=== PATIENT | female | born 1945 | race Caucasian/White ===

== ENCOUNTER 2018-03-09 08:00 | Emergency (ER) | payer OTHER ==
[2018-03-09] MEDS ORDERED: IPRATROPIUM BROM 0.5MG/2.5ML ONE (08:55)
[2018-03-09] MEDS ORDERED: ALBUTEROL 2.5 MG/3 ML NEB SOL ONE (08:57)
[2018-03-09 08:59] LABS: Absolute Lymphocytes (CBC) 1.4 K/uL (0.7-4.9); Absolute Monocytes 1.3 K/uL (0.1-1.3); Absolute Neutrophil 10.6 K/uL (1.8-8.0); Basophils % 0.7 % (0-1.3); Lymphocytes % 10.2 % (15.3-44.8); MCV 89.5 fL (80-100); MPV 9.9 fL (7.6-11.3); Monocytes % 9.9 % (3.3-12.3)
--- NOTE | 2018-03-09 09:03 | RAD REPORT ---
EXAM DESCRIPTION: RAD - Chest Single View - 03/09/2018 8:52 am CLINICAL HISTORY: Shortness of breath COMPARISON: 11/09/2017 FINDINGS: Portable technique limits examination quality. The lungs are mildly emphysematous without focal infiltrate detected. The heart is upper limit normal size. Vague areas of nodularity are seen in the left mid lung and right apex, which may be related t o the end of the ribs, however, pulmonary nodules not excluded. Followup nonemergent CT chest assessm ent would be suggested.
[2018-03-09 09:22] LABS: Protime INR 0.89
[2018-03-09 09:31] LABS: Potassium 3.8 mEq/L (3.6-5.0)
[2018-03-09 09:32] LABS: Magnesium 1.9 mg/dL (1.8-2.5)
--- NOTE | 2018-03-09 09:56 | ER ---
Nurse's Notes [facility] Name: Dina Oviedo Age: 73 yrs Sex: Female : 1945 Arrival Date: 03/09/2018 Time: 08:01 Bed 16 Private MD: Diagnosis: Chronic obstructive pulmonary disease, unspecified Presentation: 03/09 08:14 Presenting complaint: Patient states: " I woke up in the middle of the night with acid ph reflux and I thought maybe I aspirated some of it because I started feeling SOB. My oxygen level at home was 93%. If I sit still my breathing is okay but just walking a short distance makes me feel really winded." Reports cough, denies fever, hx of COPD. Transition of care: patient was not received from another setting of care. Onset of symptoms was March 09, 2018. Initial Sepsis Screen: Does the patient meet any 2 criteria? No. Patient's initial sepsis screen is negative. Does the patient have a suspected source of infection? No. Patient's initial sepsis screen is negative. Care prior to arrival: None. 08:14 Method Of Arrival: Ambulatory ph 08:14 Acuity: SCOTTIE 3 ph Historical: - Allergies: 08:19 Ativan; combative reaction; ph 08:19 tramadol; ph - Home Meds: 08:25 amlodipine 10 mg tab 1 tab once daily [Active]; clonidine HCl 0.2 mg Oral tab 1 tab ph once daily [Active]; clopidogrel 75 mg Oral tab 1 tab once daily for Acute Coronary Syndrome [Active]; Lasix 20 mg oral tab 1 tab once daily [Active]; prednisone 10 mg Oral tab once daily [Active]; Protonix 40 mg Oral TbEC 1 tab once daily [Active]; sotalol 80 mg Oral tab 1 tab 2 times per day [Active]; DuoNeb 0.5 mg-3 mg(2.5 mg base)/3 mL Inhl nebu 3 mL 4 times per day [Active]; Brovana 15 mcg/2 mL inhalation nebu 2 mL 2 times per day [Active]; - PMHx: 08:25 acute respiratory failure; Anxiety; CHF; COPD; Dementia; Depression; heart blockage; ph High Cholesterol; Schizophrenia; Hypertension; - PSHx: 08:25 lung surg; Hysterectomy; Appendectomy; Tonsillectomy; ph - Immunization history:: Adult Immunizations unknown. - Social history:: Smoking status: Patient/guardian denies using tobacco. Screenin:30 Abuse screen: Denies threats or abuse. Denies injuries from another. Nutritional ph screening: No deficits noted. Tuberculosis screening: No symptoms or risk factors identified. Fall Risk None identified. Assessment: 08:30 General: Appears in no apparent distress. uncomfortable, well groomed, Behavior is ph calm, cooperative, appropriate for age, Denies fever, feeling ill. Pain: Denies pain. Neuro: Level of Consciousness is awake, alert, obeys commands, Oriented to person, place, time, situation. Cardiovascular: Reports shortness of breath, Denies chest pain, lightheadedness, nausea, vomiting, Rhythm is regular. Respiratory: Reports shortness of breath on exertion cough that is non-productive, Airway is patent Respiratory effort is even, unlabored, Respiratory pattern is regular, symmetrical, Breath sounds are coarse in right upper lobe and left upper lobe. GI: No signs and/or symptoms were reported involving the gastrointestinal system. EENT: Denies nasal congestion, nasal discharge. Derm: Skin is intact, is healthy with good turgor, Skin is pink, warm \\T\\ dry. Musculoskeletal: Circulation, motion, and sensation intact. Range of motion: intact in all extremities. 09:30 Reassessment: Patient appears in no apparent distress at this time. Patient and/or ph family updated on plan of care and expected duration. Pain level reassessed. Patient is alert, oriented x 3, equal unlabored respirations, skin warm/dry/pink. Pt resting quietly, awaiting lab and Xray results. Vital Signs: 08:17 BP 140 / 65; Pulse 72; Resp 26; Temp 99.0; Pulse Ox 94% on R/A; ph ED Course: 08:01 Patient arrived in ED. ds1 08:13 Cathryn Bonilla, ROMAN is Primary Nurse. ph 08:14 Chandra Vigil PA is PHCP. jr8 08:14 Luis Hearn MD is Attending Physician. jr8 08:17 Triage completed. ph 08:30 Patient has correct armband on for positive identification. Placed in gown. Bed in low ph position. Call light in reach. Side rails up X 1. contractor buyer on. Pulse ox on. NIBP on. Warm blanket given. 08:49 Arm band placed on. ph 08:50 X-ray completed. Portable x-ray completed in exam room. Patient tolerated procedure ml well. 08:53 XRAY Chest (1 view) In Process Unspecified. EDMS 09:12 EKG done, by measurement and sensing technician. reviewed by Chandra JANG. 10:00 No provider procedures requiring assistance completed. Patient did not have IV access ph during this emergency room visit. Administered Medications: 09:01 Drug: Albuterol - atroVENT (3:1) (2.5 mg - 0.5 mg) 3 ml Route: Nebulizer; ph 10:00 Follow up: Response: No adverse reaction; Wheezing diminished ph Outcome: 09:55 Discharge ordered by MD. crum 10:21 Patient left the ED. ph 10:21 Discharged to home via wheelchair. ph 10:21 Condition: good 10:21 Discharge instructions given to patient, Instructed on discharge instructions, follow up and referral plans. Demonstrated understanding of instructions, follow-up care. Signatures: Dispatcher [employer] EDWV Adeola Preston dsJennifer Cates Josh, PA PA jr8 Meme Ruiz Cathryn Bonilla, RN RN ph
--- NOTE | 2018-03-09 09:56 | EDPHYS ---
Physician Documentation [facility] Name: Dina Oviedo Age: 73 yrs Sex: Female : 1945 Arrival Date: 03/09/2018 Time: 08:01 Bed 16 Private MD: ED Physician Luis Hearn HPI: 03/09 08:31 This 73 yrs old Female presents to ER via Ambulatory with complaints of jr8 Shortness Of Breath. 08:31 The patient has shortness of breath at rest. Onset: The symptoms/episode began/occurred jr8 acutely, today. Duration: The symptoms are continuous. The patient's shortness of breath is aggravated by exertion. Associated signs and symptoms: Pertinent positives: non-productive cough, Pertinent negatives: chest pain, dizziness, fever, hemoptysis, loss of consciousness, nausea, vomiting. Severity of symptoms: At their worst the symptoms were moderate in the emergency department the symptoms have improved moderately. It is unknown whether or not the patient has had similar symptoms in the past. The patient has not recently seen a physician. Patient stated that she woke up with indigestion and reflux sensation. Stated that since then has resolved but had shortness of breath at the time and felt as if she was gasping for air. History of pneumonia and wanted to make sure she did not aspirate and cause pneumonia again . Historical: - Allergies: 08:19 Ativan; combative reaction; ph 08:19 tramadol; ph - Home Meds: 08:25 amlodipine 10 mg tab 1 tab once daily [Active]; clonidine HCl 0.2 mg Oral tab 1 tab ph once daily [Active]; clopidogrel 75 mg Oral tab 1 tab once daily for Acute Coronary Syndrome [Active]; Lasix 20 mg oral tab 1 tab once daily [Active]; prednisone 10 mg Oral tab once daily [Active]; Protonix 40 mg Oral TbEC 1 tab once daily [Active]; sotalol 80 mg Oral tab 1 tab 2 times per day [Active]; DuoNeb 0.5 mg-3 mg(2.5 mg base)/3 mL Inhl nebu 3 mL 4 times per day [Active]; Brovana 15 mcg/2 mL inhalation nebu 2 mL 2 times per day [Active]; - PMHx: 08:25 acute respiratory failure; Anxiety; CHF; COPD; Dementia; Depression; heart blockage; ph High Cholesterol; Schizophrenia; Hypertension; - PSHx: 08:25 lung surg; Hysterectomy; Appendectomy; Tonsillectomy; ph - Immunization history:: Adult Immunizations unknown. - Social history:: Smoking status: Patient/guardian denies using tobacco. ROS: 08:31 Eyes: Negative for injury, pain, redness, and discharge, ENT: Negative for injury, jr8 pain, and discharge, Neck: Negative for injury, pain, and swelling, Cardiovascular: Negative for chest pain, palpitations, and edema, Abdomen/GI: Negative for abdominal pain, nausea, vomiting, diarrhea, and constipation, Back: Negative for injury and pain, MS/Extremity: Negative for injury and deformity, Skin: Negative for injury, rash, and discoloration, Neuro: Negative for headache, weakness, numbness, tingling, and seizure. 08:31 Respiratory: Positive for cough, dyspnea on exertion, shortness of breath. Exam: 08:31 Eyes: Pupils equal round and reactive to light, extra-ocular motions intact. Lids and jr8 lashes normal. Conjunctiva and sclera are non-icteric and not injected. Cornea within normal limits. Periorbital areas with no swelling, redness, or edema. ENT: Nares patent. No nasal discharge, no septal abnormalities noted. Tympanic membranes are normal and external auditory canals are clear. Oropharynx with no redness, swelling, or masses, exudates, or evidence of obstruction, uvula midline. Mucous membranes moist. Neck: Trachea midline, no thyromegaly or masses palpated, and no cervical lymphadenopathy. Supple, full range of motion without nuchal rigidity, or vertebral point tenderness. No Meningismus. Cardiovascular: Regular rate and rhythm with a normal S1 and S2. No gallops, murmurs, or rubs. Normal PMI, no JVD. No pulse deficits. Abdomen/GI: Soft, non-tender, with normal bowel sounds. No distension or tympany. No guarding or rebound. No evidence of tenderness throughout. Back: No spinal tenderness. No costovertebral tenderness. Full range of motion. Skin: Warm, dry with normal turgor. Normal color with no rashes, no lesions, and no evidence of cellulitis. MS/ Extremity: Pulses equal, no cyanosis. Neurovascular intact. Full, normal range of motion. Neuro: Awake and alert, GCS 15, oriented to person, place, time, and situation. Cranial nerves II-XII grossly intact. Motor strength 5/5 in all extremities. Sensory grossly intact. Cerebellar exam normal. Normal gait. 08:31 Respiratory: the patient does not display signs of respiratory distress, Respirations: normal, symetrical, no use of accessory muscles, no grunting, no evidence of nasal flaring, no prolonged exhalations, no pursed lip breathing, no retractions, no shallow respirations, no splinting, no tachypnea, Breath sounds: rhonchi, that are mild, are scattered. Vital Signs: 08:17 BP 140 / 65; Pulse 72; Resp 26; Temp 99.0; Pulse Ox 94% on R/A; ph MDM: 08:14 Patient medically screened. jr8 09:54 Data reviewed: vital signs, nurses notes, lab test result(s), EKG, radiologic studies, jr8 plain films, and as a result, I will discharge patient. Data interpreted: Pulse oximetry: on room air is 94 %. Interpretation: baseline for patient . Counseling: I had a detailed discussion with the patient and/or guardian regarding: the historical points, exam findings, and any diagnostic results supporting the discharge/admit diagnosis, lab results, radiology results, the need for outpatient follow up, a family practitioner, to return to the emergency department if symptoms worsen or persist or if there are any questions or concerns that arise at home. Response to treatment: the patient's symptoms have markedly improved after treatment. ED course: No signs for pneumonia. To f/u with PCP. If worse to come back . 03/09 08:20 Order name: Basic Metabolic Panel; Complete Time: 09:42 03/09 08:20 Order name: BNP; Complete Time: 09:51 03/09 08:20 Order name: CBC with Diff; Complete Time: 09:28 03/09 08:20 Order name: Magnesium; Complete Time: :42 03/09 08:20 Order name: PT-INR; Complete Time: :28 03/09 08:20 Order name: Troponin (emerg Dept Use Only); Complete Time: 09:42 03/09 08:20 Order name: XRAY Chest (1 view); Complete Time: 09:04 03/09 08:20 Order name: EKG; Complete Time: 08:21 03/09 08:20 Order name: Cardiac monitoring; Complete Time: 08:48 03/09 08:20 Order name: EKG - Nurse/Tech; Complete Time: 09:02 03/09 08:20 Order name: Labs collected and sent; Complete Time: 08:49 03/09 08:20 Order name: O2 Per Protocol; Complete Time: 08:49 03/09 08:20 Order name: O2 Sat Monitoring; Complete Time: 08:49 Administered Medications: 09:01 Drug: Albuterol - atroVENT (3:1) (2.5 mg - 0.5 mg) 3 ml Route: Nebulizer; ph 10:00 Follow up: Response: No adverse reaction; Wheezing diminished ph Disposition: 03/09/18 09:55 Discharged to Home. Impression: Chronic obstructive pulmonary disease, unspecified. - Condition is Stable. - Discharge Instructions: Chronic Bronchitis. - Medication Reconciliation Form, Thank You Letter, Antibiotic Education, Prescription Opioid Use form. - Follow up: Private Physician; When: 2 - 3 days; Reason: Recheck today's complaints, Continuance of care, Re-evaluation by your physician. - Problem is new. - Symptoms have improved. Addendum: 03/12/2018 20:56 Co-signature as Attending Physician, Luis Hearn MD. r n Signatures: Dispatcher [employer] EDLuis Dumont MD MD rn Chandra Vigil PA PA jr8 Cathryn Bonilla RN RN ph Corrections: (The following items were deleted from the chart) 03/09 10:21 09:55 03/09/2018 09:55 Discharged to Home. Impression: Chronic obstructive pulmonary ph disease, unspecified. Condition is Stable. Forms are Medication Reconciliation Form, Thank You Letter, Antibiotic Education, Prescription Opioid Use. Follow up: Private Physician; When: 2 - 3 days; Reason: Recheck today's complaints, Continuance of care, Re-evaluation by your physician. Problem is new. Symptoms have improved. jr8
[2018-03-09 10:24] VITALS: BP 140/65; TEMP 99; O2SAT 94
--- NOTE | 2018-03-09 10:27 | EKG ---
Test Date: 2018-03-09 Test Time: 08:48:17 Ironing Worker: JOYCE MEASUREMENT RESULTS: Intervals: Rate: 68 MI: 118 QRSD: 64 QT: 434 QTc: 461 [place]: P: 29 MI: 118 QRS: 63 T: 69 INTERPRETIVE STATEMENTS: Sinus rhythm with premature atrial complexes Otherwise normal ECG Compared to ECG 10/15/2017 11:06:02 Atrial premature complex(es) now present Electronically Signed On 03-09-18 10:26:59 CDT by Bulmaro Pittman
== END 2018-03-09 10:21 | disposition home or self-care (01) ==
LOC: ER 08:00
DX: J44.9 Chronic obstructive pulmonary disease, unspecified (principal); I10 Essential (primary) hypertension; I50.9 Heart failure, unspecified; F32.9 Major depressive disorder, single episode, unspecified; E78.5 Hyperlipidemia, unspecified; F41.9 Anxiety disorder, unspecified; Z88.6 Allergy status to analgesic agent; Z88.8 Allergy status to other drugs, medicaments and biological substances
CPT/HCPCS: 36415; 71045; 80048; 83735; 83880; 84484; 85025; 85610; 93005; 94640; 99284

== ENCOUNTER 2018-09-25 09:58 | Emergency (ER) | payer OTHER ==
[2018-09-25] MEDS ORDERED: METHYLPREDNISOLONE 125 MG INJ ONE (10:46)
[2018-09-25] MEDS ORDERED: LEVALBUTEROL 1.25 MG/3 ML NEB ONE (10:47)
--- NOTE | 2018-09-25 11:23 | RAD REPORT ---
EXAM DESCRIPTION: RAD - Chest Pa And Lat (2 Views) - 09/25/2018 10:49 am CLINICAL HISTORY: Shortness of breath, dyspnea COMPARISON: April 2018 TECHNIQUE: PA and lateral views of the chest were obtained. FINDINGS: The lungs are fibrotic. Diaphragm is flattened. Interstitial pattern is not clearly differ ent from April. Minimal interstitial edema or infiltrate could be masked by the chronic disease. No f ocal consolidation, mass or significant failure finding. Heart size is normal and central vasculature is within normal limits. No pleural effusion or pneumothorax seen. No acute bony finding noted. Mi dthoracic wedge compression unchanged. No aortic abnormality. IMPRESSION: Chronic interstitial lung disease similar to comparison. No acute finding.
[2018-09-25 11:36] LABS: BUN Blood Urea Nitrogen 12 mg/dL (7-18); Bicarbonate 28 mmol/L (21-32); CKMB Creatine Kinase MB < 1.0 ng/mL (0.3-3.6); Creatine Phosphokinase 67 U/L (26-192); Glucose Level 120 mg/dL (74-106); NT PRO-BNP 1603 pg/mL (<125); Sodium Level 141 mmol/L (136-145); Troponin (Emerg Dept Use Only) < 0.02 ng/mL (0.0-0.045)
[2018-09-25 11:39] LABS: Potassium 2.8 mmol/L (3.5-5.1)
[2018-09-25 11:42] LABS: Absolute Lymphocytes (CBC) 1.3 K/uL (0.7-4.9); Absolute Monocytes 0.7 K/uL (0.1-1.3); Absolute Neutrophil 5.4 K/uL (1.8-8.0); Basophils % 0.8 % (0-1.3); Eosinophils % 2.4 % (0-4.4); Hematocrit 42.9 % (36.0-45.0); MCH 31.1 pg (27.0-35.0); MCV 90.7 fL (80-100); MPV 11.2 fL (7.6-11.3); Monocytes % 9.1 % (3.3-12.3); RBC Red Blood Cell Count 4.73 M/uL (3.86-4.86)
--- NOTE | 2018-09-25 12:09 | EKG ---
Test Date: 2018-09-25 Test Time: 10:16:32 Head Of Marketing: RODRIGO MEASUREMENT RESULTS: Intervals: Rate: 67 AR: 134 QRSD: 60 QT: 506 QTc: 534 [place]: P: 90 AR: 134 QRS: 56 T: 1 INTERPRETIVE STATEMENTS: Sinus rhythm with marked sinus arrhythmia ST & T wave abnormality, consider inferior ischemia Prolonged QT Abnormal ECG Compared to ECG 03/09/2018 08:48:17 ST (T wave) deviation now present Possible ischemia now present Prolonged QT interval now present Atrial premature complex(es) no longer present Electronically Signed On 09-25-18 12:09:00 REGIONAL OWNER OPERATOR TRUCK DRIVER by Bulmaro Pittman
[2018-09-25] MEDS ORDERED: FUROSEMIDE 20 MG/ 2ML VIAL ONE (12:25)
[2018-09-25] MEDS ORDERED: KCL 20 MEQ/100 mL IVPB 20 MEQ/100 ML BAG IV ONE (12:26)
--- NOTE | 2018-09-25 14:56 | ER ---
Nurse's Notes [facility] Name: Dina Oviedo Age: 73 yrs Sex: Female : 1945 Arrival Date: 09/25/2018 Time: 10:01 Bed 6 Private MD: Devyn Cain V Diagnosis: Dyspnea, unspecified;Chronic obstructive pulmonary disease, unspecified Presentation: 09/25 10:09 Presenting complaint: Patient states: Report shortness of breath at rest since this jl7 morning, denies chest pain. Transition of care: patient was not received from another setting of care. Onset of symptoms was September 25, 2018. Risk Assessment: Do you want to hurt yourself or someone else? Patient reports no desire to harm self or others. Initial Sepsis Screen: Does the patient meet any 2 criteria? No. Patient's initial sepsis screen is negative. Does the patient have a suspected source of infection? No. Patient's initial sepsis screen is negative. Care prior to arrival: None. 10:09 Method Of Arrival: Ambulatory jl7 10:09 Acuity: SCOTTIE 3 jl7 Triage Assessment: 10:11 General: Appears in no apparent distress. uncomfortable, Behavior is calm, cooperative, jl7 appropriate for age. Pain: Denies pain. Neuro: Level of Consciousness is awake, alert, obeys commands, Oriented to person, place, time, situation. Cardiovascular: Patient's skin is warm and dry. Respiratory: Reports shortness of breath at rest Airway is patent Respiratory effort is even, labored, Respiratory pattern is symmetrical, tachypnea Onset: The symptoms/episode began/occurred this morning, the patient has moderate shortness of breath. Derm: Skin is pink, warm \T\ dry. Historical: - Allergies: 10:11 Ativan; combative reaction; jl7 10:11 tramadol; jl7 - PMHx: 10:11 acute respiratory failure; CHF; Anxiety; COPD; Dementia; Depression; heart blockage; jl7 High Cholesterol; Hypertension; Schizophrenia; - PSHx: 10:11 lung surg; Hysterectomy; Appendectomy; Tonsillectomy; jl7 - Immunization history:: Adult Immunizations up to date. - Social history:: Smoking status: Patient/guardian denies using tobacco. - Ebola Screening: : No symptoms or risks identified at this time. - Family history:: not pertinent. - Hospitalizations: : No recent hospitalization is reported. Screenin:15 Abuse screen: Denies threats or abuse. Denies injuries from another. Nutritional sg screening: No deficits noted. Tuberculosis screening: No symptoms or risk factors identified. Never had TB. Fall Risk None identified. Assessment: 10:15 General: Appears in no apparent distress. comfortable, well groomed, well developed, sg well nourished, Behavior is calm, cooperative, appropriate for age. Pain: Denies pain. Neuro: Level of Consciousness is awake, alert, obeys commands, Oriented to person, place, time, situation, Machine Stripper are equal bilaterally Moves all extremities. Full function Gait is steady, with a walker. Speech is normal, Facial symmetry appears normal. Cardiovascular: Capillary refill is brisk in bilateral fingers Patient's skin is warm and dry. Pulses are palpable in right radial artery and left radial artery Chest pain is denied. Respiratory: Reports shortness of breath at rest Airway is patent Respiratory effort is even, unlabored, Respiratory pattern is regular, symmetrical, Breath sounds are coarse bilaterally. the patient has mild shortness of breath. GI: Abdomen is round non-distended, Bowel sounds present X 4 quads. Reports tolerance of fluids, tolerance of food, decreased appetite for several months. : No signs and/or symptoms were reported regarding the genitourinary system. EENT: No signs and/or symptoms were reported regarding the EENT system. Derm: Skin is intact, is healthy with good turgor, Skin is dry, Skin is pale, Skin temperature is warm. Musculoskeletal: No signs and/or symptoms reported regarding the musculoskeletal system. 10:30 Cardiovascular: Rhythm is sinus rhythm. sg 11:20 Reassessment: Patient appears in no apparent distress at this time. Patient and/or sg family updated on plan of care and expected duration. Pain level reassessed. Patient is alert, oriented x 3, equal unlabored respirations, skin warm/dry/pink. Patient states feeling better. 12:30 Reassessment: Patient appears in no apparent distress at this time. Patient and/or sg family updated on plan of care and expected duration. Pain level reassessed. Patient is alert, oriented x 3, equal unlabored respirations, skin warm/dry/pink. Patient states feeling better. 13:59 Reassessment: Patient appears in no apparent distress at this time. Patient and/or sg family updated on plan of care and expected duration. Pain level reassessed. Patient is alert, oriented x 3, equal unlabored respirations, skin warm/dry/pink. IV potassium continues to infuse. Vital Signs: 10:11 BP 133 / 64; Pulse 69; Resp 24 S; Pulse Ox 95% on R/A; Weight 91.63 kg (R); Height 5 jl7 ft. 6 in. (167.64 cm) (R); Pain 0/10; 11:20 BP 132 / 66; Pulse 70; Resp 22; Pulse Ox 98% on R/A; Pain 0/10; sg 12:20 BP 133 / 64; Pulse 66; Pulse Ox 96% on R/A; Pain 0/10; sg 10:11 Body Mass Index 32.60 (91.63 kg, 167.64 cm) jl7 ED Course: 10:01 Patient arrived in ED. sb2 10:01 Devyn Cain MD is Private Physician. sb2 10:10 Triage completed. jl7 10:11 Guilherme Krueger, RN is Primary Nurse. sg 10:11 Arm band placed on right wrist. jl7 10:15 Patient has correct armband on for positive identification. Bed in low position. Call sg light in reach. Side rails up X2. cafeteria monitor on. Pulse ox on. NIBP on. 10:20 Luis Hearn MD is Attending Physician. rn 10:30 No provider procedures requiring assistance completed. sg 10:35 EKG done, by master technician. reviewed by Akhil JANG. tc 10:43 X-ray completed. Patient tolerated procedure well. Patient moved back from radiology. ml 10:45 XRAY Chest Pa And Lat (2 Views) In Process Unspecified. EDMS 10:45 First set of blood cultures drawn by me. jb1 11:00 Second set of blood cultures drawn by me. jb1 11:07 Initial lab(s) drawn, by me, sent to lab. Inserted saline lock: 20 gauge in left jb1 antecubital area, using aseptic technique. Blood collected. 13:15 Repeat lab(s) drawn. by me, sent to lab. repeat trop sent to lab as ordered by .sg 14:55 Devyn Cain MD is Referral Physician. rn 15:40 IV discontinued, intact, bleeding controlled, No redness/swelling at site. Pressure sg dressing applied. Administered Medications: 11:35 Drug: SOLU-Medrol 125 mg Route: IVP; Site: left antecubital; sg 12:00 Follow up: Response: No adverse reaction sg 11:35 Drug: Xopenex (3) 1.25 mg Route: Inhalation; sg 12:20 Drug: Potassium Chloride 20 mEq Route: IV; Rate: calculated rate; Site: left sg antecubital; 12:20 Drug: Lasix 20 mg Route: IVP; Site: left antecubital; sg Outcome: 14:56 Discharge ordered by . rn 15:40 Discharged to home ambulatory, with family. sg 15:40 Condition: good 15:40 Discharge instructions given to patient, Instructed on discharge instructions, follow up and referral plans. medication usage, safety practices, Demonstrated understanding of instructions, follow-up care, medications, Prescriptions given X 1. 15:47 Patient left the ED. sg Signatures: Dispatcher [employer] EDMS Brody Crystal jb1 Guilherme Krueger, RN Jennifer Coyne Roman, MD MD rn Callis, Tiffany, trust officer EKG Ttc Pauly Gupta RN RN jl7 Sophia Carlton sb2
--- NOTE | 2018-09-25 14:57 | EDPHYS ---
Physician Documentation [facility] Name: Dina Oviedo Age: 73 yrs Sex: Female : 1945 Arrival Date: 09/25/2018 Time: 10:01 Bed 6 Private MD: Devyn Cain V ED Physician Luis Hearn HPI: 09/25 10:28 This 73 yrs old Female presents to ER via Ambulatory with complaints of rn Breathing Difficulty. 10:28 The patient has shortness of breath at rest, with light activity. Onset: The rn symptoms/episode began/occurred this morning. Duration: The symptoms are continuous. The patient's shortness of breath is aggravated by exertion, light activity. Severity of symptoms: At their worst the symptoms were mild in the emergency department the symptoms are unchanged. The patient has not recently seen a physician. Reports sob, began this morning when woke up, no chest pain/nausea/vomiting/diarrhea, + mild cough, no fever.. Historical: - Allergies: 10:11 Ativan; combative reaction; jl7 10:11 tramadol; jl7 - PMHx: 10:11 acute respiratory failure; CHF; Anxiety; COPD; Dementia; Depression; heart blockage; jl7 High Cholesterol; Hypertension; Schizophrenia; - PSHx: 10:11 lung surg; Hysterectomy; Appendectomy; Tonsillectomy; jl7 - Immunization history:: Adult Immunizations up to date. - Social history:: Smoking status: Patient/guardian denies using tobacco. - Ebola Screening: : No symptoms or risks identified at this time. - Family history:: not pertinent. - Hospitalizations: : No recent hospitalization is reported. ROS: 10:28 Constitutional: Negative for fever, chills, and weight loss, Eyes: Negative for injury, rn pain, redness, and discharge, Neck: Negative for injury, pain, and swelling, Cardiovascular: Negative for chest pain, palpitations, and edema, Respiratory: + sob and cough Abdomen/GI: Negative for abdominal pain, nausea, vomiting, diarrhea, and constipation, MS/Extremity: Negative for injury and deformity, Skin: Negative for injury, rash, and discoloration, Neuro: Negative for headache, weakness, numbness, tingling, and seizure. Exam: 10:28 Constitutional: This is a well developed, well nourished patient who is awake, alert, rn and in no acute distress. Head/Face: Normocephalic, atraumatic. Eyes: Pupils equal round and reactive to light, extra-ocular motions intact. Lids and lashes normal. Conjunctiva and sclera are non-icteric and not injected. Cornea within normal limits. Periorbital areas with no swelling, redness, or edema. ENT: MMM, no stridor Cardiovascular: Regular rate and rhythm, No pulse deficits. Respiratory: + mild tachypnea, + faint wheezing, no retractions, speaking full sentences Abdomen/GI: soft, non-tender MS/ Extremity: Pulses equal, no cyanosis. Neurovascular intact. Full, normal range of motion. Equal circumference. Neuro: Awake and alert, GCS 15, oriented to person, place, time, and situation. Cranial nerves II-XII grossly intact. Motor strength 5/5 in all extremities. Sensory grossly intact. Vital Signs: 10:11 BP 133 / 64; Pulse 69; Resp 24 S; Pulse Ox 95% on R/A; Weight 91.63 kg (R); Height 5 jl7 ft. 6 in. (167.64 cm) (R); Pain 0/10; 11:20 BP 132 / 66; Pulse 70; Resp 22; Pulse Ox 98% on R/A; Pain 0/10; sg 12:20 BP 133 / 64; Pulse 66; Pulse Ox 96% on R/A; Pain 0/10; sg 10:11 Body Mass Index 32.60 (91.63 kg, 167.64 cm) jl7 MDM: 10:20 Patient medically screened. rn 14:52 Differential diagnosis: Anemia Anxiety Reaction CHF exacerbation, Chronic Obstructive rn Pulmonary Disease pulmonary edema, reactive airway disease. Data reviewed: vital signs, nurses notes, lab test result(s), EKG, radiologic studies, plain films, and as a result, I will discharge patient. Counseling: I had a detailed discussion with the patient and/or guardian regarding: the historical points, exam findings, and any diagnostic results supporting the discharge/admit diagnosis, lab results, radiology results, the need for outpatient follow up, to return to the emergency department if symptoms worsen or persist or if there are any questions or concerns that arise at home. Special discussion: I discussed with the patient/guardian in detail that at this point there is no indication for admission to the hospital. It is understood, however, that if the symptoms persist or worsen the patient needs to return immediately for re-evaluation. Based on the history and exam findings, there is no indication for further emergent testing or inpatient evaluation. I discussed with the patient/guardian the need to see the primary care provider for further evaluation of the symptoms. ED course: Back to baseline since shortly after arrival, trop neg x 2, no acute ischemia on ECG, improved symptoms, asymptomatic, laying flat, no change in cxr, will dc home with steroids, and pcp f/u along with continuation of lasix. . 09/25 10:28 Order name: Blood Culture Adult (2) rn 09/25 10:28 Order name: BMP; Complete Time: rn 09/25 10:28 Order name: CBC with Diff; Complete Time: rn 09/25 10:28 Order name: Ckmb; Complete Time: rn 09/25 10:28 Order name: CPK; Complete Time: : rn 09/25 10:28 Order name: NT PRO-BNP; Complete Time: : rn 09/25 10:28 Order name: XRAY Chest Pa And Lat (2 Views); Complete Time: 11:24 rn 09/25 10:28 Order name: Troponin (emerg Dept Use Only); Complete Time: : rn 09/25 10:28 Order name: EKG; Complete Time: 10: rn 09/25 13:30 Order name: Troponin (emerg Dept Use Only); Complete Time: 14:52 aj1 09/25 10:28 Order name: Cardiac monitoring; Complete Time: 11: rn 09/25 10:28 Order name: EKG - Nurse/Tech; Complete Time: : rn 09/25 10:28 Order name: IV Saline Lock; Complete Time: : rn 09/25 10:28 Order name: Labs collected and sent; Complete Time: : rn 09/25 10:28 Order name: O2 Per Protocol; Complete Time: : rn 09/25 10:28 Order name: O2 Sat Monitoring; Complete Time: 11: rn Administered Medications: 11:35 Drug: SOLU-Medrol 125 mg Route: IVP; Site: left antecubital; sg 12:00 Follow up: Response: No adverse reaction sg 11:35 Drug: Xopenex (3) 1.25 mg Route: Inhalation; sg 12:20 Drug: Potassium Chloride 20 mEq Route: IV; Rate: calculated rate; Site: left sg antecubital; 12:20 Drug: Lasix 20 mg Route: IVP; Site: left antecubital; sg Disposition: 09/25/18 14:56 Discharged to Home. Impression: Dyspnea, unspecified, Chronic obstructive pulmonary disease, unspecified. - Condition is Stable. - Discharge Instructions: Shortness of Breath. - Prescriptions for Prednisone 20 mg Oral Tablet - take 3 tablet by ORAL route once daily for 5 days; 15 tablet. - Medication Reconciliation Form, Thank You Letter, Antibiotic Education, Prescription Opioid Use form. - Follow up: Devyn Cain MD; When: 2 - 3 days; Reason: Recheck today's complaints, Re-evaluation by your physician. - Problem is new. - Symptoms have improved. Signatures: Dispatcher [employer] EDMS Guilherme Krueger RN RN sg Luis Hearn MD MD rn Leal, Jahala, RN RN jl7 Corrections: (The following items were deleted from the chart) 15:47 14:56 09/25/2018 14:56 Discharged to Home. Impression: Dyspnea, unspecified; Chronic sg obstructive pulmonary disease, unspecified. Condition is Stable. Forms are Medication Reconciliation Form, Thank You Letter, Antibiotic Education, Prescription Opioid Use. Follow up: Devyn Cain; When: 2 - 3 days; Reason: Recheck today's complaints, Re-evaluation by your physician. Problem is new. Symptoms have improved. rn
[2018-09-25 15:56] VITALS: BP 133/64; O2SAT 96
== END 2018-09-25 15:47 | disposition home or self-care (01) ==
LOC: ER 09:58
DX: J44.9 Chronic obstructive pulmonary disease, unspecified (principal); I10 Essential (primary) hypertension; Z88.5 Allergy status to narcotic agent; Z88.8 Allergy status to other drugs, medicaments and biological substances
CPT/HCPCS: 36415; 71046; 80048; 82550; 82553; 83880; 84484 ×2; 85025; 87040 ×2; 87205; 93005; 96374; 96375; 99285; J1940; J2930

== ENCOUNTER 2019-07-01 11:04 | Emergency (ER) | payer OTHER ==
[2019-07-01 12:21] LABS: Absolute Lymphocytes (CBC) 1.4 K/uL (0.7-4.9); Basophils % 0.9 % (0-1.3); Lymphocytes % 19.8 % (15.3-44.8); MPV 11.6 fL (7.6-11.3); RBC Red Blood Cell Count 5.38 M/uL (3.86-4.86)
[2019-07-01 12:23] LABS: Protime INR 0.95
[2019-07-01 12:40] LABS: ALT/SGPT 16 U/L (12-78); AST/SGOT 19 U/L (15-37); Alkaline Phosphatase 116 U/L (45-117); BUN Blood Urea Nitrogen 12 mg/dL (7-18); Bicarbonate 19 mmol/L (21-32); Bilirubin Direct < 0.1 mg/dL (0-0.2); Bilirubin Total 0.3 mg/dL (0.2-1.0); Glucose Level 140 mg/dL (74-106); Lipase 156 U/L (73-393); Magnesium 2.1 mg/dL (1.8-2.4); NT PRO-BNP 873 pg/mL (<450); Potassium 3.7 mmol/L (3.5-5.1); Protein, Total 8.2 g/dL (6.4-8.2); Sodium Level 144 mmol/L (136-145); Troponin (Emerg Dept Use Only) < 0.02 ng/mL (0.0-0.045)
--- NOTE | 2019-07-01 13:05 | RAD REPORT ---
EXAM DESCRIPTION: RAD - Chest Single View - 07/01/2019 12:15 pm CLINICAL HISTORY: Cough, hypertension COMPARISON: August 2018 TECHNIQUE: AP portable chest image was obtained 1202 hours . FINDINGS: No focal lung parenchymal process. Lung markings match comparison. Heart and vasculature a re normal. No measurable pleural effusion and no pneumothorax. No acute bony abnormality seen. No acu te aortic findings suspected. IMPRESSION: No acute cardiopulmonary process.
--- NOTE | 2019-07-01 14:12 | ER ---
Nurse's Notes [facility] Name: Dina Oviedo Age: 74 yrs Sex: Female : 1945 Arrival Date: 07/01/2019 Time: 11:07 Bed 7 Private MD: Devyn Cain V Diagnosis: Essential (primary) hypertension;Anxiety disorder, unspecified;Chronic obstructive pulmonary disease, unspecified Presentation: 07/01 11:08 Presenting complaint: Patient states: last week went to see Dr Cain and she doubled sv her Clonidine and was working good. Monday she had a colonoscopy and her BP has been high since then. c/o dizziness. Denies CP and SOB. Transition of care: patient was not received from another setting of care. Onset of symptoms was June 28, 2019. Risk Assessment: Do you want to hurt yourself or someone else? Patient reports no desire to harm self or others. Initial Sepsis Screen: Does the patient meet any 2 criteria? No. Patient's initial sepsis screen is negative. Does the patient have a suspected source of infection? No. Patient's initial sepsis screen is negative. Care prior to arrival: None. 11:08 Method Of Arrival: Ambulatory sv 11:08 Acuity: SCOTTIE 3 sv Triage Assessment: 11:08 General: Appears in no apparent distress. comfortable, well developed, Behavior is sv calm, cooperative, appropriate for age. Pain: Denies pain. Neuro: Level of Consciousness is awake, alert, obeys commands, Oriented to person, place, time, situation, Reports dizziness. Respiratory: Respiratory effort is even, unlabored, Respiratory pattern is regular, symmetrical. Derm: Skin is pink, warm \T\ dry. Historical: - Allergies: 11:10 Ativan; combative reaction; sv 11:10 tramadol; sv - PMHx: 11:10 acute respiratory failure; Anxiety; CHF; COPD; Dementia; Depression; heart blockage; sv High Cholesterol; Hypertension; Schizophrenia; - PSHx: 11:10 Hysterectomy; Appendectomy; Tonsillectomy; lung surg; sv - Immunization history:: Adult Immunizations up to date. - Social history:: Smoking status: Patient/guardian denies using tobacco, Patient/guardian denies using alcohol. - Ebola Screening: : Patient negative for fever greater than or equal to 101.5 degrees Fahrenheit, and additional compatible Ebola Virus Disease symptoms Patient denies exposure to infectious person Patient denies travel to an Ebola-affected area in the 21 days before illness onset. - Family history:: not pertinent. Screenin:01 Abuse screen: Denies threats or abuse. Denies injuries from another. Nutritional hj screening: No deficits noted. Tuberculosis screening: No symptoms or risk factors identified. Fall Risk None identified. Assessment: 14:32 Reassessment: Patient appears in no apparent distress at this time. Patient and/or iw family updated on plan of care and expected duration. Pain level reassessed. Patient is alert, oriented x 3, equal unlabored respirations, skin warm/dry/pink. Patient states feeling better. Patient states symptoms have improved. Vital Signs: 11:10 BP 145 / 71; Pulse 61; Resp 18; Temp 97.9(TE); Pulse Ox 97% ; Weight 76.2 kg; Height 5 sv ft. 6 in. (167.64 cm); Pain 0/10; 12:30 BP 112 / 66; Pulse 69; Resp 18; Pulse Ox 98% on R/A; hj 14:18 BP 120 / 64 Supine; Pulse 76; Resp 18; Pulse Ox 99% on R/A; hj 14:18 BP 129 / 76 Sitting; Pulse 74; Resp 18; Pulse Ox 99% on R/A; hj 14:18 BP 120 / 76 Standing; Pulse 77; Resp 18; Pulse Ox 99% on R/A; hj 11:10 Body Mass Index 27.11 (76.20 kg, 167.64 cm) sv ED Course: 11:07 Patient arrived in ED. as 11:08 Devyn Cain MD is Private Physician. as 11:10 Arm band placed on. sv 11:20 Triage completed. sv 11:48 Eric Lopez MD is Attending Physician. fanny 11:50 Favian Osborne, ROMAN is Primary Nurse. hj 12:01 Inserted saline lock: 22 gauge in right forearm, using aseptic technique. Blood hj collected. 12:02 Patient has correct armband on for positive identification. Placed in gown. Bed in low hj position. Call light in reach. Side rails up X 1. Adult w/ patient. 12:16 XRAY Chest (1 view) In Process Unspecified. EDMS 12:29 EKG done, by ED staff, reviewed by Eric Lopez MD. em1 14:08 Devyn Cain MD is Referral Physician. [facility] 14:32 No provider procedures requiring assistance completed. IV discontinued, intact, iw bleeding controlled, No redness/swelling at site. Pressure dressing applied. Administered Medications: No medications were administered Outcome: 14:09 Discharge ordered by . fanny 14:32 Discharged to home via wheelchair, with family. iw 14:32 Condition: good 14:32 Discharge instructions given to patient, Instructed on discharge instructions, follow up and referral plans. Demonstrated understanding of instructions, follow-up care. 14:33 Patient left the ED. iw Signatures: Dispatcher [employer] EDMS Rosemary Bonilla RN RN Eric Berkowitz MD MD cha Martinez, Misty Lemos RN RN Len Castro em1 Favian Osborne RN RN Corrections: (The following items were deleted from the chart) 11:10 11:08 Presenting complaint: Patient states: last week went to see Dr Cain and she sv doubled her Clonidine and was working good. Monday she had a colonoscopy and her BP has been high since then. sv 11:12 11:10 Temp 97.9F Temporal; 76.2 kg; Height 5 ft. 6 in.; BMI: 27.1; Pain 0/10; sv sv 11:12 11:10 BP 145 / 71; Resp 18bpm; Temp 97.9F Temporal; 76.2 kg; Height 5 ft. 6 in.; BMI: sv 27.1; Pain 0/10; sv
--- NOTE | 2019-07-01 14:13 | EDPHYS ---
Physician Documentation [facility] Name: Dina Oviedo Age: 74 yrs Sex: Female : 1945 Arrival Date: 07/01/2019 Time: 11:07 Bed 7 Private MD: Devyn Cain V ED Physician Eric Lopez HPI: 07/01 14:06 This 74 yrs old Female presents to ER via Ambulatory with complaints of High fanny Blood Pressure. 14:06 The patient has elevated blood pressure and discovered this at home. Onset: The fanny symptoms/episode began/occurred just prior to arrival, this morning. Modifying factors: The symptoms are aggravated by activity, The symptoms are alleviated by remaining still. Associated signs and symptoms: The patient has no apparent associated signs or symptoms. Severity of symptoms: At its worst the blood pressure was mild, moderate, in the emergency department the blood pressure is improved, moderately. The patient has experienced similar episodes in the past, several times. Historical: - Allergies: 11:10 Ativan; combative reaction; sv 11:10 tramadol; sv - PMHx: 11:10 acute respiratory failure; Anxiety; CHF; COPD; Dementia; Depression; heart blockage; sv High Cholesterol; Hypertension; Schizophrenia; - PSHx: 11:10 Hysterectomy; Appendectomy; Tonsillectomy; lung surg; sv - Immunization history:: Adult Immunizations up to date. - Social history:: Smoking status: Patient/guardian denies using tobacco, Patient/guardian denies using alcohol. - Ebola Screening: : Patient negative for fever greater than or equal to 101.5 degrees Fahrenheit, and additional compatible Ebola Virus Disease symptoms Patient denies exposure to infectious person Patient denies travel to an Ebola-affected area in the 21 days before illness onset. - Family history:: not pertinent. ROS: 14:06 Constitutional: Negative for fever, chills, and weight loss, Eyes: Negative for injury, fanny pain, redness, and discharge, ENT: Negative for injury, pain, and discharge, Neck: Negative for injury, pain, and swelling, Cardiovascular: Negative for chest pain, palpitations, and edema, Respiratory: Negative for shortness of breath, cough, wheezing, and pleuritic chest pain, Abdomen/GI: Negative for abdominal pain, nausea, vomiting, diarrhea, and constipation, Back: Negative for injury and pain, : Negative for injury, bleeding, discharge, and swelling, MS/Extremity: Negative for injury and deformity, Skin: Negative for injury, rash, and discoloration, Neuro: Negative for headache, weakness, numbness, tingling, and seizure, Psych: Negative for depression, anxiety, suicide ideation, homicidal ideation, and hallucinations, Allergy/Immunology: Negative for hives, rash, and allergies, Endocrine: Negative for neck swelling, polydipsia, polyuria, polyphagia, and marked weight changes, Hematologic/Lymphatic: Negative for swollen nodes, abnormal bleeding, and unusual bruising. Exam: 14:06 Constitutional: This is a well developed, well nourished patient who is awake, alert, fanny and in no acute distress. Head/Face: Normocephalic, atraumatic. Eyes: Pupils equal round and reactive to light, extra-ocular motions intact. Lids and lashes normal. Conjunctiva and sclera are non-icteric and not injected. Cornea within normal limits. Periorbital areas with no swelling, redness, or edema. ENT: Nares patent. No nasal discharge, no septal abnormalities noted. Tympanic membranes are normal and external auditory canals are clear. Oropharynx with no redness, swelling, or masses, exudates, or evidence of obstruction, uvula midline. Mucous membranes moist. Neck: Trachea midline, no thyromegaly or masses palpated, and no cervical lymphadenopathy. Supple, full range of motion without nuchal rigidity, or vertebral point tenderness. No Meningismus. Chest/axilla: Normal chest wall appearance and motion. Nontender with no deformity. No lesions are appreciated. Cardiovascular: Regular rate and rhythm with a normal S1 and S2. No gallops, murmurs, or rubs. Normal PMI, no JVD. No pulse deficits. Respiratory: Lungs have equal breath sounds bilaterally, clear to auscultation and percussion. No rales, rhonchi or wheezes noted. No increased work of breathing, no retractions or nasal flaring. Abdomen/GI: Soft, non-tender, with normal bowel sounds. No distension or tympany. No guarding or rebound. No evidence of tenderness throughout. Back: No spinal tenderness. No costovertebral tenderness. Full range of motion. Skin: Warm, dry with normal turgor. Normal color with no rashes, no lesions, and no evidence of cellulitis. MS/ Extremity: Pulses equal, no cyanosis. Neurovascular intact. Full, normal range of motion. Neuro: Awake and alert, GCS 15, oriented to person, place, time, and situation. Cranial nerves II-XII grossly intact. Motor strength 5/5 in all extremities. Sensory grossly intact. Cerebellar exam normal. Normal gait. Psych: Awake, alert, with orientation to person, place and time. Behavior, mood, and affect are within normal limits. Vital Signs: 11:10 BP 145 / 71; Pulse 61; Resp 18; Temp 97.9(TE); Pulse Ox 97% ; Weight 76.2 kg; Height 5 sv ft. 6 in. (167.64 cm); Pain 0/10; 12:30 BP 112 / 66; Pulse 69; Resp 18; Pulse Ox 98% on R/A; hj 14:18 BP 120 / 64 Supine; Pulse 76; Resp 18; Pulse Ox 99% on R/A; hj 14:18 BP 129 / 76 Sitting; Pulse 74; Resp 18; Pulse Ox 99% on R/A; hj 14:18 BP 120 / 76 Standing; Pulse 77; Resp 18; Pulse Ox 99% on R/A; hj 11:10 Body Mass Index 27.11 (76.20 kg, 167.64 cm) sv MDM: 11:48 Patient medically screened. [facility] 14:08 Data reviewed: vital signs, nurses notes, lab test result(s), EKG, radiologic studies, fanny plain films. 07/01 11:49 Order name: Basic Metabolic Panel; Complete Time: 14: [facility] 07/01 11:49 Order name: CBC with Diff; Complete Time: 14: [facility] 07/01 11:49 Order name: LFT's; Complete Time: 14: [facility] 07/01 11:49 Order name: Magnesium; Complete Time: 14: [facility] 07/01 11:49 Order name: NT PRO-BNP; Complete Time: 14: [facility] 07/01 11:49 Order name: PT-INR; Complete Time: 14: [facility] 07/01 11:49 Order name: Troponin (emerg Dept Use Only); Complete Time: 14:06 [facility] 07/01 11:49 Order name: XRAY Chest (1 view); Complete Time: 14: [facility] 07/01 11:49 Order name: EKG; Complete Time: 11:51 [facility] 07/01 11:49 Order name: Cardiac monitoring; Complete Time: 11:51 [facility] 07/01 11:49 Order name: EKG - Nurse/Tech; Complete Time: 12:29 [facility] 07/01 11:49 Order name: Lipase; Complete Time: 14:06 [facility] 07/01 11:49 Order name: Urine Culture [facility] 07/01 14:27 Order name: Urine Dipstick--Ancillary (enter results) ms 07/01 11:49 Order name: IV Saline Lock; Complete Time: 12:01 [facility] 07/01 11:49 Order name: Labs collected and sent; Complete Time: 12:01 [facility] 07/01 11:49 Order name: O2 Per Protocol; Complete Time: 11:51 [facility] 07/01 11:49 Order name: O2 Sat Monitoring; Complete Time: 11:51 [facility] 07/01 11:49 Order name: Urine Dipstick-Ancillary (obtain specimen); Complete Time: 14:26 [facility] 07/01 14:10 Order name: Orthostatics; Complete Time: 14:14 [facility] Administered Medications: No medications were administered Disposition: 07/01/19 14:09 Discharged to Home. Impression: Essential (primary) hypertension, Anxiety disorder, unspecified, Chronic obstructive pulmonary disease, unspecified. - Condition is Stable. - Discharge Instructions: Panic Attacks, Hypertension, Hypertension, [id number], How to Take Your Blood Pressure, [id number], Panic Attacks, [id number], Managing Your Hypertension. - Medication Reconciliation Form, Thank You Letter, Antibiotic Education, Prescription Opioid Use form. - Follow up: Devyn Cain MD; When: 2 - 3 days; Reason: Recheck today's complaints, Continuance of care, Re-evaluation by your physician. - Problem is new. - Symptoms have improved. Signatures: Dispatcher [employer] EDRosemary Schmid RN RN sv Anderson, Corey, MD MD cha Williams, Irene, RN RN iw Joaquin, Henry, RN RN Corrections: (The following items were deleted from the chart) 14:33 14:09 07/01/2019 14:09 Discharged to Home. Impression: Essential (primary) iw hypertension; Anxiety disorder, unspecified; Chronic obstructive pulmonary disease, unspecified. Condition is Stable. Forms are Medication Reconciliation Form, Thank You Letter, Antibiotic Education, Prescription Opioid Use. Follow up: Devyn Cain; When: 2 - 3 days; Reason: Recheck today's complaints, Continuance of care, Re-evaluation by your physician. Problem is new. Symptoms have improved. fanny
[2019-07-01 14:49] LABS: Urine Blood NEGATIVE (NEG); Urine Glucose NEGATIVE (NEG); Urine Protein 1+ (NEG); Urine Specific Gravity 1.015 (1.005-1.030)
[2019-07-01 15:24] VITALS: TEMP 97.9
[2019-07-01 15:27] VITALS: BP 120/76; O2SAT 99
--- NOTE | 2019-07-02 17:38 | EKG ---
Test Date: 2019-07-01 Test Time: 12:26:01 Slide Attendant: CHAMP MEASUREMENT RESULTS: Intervals: Rate: 78 MD: 158 QRSD: 70 QT: 446 QTc: 508 [place]: P: 21 MD: 158 QRS: 63 T: 69 INTERPRETIVE STATEMENTS: Normal sinus rhythm Low voltage QRS Prolonged QT Abnormal ECG Compared to ECG 09/25/2018 10:16:32 Low QRS voltage now present Sinus arrhythmia no longer present ST (T wave) deviation no longer present Possible ischemia no longer present Electronically Signed On 07-02-19 17:35:17 CDT by Bulmaro Pittman
== END 2019-07-01 14:33 | disposition home or self-care (01) ==
LOC: ER 11:04
DX: I10 Essential (primary) hypertension (principal); F41.9 Anxiety disorder, unspecified; J44.9 Chronic obstructive pulmonary disease, unspecified; Z88.5 Allergy status to narcotic agent; Z88.8 Allergy status to other drugs, medicaments and biological substances
CPT/HCPCS: 36415; 71045; 80048; 80076; 81003; 83690; 83735; 83880; 84484; 85025; 85610; 87086; 87088; 93005; 99284

== ENCOUNTER 2019-12-20 17:03 | Emergency (ER) | payer OTHER ==
--- NOTE | 2019-12-20 19:03 | RAD REPORT ---
EXAM DESCRIPTION: USExtrem Venous W Compress Bil12/20/2019 6:53 pm CLINICAL HISTORY: Elevated D-dimer COMPARISON: none FINDINGS: The common femoral, superficial femoral, popliteal and posterior tibial veins bilaterally are compressible and demonstrate augmentation. Doppler demonstrates good flow. IMPRESSION: No evidence of deep venous thrombosis involving either lower extremity.
[2019-12-20 19:12] LABS: Protime INR 0.96
[2019-12-20 19:13] LABS: Absolute Lymphocytes (CBC) 1.7 K/uL (0.7-4.9); Basophils % 1.2 % (0-1.3); Hematocrit 44.6 % (36.0-45.0); Lymphocytes % 22.8 % (15.3-44.8); MPV 10.4 fL (7.6-11.3)
[2019-12-20 19:28] LABS: ALT/SGPT 15 U/L (12-78); AST/SGOT 16 U/L (15-37); Albumin 3.9 g/dL (3.4-5.0); Alkaline Phosphatase 128 U/L (45-117); BUN Blood Urea Nitrogen 16 mg/dL (7-18); Bicarbonate 24 mmol/L (21-32); Bilirubin Direct < 0.1 mg/dL (0-0.2); Bilirubin Total 0.3 mg/dL (0.2-1.0); Glucose Level 100 mg/dL (74-106); Magnesium 2.4 mg/dL (1.8-2.4); NT PRO-BNP 1035 pg/mL (<450); Potassium 3.8 mmol/L (3.5-5.1); Protein, Total 7.8 g/dL (6.4-8.2); Sodium Level 143 mmol/L (136-145); Troponin (Emerg Dept Use Only) < 0.02 ng/mL (0.0-0.045)
--- NOTE | 2019-12-20 19:54 | RAD REPORT ---
EXAM DESCRIPTION: CT - Chest For Pe Angio - 12/20/2019 7:42 pm CLINICAL HISTORY: sob COMPARISON: 2017 TECHNIQUE: Dynamically enhanced axial 3 mm thick images of the chest were obtained during administra tion of <100> mL Isovue 370 IV contrast. Coronal and oblique reconstruction images were generated and reviewed. Exam utilizes a protocol for optimal evaluation of pulmonary arterial tree. Maximum intensity projections 3D imaging was utilized All CT scans are performed using dose optimization technique as appropriate and may include automated exposure control or mA/KV adjustment according to patient size. FINDINGS: A pulmonary embolus is not seen. A thoracic aortic aneurysm is not noted. A pleural effusion is not seen. A small pericardial effusion is seen. Mediastinal and hilar lymphadenopathy has resolved since prior exam. A lung consolidation is not present. Centrilobular emphysema is present IMPRESSION: Negative for a pulmonary embolism. Small pericardial effusion
--- NOTE | 2019-12-20 21:05 | ER ---
Nurse's Notes [facility] Name: Dina Oviedo Age: 74 yrs Sex: Female : 1945 Arrival Date: 12/20/2019 Time: 17:03 Bed 17 Private MD: Diagnosis: Shortness of breath;Cough Presentation: 12/20 17:10 Presenting complaint: Patient states: "I had gone to Dr. Cain because I am aj1 occasionally short of breath while walking and I had a cough once and awhile so he did a blood test and this morning I had a chest X-Ray. He called me to come in to see if I had blood clots in my lungs" Denies shortness of breath or chest pain at this time. Transition of care: patient was not received from another setting of care. Onset of symptoms was November 2019. Risk Assessment: Do you want to hurt yourself or someone else? Patient reports no desire to harm self or others. Initial Sepsis Screen: Does the patient meet any 2 criteria? No. Patient's initial sepsis screen is negative. Does the patient have a suspected source of infection? No. Patient's initial sepsis screen is negative. Care prior to arrival: None. 17:10 Method Of Arrival: Wheelchair aj1 17:10 Acuity: SCOTTIE 2 aj1 Triage Assessment: 17:15 General: Appears in no apparent distress. comfortable, Behavior is calm, cooperative, aj1 appropriate for age. Pain: Denies pain. Neuro: Level of Consciousness is awake, alert, obeys commands. Cardiovascular: Patient's skin is warm and dry. Respiratory: Airway is patent Respiratory effort is even, unlabored, Respiratory pattern is regular, symmetrical. Historical: - Allergies: 17:15 Ativan; combative reaction; aj1 17:15 tramadol; aj1 - Home Meds: 17:15 amlodipine 10 mg tab 1 tab once daily [Active]; Bactrim DS 800-160 mg Oral tab 1 tab aj1 every 12 hours [Active]; Brovana 15 mcg/2 mL inhalation nebu 2 mL 2 times per day [Active]; clonidine HCl 0.2 mg Oral tab 1 tab once daily [Active]; clopidogrel 75 mg Oral tab 1 tab once daily for Acute Coronary Syndrome [Active]; Coreg 12.5 mg Oral tab 1 tab 2 times per day [Active]; Cozaar 100 mg Oral tab 1 tab once daily [Active]; DuoNeb 0.5 mg-3 mg(2.5 mg base)/3 mL Inhl nebu 3 mL 4 times per day [Active]; Lasix 20 mg Oral tab 1 tab once daily [Active]; prednisone 10 mg Oral tab once daily [Active]; Protonix 40 mg Oral TbEC 1 tab once daily [Active]; Seroquel 50 mg Oral tab 1 tab nightly [Active]; sotalol 80 mg Oral tab 1 tab 2 times per day [Active]; spironolactone 25 mg Oral tab once daily [Active]; tramadol 50 mg Oral tab [Active]; Xarelto 20 mg Oral tab 1 tab once daily [Active]; - PMHx: 17:15 acute respiratory failure; Anxiety; CHF; COPD; Dementia; Depression; heart blockage; aj1 High Cholesterol; Hypertension; Schizophrenia; - Immunization history:: Flu vaccine is up to date. - Coronavirus screen:: The patient has NOT traveled to [place] in the past 14 days. - Social history:: Smoking status: Patient/guardian denies using tobacco. - Ebola Screening: : Patient denies travel to an Ebola-affected area in the 21 days before illness onset. Screenin:40 Abuse screen: Denies threats or abuse. Nutritional screening: No deficits noted. tw2 Tuberculosis screening: No symptoms or risk factors identified. Fall Risk None identified. Assessment: 17:55 General: Appears in no apparent distress. obese, well groomed, Behavior is calm, tw2 cooperative, appropriate for age. Pain: Denies pain. Neuro: Level of Consciousness is awake, alert, obeys commands, Oriented to person, place, time, situation. Cardiovascular: Heart tones S1 S2 Patient's skin is warm and dry. Respiratory: Airway is patent Respiratory effort is even, unlabored, Respiratory pattern is regular, symmetrical, Breath sounds are clear bilaterally. GI: No signs and/or symptoms were reported involving the gastrointestinal system. Abdomen is round non-distended, Bowel sounds present X 4 quads. : No signs and/or symptoms were reported regarding the genitourinary system. EENT: No signs and/or symptoms were reported regarding the EENT system. Derm: No signs and/or symptoms reported regarding the dermatologic system. Musculoskeletal: Range of motion: intact in all extremities. 18:25 Reassessment: US at bedside at this time, unable to obtain iv access and blood work at tw2 this time. 19:00 Reassessment: Patient appears in no apparent distress at this time. No changes from tw2 previously documented assessment. Patient and/or family updated on plan of care and expected duration. Pain level reassessed. Patient is alert, oriented x 3, equal unlabored respirations, skin warm/dry/pink. 19:26 General: Appears in no apparent distress. comfortable, Behavior is calm, cooperative, jd3 appropriate for age. Pain: Denies pain. Neuro: Level of Consciousness is awake, alert, obeys commands, Oriented to person, place, time, situation. Cardiovascular: Denies chest pain, Heart tones S1 S2 present Capillary refill < 3 seconds Patient's skin is warm and dry. Respiratory: Airway is patent Respiratory effort is even, unlabored, Respiratory pattern is regular, symmetrical, Breath sounds are clear bilaterally. Denies cough, shortness of breath. GI: No signs and/or symptoms were reported involving the gastrointestinal system. : No signs and/or symptoms were reported regarding the genitourinary system. EENT: No signs and/or symptoms were reported regarding the EENT system. Derm: Skin is intact, Skin is dry, Skin is normal, Skin temperature is warm. Musculoskeletal: Circulation, motion, and sensation intact. Range of motion: intact in all extremities. 20:20 Reassessment: Patient appears in no apparent distress at this time. No changes from jd3 previously documented assessment. Patient and/or family updated on plan of care and expected duration. Pain level reassessed. Patient is alert, oriented x 3, equal unlabored respirations, skin warm/dry/pink. 21:18 Reassessment: Patient appears in no apparent distress at this time. No changes from jd3 previously documented assessment. Patient and/or family updated on plan of care and expected duration. Pain level reassessed. Patient is alert, oriented x 3, equal unlabored respirations, skin warm/dry/pink. Patient denies pain at this time. Vital Signs: 17:15 BP 151 / 70; Pulse 59; Resp 18; Temp 98.4; Pulse Ox 98% on R/A; Weight 78.02 kg (R); aj1 Height 5 ft. 6 in. (167.64 cm) (R); Pain 0/10; 19:32 Pulse 65; Resp 20 S; Pulse Ox 99% on R/A; jd3 21:18 BP 150 / 78; Pulse 62; Resp 17 S; Pulse Ox 100% on R/A; jd3 17:15 Body Mass Index 27.76 (78.02 kg, 167.64 cm) 1 ED Course: 17:03 Patient arrived in ED. as 17:13 Triage completed. aj1 17:15 Arm band placed on Patient placed in waiting room, Patient notified of wait time. aj1 17:45 Bed in low position. Call light in reach. application developer manager on. Pulse ox on. NIBP on. tw2 Warm blanket given. 17:46 Eric Levin PA is PHCP. cp 17:46 Moody Fregoso MD is Attending Physician. cp 17:48 Mercedes Moscoso RN is Primary Nurse. tw2 19:00 Report given to ROMAN Santiago. tw2 19:00 Inserted saline lock: 20 gauge in right antecubital area, using aseptic technique. tw2 Blood collected. 21:05 Devyn Cain MD is Referral Physician. cp 21:23 No provider procedures requiring assistance completed. IV discontinued, intact, jd3 bleeding controlled, No redness/swelling at site. Pressure dressing applied. Administered Medications: 21:17 Not Given (Patient Refused): Albuterol 2.5 mg Inhalation once jd3 21:18 Not Given (Patient Refused): AtroVENT Aerosol 0.5 mg Inhalation once jd3 Outcome: 21:05 Discharge ordered by . cp 21:24 Discharged to home via wheelchair, with friend. jd3 21:24 Condition: stable 21:24 Discharge instructions given to patient, Instructed on discharge instructions, follow up and referral plans. medication usage, Demonstrated understanding of instructions, follow-up care, medications, Prescriptions given X 2. 21:25 Patient left the ED. jd3 Signatures: Lenka Islas RN RN aj1 Alejandra Bartholomew as Eric Levin PA PA cp Mercedes Moscoso RN RN tw2 Ubaldo Dillard RN RN jd3
--- NOTE | 2019-12-20 21:06 | EDPHYS ---
Physician Documentation [facility] Name: Dina Oviedo Age: 74 yrs Sex: Female : 1945 Arrival Date: 12/20/2019 Time: 17:03 Bed 17 Private MD: ED Physician Moody Fregoso HPI: 12/20 18:10 This 74 yrs old Female presents to ER via Wheelchair with complaints of sent cp by [place] r/o blood clot. 18:10 The patient has shortness of breath with light activity. cp 18:10 Onset: The symptoms/episode began/occurred 1 week(s) ago. Duration: The symptoms are cp intermittent, with no pattern. The patient's shortness of breath is aggravated by light activity. Associated signs and symptoms: Pertinent positives: productive cough, Pertinent negatives: chest pain, diaphoresis, dizziness, fever. The patient has been recently seen by a physician: Dr. Cain earlier today, with similar presenting complaints, lab tests were done, X-rays were performed, and was sent to the [facility] Emergency Department for further evaluation. Patient reports she was referred to ED by DR Cain to r/o pulmonary embolism. Historical: - Allergies: 17:15 Ativan; combative reaction; aj1 17:15 tramadol; aj1 - Home Meds: 17:15 amlodipine 10 mg tab 1 tab once daily [Active]; Bactrim DS 800-160 mg Oral tab 1 tab aj1 every 12 hours [Active]; Brovana 15 mcg/2 mL inhalation nebu 2 mL 2 times per day [Active]; clonidine HCl 0.2 mg Oral tab 1 tab once daily [Active]; clopidogrel 75 mg Oral tab 1 tab once daily for Acute Coronary Syndrome [Active]; Coreg 12.5 mg Oral tab 1 tab 2 times per day [Active]; Cozaar 100 mg Oral tab 1 tab once daily [Active]; DuoNeb 0.5 mg-3 mg(2.5 mg base)/3 mL Inhl nebu 3 mL 4 times per day [Active]; Lasix 20 mg Oral tab 1 tab once daily [Active]; prednisone 10 mg Oral tab once daily [Active]; Protonix 40 mg Oral TbEC 1 tab once daily [Active]; Seroquel 50 mg Oral tab 1 tab nightly [Active]; sotalol 80 mg Oral tab 1 tab 2 times per day [Active]; spironolactone 25 mg Oral tab once daily [Active]; tramadol 50 mg Oral tab [Active]; Xarelto 20 mg Oral tab 1 tab once daily [Active]; - PMHx: 17:15 acute respiratory failure; Anxiety; CHF; COPD; Dementia; Depression; heart blockage; aj1 High Cholesterol; Hypertension; Schizophrenia; - Immunization history:: Flu vaccine is up to date. - Coronavirus screen:: The patient has NOT traveled to [place] in the past 14 days. - Social history:: Smoking status: Patient/guardian denies using tobacco. - Ebola Screening: : Patient denies travel to an Ebola-affected area in the 21 days before illness onset. ROS: 18:15 Constitutional: Negative for body aches, chills, fever, poor PO intake. cp 18:15 Eyes: Negative for injury, pain, redness, and discharge. cp 18:15 ENT: Negative for drainage from ear(s), ear pain, sore throat, difficulty swallowing, difficulty handling secretions. 18:15 Cardiovascular: Negative for chest pain, edema, palpitations. 18:15 Respiratory: Positive for cough, with clear sputum, shortness of breath, on exertion. Negative for wheezing. 18:15 Abdomen/GI: Negative for abdominal pain, nausea, vomiting, and diarrhea, black/tarry stool, rectal bleeding. 18:15 Back: Negative for radiated pain. 18:15 : Negative for urinary symptoms. 18:15 Skin: Negative for rash. 18:15 Neuro: Negative for altered mental status, headache, syncope, weakness. 18:15 All other systems are negative. Exam: 18:20 Constitutional: The patient appears in no acute distress, alert, awake, cp non-diaphoretic, non-toxic, well developed, well nourished. 18:20 Head/Face: Normocephalic, atraumatic. cp 18:20 Eyes: Periorbital structures: appear normal, Pupils: equal, round, and reactive to light and accomodation, Extraocular movements: intact throughout, Conjunctiva: normal, no exudate, no injection, Sclera: no appreciated abnormality, Lids and lashes: appear normal, bilaterally. 18:20 ENT: External ear(s): are unremarkable, Nose: is normal, Mouth: Lips: moist, Oral mucosa: pink and intact, moist, Posterior pharynx: is normal, airway is patent, no erythema, no exudate. 18:20 Neck: ROM/movement: is normal, is supple, without pain, no range of motions limitations, no nuchal rigidity. 18:20 Chest/axilla: Inspection: normal, Palpation: is normal, no crepitus, no tenderness. 18:20 Cardiovascular: Rate: bradycardic, Rhythm: regular, Pulses: Pulses are 2+ in right radial artery and left radial artery. Edema: is not appreciated, JVD: is not appreciated. 18:20 Respiratory: the patient does not display signs of respiratory distress, Respirations: normal, no use of accessory muscles, no retractions, labored breathing, is not present, Breath sounds: are clear throughout, no decreased breath sounds, no stridor, no wheezing. 18:20 Abdomen/GI: Inspection: abdomen appears normal, Bowel sounds: active, all quadrants, Palpation: abdomen is soft and non-tender, in all quadrants, voluntary guarding, is not appreciated, involuntary guarding, is not appreciated. 18:20 Back: pain, is absent, ROM is normal. 18:20 Skin: no rash present. 18:20 Neuro: Orientation: to person, place \T\ time. Mentation: is normal, Cerebellar function: is grossly normal, Motor: moves all fours, strength is normal, Sensation: is normal. 18:40 ECG was reviewed by the Attending Physician. cp Vital Signs: 17:15 BP 151 / 70; Pulse 59; Resp 18; Temp 98.4; Pulse Ox 98% on R/A; Weight 78.02 kg (R); aj1 Height 5 ft. 6 in. (167.64 cm) (R); Pain 0/10; 19:32 Pulse 65; Resp 20 S; Pulse Ox 99% on R/A; jd3 21:18 BP 150 / 78; Pulse 62; Resp 17 S; Pulse Ox 100% on R/A; jd3 17:15 Body Mass Index 27.76 (78.02 kg, 167.64 cm) aj1 MDM: 17:51 Patient medically screened. cp 18:30 Differential diagnosis: asthma, Bronchitis CHF exacerbation, Chronic Obstructive cp Pulmonary Disease pneumonia, Pneumothorax pulmonary edema, Pulmonary Embolism Unstable Angina DVT. 21:05 Data reviewed: vital signs, nurses notes, lab test result(s), EKG, radiologic studies, cp CT scan, I have discussed the patient's presentation/case with the attending Emergency Department Physician; and as a result, I will discharge patient. 12/20 18:02 Order name: Basic Metabolic Panel cp 12/20 18:02 Order name: CBC with Diff cp 12/20 18:02 Order name: LFT's cp 12/20 18:02 Order name: Magnesium cp 12/20 18:02 Order name: NT PRO-BNP cp 12/20 18:02 Order name: PT-INR cp 12/20 18:02 Order name: Troponin (emerg Dept Use Only) cp 12/20 19:19 Order name: CBC with Automated Diff; Complete Time: 20:18 EDMS 12/20 20:18 Interpretation: Normal except: RBC 5.00. cp 12/20 19:19 Order name: Protime (+INR); Complete Time: 20:18 EDMS 12/20 19:28 Order name: Basic Metabolic Panel; Complete Time: 20:18 EDMS 12/20 20:18 Interpretation: Normal except: CL 111; GFR 45. cp 12/20 19:28 Order name: Liver (Hepatic) Function; Complete Time: 20:18 EDMS 12/20 20:18 Interpretation: Normal except: ALK 128; GLOB 3.9; A/G 1.0. cp 12/20 19:28 Order name: Troponin (Emerg Dept Use Only); Complete Time: 20:18 EDMS 12/20 19:28 Order name: NT PRO-BNP; Complete Time: 20:18 EDMS 12/20 20:32 Interpretation: Abnormal: NT PRO-BNP 1035. cp 12/20 19:28 Order name: Magnesium; Complete Time: 20:18 EDMS 12/20 18:02 Order name: EKG; Complete Time: 18:05 cp 12/20 18:02 Order name: Cardiac monitoring; Complete Time: 19:11 cp 12/20 18:02 Order name: EKG - Nurse/Tech; Complete Time: 19:11 cp 12/20 18:02 Order name: IV Saline Lock; Complete Time: 19:03 cp 12/20 18:02 Order name: Labs collected and sent; Complete Time: 19:03 cp 12/20 18:02 Order name: O2 Per Protocol; Complete Time: 19:04 cp 12/20 18:02 Order name: O2 Sat Monitoring; Complete Time: 19:04 cp 12/20 18:06 Order name: CT Chest For PE Angio cp 12/20 18:06 Order name: US Extremity Venous W Compression Júnior cp 12/20 19:38 Order name: US; Complete Time: 20:18 EDMS 12/20 20:06 Order name: CT; Complete Time: 20:18 EDMS 12/20 20:19 Interpretation: Report reviewed. cp EC:40 Rate is 56 beats/min. Rhythm is regular. NV interval is normal. QRS interval is normal. cp QT interval is normal. T waves are Flattened in lead aVL. Interpreted by me. Reviewed by me. Administered Medications: 21:17 Not Given (Patient Refused): Albuterol 2.5 mg Inhalation once jd3 21:18 Not Given (Patient Refused): AtroVENT Aerosol 0.5 mg Inhalation once jd3 Disposition: 12/20/19 21:05 Discharged to Home. Impression: Shortness of breath, Cough. - Condition is Stable. - Discharge Instructions: Shortness of Breath, Cough, Adult. - Prescriptions for Albuterol Sulfate 2.5 mg /3 mL (0.083 %) Inhalation Solution for Nebulization - inhale 1 unit by NEBULIZATION route every 8 hours As needed; 1 box. Albuterol Sulfate 90 mcg/actuation - inhale 1-2 puff by INHALATION route every 4-6 hours; 1 Inhaler. - Medication Reconciliation Form, Thank You Letter, Antibiotic Education, Prescription Opioid Use form. - Follow up: Devyn Cain MD; When: 2 - 3 days; Reason: Recheck today's complaints. - Problem is new. - Symptoms have improved. Addendum: 12/23/2019 07:15 Co-signature as Attending Physician, Moody Fregoso MD I agree with the assessment and k dr plan of care. Signatures: Dispatcher [employer] EDUT Lenka Islas RN RN aj1 Moody Fregoso MD MD [facility] Eric Levin PA PA Ubaldo Azar RN RN jd3 Corrections: (The following items were deleted from the chart) 12/20 21:25 21:05 12/20/2019 21:05 Discharged to Home. Impression: Shortness of breath; Cough. jd3 Condition is Stable. Forms are Medication Reconciliation Form, Thank You Letter, Antibiotic Education, Prescription Opioid Use. Follow up: Devyn Cain; When: 2 - 3 days; Reason: Recheck today's complaints. Problem is new. Symptoms have improved. cp
[2019-12-20] MEDS ORDERED: IPRATROPIUM BROM 0.5MG/2.5ML ONE (21:13)
[2019-12-20] MEDS ORDERED: ALBUTEROL 2.5 MG/3 ML NEB SOL ONE (21:13)
[2019-12-20 21:55] VITALS: TEMP 98.4
[2019-12-20 21:57] VITALS: BP 150/78; O2SAT 100
--- NOTE | 2019-12-21 16:28 | EKG ---
Test Date: 2019-12-20 Test Time: 18:32:42 Install Technician: CHAMP MEASUREMENT RESULTS: Intervals: Rate: 56 MT: 126 QRSD: 74 QT: 462 QTc: 445 [place]: P: 35 MT: 126 QRS: 62 T: 52 INTERPRETIVE STATEMENTS: Sinus bradycardia Otherwise normal ECG Compared to ECG 07/01/2019 12:26:01 Sinus rhythm no longer present Prolonged QT interval no longer present Electronically Signed On 12-21-19 16:27:25 SENIOR TAX ANALYST by Bulmaro Pittman
== END 2019-12-20 21:25 | disposition home or self-care (01) ==
LOC: ER 17:03
DX: R06.02 Shortness of breath (principal); R05 Cough; J44.9 Chronic obstructive pulmonary disease, unspecified; I10 Essential (primary) hypertension; E78.00 Pure hypercholesterolemia, unspecified; Z88.6 Allergy status to analgesic agent; I50.9 Heart failure, unspecified
CPT/HCPCS: 93005; 85025; 80048; 36415; 83735; 85610; 80076; 84484; 83880; 71275; 71046; 93970; 99284; Q9967

== ENCOUNTER 2020-09-05 10:41 | Emergency (ER) | payer OTHER ==
[2020-09-05 11:50] LABS: Absolute Lymphocytes (CBC) 1.4 K/uL (0.7-4.9); Basophils % 0.7 % (0-1.3); Lymphocytes % 16.9 % (15.3-44.8); MPV 10.8 fL (7.6-11.3); RBC Red Blood Cell Count 4.51 M/uL (3.86-4.86)
[2020-09-05 11:52] LABS: Protime INR 0.97
[2020-09-05 12:13] LABS: ALT/SGPT 16 U/L (12-78); AST/SGOT 18 U/L (15-37); Albumin 3.6 g/dL (3.4-5.0); Alkaline Phosphatase 79 U/L (45-117); BUN Blood Urea Nitrogen 16 mg/dL (7-18); Bicarbonate 24 mmol/L (21-32); Bilirubin Direct < 0.1 mg/dL (0-0.2); Bilirubin Total 0.4 mg/dL (0.2-1.0); Glucose Level 115 mg/dL (74-106); Lipase 161 U/L (73-393); Magnesium 2.1 mg/dL (1.8-2.4); NT PRO-BNP 724 pg/mL (<450); Potassium 3.8 mmol/L (3.5-5.1); Protein, Total 7.5 g/dL (6.4-8.2); Sodium Level 144 mmol/L (136-145); Troponin (Emerg Dept Use Only) < 0.02 ng/mL (0.0-0.045)
[2020-09-05 12:20] LABS: Arterial Blood Carboxyhemoglob 1.3 % (0-1.5); Blood Gas Oxyhemoglobin 93.9 % (94-97); Blood O2 Saturation 95.9 % (92-98.5)
--- NOTE | 2020-09-05 12:47 | RAD REPORT ---
EXAM DESCRIPTION: Ej Single View09/05/2020 11:54 am CLINICAL HISTORY: sob COMPARISON: November 2019 FINDINGS: The lungs appear clear of acute infiltrate. The heart is upper limits normal size IMPRESSION: No acute abnormalities displayed
--- NOTE | 2020-09-05 12:55 | RAD REPORT ---
EXAM DESCRIPTION: CT - Chest For Pe Angio - 09/05/2020 12:38 pm CLINICAL HISTORY: sob COMPARISON: November 2019 TECHNIQUE: Dynamically enhanced axial 3 mm thick images of the chest were obtained during administra tion of <100> mL Isovue 370 IV contrast. Coronal and oblique reconstruction images were generated and reviewed. Exam utilizes a protocol for optimal evaluation of pulmonary arterial tree. Maximum intensity projections 3D imaging was utilized All CT scans are performed using dose optimization technique as appropriate and may include automated exposure control or mA/KV adjustment according to patient size. FINDINGS: A pulmonary embolus is not seen. A thoracic aortic aneurysm is not noted. A pleural effusion is not seen. A pericardial effusion is not seen. A lung consolidation is not present. Centrilobular emphysema. Old thoracic vertebral body compression fracture IMPRESSION: Negative for a pulmonary embolism.
[2020-09-05] MEDS ORDERED: FAMOTIDINE 20 MG/2 ML VIAL IV ONE (13:39)
[2020-09-05] MEDS ORDERED: IPRATROPIUM BROM 0.5MG/2.5ML ONE (13:39)
[2020-09-05] MEDS ORDERED: METHYLPREDNISOLONE 125 MG INJ ONE (13:39)
[2020-09-05] MEDS ORDERED: CEFTRIAXONE/SWI 1gm 1 GM/10 ML SYR ONE (13:39)
[2020-09-05] MEDS ORDERED: ALBUTEROL 2.5 MG/3 ML NEB SOL ONE (13:39)
--- NOTE | 2020-09-05 14:22 | ER ---
Nurse's Notes [facility] Name: Dina Oviedo Age: 75 yrs Sex: Female : 1945 Arrival Date: 09/05/2020 Time: 10:44 Bed 8 Private MD: Devyn Cain V Diagnosis: Dyspnea;Chronic obstructive pulmonary disease with (acute) exacerbation;Anxiety disorder, unspecified Presentation: 09/05 11:04 Chief complaint: Patient states: SOB since yesterday, has hx of COPD, denies cough or iw fever, denies chest pain. Coronavirus screen: shortness of breath, Client presents with at least one sign or symptom that may indicate coronavirus-19. Standard/surgical mask placed on the client. Provider contacted for isolation considerations. Ebola Screen: Patient negative for fever greater than or equal to 101.5 degrees Fahrenheit, and additional compatible Ebola Virus Disease symptoms Patient denies exposure to infectious person. Patient denies travel to an Ebola-affected area in the 21 days before illness onset. No symptoms or risks identified at this time. Initial Sepsis Screen: Does the patient meet any 2 criteria? No. Patient's initial sepsis screen is negative. Does the patient have a suspected source of infection? No. Patient's initial sepsis screen is negative. Risk Assessment: Do you want to hurt yourself or someone else? Patient reports no desire to harm self or others. Onset of symptoms was September 04, 2020. 11:04 Method Of Arrival: Wheelchair iw 11:04 Acuity: SCOTTIE 3 iw Triage Assessment: 11:45 Respiratory: the patient has moderate shortness of breath. iw Historical: - Allergies: 11:08 Ativan; combative reaction; iw 11:08 tramadol; iw - Home Meds: 11:08 amlodipine 10 mg tab 1 tab once daily [Active]; Brovana 15 mcg/2 mL inhalation nebu 2 iw mL 2 times per day [Active]; clonidine HCl 0.2 mg Oral tab 1 tab once daily [Active]; clopidogrel 75 mg Oral tab 1 tab once daily for Acute Coronary Syndrome [Active]; Coreg 12.5 mg Oral tab 1 tab 2 times per day [Active]; Cozaar 100 mg Oral tab 1 tab once daily [Active]; DuoNeb 0.5 mg-3 mg(2.5 mg base)/3 mL Inhl nebu 3 mL 4 times per day [Active]; Lasix 20 mg Oral tab 1 tab once daily [Active]; prednisone 10 mg Oral tab once daily [Active]; Protonix 40 mg Oral TbEC 1 tab once daily [Active]; Seroquel 50 mg Oral tab 1 tab nightly [Active]; sotalol 80 mg Oral tab 1 tab 2 times per day [Active]; spironolactone 25 mg Oral tab once daily [Active]; tramadol 50 mg Oral tab [Active]; Xarelto 20 mg Oral tab 1 tab once daily [Active]; - PMHx: 11:08 acute respiratory failure; Anxiety; CHF; COPD; Dementia; Depression; heart blockage; iw High Cholesterol; Hypertension; Schizophrenia; - PSHx: 11:08 Hysterectomy; iw - Immunization history:: Adult Immunizations up to date. - Social history:: Smoking status: Patient/guardian denies using tobacco, the patient reports quitting approximately 10 years ago. - Family history:: not pertinent. Screenin:44 Abuse screen: Denies threats or abuse. Denies injuries from another. Nutritional iw screening: No deficits noted. Tuberculosis screening: No symptoms or risk factors identified. Fall Risk None identified. Assessment: 11:44 General: Appears in no apparent distress. comfortable, Behavior is. General: Denies iw fever. Pain: Denies pain. Neuro: Level of Consciousness is awake, alert, obeys commands, Oriented to person, place, time, situation. Cardiovascular: Rhythm is regular. Respiratory: Airway is patent Respiratory effort is even, labored, Respiratory pattern is regular, Breath sounds are clear bilaterally. GI: Patient currently denies diarrhea, nausea, pain, vomiting. Derm: Skin is intact, is healthy with good turgor. Musculoskeletal: Range of motion: intact in all extremities. 13:44 Reassessment: Patient appears in no apparent distress at this time. Patient and/or em family updated on plan of care and expected duration. Pain level reassessed. Patient is alert, oriented x 3, equal unlabored respirations, skin warm/dry/pink. Patient states feeling better. 14:54 Reassessment: Patient appears in no apparent distress at this time. Patient and/or em family updated on plan of care and expected duration. Pain level reassessed. Patient is alert, oriented x 3, equal unlabored respirations, skin warm/dry/pink. Patient states feeling better. Vital Signs: 11:04 BP 133 / 86; Pulse 65; Resp 22 S; Temp 97.6; Pulse Ox 99% on R/A; Weight 76.66 kg; iw Height 5 ft. 6 in. (167.64 cm); Pain 0/10; 13:30 BP 142 / 63; Pulse 74; Resp 20; Pulse Ox 97% on R/A; em 14:44 BP 138 / 73; Pulse 68; Resp 16; Pulse Ox 98% on R/A; em 11:04 Body Mass Index 27.28 (76.66 kg, 167.64 cm) iw ED Course: 10:44 Patient arrived in ED. mr 10:44 Devyn Cain MD is Private Physician. mr 10:47 Eric Lopez MD is Attending Physician. fanny 11:06 Triage completed. iw 11:06 Arm band placed on. iw 11:06 Patient has correct armband on for positive identification. iw 11:43 Misty Evans, RN is Primary Nurse. iw 11:44 Missed attempt(s): 20 gauge in right wrist. iw 11:54 XRAY Chest (1 view) In Process Unspecified. EDMS 12:12 Inserted saline lock: 20 gauge in left antecubital area, using aseptic technique. jb1 12:13 Missed attempt(s): 22 gauge in right antecubital area. jb1 12:26 COVID-19 Sent. iw 12:27 Flu Sent. iw 12:38 CT Chest For PE Angio In Process Unspecified. EDMS 14:20 Devyn Cain MD is Referral Physician. fanny 14:52 No provider procedures requiring assistance completed. IV discontinued, intact, em bleeding controlled, No redness/swelling at site. Pressure dressing applied. Administered Medications: 13:37 Drug: Albuterol - atroVENT (3:1) (2.5 mg - 0.5 mg) 3 ml Route: Nebulizer; em 14:30 Follow up: Response: No adverse reaction; Marked relief of symptoms em 13:38 Drug: SOLU-Medrol 125 mg Route: IVP; Site: left antecubital; em 14:18 Follow up: Response: No adverse reaction em 13:38 Drug: predniSONE 20 mg Route: PO; em 14:30 Follow up: Response: No adverse reaction em 13:40 Drug: Pepcid 20 mg Route: IVP; Site: left antecubital; em 14:55 Follow up: Response: No adverse reaction em 13:41 Drug: Rocephin - (cefTRIAXone) 1 grams Route: IVPB; Infused Over: 30 mins; Site: left em antecubital; 14:55 Follow up: Response: No adverse reaction; IV Status: Completed infusion; IV Intake: 10mlem Intake: 14:55 IV: 10ml; Total: 10ml. em Outcome: 14:21 Discharge ordered by . fanny 14:52 Discharged to home via wheelchair, with family. em 14:52 Condition: stable 14:52 Discharge instructions given to patient, family, Instructed on discharge instructions, follow up and referral plans. medication usage, Demonstrated understanding of instructions, follow-up care, medications, Prescriptions given X 4. 14:56 Patient left the ED. em Signatures: Dispatcher [employer] Brody Mcclure jb1 Eric Lopez MD MD cha Rivera, Mary mr Pedro Grimm RN RN em Williams, Irene, RN RN iw
--- NOTE | 2020-09-05 14:22 | EDPHYS ---
Physician Documentation [facility] Name: Dina Oviedo Age: 75 yrs Sex: Female : 1945 Arrival Date: 09/05/2020 Time: 10:44 Bed 8 Private MD: Devyn Cain V ED Physician Eric Lopez HPI: 09/05 11:15 This 75 yrs old Female presents to ER via Wheelchair with complaints of fanny Shortness Of Breath. 11:15 The patient has shortness of breath at rest, with light activity. Onset: The fanny symptoms/episode began/occurred 3 day(s) ago. Duration: The symptoms are continuous, and are steadily getting worse. Associated signs and symptoms: Pertinent positives: non-productive cough. Severity of symptoms: At their worst the symptoms were mild moderate in the emergency department the symptoms are unchanged. The patient has not experienced similar symptoms in the past. Historical: - Allergies: 11:08 Ativan; combative reaction; iw 11:08 tramadol; iw - Home Meds: 11:08 amlodipine 10 mg tab 1 tab once daily [Active]; Brovana 15 mcg/2 mL inhalation nebu 2 iw mL 2 times per day [Active]; clonidine HCl 0.2 mg Oral tab 1 tab once daily [Active]; clopidogrel 75 mg Oral tab 1 tab once daily for Acute Coronary Syndrome [Active]; Coreg 12.5 mg Oral tab 1 tab 2 times per day [Active]; Cozaar 100 mg Oral tab 1 tab once daily [Active]; DuoNeb 0.5 mg-3 mg(2.5 mg base)/3 mL Inhl nebu 3 mL 4 times per day [Active]; Lasix 20 mg Oral tab 1 tab once daily [Active]; prednisone 10 mg Oral tab once daily [Active]; Protonix 40 mg Oral TbEC 1 tab once daily [Active]; Seroquel 50 mg Oral tab 1 tab nightly [Active]; sotalol 80 mg Oral tab 1 tab 2 times per day [Active]; spironolactone 25 mg Oral tab once daily [Active]; tramadol 50 mg Oral tab [Active]; Xarelto 20 mg Oral tab 1 tab once daily [Active]; - PMHx: 11:08 acute respiratory failure; Anxiety; CHF; COPD; Dementia; Depression; heart blockage; iw High Cholesterol; Hypertension; Schizophrenia; - PSHx: 11:08 Hysterectomy; iw - Immunization history:: Adult Immunizations up to date. - Social history:: Smoking status: Patient/guardian denies using tobacco, the patient reports quitting approximately 10 years ago. - Family history:: not pertinent. ROS: 11:15 Constitutional: Negative for fever, chills, and weight loss, Eyes: Negative for injury, fanny pain, redness, and discharge, ENT: Negative for injury, pain, and discharge, Neck: Negative for injury, pain, and swelling, Cardiovascular: Negative for chest pain, palpitations, and edema, Abdomen/GI: Negative for abdominal pain, nausea, vomiting, diarrhea, and constipation, Back: Negative for injury and pain, : Negative for injury, bleeding, discharge, and swelling, MS/Extremity: Negative for injury and deformity, Skin: Negative for injury, rash, and discoloration, Neuro: Negative for headache, weakness, numbness, tingling, and seizure, Psych: Negative for depression, anxiety, suicide ideation, homicidal ideation, and hallucinations, Allergy/Immunology: Negative for hives, rash, and allergies, Endocrine: Negative for neck swelling, polydipsia, polyuria, polyphagia, and marked weight changes, Hematologic/Lymphatic: Negative for swollen nodes, abnormal bleeding, and unusual bruising. 11:15 Respiratory: Positive for cough, shortness of breath, on exertion. Exam: 11:15 Constitutional: This is a well developed, well nourished patient who is awake, alert, fanny and in no acute distress. Head/Face: Normocephalic, atraumatic. Eyes: Pupils equal round and reactive to light, extra-ocular motions intact. Lids and lashes normal. Conjunctiva and sclera are non-icteric and not injected. Cornea within normal limits. Periorbital areas with no swelling, redness, or edema. ENT: Nares patent. No nasal discharge, no septal abnormalities noted. Tympanic membranes are normal and external auditory canals are clear. Oropharynx with no redness, swelling, or masses, exudates, or evidence of obstruction, uvula midline. Mucous membranes moist. Neck: Trachea midline, no thyromegaly or masses palpated, and no cervical lymphadenopathy. Supple, full range of motion without nuchal rigidity, or vertebral point tenderness. No Meningismus. Chest/axilla: Normal chest wall appearance and motion. Nontender with no deformity. No lesions are appreciated. Cardiovascular: Regular rate and rhythm with a normal S1 and S2. No gallops, murmurs, or rubs. Normal PMI, no JVD. No pulse deficits. Abdomen/GI: Soft, non-tender, with normal bowel sounds. No distension or tympany. No guarding or rebound. No evidence of tenderness throughout. Back: No spinal tenderness. No costovertebral tenderness. Full range of motion. Female : Normal external genitalia. Skin: Warm, dry with normal turgor. Normal color with no rashes, no lesions, and no evidence of cellulitis. MS/ Extremity: Pulses equal, no cyanosis. Neurovascular intact. Full, normal range of motion. Neuro: Awake and alert, GCS 15, oriented to person, place, time, and situation. Cranial nerves II-XII grossly intact. Motor strength 5/5 in all extremities. Sensory grossly intact. Cerebellar exam normal. Normal gait. Psych: Awake, alert, with orientation to person, place and time. Behavior, mood, and affect are within normal limits. 11:15 Respiratory: the patient does not display signs of respiratory distress, Respirations: normal, Breath sounds: are clear throughout, Respiratory rate: 22 11:21 Musculoskeletal/extremity: ROM: no acute changes, full active range of motion, full fanny passive range of motion, Circulation is intact in all extremities. Pulses: noted to be 4+ in the bilateral radial, brachial, femoral, popliteal, posterior tibial and and dorsalis pedis arteries., Sensation intact. Compartment Syndrome exam of affected extremity: is normal. DVT Exam: No signs of deep vein thrombosis. no pain, no swelling, no tenderness, negative Homans' sign noted on exam, no appreciated bluish discoloration, no erythema, no increased warmth. 11:22 ECG was reviewed by the Attending Physician. [facility] Vital Signs: 11:04 BP 133 / 86; Pulse 65; Resp 22 S; Temp 97.6; Pulse Ox 99% on R/A; Weight 76.66 kg; iw Height 5 ft. 6 in. (167.64 cm); Pain 0/10; 13:30 BP 142 / 63; Pulse 74; Resp 20; Pulse Ox 97% on R/A; em 14:44 BP 138 / 73; Pulse 68; Resp 16; Pulse Ox 98% on R/A; em 11:04 Body Mass Index 27.28 (76.66 kg, 167.64 cm) iw MDM: 10:52 Patient medically screened. [facility] 11:19 Differential diagnosis: Anemia CHF exacerbation, Chronic Obstructive Pulmonary Disease fanny pulmonary edema. Antibiotic administration: Not indicated. The patient's Wells Deep Vein Thrombosis Score was calculated as follows: Total Score: 0-2 Pts- Low Risk. The patient's pulmonary embolism risk score was calculated as follows: Total Score: 0-2 points. This patient was found to be at low risk for a pulmonary embolism by using the Well's assessment criteria. Immunization status: Pneumococcal vaccine: Influenza vaccine: Data reviewed: vital signs, nurses notes, lab test result(s), EKG, radiologic studies, plain films. Data interpreted: school lunch monitor: rate is 65 beats/min, Pulse oximetry: on room air is 99 %. Test interpretation: by ED physician or midlevel provider: ECG, plain radiologic studies. Counseling: I had a detailed discussion with the patient and/or guardian regarding: the historical points, exam findings, and any diagnostic results supporting the discharge/admit diagnosis, lab results, radiology results, the need for further work-up and treatment in the hospital. 09/05 11:15 Order name: Basic Metabolic Panel; Complete Time: 12:21 [facility] 09/05 11:15 Order name: CBC with Diff; Complete Time: 11:53 [facility] 09/05 11:15 Order name: LFT's; Complete Time: 12:21 [facility] 09/05 11:15 Order name: Magnesium; Complete Time: 12:21 [facility] 09/05 11:15 Order name: NT PRO-BNP; Complete Time: 12:21 [facility] 09/05 11:15 Order name: PT-INR; Complete Time: 11:58 [facility] 09/05 11:15 Order name: Troponin (emerg Dept Use Only); Complete Time: 12:21 [facility] 09/05 11:15 Order name: XRAY Chest (1 view); Complete Time: 14:16 [facility] 09/05 11:15 Order name: Lipase; Complete Time: 12:21 [facility] 09/05 11:15 Order name: Flu; Complete Time: 14:16 [facility] 09/05 11:15 Order name: COVID-19 [facility] 09/05 11:15 Order name: D-Dimer; Complete Time: 11:58 [facility] 09/05 11:52 Order name: ABG: on room air; Complete Time: 12:29 [facility] 09/05 11:58 Order name: CT Chest For PE Angio; Complete Time: 14:16 [facility] 09/05 11:15 Order name: EKG; Complete Time: 11:16 [facility] 09/05 11:15 Order name: Cardiac monitoring; Complete Time: 11:43 [facility] 09/05 11:15 Order name: EKG - Nurse/Tech; Complete Time: 11:43 [facility] 09/05 11:15 Order name: IV Saline Lock; Complete Time: 12:28 [facility] 09/05 11:15 Order name: Labs collected and sent; Complete Time: 11:43 [facility] 09/05 11:15 Order name: O2 Per Protocol; Complete Time: 11:44 [facility] 09/05 11:15 Order name: O2 Sat Monitoring; Complete Time: :44 [facility] EC:22 Rate is 64 beats/min. Rhythm is regular. QRS [place] is Normal. OR interval is normal. QRS fanny interval is normal. QT interval is normal. No Q waves. T waves are Normal. No ST changes noted. Clinical impression: NSR w/ Non-specific ST/T Changes and No evidence of ischemia. Interpreted by me. Reviewed by me. Administered Medications: 13:37 Drug: Albuterol - atroVENT (3:1) (2.5 mg - 0.5 mg) 3 ml Route: Nebulizer; em 14:30 Follow up: Response: No adverse reaction; Marked relief of symptoms em 13:38 Drug: SOLU-Medrol 125 mg Route: IVP; Site: left antecubital; em 14:18 Follow up: Response: No adverse reaction em 13:38 Drug: predniSONE 20 mg Route: PO; em 14:30 Follow up: Response: No adverse reaction em 13:40 Drug: Pepcid 20 mg Route: IVP; Site: left antecubital; em 14:55 Follow up: Response: No adverse reaction em 13:41 Drug: Rocephin - (cefTRIAXone) 1 grams Route: IVPB; Infused Over: 30 mins; Site: left em antecubital; 14:55 Follow up: Response: No adverse reaction; IV Status: Completed infusion; IV Intake: 10mlem Disposition: 09/05/20 14:21 Discharged to Home. Impression: Dyspnea, Chronic obstructive pulmonary disease with (acute) exacerbation, Anxiety disorder, unspecified. - Condition is Stable. - Discharge Instructions: Chronic Obstructive Pulmonary Disease, Shortness of Breath, Shortness of Breath, [id number], Chronic Obstructive Pulmonary Disease, [id number]. - Prescriptions for Augmentin 875- 125 mg Oral Tablet - take 1 tablet by ORAL route every 12 hours for 7 days; 14 tablet. Albuterol Sulfate 2.5 mg /3 mL (0.083 %) Inhalation Solution for Nebulization - inhale 1 unit by NEBULIZATION route every 8 hours As needed; 1 box. Prednisone 20 mg Oral Tablet - take 2 tablet by ORAL route once daily for 5 days; 10 tablet. Albuterol Sulfate 90 mcg/actuation - inhale 1-2 puff by INHALATION route every 4-6 hours; 1 Inhaler. - Medication Reconciliation Form, Thank You Letter, Antibiotic Education, Prescription Opioid Use form. - Follow up: Devyn Cain MD; When: 2 - 3 days; Reason: Recheck today's complaints, Continuance of care, Re-evaluation by your physician. - Problem is new. - Symptoms have improved. Signatures: Dispatcher [employer] EDEric Hunter MD MD cha Munoz, Edgar, RN RN Misty Rdz RN RN iw Corrections: (The following items were deleted from the chart) 14:56 14:21 09/05/2020 14:21 Discharged to Home. Impression: Dyspnea; Chronic obstructive em pulmonary disease with (acute) exacerbation; Anxiety disorder, unspecified. Condition is Stable. Forms are Medication Reconciliation Form, Thank You Letter, Antibiotic Education, Prescription Opioid Use. Follow up: Devyn Cain; When: 2 - 3 days; Reason: Recheck today's complaints, Continuance of care, Re-evaluation by your physician. Problem is new. Symptoms have improved. fanny
[2020-09-05 15:06] VITALS: TEMP 97.6
[2020-09-05 15:09] VITALS: BP 138/73; O2SAT 98
--- NOTE | 2020-09-07 07:28 | EKG ---
Test Date: 2020-09-05 Test Time: 11:17:03 Tack Driller: JAYDON MEASUREMENT RESULTS: Intervals: Rate: 64 MN: 146 QRSD: 70 QT: 436 QTc: 449 [place]: P: 14 MN: 146 QRS: 64 T: 93 INTERPRETIVE STATEMENTS: Sinus rhythm with marked sinus arrhythmia Low voltage QRS Borderline ECG Compared to ECG 12/20/2019 18:32:42 Low QRS voltage now present Sinus bradycardia no longer present Electronically Signed On 09-07-20 07:23:56 [employer] by Bulmaro Pittman
== END 2020-09-05 14:56 | disposition home or self-care (01) ==
LOC: ER 10:41
DX: J44.1 Chronic obstructive pulmonary disease with (acute) exacerbation (principal); Z20.828 Contact with and (suspected) exposure to other viral communicable diseases; F41.9 Anxiety disorder, unspecified; I10 Essential (primary) hypertension; I50.9 Heart failure, unspecified; F03.90 Unspecified dementia, unspecified severity, without behavioral disturbance, psychotic disturbance, mood disturbance, and anxiety; Z79.01 Long term (current) use of anticoagulants; Z88.5 Allergy status to narcotic agent; Z88.8 Allergy status to other drugs, medicaments and biological substances
CPT/HCPCS: 96365; 93005; 85025; 80048; 36415; 83735; 85610; 85379; 80076; 84484; 83690; 83880; 87804 ×2; 71275; 71045; 82805; 96375; 99284; Q9967; J0696; J2930

== ENCOUNTER 2025-02-12 01:34 | Inpatient (IN) | payer OTHER ==
--- OUTSIDE RECORDS SUMMARY | 2025-02-12 01:40 | XMS REPORT | Continuity of Care Document ---
Author Name Unknown Address [address] [facility] [address] [place] [address] [facility] [place] Address [address] 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 Phone Pcp, Patient Does Not Have A Primary Care Physic pal BRADEN_F Attending Clinician Unavailable [id number] Attending Clinician Unavailable 39, HOLTER Attending Clinician Unavailable KAYLEY MEDINA Attending Clinician Fernando albrecht Doctor Unassigned, Nelson Attending Clinician U KHOI Bryson Attending Clinician Unavailable Yamil OWENS, Cami Arias Attending Clinician Unavail able BRYAN BACH Attending Clinician Unavailable Paul Salas DO Attending Clinician [phone] Eddie Johnston MD Attending Clinician [phone] Bryan Bach MD Attending Clinician [phone] Bryan Velez MD Attending Clinician [phone] Liudmila Mercer CRNA Attending Clinician [phone] Artis Nunez MD Attending Clinician [phone] BECCA BACA Attending Clinician Nery Colbert RN Attending Clinician Unavailab EDDIE Aguirre Attending Clinician Unavailable Shavon Giraldo MD Attending Clinician [phone] BRADEN_F Admitting Clinician Unavailable EDDIE JOHNSTON Admitting Clinician Unavailable Eddie Johnston MD Admitting Clinician [phone] SHAVON GIRALDO Admitting Clinician Unavailable Payers Payer Name Policy Type Policy Number Effective Date Expirati on Date Source MEDICARE [place]: [employer] [id number] 2009 00:00:00 BERENICE LINN HMO 7 [id number] 2022 00:00:00 Problems Condition Name Condition Details Condition Category Status Onset Date Resolution Date Last Treatment Date Treating Clinician Comments Source Gastroesop hageal reflux disease Gastroesop hageal Reflux Disease Problem Active 04-13 00:00: 00 [facility] Muscle weakness Muscle Weakness Problem Active 04-13 00:00: 00 [facility] Abnormal gait Abnormal Gait Problem Active 04-13 00:00: 00 [facility] Dysphagia Dysphagia Problem Active 04-13 00:00: 00 [facility] Palliative care Palliative Care Problem Active 04-13 00:00: 00 [facility] Moderate cognitive impairment Moderate Cognitive Impairment Problem Active 04-13 00:00: 00 [facility] Depressive disorder Depressive Disorder Problem Active 04-13 00:00: 00 [facility] Atrial fibrillati on Atrial Fibrillati on Problem Active 04-13 00:00: 00 [facility] Pneumonia Pneumonia Problem Active 04-13 00:00: 00 [facility] Chronic obstructiv e lung disease Chronic Obstructiv e Lung Disease Problem Active 04-13 00:00: 00 [facility] COPD exacerbati on COPD exacerbati on Disease Active 03 00:00: 00 [facility] GIB (gastroint estinal bleeding) GIB (gastroint estinal bleeding) Disease Active 05-06 00:00: 00 [facility] Allergies, Adverse Reactions, Alerts Allergy Name Allergy Type Status Severity Reaction(s) Onset Date Inactive Date Treating Clinician Comments Source NO KNOWN ALLERGIE S Drug Class Active [facility] Social History Social Habit Start Date Stop Date Quantity Comments Source History SDOH Alcohol Std Drinks [facility] History SDOH Alcohol Binge [facility] History SDOH Social Connections Get Together [facility] History SDOH Social Connections [facility] History SDOH Social Connections Membership [facility] History SDOH Social Connections Meetings [facility] History of tobacco use Cigarette Smoker [facility] History SDOH Alcohol Frequency 2023-02-09 00:00:00 2023-02-09 00:00:00 1 [facility] History SDOH Social Connections Phone 2023-02-09 00:00:00 2023-02-09 00:00:00 5 [facility] History SDOH Social Connections Living 2023-02-09 00:00:00 2023-02-09 00:00:00 98 [facility] History SDOH Physical Activity DPW 2023-02-09 00:00:00 2023-02-09 00:00:00 0 [facility] History SDOH Physical Activity MPS 2023-02-09 00:00:00 2023-02-09 00:00:00 0 [facility] History SDOH Financial 2023-02-09 00:00:00 2023-02-09 00:00:00 5 [facility] History SDOH Food Worry 2023-02-09 00:00:00 2023-02-09 00:00:00 1 [facility] History SDOH Food Scarcity 2023-02-09 00:00:00 2023-02-09 00:00:00 1 [facility] History SDOH Transport Med 2023-02-09 00:00:00 2023-02-09 00:00:00 2 [facility] History SDOH Transport Non-Med 2023-02-09 00:00:00 2023-02-09 00:00:00 2 [facility] History SDOH Housing Unable to Pay 2023-02-09 00:00:00 2023-02-09 00:00:00 2 [facility] History SDOH Housing Places Lived 2023-02-09 00:00:00 2023-02-09 00:00:00 1 [facility] History SDOH Housing Homeless Last Year 2023-02-09 00:00:00 2023-02-09 00:00:00 2 [facility] Alcohol intake 2023-02-03 00:00:00 2023-02-03 00:00:00 Current drinker of alcohol (finding) [facility] Cigarettes smoked current (pack per day) - Reported 2014-05-06 00:00:00 2014-05-06 00:00:00 [facility] Cigarette pack-years 2014-05-06 00:00:00 2014-05-06 00:00:00 [facility] Sex Assigned At 1945 00:00:00 1945 00:00:00 [facility] Smoking Status Start Date Stop Date Source Former Smoker [facility] Smokes tobacco daily 2014-05-06 00:00:00 [facility] Medications Ordered Medication Name Filled Medication Name Start Date Stop Date Current Medication? Ordering Clinician Indication Dosage Frequency Signature (SIG) Comments Components Source aspirin 81 mg chewable tablet 02-17 17:25: 02 Yes [id number] 81mg Take 81 mg by mouth daily. [facility] aspirin chewable tablet 81 mg 02-17 14:00: 00 Yes 81mg 81 mg, Oral, DAILY, First dose on Mon02/17/23 at 0900, Until Discontinu ed, Routine [facility] pantoprazol e (PROTONIX) 40 mg EC tablet 02-17 11:33: 02-17 00:00 :00 No 40mg Take 1 tablet by mouth in the morning. [facility] clopidogrel (PLAVIX) 75 mg tablet 02-17 11:33: 02-17 00:00 :00 No 75mg Take 75 mg by mouth daily. [facility] pravastatin 40 mg tablet 02-17 11:33: 02-17 00:00 :00 No 40mg Take 1 tablet by mouth at bedtime. [facility] sotaloL 80 mg tablet 02-17 11:33: 02-17 00:00 :00 No 80mg Take 1 tablet by mouth every 12 (twelve) hours. [facility] losartan 100 mg tablet 02-17 11:33: 02-17 00:00 :00 No 100mg Take 1 tablet by mouth in the morning. [facility] furosemide (LASIX) 20 mg tablet 02-17 11:33: 02-17 00:00 :00 No 20mg Take 1 tablet by mouth in the morning. [facility] amLODIPine 5 mg tablet 02-17 11:33: 02-17 00:00 :00 No 5mg Take 1 tablet by mouth in the morning. [facility] theophyllin e (GRISELDA-24) 400 mg 24 hr capsule 02-17 11:33: 02-17 00:00 :00 No 400mg Take 1 capsule by mouth in the morning. [facility] apixaban (ELIQUIS) tablet 5 mg 02-17 01:00: 00 Yes 5mg 5 mg, Oral, BID, First dose on Priti 02/16/23 at 1999, Until Discontinu ed, Routine
Indicatio ns: Non-Valvul ar Atrial Fibrillati on [facility] benzonatate 100 mg capsule 02-17 00:00: 00 Yes [id number] 100mg Take 1 capsule by mouth every 8 (eight) hours as needed for Cough. [facility] tiotropium- olodateroL 2.5-2.5 mcg/actuati on Mist 02-17 00:00: 00 Yes [id number] 1{puff} Inhale 1 Puff in the morning. [facility] apixaban 5 mg tablet 02-17 00:00: 00 Yes 5mg Take 1 tablet by mouth in the morning and 1 tablet in the evening. Indication s: atrial fibrillati on [facility] doxycycline hyclate 100 mg capsule 02-17 00:00: 00 Yes 100mg Take 1 capsule by mouth every 12 (twelve) hours. [facility] mirtazapine 15 mg tablet 02-17 00:00: 00 Yes [id number] 30mg Take 2 tablets by mouth at bedtime. [facility] pantoprazol e (PROTONIX) 40 mg EC tablet 02-17 00:00: 00 Yes 40mg Take 1 tablet by mouth in the morning. [facility] doxycycline hyclate (Vibramycin ) capsule 100 mg 02-16 23:00: 00 02-26 22:59 :00 No 100mg 100 mg, Oral, Q12HA2, 20 doses, First dose on Mon02/16/23 at 1800, Last dose on Mon02/26/23 at 0600, YE
Re ason for Anti-Infec tive: Empiric Non-Surgic al Prophylaxi s
Durat ion of therapy: 5 days [facility] sennosides (SENOKOT) tablet 8.6 mg 02-15 14:00: 00 Yes 8.6mg 8.6 mg, Oral, DAILY, First dose on Mon02/15/23 at 0900, Until Discontinu ed, Routine [facility] polyethylen e glycol 3350 powder 17 g 02-15 14:00: 00 Yes 17g 17 g, Oral, DAILY, First dose on Mon02/15/23 at 0900, Until Discontinu ed, Routine [facility] pantoprazol e (PROTONIX) EC tablet 40 mg 02-15 01:00: 00 Yes 40mg 40 mg, Oral, BID, First dose (after last modificati on) on Mon02/14/23 at 2000, Until Discontinu ed, Routine [facility] iron sucrose (VENOFER) 500 mg in NaCl 0.9% (NS) 250 mL infusion 02-14 23:15: 00 02-15 07:23 :00 No 500mg 500 mg, IV Infusion, ONCE, Administer over 3.5 Hours, On Mon02/14/23 at 1815, For 1 dose [facility] ceFEPIme (MAXIPIME) 2,000 mg in NaCl 0.9% (NS) 100 mL MINI-BAG 02-13 23:45: 00 02-15 15:41 :35 No 2000mg 2,000 mg, IV Piggyback, Q12H ABX, 10 doses, First dose on Mon02/13/23 at 1845, Last dose on Mon02/18/23 at 0645, Administer over 4 Hours, 100 mL
Reas on for Anti-Infec tive: Empiric Therapy for Suspected Infection< br>Empiric Therapy Site: Blood
D uration of therapy: 5 days [facility] NaCl 0.9% (NS) bolus infusion 500 mL 02-13 23:00: 00 02-14 12:00 :00 No 500mL at 999 mL/hr, 500 mL, IV Piggyback, ONCE, 1 dose, On Mon02/13/23 at 1800, STAT [facility] ceFEPIme (MAXIPIME) 2,000 mg in NaCl 0.9% (NS) 100 mL MINI-BAG 02-13 12:30: 00 02-13 13:56 :00 No 2000mg 2,000 mg, IV Piggyback, ONCE, 1 dose, On Mon02/13/23 at 0730, Administer over 30 Minutes, 100 mL
Reas on for Anti-Infec tive: Empiric Therapy for Suspected Infection< br>Empiric Therapy Site: Blood
D uration of therapy: 5 days [facility] vancomycin (VANCOCIN) 1,000 mg in NaCl 0.9% (NS) 250 mL VIAL-MATE IV piggyback 02-13 11:45: 00 02-14 18:44 :39 No 15mg/kg 1,000 mg (rounded from 993 mg = 15 mg/kg ?66.2 kg), IV Piggyback, Q12H ABX, 20 doses, First dose on Mon02/13/23 at 0645, Last dose on Mon02/22/23 at 1845, Administer over 60 Minutes, 250 mL
Reas on for Anti-Infec tive: Empiric Therapy for Suspected Infection< br>Empiric Therapy Site: Blood
D uration of therapy: 5 days [facility] acetaminoph en (TYLENOL) tablet 650 mg 02-13 05:03: 26 Yes 650mg 650 mg, Oral, Q6HPRN, Starting on Mon02/13/23 at 0003, Until Discontinu ed, Routine, Temp > 38 C [facility] NaCl 0.9% (NS) IV infusion 1,000 mL 02-12 17:30: 00 02-13 03:29 :00 No 1000mL at 125 mL/hr, IV Infusion, CONTINUOUS , Starting on Mon02/12/23 at 1230, Until Mon02/12/23 at 2229, Routine [facility] NaCl 0.9% (NS) bolus infusion 500 mL 02-12 16:30: 00 02-12 16:00 :00 No 500mL at 999 mL/hr, 500 mL, IV Piggyback, ONCE, 1 dose, On Mon02/12/23 at 1130, STAT [facility] NaCl 0.9% (NS) bolus infusion 500 mL 02-12 15:00: 00 02-12 15:00 :00 No 500mL at 999 mL/hr, 500 mL, IV Piggyback, ONCE, 1 dose, On Mon02/12/23 at 1000, STAT [facility] KCL (KLOR-CON M20) tablet 40 mEq 02-11 12:15: 00 02-11 14:05 :00 No 40meq 40 mEq, Oral, ONCE, 1 dose, On 02/11/23 at 0715, Routine [facility] digoxin (LANOXIN) tablet 125 mcg 02-10 14:00: 00 02-10 14:23 :47 No 125ug 125 mcg, Oral, DAILY, First dose on Mon02/10/23 at 0900, Until Discontinu ed, Routine [facility] metoprolol succinate XL (TOPROL XL) tablet 25 mg 02-10 01:00: 00 02-12 13:18 :50 No 25mg 25 mg, Oral, BID, First dose (after last modificati on) on Priti 02/09/23 at 2000, Until Discontinu ed, Routine [facility] digoxin (LANOXIN) injection 250 mcg 02-09 17:00: 00 02-09 17:58 :00 No 250ug 250 mcg, Intravenou s, ONCE, 1 dose, On Priti 02/09/23 at 1200, Routine [facility] NaCl 0.9% (NS) bolus infusion 500 mL 02-09 16:00: 00 02-09 21:07 :00 No 500mL at 999 mL/hr, 500 mL, IV Piggyback, ONCE, 1 dose, On Priti 02/09/23 at 1100, STAT [facility] adenosine (ADENOCARD) injection 12 mg 02-09 16:00: 00 02-09 15:15 :00 No 12mg 12 mg, IV Push, ONCE, 1 dose, On Priti 02/09/23 at 1100, Routine [facility] amiodarone 150 mg/100 mL (NEXTERONE) RTU infusion 150 mg 02-09 15:30: 00 02-09 15:30 :00 No 150mg 150 mg, IV Piggyback, ONCE, 1 dose, On Priti 02/09/23 at 1030, Administer over 10 Minutes, 100 mL [facility] adenosine (ADENOCARD) injection 6 mg 02-09 14:34: 00 02-09 15:00 :00 No 6mg 6 mg, IV Push, ONCE, 1 dose, On Priti 02/09/23 at 0945, Routine [facility] digoxin (LANOXIN) injection 250 mcg 02-09 11:45: 00 02-09 11:06 :00 No 250ug 250 mcg, Intravenou s, ONCE, 1 dose, On Priti 02/09/23 at 0645, Routine [facility] digoxin (LANOXIN) injection 500 mcg 02-09 08:15: 00 02-09 07:38 :00 No 500ug 500 mcg, Intravenou s, ONCE, 1 dose, On Priti 02/09/23 at 0315, Routine [facility] diltiazem (CARDIZEM IV) injection 10 mg 02-09 03:45: 00 02-09 03:28 :00 No 10mg 10 mg, Slow IV Push, ONCE, 1 dose, On Mon02/08/23 at 2245, Routine
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
Fac ulty member approving Restricted medication : BHARAT SPIVEY [facility] metoprolol succinate XL (TOPROL XL) tablet 25 mg 02-09 01:00: 00 02-09 16:48 :39 No 25mg 25 mg, Oral, BID, First dose (after last modificati on) on Mon02/08/23 at 2000, Until Discontinu ed, Routine [facility] metoprolol (LOPRESSOR) injection 5 mg 02-08 23:30: 00 02-08 23:36 :00 No 5mg 5 mg, Intravenou s, ONCE, 1 dose, On Mon02/08/23 at 1830, Routine [facility] diltiazem (CARDIZEM IV) injection 20 mg 02-08 23:28: 00 02-08 23:37 :00 No 20mg 20 mg, Slow IV Push, ONCE, 1 dose, On Mon02/08/23 at 1830, STAT
Fa culty member approving Restricted medication : BHARAT SPIVEY [facility] metoprolol (LOPRESSOR) injection 2.5 mg 02-08 22:39: 00 2023- 04-12 22:40 :00 No 2.5mg 2.5 mg, Intravenou s, ONCE, 1 dose, On Mon02/08/23 at 1745, STAT [facility] furosemide (LASIX) injection 40 mg 02-08 13:00: 00 02-09 12:12 :10 No 40mg 40 mg, Slow IV Push, Q12H, First dose on Mon02/08/23 at 0800, Until Discontinu ed, Routine [facility] metoprolol succinate XL (TOPROL XL) tablet 50 mg 02-08 01:00: 00 02-08 20:21 :01 No 50mg 50 mg, Oral, BID, First dose on Mon02/07/23 at 1999, Until Discontinu ed, Routine [facility] furosemide (LASIX) injection 40 mg 02-07 20:00: 00 02-07 23:04 :00 No 40mg 40 mg, Slow IV Push, ONCE, 1 dose, On Mon02/07/23 at 1500, Routine [facility] apixaban (ELIQUIS) tablet 5 mg 02-07 14:30: 00 02-14 14:46 :56 No 5mg 5 mg, Oral, BID, First dose on Mon02/07/23 at 0930, Until Discontinu ed, Routine
Indicatio ns: Non-Valvul ar Atrial Fibrillati on [facility] benzonatate (TESSALON PERLES) capsule 200 mg 02-07 04:49: 42 Yes 200mg 200 mg, Oral, Q8HPRN, Starting on Mon02/06/23 at 2349, Until Discontinu ed, Routine, Cough [facility] cefTRIAXone (ROCEPHIN) 1,000 mg in NaCl 0.9% (NS) 100 mL MINI-BAG 02-07 01:00: 00 02-08 03:19 :00 No 1000mg 1,000 mg, IV Piggyback, Q24H ABX, 2 doses, First dose (after last reorder) on Mon02/06/23 at 1999, Last dose on Mon02/07/23 at 2000, Administer over 30 Minutes, 100 mL
Reas on for Anti-Infec tive: Empiric Therapy for Suspected Infection< br>Empiric Therapy Site: Respirator y
Durat ion of therapy: 72 hours [facility] metoprolol tartrate (LOPRESSOR) tablet 25 mg 02-06 19:00: 00 02-07 19:47 :02 No 25mg 25 mg, Oral, TID, First dose (after last modificati on) on Mon02/06/23 at 1400, Until Discontinu ed, Routine [facility] perflutren protein-A microsphr (OPTISON) injection 3 mL 02-06 17:00: 00 02-06 17:00 :00 No [id number] 3mL 3 mL, IV Push, ONCE, 1 dose, On Mon02/06/23 at 1200, Routine [facility] metoprolol tartrate (LOPRESSOR) tablet 12.5 mg 02-06 15:00: 00 02-06 16:36 :00 No 12.5mg 12.5 mg, Oral, ONCE NOW, 1 dose, On Mon02/06/23 at 1000, YE [facility] enoxaparin (LOVENOX) injection 70 mg 02-06 14:15: 00 02-07 14:23 :22 No 1mg/kg 70 mg (rounded from 66.2 mg = 1 mg/kg ?66.2 kg), Subcutaneo us, Q12H, First dose on Mon02/06/23 at 0915, Until Discontinu ed, Routine [facility] predniSONE (DELTASONE) tablet 40 mg 02-06 14:00: 00 02-07 14:45 :00 No 40mg 40 mg, Oral, DAILY, 2 doses, First dose (after last modificati on) on Mon02/06/23 at 0900, Last dose on Mon02/07/23 at 0900, Routine [facility] HEPARIN SODIUM (PORCINE) 1,000 UNIT/ML BOLUS ACS ORDER SET 02-06 12:30: 00 02-06 13:18 :00 No 60U/kg 3,972 Units (60 Units/kg ?66.2 kg), IV Push, ONCE, 1 dose, On Mon02/06/23 at 0730, YE [facility] heparin 25,000 Units/250 mL (Premixed Bag) in 0.45 % NS 02-06 12:19: 28 02-06 14:08 :22 No 0U/h 0-1,600 Units/hr (0-16 mL/hr), IV Infusion, TITRATE, Parameters in Admin. Instr., Starting on Mon02/06/23 at 0719
In itiate dosing:&nb sp; & nbsp;&nbsp ; -Patient 83 kg or under: 800 Units/hr (Calculate d dose at 12 units/kg/h r) &n bsp; &nbs p; -Patient over 83 k,000 units/hr&n bsp;DO NOT Exceed the MAXIMUM 1,000 units/hr for initiation of heparin drip.&nbsp ; CAU TION - If LMWH given in ER, AVOID bolus and start next dose/drip 12 hrs after ER dosage.&nb sp; M ust program rate using programmab le infusion pump.&nbsp ; Alice ck with the ordering provider first prior to any administra tion should the patient be on existing/a dditional anticoagul ant therapy.&n bsp; Range, Dosing and Testing&nb sp; - aPTT < 40: & nbsp;Bolus 3000 units, increase rate 100 units/hr.& nbsp;- aPTT 40-49:&nbs p; In crease rate 50 units/hr. - aPTT 50-70:&nbs p; NO CHANGE.&nb sp;- aPTT 71-85:&nbs p; De crease rate 50 units/hr.& nbsp;- aPTT 86-100:&nb sp; H old 30 minutes, decrease rate 100 units/hr.& nbsp;- aPTT 101-150:&n bsp; Hold 60 minutes, decrease rate 150 units/hr.& nbsp;- aPTT > 150: Hold 60 minutes, decrease rate 300 units/hr.& nbsp;&nbsp ;Check aPTT 6 hours after initiation , then Q6H after every change, aPTT Q12H once therapeuti c levels are reached.&n bsp; DO NOT ADJUST INITIAL BOLUS OR INITIAL INFUSION RATE.
[facility] metoprolol (LOPRESSOR) injection 5 mg 02-05 21:15: 00 02-05 20:27 :00 No 5mg 5 mg, Intravenou s, ONCE, 1 dose, On 02/05/23 at 1615, STAT [facility] metoprolol tartrate (LOPRESSOR) tablet 12.5 mg 02-05 20:30: 00 02-06 14:08 :22 No 12.5mg 12.5 mg, Oral, BID, First dose (after last modificati on) on 02/05/23 at 1530, Until Discontinu ed, Routine [facility] metoprolol (LOPRESSOR) injection 5 mg 02-05 20:00: 00 02-05 19:58 :00 No 5mg 5 mg, Intravenou s, ONCE, 1 dose, On 02/05/23 at 1500, STAT [facility] NaCl 0.9% (NS) bolus infusion 500 mL 02-05 20:00: 00 02-05 20:06 :45 No 500mL at 100 mL/hr, 500 mL, IV Piggyback, ONCE, 1 dose, On 02/05/23 at 1500, STAT [facility] clopidogreL (PLAVIX) 75 mg tablet 75 mg 02-04 14:00: 00 02-16 16:57 :46 No 75mg 75 mg, Oral, DAILY, First dose on 02/04/23 at 0900, Until Discontinu ed, Routine [facility] pantoprazol e (PROTONIX) EC tablet 40 mg 02-04 14:00: 00 02-14 22:22 :02 No 40mg 40 mg, Oral, DAILY, First dose on Mon02/04/23 at 0900, Until Discontinu ed, Routine [facility] aspirin chewable tablet 81 mg 02-04 14:00: 00 02-06 12:21 :23 No 81mg 81 mg, Oral, DAILY, First dose on Mon02/04/23 at 0900, Until Discontinu ed, Routine [facility] pravastatin (PRAVACHOL) tablet 40 mg 02-04 02:00: 00 Yes 40mg 40 mg, Oral, QHS, First dose on Mon02/03/23 at 2100, Until Discontinu ed, Routine [facility] mirtazapine (REMERON) tablet 15 mg 02-04 02:00: 00 Yes 15mg 15 mg, Oral, QHS, First dose on Mon02/03/23 at 2100, Until Discontinu ed, Routine [facility] azithromyci n (ZITHROMAX) 500 mg in NaCl 0.9% (NS) 250 mL VIAL-MATE IV piggyback 02-03 22:15: 00 02-06 00:40 :00 No 500mg 500 mg, IV Piggyback, Q24H ABX, 3 doses, First dose on Mon02/03/23 at 1715, Last dose on Mon02/05/23 at 1715, Administer over 60 Minutes, 250 mL
Reas on for Anti-Infec tive: Empiric Therapy for Suspected Infection< br>Empiric Therapy Site: Respirator y
Durat ion of therapy: 72 hours [facility] cefTRIAXone (ROCEPHIN) 1,000 mg in NaCl 0.9% (NS) 100 mL MINI-BAG 02-03 22:15: 00 02-06 02:30 :00 No 1000mg 1,000 mg, IV Piggyback, Q24H ABX, 3 doses, First dose on Mon02/03/23 at 1715, Last dose on Mon02/05/23 at 1715, Administer over 30 Minutes, 100 mL
Reas on for Anti-Infec tive: Empiric Therapy for Suspected Infection< br>Empiric Therapy Site: Respirator y
Durat ion of therapy: 72 hours [facility] enoxaparin (LOVENOX) injection 40 mg 02-03 22:00: 00 02-06 12:21 :17 No 40mg 40 mg, Subcutaneo us, DAILY, First dose on Mon02/03/23 at 1700, Until Discontinu ed, [facility] leval[facility] (XOPENEX) nebulizer solution 0.31 mg 02-03 19:00: 00 Yes .31mg 0.31 mg, Inhalation , TID, First dose on Mon02/03/23 at 1400, Until Discontinu ed, Routine [facility] predniSONE (DELTASONE) tablet 40 mg 02-03 17:00: 00 02-06 12:17 :28 No 40mg 40 mg, Oral, DAILY, First dose (after last modificati on) on Mon02/03/23 at 1200, Until Discontinu ed, Routine [facility] clopidogrel (PLAVIX) 75 mg tablet 02-03 11:47: 41 Yes 75mg Take 75 mg by mouth daily. [facility] aspirin 81 mg chewable tablet 02-03 11:47: 41 Yes 81mg Take 81 mg by mouth daily. [facility] pravastatin 40 mg tablet 02-03 11:47: 41 Yes 40mg Take 1 tablet by mouth at bedtime. [facility] sotaloL 80 mg tablet 02-03 11:47: 41 Yes 80mg Take 1 tablet by mouth every 12 (twelve) hours. [facility] losartan 100 mg tablet 02-03 11:47: 41 Yes 100mg Take 1 tablet by mouth in the morning. [facility] furosemide (LASIX) 20 mg tablet 02-03 11:47: 41 Yes 20mg Take 1 tablet by mouth in the morning. [facility] amLODIPine 5 mg tablet 02-03 11:47: 41 Yes 5mg Take 1 tablet by mouth in the morning. [facility] pantoprazol e (PROTONIX) 40 mg EC tablet 02-03 11:47: 41 Yes 40mg Take 1 tablet by mouth in the morning. [facility] theophyllin e (GRISELDA-24) 400 mg 24 hr capsule 02-03 11:47: 41 Yes 400mg Take 1 capsule by mouth in the morning. [facility] predniSONE 20 mg tablet 02-01 00:00: 00 02-07 04:59 :00 No [id number] 40mg Take 2 tablets by mouth in the morning for 5 days. [facility] BUDESONIDE/ FORMOTEROL FUMARATE (BUDESONIDE -FORMOTEROL INHALE) 01-31 15:46: 26 01-31 00:00 :00 No Inhale. [facility] mirtazapine 15 mg tablet 01-31 00:00: 00 03-03 04:59 :00 No [id number] 15mg Take 1 tablet by mouth at bedtime for 30 days. [facility] benzonatate 100 mg capsule 01-31 00:00: 00 02-08 04:59 :00 No [id number] 100mg Take 1 capsule by mouth every 8 (eight) hours as needed for Cough for up to 7 days. [facility] guaiFENesin 400 mg tablet 01-31 00:00: 00 02-08 04:59 :00 No [id number] 400mg Take 1 tablet by mouth every 4 (four) hours for 7 days. [facility] amiodarone 200 mg tablet Take 1 tablet twice a day by oral route. amiodarone 200 mg tablet Take 1 tablet twice a day by oral route. No 1 BID amiodarone 200 mg tablet Take 1 tablet twice a day by oral route. Luis Daniel Beltran [facility] aspirin 81 mg chewable tablet Chew 1 tablet every day by oral route. aspirin 81 mg chewable tablet Chew 1 tablet every day by oral route. No 1 Q1D aspirin 81 mg chewable tablet Chew 1 tablet every day by oral route. [facility] benzonatate 100 mg capsule Take 1 capsule 3 times a day by oral route. benzonatate 100 mg capsule Take 1 capsule 3 times a day by oral route. No 1capsul e(s) TID benzonatat e 100 mg capsule Take 1 capsule 3 times a day by oral route. [facility] Eliquis 5 mg tablet Take 1 tablet BID PO Eliquis 5 mg tablet Take 1 tablet BID PO No Eliquis 5 mg tablet Take 1 tablet BID PO [facility] melatonin 3 mg tablet Take 1 tablet every day by oral route at bedtime. melatonin 3 mg tablet Take 1 tablet every day by oral route at bedtime. No 1 Q1D melatonin 3 mg tablet Take 1 tablet every day by oral route at bedtime. [facility] mirtazapine 30 mg tablet Take 1 tablet every day by oral route. mirtazapine 30 mg tablet Take 1 tablet every day by oral route. No 1 Q1D mirtazapin e 30 mg tablet Take 1 tablet every day by oral route. [facility] omeprazole 20 mg capsule,del ayed release Take 1 capsule every day by oral route. omeprazole 20 mg capsule,del ayed release Take 1 capsule every day by oral route. No 1capsul e(s) Q1D omeprazole 20 mg capsule,de layed release Take 1 capsule every day by oral route. [facility] Stiolto Respimat 2.5 mcg-2.5 mcg/actuati on solution for inhalation Inhale 1 puff every day by inhalation route. Stiolto Respimat 2.5 mcg-2.5 mcg/actuati on solution for inhalation Inhale 1 puff every day by inhalation route. No 1puff(s ) Q1D Stiolto Respimat 2.5 mcg-2.5 mcg/actuat ion solution for inhalation Inhale 1 puff every day by inhalation route. [facility] amiodarone 200 mg tablet TAKE 1 TABLET BY MOUTH ONCE DAILY amiodarone 200 mg tablet TAKE 1 TABLET BY MOUTH ONCE DAILY No amiodarone 200 mg tablet TAKE 1 TABLET BY MOUTH ONCE DAILY [facility] aspirin 81 mg chewable tablet Chew 1 tablet every day by oral route. aspirin 81 mg chewable tablet Chew 1 tablet every day by oral route. No 1 Q1D aspirin 81 mg chewable tablet Chew 1 tablet every day by oral route. [facility] benzonatate 100 mg capsule Take 1 capsule 3 times a day by oral route. benzonatate 100 mg capsule Take 1 capsule 3 times a day by oral route. No 1capsul e(s) TID benzonatat e 100 mg capsule Take 1 capsule 3 times a day by oral route. [facility] Eliquis 5 mg tablet TAKE 1 TABLET BY MOUTH TWICE DAILY FOR 30 DAYS Eliquis 5 mg tablet TAKE 1 TABLET BY MOUTH TWICE DAILY FOR 30 DAYS No Eliquis 5 mg tablet TAKE 1 TABLET BY MOUTH TWICE DAILY FOR 30 DAYS [facility] melatonin 3 mg tablet Take 1 tablet every day by oral route at bedtime. melatonin 3 mg tablet Take 1 tablet every day by oral route at bedtime. No 1 Q1D melatonin 3 mg tablet Take 1 tablet every day by oral route at bedtime. [facility] mirtazapine 30 mg tablet Take 1 tablet every day by oral route. mirtazapine 30 mg tablet Take 1 tablet every day by oral route. No 1 Q1D mirtazapin e 30 mg tablet Take 1 tablet every day by oral route. [facility] nitrofurant oin macrocrysta l 100 mg capsule Take 1 capsule every 6 hours by oral route for 5 days. nitrofurant oin macrocrysta l 100 mg capsule Take 1 capsule every 6 hours by oral route for 5 days. No 1capsul e(s) Q6H nitrofuran toin macrocryst al 100 mg capsule Take 1 capsule every 6 hours by oral route for 5 days. [facility] omeprazole 20 mg capsule,del ayed release Take 1 capsule every day by oral route. omeprazole 20 mg capsule,del ayed release Take 1 capsule every day by oral route. No 1capsul e(s) Q1D omeprazole 20 mg capsule,de layed release Take 1 capsule every day by oral route. [facility] Stiolto Respimat 2.5 mcg-2.5 mcg/actuati on solution for inhalation Inhale 1 puff every day by inhalation route. Stiolto Respimat 2.5 mcg-2.5 mcg/actuati on solution for inhalation Inhale 1 puff every day by inhalation route. No 1puff(s ) Q1D Stiolto Respimat 2.5 mcg-2.5 mcg/actuat ion solution for inhalation Inhale 1 puff every day by inhalation route. [facility] Vital Signs Vital Name Observation Time Observation Value Comments S ource BP Diastolic 2023-05-25 00:00:00 84 mm[Hg] [facility] Height 2023-05-25 00:00:00 66 [in_i] [facility] BMI (Body Mass Index) 2023-05-25 00:00:00 22 kg/m2 [facility] BP Systolic 2023-05-25 00:00:00 140 mm[Hg] [facility] Body Weight 2023-05-25 00:00:00 2176 [oz_av] [facility] BP Diastolic 2023-04-13 00:00:00 72 mm[Hg] [facility] Height 2023-04-13 00:00:00 66 [in_i] [facility] BMI (Body Mass Index) 2023-04-13 00:00:00 21.5 kg/m2 [facility] BP Systolic 2023-04-13 00:00:00 116 mm[Hg] [facility] Body Weight 2023-04-13 00:00:00 2128 [oz_av] [facility] Heart rate 2023-02-17 18:26:00 66 /min [facility] Respiratory rate 2023-02-17 18:26:00 18 /min [facility] Systolic blood pressure 2023-02-17 17:30:00 134 mm[Hg] [facility] Diastolic blood pressure 2023-02-17 17:30:00 44 mm[Hg] [facility] Oxygen saturation in Arterial blood by Pulse oximetry 2023-02-17 17:30:00 98 /min [facility] Body temperature 2023-02-17 17:02:00 36.28 Natalie [facility] Body weight 2023-02-04 19:00:00 66.2 kg [facility] BMI 2023-02-04 19:00:00 23.56 kg/m2 [facility] Body height 2023-02-03 22:52:00 167.6 cm [facility] Systolic blood pressure 2023-02-10 16:35:00 159 mm[Hg] [facility] Diastolic blood pressure 2023-02-10 16:35:00 69 mm[Hg] [facility] Heart rate 2023-02-10 16:35:00 86 /min [facility] Body temperature 2023-02-10 16:35:00 36.22 Natalie [facility] Respiratory rate 2023-02-10 16:35:00 17 /min [facility] Oxygen saturation in Arterial blood by Pulse oximetry 2023-02-10 16:35:00 94 /min [facility] Systolic blood pressure 2023-02-08 16:22:00 139 mm[Hg] [facility] Diastolic blood pressure 2023-02-08 16:22:00 64 mm[Hg] [facility] Heart rate 2023-02-08 16:22:00 66 /min [facility] Body temperature 2023-02-08 16:22:00 37.28 Natalie [facility] Respiratory rate 2023-02-08 16:22:00 18 /min [facility] Oxygen saturation in Arterial blood by Pulse oximetry 2023-02-08 16:22:00 91 /min [facility] Body weight 2023-02-04 19:00:00 66.2 kg [facility] BMI 2023-02-04 19:00:00 23.56 kg/m2 [facility] Body height 2023-02-03 22:52:00 167.6 cm [facility] Procedures Procedure Date / Time Performed Performing Clinician Source EXTERNAL PROVIDER RECORDS 2023-02-27 05:01:00 Do ctor Unassigned, Nelson [facility] COVID-19 (ID NOW RAPID TESTING) 2023-02-17 15:11:00 Aniket [facility] BASIC METABOLIC PANEL (NA, K, CL, CO2, GLUCOSE, BUN, CREATININE, CA) 2023-02-17 10:42:00 Aniket [facility] CBC WITHOUT DIFF 2023-02-17 10:42:00 Aniket [facility] BASIC METABOLIC PANEL (NA, K, CL, CO2, GLUCOSE, BUN, CREATININE, CA) 2023-02-16 11:04:00 Aniket [facility] CBC WITHOUT DIFF 2023-02-16 11:04:00 Aniket [facility] PROTHROMBIN TIME / INR 2023-02-16 11:04:00 Aniket [facility] LEGIONELLA AND STREPTOCOCCUS PNEUMONIAE URINARY ANTIGENS 2023-02-15 16:48:00 Sumaya Elizabeth [facility] BASIC METABOLIC PANEL (NA, K, CL, CO2, GLUCOSE, BUN, CREATININE, CA) 2023-02-15 10:46:00 Aniket [facility] CBC WITHOUT DIFF 2023-02-15 10:46:00 Aniket [facility] PROCALCITONIN 2023-02-15 10:46:00 Darya Elizabeth [facility] CBC WITHOUT DIFF 2023-02-14 15:09:00 Aniket [facility] PROTHROMBIN TIME / INR 2023-02-14 15:09:00 Aniket [facility] HEPATIC FUNCTION PANEL (94245) (ALB,T.PRO,BILI T,BU/BC,ALT,AST,ALK PHOS) 2023-02-14 07:33:00 Sophia Washburn [facility] BASIC METABOLIC PANEL (NA, K, CL, CO2, GLUCOSE, BUN, CREATININE, CA) 2023-02-14 07:33:00 Aniket [facility] CBC WITHOUT DIFF 2023-02-14 07:33:00 Aniket [facility] PROTHROMBIN TIME / INR 2023-02-14 07:33:00 Cher Washburn [facility] URINALYSIS 2023-02-13 22:10:00 Sophia [facility] URINE CULTURE 2023-02-13 22:10:00 Sophia Washburn [facility] DIFF CONSULT BY PATHOLOGIST 2023-02-13 21:15:00 Riki Marcial [facility] CBC WITH DIFF 2023-02-13 21:15:00 Riki Marcial [facility] RETICULOCYTES AUTOMATED 2023-02-13 21:15:00 Pat Marcial [facility] DIFF CONSULT INTERPRETATION 2023-02-13 21:15:00 Riki Marcial [facility] LACTATE DEHYDROGENASE 2023-02-13 21:14:00 Aniket Lyn [facility] FERRITIN SERUM 2023-02-13 21:14:00 Aniket Lyn [facility] VITAMIN B12, LEVEL 2023-02-13 21:14:00 Riki Marcial [facility] FOLATE 2023-02-13 21:14:00 Aniket Lyn [facility] HAPTOGLOBIN, SERUM 2023-02-13 21:14:[address] [facility] HEPATIC FUNCTION PANEL ([id number]) (ALB,T.PRO,BILI T,BU/BC,ALT,AST,ALK PHOS) 2023-02-13 21:14:00 Riki Marcial [facility] IRON PANEL 2023-02-13 21:14:00 Riki Marcial [facility] PROTHROMBIN TIME / INR 2023-02-13 21:14:00 Sylvain Marcial [facility] ACTIVATED PARTIAL THRMPLAS GORGE 2023-02-13 21:14:00 Aniket Lyn [facility] HB DIRECT ANTIGLOBULIN (POLY SPEC 2023-02-13 21:14:00 Riki Marcial [facility] CBC WITHOUT DIFF 2023-02-13 18:53:00 Aniket [facility] CBC WITHOUT DIFF 2023-02-13 11:23:00 Aniket [facility] MAGNESIUM 2023-02-13 09:09:00 Wu [facility] BASIC METABOLIC PANEL (NA, K, CL, CO2, GLUCOSE, BUN, CREATININE, CA) 2023-02-13 09:09:00 Wu [facility] CBC WITH DIFF 2023-02-13 09:09:00 Wu [facility] XR CHEST 1 VW 2023-02-12 18:21:00 Wu [facility] AC PANEL 20 + LACTIC ACID 2023-02-12 16:02:00 Monik Washburn [facility] BLOOD CULTURE SCREEN 2023-02-12 15:59:00 [facility] POCT GLUCOSE (AUTOMATED) 2023-02-12 15:54:00 Eddie Johnston [facility] BASIC METABOLIC PANEL (NA, K, CL, CO2, GLUCOSE, BUN, CREATININE, CA) 2023-02-12 09:47:00 Aniket [facility] CBC WITHOUT DIFF 2023-02-12 09:47:00 Aniket [facility] OSMOLALITY URINE 2023-02-11 19:47:00 Aniket [facility] CREATININE, URINE RANDOM 2023-02-11 19:47:00 Aniket [facility] UREA NITROGEN, URINE RANDOM 2023-02-11 19:47:00 Aniket [facility] SODIUM, URINE RANDOM 2023-02-11 19:47:00 Aniket [facility] BASIC METABOLIC PANEL (NA, K, CL, CO2, GLUCOSE, BUN, CREATININE, CA) 2023-02-11 09:56:00 Aniket [facility] CBC WITHOUT DIFF 2023-02-11 09:56:00 Aniket [facility] XR CHEST 1 VW 2023-02-10 15:46:00 Aniket Lyn [facility] CBC WITHOUT DIFF 2023-02-10 10:49:00 Aniket [facility] BASIC METABOLIC PANEL (NA, K, CL, CO2, GLUCOSE, BUN, CREATININE, CA) 2023-02-10 10:49:00 Aniket [facility] MAGNESIUM 2023-02-10 10:49:00 Aniket [facility] MAGNESIUM 2023-02-10 10:49:00 Aniket [facility] BASIC METABOLIC PANEL (NA, K, CL, CO2, GLUCOSE, BUN, CREATININE, CA) 2023-02-10 10:49:00 Aniket [facility] CBC WITHOUT DIFF 2023-02-10 10:49:00 Aniket [facility] HB ECG ROUTINE & RHYTHM STRIP 2023-02-09 15:46:41 Aniket [facility] HB ECG ROUTINE & RHYTHM STRIP 2023-02-09 13:15:51 Wu [facility] CBC WITHOUT DIFF 2023-02-09 10:45:00 Aniket [facility] BASIC METABOLIC PANEL (NA, K, CL, CO2, GLUCOSE, BUN, CREATININE, CA) 2023-02-09 10:45:00 Aniket [facility] BASIC METABOLIC PANEL (NA, K, CL, CO2, GLUCOSE, BUN, CREATININE, CA) 2023-02-09 10:45:00 Aniket [facility] CBC WITHOUT DIFF 2023-02-09 10:45:00 Aniket [facility] HB ECG ROUTINE & RHYTHM STRIP 2023-02-09 02:43:31 Hu Juliano [facility] HB ECG ROUTINE & RHYTHM STRIP 2023-02-08 23:21:27 Juliano Lui Juan [facility] EKG-12 LEAD 2023-02-08 22:33:02 Eddie Johnston [facility] EKG-12 LEAD 2023-02-07 13:53:10 Candy Gonzalez [facility] EKG-12 LEAD 2023-02-07 12:38:34 Candy Gonzalez [facility] CBC WITH DIFF 2023-02-07 11:30:00 Wu [facility] BASIC METABOLIC PANEL (NA, K, CL, CO2, GLUCOSE, BUN, CREATININE, CA) 2023-02-07 11:30:00 Wu [facility] MAGNESIUM 2023-02-07 11:30:00 Wu [facility] MAGNESIUM 2023-02-07 11:30:00 Wu [facility] BASIC METABOLIC PANEL (NA, K, CL, CO2, GLUCOSE, BUN, CREATININE, CA) 2023-02-07 11:30:00 Wu [facility] CBC WITH DIFF 2023-02-07 11:30:00 Wu [facility] ACTIVATED PARTIAL THRMPLAS GORGE 2023-02-07 11:29:00 Wu [facility] ACTIVATED PARTIAL THRMPLAS GORGE 2023-02-07 11:29:00 [facility] 2023-02-06 22:38:00 Wu [facility] ACTIVATED PARTIAL THRMPLAS GORGE 2023-02-06 22:38:00 Washburn, [facility] PROTHROMBIN TIME / INR 2023-02-06 22:38:00 Wu [facility] ACTIVATED PARTIAL THRMPLAS GORGE 2023-02-06 22:38:00 [facility] (TTE[facility] COMPLETE W/ CONTRAST 2023-02-06 16:46:13 Bell [facility] TRANSTHORACIC ECHO (TTE) COMPLETE W/ CONTRAST 2023-02-06 16:46:13 Terell [facility] HB ECG ROUTINE & RHYTHM STRIP 2023-02-06 14:31:12 Wu [facility] HB ECG ROUTINE & RHYTHM STRIP 2023-02-06 14:31:12 Wu [facility] CBC WITHOUT DIFF 2023-02-06 10:05:00 Riki Marcial [facility] BASIC METABOLIC PANEL (NA, K, CL, CO2, GLUCOSE, BUN, CREATININE, CA) 2023-02-06 10:05:00 Aniket [facility] BASIC METABOLIC PANEL (NA, K, CL, CO2, GLUCOSE, BUN, CREATININE, CA) 2023-02-06 10:05:00 Aniket [facility] CBC WITHOUT DIFF 2023-02-06 10:05:00 Aniket [facility] EKG-12 LEAD 2023-02-05 18:47:11 Eddie Johnston [facility] EKG-12 LEAD 2023-02-05 18:47:11 Eddie Johnston [facility] CBC WITHOUT DIFF 2023-02-05 10:01:00 Aniket [facility] BASIC METABOLIC PANEL (NA, K, CL, CO2, GLUCOSE, BUN, CREATININE, CA) 2023-02-05 10:01:00 Aniket [facility] BASIC METABOLIC PANEL (NA, K, CL, CO2, GLUCOSE, BUN, CREATININE, CA) 2023-02-05 10:01:00 Aniket [facility] CBC WITHOUT DIFF 2023-02-05 10:01:00 Aniket [facility] CBC WITH DIFF 2023-02-04 10:20:00 Wu [facility] BASIC METABOLIC PANEL (NA, K, CL, CO2, GLUCOSE, BUN, CREATININE, CA) 2023-02-04 10:20:00 Wu [facility] MAGNESIUM 2023-02-04 10:20:00 Wu [facility] MAGNESIUM 2023-02-04 10:20:00 Washburn [facility] BASIC METABOLIC PANEL (NA, K, CL, CO2, GLUCOSE, BUN, CREATININE, CA) 2023-02-04 10:20:00 Wu [facility] CBC WITH DIFF 2023-02-04 10:20:00 Wu [facility] XR CHEST 1 VW 2023-02-03 18:37:00 [facility] CHEST 1 VW 2023-02-03 18:37:00 Terell [facility] HEPATIC FUNCTION PANEL (32533) (ALB,T.PRO,BILI T,BU/BC,ALT,AST,ALK PHOS) 2023-02-03 16:55:00 [facility] BASIC METABOLIC PANEL (NA, K, CL, CO2, GLUCOSE, BUN, CREATININE, CA) 2023-02-03 16:55:00 [facility] CBC WITH DIFF 2023-02-03 16:55:00 [facility] PROTHROMBIN TIME / INR 2023-02-03 16:55:00 SaliSindy [facility] N-TERMINAL PRO-BNP 2023-02-03 16:55:00 [facility] MRSA / MSSA SCREEN BY PCR, [facility] 2023-02-03 16:55:00 [facility] 2023-02-03 16:55:00 [facility] CBC WITH DIFF 2023-02-03 16:55:00 [facility] BASIC METABOLIC PANEL (NA, K, CL, CO2, GLUCOSE, BUN, CREATININE, CA) 2023-02-03 16:55:00 [facility] HEPATIC FUNCTION PANEL ([id number]) (ALB,T.PRO,BILI T,BU/BC,ALT,AST,ALK PHOS) 2023-02-03 16:55:00 [facility] PROTHROMBIN TIME / INR 2023-02-03 16:55:00 [facility] N-TERMINAL PRO-BNP 2023-02-03 16:55:00 [facility] SPUTUM CULTURE 2023-01-31 21:19:00 Alexander Lui [facility] PROCALCITONIN 2023-01-31 18:13:00 René Steele [facility] CBC WITH DIFF 2023-01-31 06:43:00 Alexander Lui [facility] BASIC METABOLIC PANEL (NA, K, CL, CO2, GLUCOSE, BUN, CREATININE, CA) 2023-01-31 06:43:00 Juliano Lui [facility] N-TERMINAL PRO-BNP 2023-01-31 06:43:00 Juliano Lui [facility] MAGNESIUM 2023-01-31 06:43:00 Alexander Lui [facility] PNEUMOCOCCAL ANTIGEN 2023-01-31 05:52:00 Juliano Cisse [facility] GALV ONLY - INFLUENZA A B RSV PCR 2023-01-31 05:52:00 Juliano Lui [facility] XR CHEST 1 VW 2023-01-31 04:12:00 Alexander Lui [facility] HOSPITAL ADMISSION 2023-01-30 05:01:00 Doctor Un assigned, Nelson [facility] Surgical Procedure on Eye Proper Using Laser [facility] Appendectomy [facility] Total Hysterectomy [facility] Plan of Care Planned Activity Planned Date Details Comments Source Diagnostic Test Pending 2023-05-25 00:00:00 urinalysis, dipstick [code = urinalysis, dipstick] [facility] Diagnostic Test Pending 2023-05-25 00:00:00 urinalysis, reflex culture [code = urinalysis, reflex culture] [facility] Future Scheduled Test Improved h earing in left ear, reduced urinary symtpoms. [code = Improved hearing in left ear, reduced urinary symtpoms.] [facility] Instructions [facility] Encounters Start Date/Time End Date/Time Encounter Type Admission Type Attending Clinicians Care Facility Care Department Encounter ID Source 2023-08-31 00:00:00 2023-08-31 00:00:00 Outpatient [facility] [id number] [facility] 2023-07-01 00:00:00 2023-07-01 00:00:00 Outpatient [facility] [id number] [facility] 2023-06-08 00:00:00 2023-06-08 00:00:00 Outpatient [id number] 2023-05-25 00:00:00 2023-05-25 00:00:00 Outpatient [facility] 2023-05-25 00:00:00 2023-05-25 00:00:00 MAXIMO Campos-C: [address], [place] [address] , Ph. [phone] [facility], DR. MC [id number] [facility] 2023-04-13 00:00:00 2023-04-13 00:00:00 Outpatient [facility] [id number] [facility] 2023-04-13 00:00:00 2023-04-13 00:00:00 Colin Mc, DO: [address] [place] [address] , Ph. [facility], DR. MC [id number] [facility] 2023-04-06 00:00:00 2023-04-06 00:00:00 Outpatient [id number] [facility] 2023-03-28 09:30:00 2023-03-28 09:30:00 Outpatient LAB39 ROSITA SIMMONS [id number] Rosita Santiago 2023-03-28 08:50:00 2023-03-28 08:50:00 Outpatient WILIAN Guerra [id number] Rosita Santiago 2023-03-28 08:30:00 2023-03-28 08:30:00 Outpatient KAYLEY MEDINA [id number] [facility] 2023-02-27 00:00:00 2023-02-27 00:00:00 Orders Only Doctor Unassigned, Nelson [facility] [id number] [facility] 2023-02-20 00:00:00 2023-02-20 00:00:00 Outpatient KHOI GIORDANO [id number] [facility] Santiago 2023-02-20 00:00:00 2023-02-20 00:00:00 Transition of Care Yamil Camidarya [facility] [id number] [facility] 2023-02-03 11:00:00 2023-02-17 17:24:00 Inpatient U [facility] [id number] [facility] 2023-02-03 11:00:00 2023-02-17 17:24:00 Hospital En[facility]as[facility] [id number] [facility] 2023-02-09 10:37:00 2023-02-09 10:58:00 Anesthesia Event Bryan Velez Lesley C 1.2.840.1 [id number] [facility] 2023-02-07 10:44:44 2023-02-07 10:44:44 Anesthesia Event Artis Nunez [id number] [facility] 2023-02-01 00:00:00 2023-02-01 00:00:00 Outpatient BECCA BACA ROSITA ROSITA [id number] Rosita Santiago 2023-02-01 00:00:00 2023-02-01 00:00:00 Transition of Care Nery Monge 1.2.840.1 [id number] [facility] 2023-01-30 22:18:00 2023-01-31 18:23:00 Inpatient U [facility] [id number] [facility] 2023-01-30 22:18:00 2023-01-31 18:23:00 Hospital Encounter Kyle, EddieRigo Eganza [id number] [facility] Results Test Description Test Time Test Comments Results Result Co mments Source [facility] WITHOUT [id number] 11:32:07* Test Item Value Reference Range Interpretation Comme nts WBC (test code = 6690-2) 7.51 See_Comment [Automated messa ge] The system which generated this result transmitted reference range: 4.30 - 11.10 10*3/?L. The reference range was not used to interpret this result as normal/abnormal. RBC (test code = 789-8) 2.81 See_Comment L [Automated message] The system which generated this result transmitted reference range: 3.93 - 5.25 10*6/?L. The reference range was not used to interpret this result as normal/abnormal. HGB (test code = 718-7) 8.1 g/dL 11.6-15.0 L HCT (test code = 4544-3) 26.0 % 35.7-45.2 L MCH (test code = 785-6) 28.8 pg 25.9-32.8 MCV (test code = 787-2) 92.5 fL 80.6-95.5 MCHC (test code = 786-4) 31.2 g/dL 31.6-35.1 L PLT (test code = 777-3) 158 See_Comment L [Automated message] The system which generated this result transmitted reference range: 166 - 358 10*3/?L. The reference range was not used to interpret this result as normal/abnormal. MPV (test code = 66983-5) 13.6 fL 9.5-12.9 H RDW-CV (test code = 788-0) 15.9 % 12.0-15.5 H RDW-SD (test code = 14350-1) 54.3 fL 39.0-49.9 H NRBC x10^3 (test code = 5200091866) See_Comment [Automated [employer] ge] The system which generated this result transmitted reference range: 10*3/?L. The reference range was not used to interpret this result as normal/abnormal. NRBC/100 WBC (test code = 8954903949) 0.0 See_Comment [Automated [employer]] The system which generated this result transmitted reference range: 0.0 - 10.0 /100 WBCs. The reference range was not used to interpret this result as normal/abnormal. IPF % (test code = 2080570043) 13.5 % 1.3-7.7 H Platelet count measured by fluorescence method. Lab Interpretation (test code = 21026-8) Abnormal [facility] METABOLIC PANEL (NA, K, CL, CO2, GLUCOSE, BUN, CREATININE, CA)2023-02-16 12:03:36* Test Item Value Reference Range Interpretation Comme nts NA (test code = 5523276495) 146 mmol/L 135-145 H K (test code = 7025520081) 3.5 mmol/L 3.5-5.0 CL (test code = 7234635778) 116 mmol/L 98-108 H CO2 TOTAL (test code = 2936631303) 23 mmol/L 23-31 AGAP (test code = 8040735678) 7 2-16 BUN (test code = 1997314513) 12 mg/dL 7-23 GLUCOSE (test code = 0389564456) 113 mg/dL 70-110 H CREATININE (test code = 0064759190) 1.19 mg/dL 0.50-1.04 H CALCIUM (test code = 3438151543) 8.0 mg/dL 8.6-10.6 L eGFR (test code = 6439015861) 43.9 mL/min/1.73m2 JOANIE (test code = JOANIE) Association of Glomerular Filtration Rate (GFR) and Staging of Kidney Disease* + --+ --+ ------+| GFR (mL/min/1.73 m2) ?| With Kidney Damage ?| ?Without Kidney Damage+ --------+ --------+ +| ?>90 ?| ?Stage one ?| ? Normal ?+ ---+ ---+ -------+| ?60-89 ?| ?Stage two ?| ? Decreased GFR ? + --+ --+ ------+| ?30-59 ?| ?Stage three ?| ? Stage three ? + --+ --+ ------+| ?15-29 ?| ?Stage four ? | ? Stage four ?+ ---+ ---+ -------+| ?<15 (or dialysis) ? ?| ?Stage five ? | ? Stage five ?+ ---+ ---+ -------+ *Each stage assumes the associated GFR level has been in effect for at least three months. ?Stages 1 to 5, with or without kidney disease, indicate chronic kidney disease. Notes: Determination of stages one and two (with eGFR >59mL/min/1.73 m2) requires estimation of kidney damage for at least three months as defined by structural or functional abnormalities of the kidney, manifested by either:Pathological abnormalities or Markers of kidney damage (including abnormalities in the composition of the blood or urine or abnormalities in imaging tests). Lab Interpretation (test code = 30838-9) Abnormal [facility] WITHOUT [id number] 11:58:32* Test Item Value Reference Range Interpretation Comme nts WBC (test code = 6690-2) 7.14 See_Comment [Automated messa [employer].] The system which generated this result transmitted reference range: 4.30 - 11.10 10*3/?L. The reference range was not used to interpret this result as normal/abnormal. RBC (test code = 789-8) 2.64 See_Comment L [Automated message] The system which generated this result transmitted reference range: 3.93 - 5.25 10*6/?L. The reference range was not used to interpret this result as normal/abnormal. HGB (test code = 718-7) 7.7 g/dL 11.6-15.0 L HCT (test code = 4544-3) 23.9 % 35.7-45.2 L MCH (test code = 785-6) 29.2 pg 25.9-32.8 MCV (test code = 787-2) 90.5 fL 80.6-95.5 MCHC (test code = 786-4) 32.2 g/dL 31.6-35.1 PLT (test code = 777-3) 141 See_Comment L [Automated message] The system which generated this result transmitted reference range: 166 - 358 10*3/?L. The reference range was not used to interpret this result as normal/abnormal. MPV (test code = 53443-1) 13.4 fL 9.5-12.9 H RDW-CV (test code = 788-0) 16.0 % 12.0-15.5 H RDW-SD (test code = 48605-1) 53.3 fL 39.0-49.9 H NRBC x10^3 (test code = 8566886940) See_Comment [Automated [employer] The system which generated this result transmitted reference range: 10*3/?L. The reference range was not used to interpret this result as normal/abnormal. NRBC/100 WBC (test code = 9616222409) 0.0 See_Comment [Automated [employer] ge] The system which generated this result transmitted reference range: 0.0 - 10.0 /100 WBCs. The reference range was not used to interpret this result as normal/abnormal. IPF % (test code = 9931794662) 15.5 % 1.3-7.7 H Platelet count measured by fluorescence method. Lab Interpretation (test code = 46534-5) [facility] / [id number] 11:22:49* Test Item Value Reference Range Interpretation Comme nts PROTIME PATIENT (test code = 5964-2) 20.6 See_Comment H [Automated [employer].] The system which generated this result transmitted reference range: 10.1 - 12.6 Seconds. The reference range was not used to interpret this result as normal/abnormal. INR (test code = 6301-6) 1.8 Normal INR <1.1; Warfarin Therapeutic range 2.0 to 3.0 or 2.5 to 3.5, depending upon the indications. Lab Interpretation (test code = 23738-8) [facility]normal [facility] 16:57:05* Test Item Value Reference Range Interpretation Comme nts Procalcitonin (test code = 0130011449) 0.06 ng/mL <=0.07 JOANIE (test code = JOANIE) INTERPRETATION OF PROCALCITONIN RESULTS IN ADULTS >= 18 YEARS OF AGE Initiation and discontinuation of antibiotics on patients with suspected or confirmed Lower Respiratory Tract Infection in Adults >= 18 years of age. + +-------- --------+ + -----+|Procalcitonin |Interpretation ?|Antibiotic ? ? |Considerations ? |ng/mL ? | ?|recommendation | ? + +-------- --------+ + -----+| <0.1 ? | Bacterial ? ? ?| Strongly ? ? ?| ? | ?| infection very | discouraged ? | Overruling: ? | ?| unlikely ? ? ? | ? | ? Clinically unstable ? ? ? + +-------- --------+ + ? High risk for adverse ? ? | <0.25 ?| Bacterial ? ? ?| Discouraged ? | ? outcome ? | ?| infection ? ? ?| ? | ? SEE IMPORTANT NOTE ?| ?| unlikely ? ? ? | ? | ? + +-------- --------+ + -----+| >=0.25 ? ? ? | Bacterial ? ? ?| Encouraged ? ?| ? | ?| infection ? ? ?| ? | ? | ?| likely ? | ? | Consider treatment failure ?+ +------- ---------+ -+ if levels does not decrease | >0.5 ? | Bacterial ? ? ?| Strongly ? ? ?| appropriately ? | ?| infection very | encouraged ? ?| ? | ?| likely ? | ? | ? + +-------- --------+ + -----+ Discontinuation of antibiotics in high-acuity patients with suspected or confirmed sepsis in Adults >= 18 years of age. + +-------- --------+ + -----+|Procalcitonin |Interpretation ?|Antibiotic ? ? |Considerations ? |ng/mL ? | ?|recommendation | ? + +-------- --------+ + -----+| <0.25 ?| Bacterial ? ? ?| Strongly ? ? ?| ? | ?| infection very | discouraged ? | Overruling: ? | ?| unlikely ? ? ? | ? | ? Clinically unstable ? ? ? + +-------- --------+ + ? High risk for adverse ? ? | <0.5 or drop | Bacterial ? ? ?| Discouraged ? | ? outcome ? | >80% from ? ?| infection ? ? ?| ? | ? SEE IMPORTANT NOTE ?| highest PCT ?| unlikely ? ? ? | ? | ? | level ?| ?| ? | ? + +-------- --------+ + -----+| >=0.5 ?| Bacterial ? ? ?| Encouraged ? ?| ? | ?| infection ? ? ?| ? | ? | ?| likely ? | ? | Consider treatment failure ?+ +------- ---------+ -+ if levels does not decrease | >1.0 ? | Bacterial ? ? ?| Strongly ? ? ?| appropriately ? | ?| infection very | encouraged ? ?| ? | ?| likely ? | ? | ? + +-------- --------+ + -----+ Percentage of drop of Procalcitonin calculation for Discontinuation of antibiotics in high-acuity patients with suspected or confirmed sepsis in Adults >= 18 years of age. ? Procalcitonin highest{}-Procalcitonin current{}Delta Procalcitonin = x100% ? Procalcitonin current {} IMPORTANT NOTE: Procalcitonin may be elevated without bacterial infection by physiologic stress related to trauma, odom, chronic dialysis, metastatic cancer, surgery in the past seven days, malaria, some fungal infections, and some forms of vasculitis. The interpretation algorithm may not apply to patients with immunosuppression (equivalent of >10 mg of prednisone daily), HIV with CD4 cell count < 350 cells/mm3, active malignancy on systemic chemotherapy, solid organ transplant or hematopoietic stem cell transplantation, or hospital acquired pneumonia. Additionally, some clinical trials of procalcitonin have excluded patients with shock requiring vasopressor use, acute respiratory failure requiring mechanical ventilation, or those with known lung abscess/empyema. For further information please refer to:[email or web address] Lab Interpretation (test code = 69994-6) [facility] (NA, K, CL, CO2, GLUCOSE, BUN, CREATININE, CA)2023-02-15 12:06:57* Test Item Value Reference Range Interpretation Comme nts NA (test code = 7087014220) 146 mmol/L 135-145 H K (test code = 5651282561) 3.6 mmol/L 3.5-5.0 Slight hemolysis CL (test code = 7848649304) 117 mmol/L 98-108 H CO2 TOTAL (test code = 4018138760) 24 mmol/L 23-31 AGAP (test code = 7327164050) 5 2-16 BUN (test code = 6451401449) 14 mg/dL 7-23 Slight hemolysis GLUCOSE (test code = 5933732565) 108 mg/dL 70-110 CREATININE (test code = 6877408458) 1.07 mg/dL 0.50-1.04 H CALCIUM (test code = 6402388706) 7.5 mg/dL 8.6-10.6 L eGFR (test code = 1941144628) 49.6 mL/min/1.73m2 JOANIE (test code = JOANIE) Association of Glomerular Filtration Rate (GFR) and Staging of Kidney Disease* + -----+ --------+ +| GFR (mL/min/1.73 m2) ?| With Kidney Damage ?| ?Without Kidney Damage+ +------- +---- --+| ?>90 ?| ?Stage one ?| ? Normal ?+ ------+ ---------+--------- +| ?60-89 ?| ?Stage two ?| ? Decreased GFR ? + -----+ --------+ +| ?30-59 ?| ?Stage three ?| ? Stage three ? + -----+ --------+ +| ?15-29 ?| ?Stage four ? | ? Stage four ?+ ------+ ---------+--------- +| ?<15 (or dialysis) ? ?| ?Stage five ? | ? Stage five ?+ ------+ ---------+--------- + *Each stage assumes the associated GFR level has been in effect for at least three months. ?Stages 1 to 5, with or without kidney disease, indicate chronic kidney disease. Notes: Determination of stages one and two (with eGFR >59mL/min/1.73 m2) requires estimation of kidney damage for at least three months as defined by structural or functional abnormalities of the kidney, manifested by either:Pathological abnormalities or Markers of kidney damage (including abnormalities in the composition of the blood or urine or abnormalities in imaging tests). Lab Interpretation (test code = 30170-8) Abnormal [facility] WITHOUT [id number] 11:06:36* Test Item Value Reference Range Interpretation Comme nts WBC (test code = 6690-2) 7.26 See_Comment [Automated [employer] The system which generated this result transmitted reference range: 4.30 - 11.10 10*3/?L. The reference range was not used to interpret this result as normal/abnormal. RBC (test code = 789-8) 2.68 See_Comment L [Automated message] The system which generated this result transmitted reference range: 3.93 - 5.25 10*6/?L. The reference range was not used to interpret this result as normal/abnormal. HGB (test code = 718-7) 7.7 g/dL 11.6-15.0 L HCT (test code = 4544-3) 24.4 % 35.7-45.2 L MCH (test code = 785-6) 28.7 pg 25.9-32.8 MCV (test code = 787-2) 91.0 fL 80.6-95.5 MCHC (test code = 786-4) 31.6 g/dL 31.6-35.1 PLT (test code = 777-3) 120 See_Comment L [Automated message] The system which generated this result transmitted reference range: 166 - 358 10*3/?L. The reference range was not used to interpret this result as normal/abnormal. MPV (test code = 48378-4) 13.6 fL 9.5-12.9 H RDW-CV (test code = 788-0) 15.6 % 12.0-15.5 H RDW-SD (test code = 59802-1) 50.9 fL 39.0-49.9 H NRBC x10^3 (test code = 8087415865) See_Comment [Automated messa ge] The system which generated this result transmitted reference range: 10*3/?L. The reference range was not used to interpret this result as normal/abnormal. NRBC/100 WBC (test code = 5048851615) 0.0 See_Comment [Automated [employer] ge] The system which generated this result transmitted reference range: 0.0 - 10.0 /100 WBCs. The reference range was not used to interpret this result as normal/abnormal. IPF % (test code = 9716860381) 12.6 % 1.3-7.7 H Platelet count measured by fluorescence method. Lab Interpretation (test code = 79208-5) Abnormal [facility] CON[facility]ULT [id number] 21:45:23 WHITE BLOOD CELLS: MILD ABSOLUTE LYMPHOCYTOPENIA. RED BLOOD CELLS: NORMOCYTIC NORMOCHROMIC ANEMIA. PLATELETS: MILD THROMBOCYTOPENIA.FEW PLATELET AGGREGATES/CLUMPS SEEN, THE REPORTED PLATELET COUNT MAY BE LOWER THAN THE ACTUAL PLATELET COUNT.[facility] CampusHAPTOGLOBIN, [id number] 15:32:31* Test Item Value Reference Range Interpretation Comme nts HAPTOGLOB (test code = 8792910887) 328 mg/dL 16-200 H Lab Interpretation (test cod e = 62055-6) Abnormal [facility] CampusFOLATE2023-04-17 23:44:26* Test Item Value Reference Range Interpretation Comme nts FOLATE SER (test code = 7521460226) 3.0-20.0 H Lab Interpretation (test cod e = 94077-5) Abnormal [facility] CampusVITAMIN B12, [id number] 23:42:14* Test Item Value Reference Range Interpretation Comme nts VIT B12 (test code = 6756765079) 433 pg/mL 240-930 JOANIE (test code = JOANIE) Biotin has been reported to cause a positive bias, interpret results relative to patient's use of biotin. Lab Interpretation (test code = 56860-3) Normal [facility] CampusFERRITIN [id number] 23:10:49* Test Item Value Reference Range Interpretation Comme nts FERRITIN (test code = 1223686556) 933.0 ng/mL 11.0-264.0 H JOANIE (test code = JOANIE) Biotin has been reported to cause a negative bias, interpret results relative to patient's use of biotin. Lab Interpretation (test code = 51583-6) Abnormal [facility] CampusIRON [id number] 22:34:01* Test Item Value Reference Range Interpretation Comme nts IRON (test code = 6277058214) 21 ug/dL 50-160 L TIBC (test code = 9612182173) 193 ug/dL 250-410 L % FE SAT (test code = 7818507329) 11 % 20-50 L Lab Interpretation (test cod e = 35304-9) Abnormal [facility] CampusHEPATIC FUNCTION PANEL (16324) (ALB,T.PRO,BILI T,BU/BC,ALT,AST,ALK PHOS)2023-02-13 22:24:43* Test Item Value Reference Range Interpretation Comme nts TOTAL BILI (test code = 6769326777) 0.7 mg/dL 0.1-1.1 BILI UNCON (test code = 6401698095) 0.2 mg/dL 0.1-1.1 BILI CONJ (test code = 7980003708) 0.0 mg/dL 0.0-0.3 T PROTEIN (test code = 4028707818) 5.5 g/dL 6.3-8.2 L ALBUMIN (test code = 3903755718) 2.7 g/dL 3.5-5.0 L ALK PHOS (test code = 1291947811) 40 U/L 34-122 Slight hemolysis ALTv (test code = 1742-6) 16 U/L 5-35 AST(SGOT) (test code = 9943766719) 33 U/L 13-40 Slight hemolysis Lab Interpretation (test code = 42789-5) Abnormal [facility] CampusLACTATE [id number] 21:35:10* Test Item Value Reference Range Interpretation Comme nts LDH (test code = 9165948523) 235 U/L 120-246 Slight hemolysis Lab Interpretation (test cod e = 15468-5) Normal [facility] CampusProthrombin Time / [id number] 21:34:49* Test Item Value Reference Range Interpretation Comme nts PROTIME PATIENT (test code = 5964-2) 33.7 See_Comment H [Automated messa ge] The system which generated this result transmitted reference range: 10.1 - 12.6 Seconds. The reference range was not used to interpret this result as normal/abnormal. INR (test code = 6301-6) 3.0 Normal INR <1.1; Warfarin Therapeutic range 2.0 to 3.0 or 2.5 to 3.5, depending upon the indications. Lab Interpretation (test code = 26346-9) Abnormal [facility] CampusaPTT2023-04-17 21:34:49* Test Item Value Reference Range Interpretation Comme nts APTT Patient (test code = 3173-2) 35 See_Comment [Automated messa ge] The system which generated this result transmitted reference range: 26 - 36 Seconds. The reference range was not used to interpret this result as normal/abnormal. Lab Interpretation (test code = 83024-6) Normal [facility] CampusRETICULOCYTES [id number] 21:30:50* Test Item Value Reference Range Interpretation Comme [facility] RETIC Count Automated (test code = 9176985135) 1.60 % 0.51-1.90 RETIC Absolute Count (test code = 5072823251) 0.0462 See_Comment [[employer] message] The system which generated this result transmitted reference range: 0.0230 - 0.0950 10*6/?L. The reference range was not used to interpret this result as normal/abnormal. IRF % (test code = 7207794648) 10.90 % 2.10-12.60 RETIC-HE (test code = 6954027663) 26.2 pg 28.1-35.8 L Lab Interpretation (test code = 20787-3) Abnormal [facility] WITH [id number] 21:30:50* Test Item Value Reference Range Interpretation Comme nts WBC (test code = 6690-2) 8.09 See_Comment [Automated messa ge] The system which generated this result transmitted reference range: 4.30 - 11.10 10*3/?L. The reference range was not used to interpret this result as normal/abnormal. RBC (test code = 789-8) 2.89 See_Comment L [Automated messa ge] The system which generated this result transmitted reference range: 3.93 - 5.25 10*6/?L. The reference range was not used to interpret this result as normal/abnormal. HGB (test code = 718-7) 8.4 g/dL 11.6-15.0 L HCT (test code = 4544-3) 26.4 % 35.7-45.2 L MCV (test code = 787-2) 91.3 fL 80.6-95.5 MCH (test code = 785-6) 29.1 pg 25.9-32.8 MCHC (test code = 786-4) 31.8 g/dL 31.6-35.1 RDW-SD (test code = 46605-5) 51.1 fL 39.0-49.9 H RDW-CV (test code = 788-0) 15.3 % 12.0-15.5 PLT (test code = 777-3) 132 See_Comment L [Automated messa ge] The system which generated this result transmitted reference range: 166 - 358 10*3/?L. The reference range was not used to interpret this result as normal/abnormal. MPV (test code = 88574-8) 13.4 fL 9.5-12.9 H IPF % (test code = 2549462057) 12.3 % 1.3-7.7 H Platelet count measured by fluorescence method. NRBC/100 WBC (test code = 5711057492) 0.0 See_Comment [Automated [employer] ssage] The system which generated this result transmitted reference range: 0.0 - 10.0 /100 WBCs. The reference range was not used to interpret this result as normal/abnormal. NRBC x10^3 (test code = 2756448540) See_Comment [Automated messa ge] The system which generated this result transmitted reference range: 10*3/?L. The reference range was not used to interpret this result as normal/abnormal. GRAN MAT (NEUT) % (test code = 770-8) 73.5 % IMM GRAN % (test code = 1621412063) 0.50 % LYMPH % (test code = 736-9) 15.1 % MONO % (test code = 5905-5) 8.0 % EOS % (test code = 713-8) 2.7 % BASO % (test code = 706-2) 0.2 % GRAN MAT x10^3(ANC) (test code = 7890823043) 5.94 10*3/uL 1.88-7.09 IMM GRAN x10^3 (test code = 2201386488) 0.04 10*3/uL 0.00-0.06 LYMPH x10^3 (test code = 731-0) 1.22 10*3/uL 1.32-3.29 L MONO x10^3 (test code = 742-7) 0.65 10*3/uL 0.33-0.92 EOS x10^3 (test code = 711-2) 0.22 10*3/uL 0.03-0.39 BASO x10^3 (test code = 704-7) 0.01-0.07 Lab Interpretation (test code = 92116-1) Abnormal [facility] CampusDAT [id number] 21:29:00* Test Item Value Reference Range Interpretation Comme nts NILAM POLY (test code = 1610) Negative [facility] CampusCBC WITHOUT [id number] 19:04:37* Test Item Value Reference Range Interpretation Comme nts WBC (test code = 6690-2) 7.97 See_Comment [Automated message] The system which generated this result transmitted reference range: 4.30 - 11.10 10*3/?L. The reference range was not used to interpret this result as normal/abnormal. RBC (test code = 789-8) 2.89 See_Comment L [Automated message] The system which generated this result transmitted reference range: 3.93 - 5.25 10*6/?L. The reference range was not used to interpret this result as normal/abnormal. HGB (test code = 718-7) 8.3 g/dL 11.6-15.0 L HCT (test code = 4544-3) 26.6 % 35.7-45.2 L MCH (test code = 785-6) 28.7 pg 25.9-32.8 MCV (test code = 787-2) 92.0 fL 80.6-95.5 MCHC (test code = 786-4) 31.2 g/dL 31.6-35.1 L PLT (test code = 777-3) 121 See_Comment L [Automated message] The system which generated this result transmitted reference range: 166 - 358 10*3/?L. The reference range was not used to interpret this result as normal/abnormal. MPV (test code = 52326-3) 12.8 fL 9.5-12.9 RDW-CV (test code = 788-0) 15.5 % 12.0-15.5 RDW-SD (test code = 46618-6) 51.7 fL 39.0-49.9 H NRBC x10^3 (test code = 6187369772) See_Comment [Automated messa ge] The system which generated this result transmitted reference range: 10*3/?L. The reference range was not used to interpret this result as normal/abnormal. NRBC/100 WBC (test code = 1065358345) 0.0 See_Comment [Automated messa ge] The system which generated this result transmitted reference range: 0.0 - 10.0 /100 WBCs. The reference range was not used to interpret this result as normal/abnormal. IPF % (test code = 3355811436) Lab Interpretation (test code = 15085-6) Abnormal [facility] WITHOUT [id number] 11:44:08* Test Item Value Reference Range Interpretation Comme nts WBC (test code = 6690-2) 8.01 See_Comment [Automated message] The system which generated this result transmitted reference range: 4.30 - 11.10 10*3/?L. The reference range was not used to interpret this result as normal/abnormal. RBC (test code = 789-8) 2.75 See_Comment L [Automated message] The system which generated this result transmitted reference range: 3.93 - 5.25 10*6/?L. The reference range was not used to interpret this result as normal/abnormal. HGB (test code = 718-7) 8.0 g/dL 11.6-15.0 L HCT (test code = 4544-3) 25.0 % 35.7-45.2 L MCH (test code = 785-6) 29.1 pg 25.9-32.8 MCV (test code = 787-2) 90.9 fL 80.6-95.5 MCHC (test code = 786-4) 32.0 g/dL 31.6-35.1 PLT (test code = 777-3) 120 See_Comment L [Automated message] The system which generated this result transmitted reference range: 166 - 358 10*3/?L. The reference range was not used to interpret this result as normal/abnormal. MPV (test code = 88566-7) 13.0 fL 9.5-12.9 H RDW-CV (test code = 788-0) 15.3 % 12.0-15.5 RDW-SD (test code = 57455-7) 50.3 fL 39.0-49.9 H NRBC x10^3 (test code = 0802239613) See_Comment [Automated messa ge] The system which generated this result transmitted reference range: 10*3/?L. The reference range was not used to interpret this result as normal/abnormal. NRBC/100 WBC (test code = 0985633355) 0.0 See_Comment [Automated messa ge] The system which generated this result transmitted reference range: 0.0 - 10.0 /100 WBCs. The reference range was not used to interpret this result as normal/abnormal. IPF % (test code = 6700170131) Lab Interpretation (test code = 90451-3) Abnormal [facility] [facility]IUM2023-04-17 09:44:37* Test Item Value Reference Range Interpretation Comme nts MAGNESIUM (test code = 4355798287) 2.2 mg/dL 1.7-2.4 Lab Interpretation (test cod e = 65078-9) Normal [facility] METABOLIC PANEL (NA, K, CL, CO2, GLUCOSE, BUN, CREATININE, CA)2023-02-13 09:44:37* Test Item Value Reference Range Interpretation Comme nts NA (test code = 7200794386) 142 mmol/L 135-145 K (test code = 7788148097) 3.7 mmol/L 3.5-5.0 CL (test code = 4383775217) 112 mmol/L 98-108 H CO2 TOTAL (test code = 4472402956) 25 mmol/L 23-31 AGAP (test code = 6665371465) 5 2-16 BUN (test code = 9235286465) 28 mg/dL 7-23 H GLUCOSE (test code = 0464902018) 96 mg/dL 70-110 CREATININE (test code = 3623099914) 1.20 mg/dL 0.50-1.04 H CALCIUM (test code = 2489945212) 7.3 mg/dL 8.6-10.6 L eGFR (test code = 4634561510) 43.4 mL/min/1.73m2 JOANIE (test code = JOANIE) Association of Glomerular Filtration Rate (GFR) and Staging of Kidney Disease* + --+ --+ ------+| GFR (mL/min/1.73 m2) ?| With Kidney Damage ?| ?Without Kidney Damage+ --------+ --------+ +| ?>90 ?| ?Stage one ?| ? Normal ?+ ---+ ---+ -------+| ?60-89 ?| ?Stage two ?| ? Decreased GFR ? + --+ --+ ------+| ?30-59 ?| ?Stage three ?| ? Stage three ? + --+ --+ ------+| ?15-29 ?| ?Stage four ? | ? Stage four ?+ ---+ ---+ -------+| ?<15 (or dialysis) ? ?| ?Stage five ? | ? Stage five ?+ ---+ ---+ -------+ *Each stage assumes the associated GFR level has been in effect for at least three months. ?Stages 1 to 5, with or without kidney disease, indicate chronic kidney disease. Notes: Determination of stages one and two (with eGFR >59mL/min/1.73 m2) requires estimation of kidney damage for at least three months as defined by structural or functional abnormalities of the kidney, manifested by either:Pathological abnormalities or Markers of kidney damage (including abnormalities in the composition of the blood or urine or abnormalities in imaging tests). Lab Interpretation (test code = 71479-7) Abnormal [facility] WITH [id number] 09:18:37* Test Item Value Reference Range Interpretation Comme nts WBC (test code = 6690-2) 8.77 See_Comment [Automated [employer] ge] The system which generated this result transmitted reference range: 4.30 - 11.10 10*3/?L. The reference range was not used to interpret this result as normal/abnormal. RBC (test code = 789-8) 2.81 See_Comment L [Automated [employer] ge] The system which generated this result transmitted reference range: 3.93 - 5.25 10*6/?L. The reference range was not used to interpret this result as normal/abnormal. HGB (test code = 718-7) 8.1 g/dL 11.6-15.0 L HCT (test code = 4544-3) 25.4 % 35.7-45.2 L MCV (test code = 787-2) 90.4 fL 80.6-95.5 MCH (test code = 785-6) 28.8 pg 25.9-32.8 MCHC (test code = 786-4) 31.9 g/dL 31.6-35.1 RDW-SD (test code = 14047-8) 50.4 fL 39.0-49.9 H RDW-CV (test code = 788-0) 15.2 % 12.0-15.5 PLT (test code = 777-3) 126 See_Comment L [Automated [employer] ge] The system which generated this result transmitted reference range: 166 - 358 10*3/?L. The reference range was not used to interpret this result as normal/abnormal. MPV (test code = 41299-4) 13.0 fL 9.5-12.9 H NRBC/100 WBC (test code = 4370273428) 0.0 See_Comment [Automated me ssage] The system which generated this result transmitted reference range: 0.0 - 10.0 /100 WBCs. The reference range was not used to interpret this result as normal/abnormal. NRBC x10^3 (test code = 8607198247) See_Comment [Automated messa ge] The system which generated this result transmitted reference range: 10*3/?L. The reference range was not used to interpret this result as normal/abnormal. GRAN MAT (NEUT) % (test code = 770-8) 72.0 % IMM GRAN % (test code = 4267504099) 0.20 % LYMPH % (test code = 736-9) 18.0 % MONO % (test code = 5905-5) 8.0 % EOS % (test code = 713-8) 1.6 % BASO % (test code = 706-2) 0.2 % GRAN MAT x10^3(ANC) (test code = 6563267562) 6.31 10*3/uL 1.88-7.09 IMM GRAN x10^3 (test code = 5082293494) 0.00-0.06 LYMPH x10^3 (test code = 731-0) 1.58 10*3/uL 1.32-3.29 MONO x10^3 (test code = 742-7) 0.70 10*3/uL 0.33-0.92 EOS x10^3 (test code = 711-2) 0.14 10*3/uL 0.03-0.39 BASO x10^3 (test code = 704-7) 0.01-0.07 Lab Interpretation (test code = 95711-1) [facility] Lactic [id number] 16:06:21* Test Item Value Reference Range Interpretation Comme nts PH (test code = 2) 7.46 7.35-7.45 H PCO2 (test code = 9374477452) 39 See_Comment [Automated messa ge] The system which generated this result transmitted reference range: 35 - 45 mmHg. The reference range was not used to interpret this result as normal/abnormal. PO2 (test code = 0393676234) 77 See_Comment L [Automated messa ge] The system which generated this result transmitted reference range: 80 - 100 mmHg. The reference range was not used to interpret this result as normal/abnormal. HCO3 (test code = 2185096859) 27 See_Comment H [Automated messa iGoOn s.r.l.] The system which generated this result transmitted reference range: 22 - 26 mEq/L. The reference range was not used to interpret this result as normal/abnormal. BE (test code = 8311347922) 3.0 See_Comment [Automated messa [employer]Go[employer] s.r.l.] The system which generated this result transmitted reference range: -3.0 - 3.0 mEq/L. The reference range was not used to interpret this result as normal/abnormal. THB (test code = 1184418057) 10.3 g/dL 12.0-16.0 L %O2HB (test code = 1271095500) 95.5 % 94.0-99.0 %COHB ART (test code = 4902741961) 0.5 % 0.0-1.5 %METHB ART (test code = 6591582429) 0.3 % 0.4-1.5 L VOL%O2 ART (test code = 9472990320) 13.9 % 15.0-23.0 L NA (test code = 2163080772) 140 mmol/L 135-145 K+ (test code = 9832834597) 4.0 mmol/L 3.5-5.0 AC CA IONZ (test code = 2841740151) 4.40 mg/dL 4.50-5.30 L GLUCOSE (test code = 6040496354) 91 mg/dL 70-110 LACTIC ACID (test code = 0478785031) 1.07 mmol/L 0.50-2.20 Lab Interpretation (test code = 91862-8) Abnormal [facility] GLUCOSE (AUTOMATED)2023-02-12 15:56:25* Test Item Value Reference Range Interpretation Comme nts POCT GLU (test code = 2558658645) 101 mg/dL 70-110 Notified Provide r Lab Interpretation (test code = 23654-3) Normal [facility] METABOLIC PANEL (NA, K, CL, CO2, GLUCOSE, BUN, CREATININE, CA)2023-02-09 11:57:12* Test Item Value Reference Range Interpretation Comme nts NA (test code = 8200374562) 140 mmol/L 135-145 K (test code = 7080279836) 3.6 mmol/L 3.5-5.0 CL (test code = 4356590756) 99 mmol/L 98-108 CO2 TOTAL (test code = 1777319760) 32 mmol/L 23-31 H AGAP (test code = 9475280528) 9 2-16 BUN (test code = 6624749884) 40 mg/dL 7-23 H GLUCOSE (test code = 6333764484) 110 mg/dL 70-110 CREATININE (test code = 9158329766) 1.35 mg/dL 0.50-1.04 H CALCIUM (test code = 4562323503) 8.4 mg/dL 8.6-10.6 L eGFR (test code = 2192427046) 37.9 mL/min/1.73m2 JOANIE (test code = JOANIE) Association of Glomerular Filtration Rate (GFR) and Staging of Kidney Disease* + --+ --+ ------+| GFR (mL/min/1.73 m2) ?| With Kidney Damage ?| ?Without Kidney Damage+ --------+ --------+ +| ?>90 ?| ?Stage one ?| ? Normal ?+ ---+ ---+ -------+| ?60-89 ?| ?Stage two ?| ? Decreased GFR ? + --+ --+ ------+| ?30-59 ?| ?Stage three ?| ? Stage three ? + --+ --+ ------+| ?15-29 ?| ?Stage four ? | ? Stage four ?+ ---+ ---+ -------+| ?<15 (or dialysis) ? ?| ?Stage five ? | ? Stage five ?+ ---+ ---+ -------+ *Each stage assumes the associated GFR level has been in effect for at least three months. ?Stages 1 to 5, with or without kidney disease, indicate chronic kidney disease. Notes: Determination of stages one and two (with eGFR >59mL/min/1.73 m2) requires estimation of kidney damage for at least three months as defined by structural or functional abnormalities of the kidney, manifested by either:Pathological abnormalities or Markers of kidney damage (including abnormalities in the composition of the blood or urine or abnormalities in imaging tests). Lab Interpretation (test code = 62614-2) Abnormal [facility] WITHOUT [id number] 11:54:35* Test Item Value Reference Range Interpretation Comme nts WBC (test code = 6690-2) 12.23 See_Comment H [Automated message] The system which generated this result transmitted reference range: 4.30 - 11.10 10*3/?L. The reference range was not used to interpret this result as normal/abnormal. RBC (test code = 789-8) 4.28 See_Comment [Automated message] The system which generated this result transmitted reference range: 3.93 - 5.25 10*6/?L. The reference range was not used to interpret this result as normal/abnormal. HGB (test code = 718-7) 12.4 g/dL 11.6-15.0 HCT (test code = 4544-3) 38.0 % 35.7-45.2 MCH (test code = 785-6) 29.0 pg 25.9-32.8 MCV (test code = 787-2) 88.8 fL 80.6-95.5 MCHC (test code = 786-4) 32.6 g/dL 31.6-35.1 PLT (test code = 777-3) 217 See_Comment [Automated message] The system which generated this result transmitted reference range: 166 - 358 10*3/?L. The reference range was not used to interpret this result as normal/abnormal. MPV (test code = 46674-6) 12.5 fL 9.5-12.9 RDW-CV (test code = 788-0) 14.8 % 12.0-15.5 RDW-SD (test code = 96038-7) 47.8 fL 39.0-49.9 NRBC x10^3 (test code = 9010152217) See_Comment [Automated messa ge] The system which generated this result transmitted reference range: 10*3/?L. The reference range was not used to interpret this result as normal/abnormal. NRBC/100 WBC (test code = 6711116661) 0.0 See_Comment [Automated messa ge] The system which generated this result transmitted reference range: 0.0 - 10.0 /100 WBCs. The reference range was not used to interpret this result as normal/abnormal. IPF % (test code = 4991457305) Lab Interpretation (test code = 55310-7) [facility] 20:52:53* Test Item Value Reference Range Interpretation Comme nts Height (test code = 4522992052) 66 in Weight (test code = 8262762371) 146 lbs Systolic BP (test code = 9706092293) 119 mmHg Diastolic BP (test code = 0324427477) 59 mmHg Heart Rate (test code = 4529431569) 120 bpm BSA (test code = 9727132780) 1.75 m2 LVOT diameter (test code = 0887119156) 1.85 cm LVOT area (test code = 2503260899) 2.70 cm2 LVIDD (test code = 6141836987) 3.90 cm Left Ventricular End Diastolic Volume by Teichholz Method (test code = 2055580) 65.7 mL IVS (test code = 3182688979) 1.00 cm Interventricular Septum Diastolic Thickness by 2D (test code = 2264551) 1.00 cm LVPWD (test code = 4729219474) 0.91 cm PW (test code = 2487438584) 0.91 cm 0.6-1.1 EF(Teich) (test code = 2899080645) 57.00 % LVIDS (test code = 1142426507) 2.70 cm Left Ventricular End Systolic Volume by Teichholz Method (test code = 5124824) 28.3 mL FS (test code = 9407840064) 29 % EF - 2D (test code = 54179078) 57.00 % Ao root diam (test code = 8413018815) 2.70 cm Aortic root (test code = 9804084485) 2.7 cm Ao root annulus (test code = 5103238413) 2.7 cm LA size (test code = 3321532215) 3.7 cm LVOT stroke volume (test code = 4350374651) 38.90 cm3 LVOT peak nitish (test code = 3571896662) 94.3 cm/s LVOT mn grad (test code = 0682616422) 1.8 mmHg AV LVOT peak gradient (test code = 6335258427) 3.6 mmHg LVOT peak VTI (test code = 6914739893) 14.4 cm LV V1 mean (test code = 7247551367) 63.10 cm/s Ao peak nitish (test code = 9637667658) 104.1 cm/s AV area peak nitish (test code = 6122413785) 2.4 cm2 Ao max PG (test code = 1099356259) 4.30 mm[Hg] AV peak gradient (test code = 6991907884) 4.3 mmHg Tapse (test code = 2731129315) 1.56 cm LAV(MOD-sp4) (test code = 8127677470) 65.20 mL LA Volume Index (BP) (test code = 5216085957) 39.2 mL/m2 LA volume (BP) (test code = 6519144754) 68.7 mL LAV(MOD-sp2) (test code = 2967061024) 66.00 mL IVC Diam Ins(MM) (test code = 4309899816) 1.80 cm IVC Diam Exp(MM) (test code = 7317478620) 2.48 cm TR Peak Nitish (test code = 0218191416) 265.4 cm/s Triscuspid Valve Regurgitation Peak Gradient (test code = 0635450540) 28.2 mmHg Radiology Study observation (narrative) (test code = 56862-9) JOANIE (test code = JOANIE) ?Left?Ventricle: Left ventricle size is normal. Normal wall thickness. Normal wall motion. Normal systolic function with a visually estimated EF of 55 - 60%. Unable to assess diastolic function due to arrhythmia. ?Right?Ventricle: Right ventricle size is normal. Normal systolic function. ?Left?Atrium: Left atrium is moderately dilated. Left atrium volume index is 39.2 mL/m2. ?Tricuspid?Valve: Trace transvalvular regurgitation. Right ventricular systolic pressure is 40-45 mmHg. ?IVC/SVC: IVC diameter is greater than 21 mm and decreases less than 50% during inspiration; therefore the estimated right atrial pressure is elevated (~15 mmHg). ?Pericardium: Small to moderate pericardial effusion present. Pericardial effusion has focal strands. Dilated non-collpased IVC, please correlate clinically if cardiac tamponade is suspected. Left VentricleLeft ventricle size is normal. Normal wall thickness. Normal wall motion. Normal systolic function with a visually estimated EF of 55 - 60%. Unable to assess diastolic function due to arrhythmia.Right VentricleRight ventricle size is normal. Normal systolic function.Left AtriumLeft atrium is moderately dilated. Left atrium volume index is 39.2 mL/m2.Right AtriumRight atrium size is normal.IVC/SVCIVC diameter is greater than 21 mm and decreases less than 50% during inspiration; therefore the estimated right atrial pressure is elevated (~15 mmHg). SVC was not assessed.Mitral ValveMild mitral annular calcification. Trace transvalvular regurgitation. No stenosis.Tricuspid ValveTricuspid valve structure is normal. Trace transvalvular regurgitation. Right ventricular systolic pressure is 40-45 mmHg. No stenosis.Aortic ValveNot well visualized.Pulmonic ValveNot well visualized.Ascending AortaNot well visualized.Pericardiu mSmall to moderate pericardial effusion present. Pericardial effusion has focal strands. Dilated non-collpased IVC, please correlate clinically if cardiac tamponade is suspected.Study DetailsStudy quality experienced technical difficulty. A complete echocardiogram was performed using 2D, color flow Doppler and spectral Doppler. The apical, parasternal and subcostal views were obtained. 3 mL of Optison ultrasound enhancing agent used. Patient exhibited atrial fibrillation. [facility] [id number] 03:36:22* Test Item Value Reference Range Interpretation Comme [facility] SPUTUM CULTURE (test code = 622-1) Specimen cellular elements do not represent lower respiratory tract. Specimen rejected for routine bacterial culture. Suggest reorder and recollection. Gram stain (test code = 664-3) Numerous Epithelial cells present [facility] [id number] 03:36:22* Test Item Value Reference Range Interpretation Comme [facility] SPUTUM CULTURE (test code = 622-1) Specimen cellular elements do not represent lower respiratory tract. Specimen rejected for routine bacterial culture. Suggest reorder and recollection. Gram stain (test code = 664-3) Numerous Epithelial cells present [facility]"
[2025-02-12] MEDS ORDERED: ONDANSETRON 4 MG/2 ML VIAL ONE (03:15)
[2025-02-12] MEDS ORDERED: NA CHLORIDE 0.9% 100 ML ONE ×2 (03:16→09:20)
[2025-02-12] MEDS ORDERED: FAMOTIDINE 20 MG/2 ML VIAL IV ONE (03:16)
[2025-02-12] MEDS ORDERED: PIPERACIL/TAZO 3.375 GM VIAL IV ONE (03:16)
[2025-02-12] MEDS ORDERED: NA CHLORIDE 0.9% 500 ML ONE ×2 (03:16→04:54)
[2025-02-12] MEDS ORDERED: ACETAMINOPHEN 325 MG/SUPP PR ONE (03:16)
[2025-02-12 03:45] LABS: Absolute Lymphocytes (CBC) 1.1 K/uL (0.7-4.9); Absolute Monocytes 0.5 K/uL (0.1-1.3); Basophils % 0.1 % (0-1.3); Eosinophils % 0.1 % (0-4.4); Hematocrit 44.2 % (36.0-45.0); Hemoglobin 14.3 g/dL (12.0-15.0); Lymphocytes % 7.7 % (15.3-44.8); MCH 29.8 pg (27.0-35.0); MCHC 32.4 g/dL (32.0-36.0); MPV 13.4 fL (7.6-11.3); Monocytes % 3.6 % (3.3-12.3); Neutrophils % 88.5 % (41.7-73.7); Nucleated Red Blood Cells % 0.2 % (0-0); Platelets 194 thou/uL (152-406); Red Cell Distribution Width 18.3 % (12.1-15.2)
[2025-02-12 03:59] LABS: PT Prothrombin Time 29.7 SECONDS (10-13.0); Protime INR 2.73
[2025-02-12] MEDS ORDERED: METOPROLOL TARTRATE 5 MG/5 ML INJ IV ONE (03:59)
[2025-02-12 04:12] LABS: Albumin/Globulin Ratio 0.4 (1.1-1.8); Anion Gap 13.8 mEq/L (5.0-15.0); Bilirubin Total 0.8 mg/dL (0.2-1.0); Globulin 5.2 g/dL (2.3-3.5); Protein, Total 7.2 g/dL (6.4-8.2); Troponin High Sensitivity 28.9 pg/mL (<58.9)
[2025-02-12 04:14] LABS: Potassium 3.8 mEq/L (3.5-5.1)
[2025-02-12 04:16] LABS: Calcium Oxalate Crystals- Ur Many /HPF (None Seen); Specific Gravity 1.021 (1.005-1.030); Sqamous Epithelial <5 /HPF (None Seen); Urine Bacteria <20 /HPF (<20); Urine Bilirubin NEGATIVE (Negative); Urine Blood Negative (Negative); Urine Clarity Extremely Turbid (Clear); Urine Color Yellow (Yellow); Urine Culture Reflex Order REFLEXED; Urine Glucose NEGATIVE (Negative); Urine Ketones NEGATIVE (Negative); Urine Microscopic Reflex YN ORDER UMIC; Urine Mucus 1+ /HPF (None Seen); Urine Nitrite NEGATIVE (Negative); Urine Protein TRACE (Negative); Urine RBC None Seen /HPF (None Seen); Urine Urobilinogen Normal (Normal); Urine WBC 20-50 /HPF (<5)
[2025-02-12 04:24] LABS: Influenza A Ag Negative; Influenza B Ag Negative; SARS-CoV-2 Antigen Rapid Res Negative (Negative)
[2025-02-12 04:26] LABS: Band Neutrophils 54 % (0-1); Differential Total Cells Count 100; Lymphocytes 7 % (15-42); Metamyelocytes 1 % (0-0); Monocytes 0 % (0-10); Segmented Neutrophils 38 % (40-80)
[2025-02-12 04:27] LABS: Blood Morphology Comment NOTED (NOT SEEN); Platelet Estimate ADEQ; Polychromasia SLIGHT
[2025-02-12] MEDS ORDERED: FENTANYL CITR 100 MCG/2 ML ONE (04:36)
[2025-02-12] MEDS ORDERED: NA CHLORIDE 0.9% 1,000 ML ONE ×2 (04:55→08:15)
[2025-02-12] MEDS ORDERED: ALBUMIN HUMAN 25% 100 ML IV ONE (05:20)
--- NOTE | 2025-02-12 05:52 | RAD REPORT ---
EXAM: XR Chest, 1 View CLINICAL HISTORY: The patient is 79 years old and is Female; SOB. TECHNIQUE: Single view of the chest. COMPARISON: XR Chest 01/27/[address] Chest 01/21/2025. FINDINGS: Lungs: Improving airspace opacification in the right lower lobe. No pulmonary vascular congestion. Left lung is clear. Pleural space: Unremarkable. No pneumothorax. Heart: Unremarkable. No cardiomegaly. Mediastinum: Unremarkable. Bones/joints: The bones and joints are unchanged as visualized. Upper abdomen: No free air in the visualized upper abdomen. IMPRESSION: Improving airspace opacification in the right lower lobe. Electronically signed by: Rosemary Loera MD 02/12/2025 05:37 AM CDT RP V2 Due to temporary technical issues with the PACS/[employer] reporting system, reports are being faizan d by the in-house radiologist without review as a courtesy to ensure prompt reporting the interpreting radiologist is fully responsible for the content of the report. Transcribed Date/Time: 02/12/2025 5:52 AM
--- NOTE | 2025-02-12 06:12 | EDPHYS ---
Physician Documentation [facility] Name: Dina Oviedo Age: 79 yrs Sex: Female : 1945 Arrival Date: 02/12/2025 Time: 01:34 Bed 3 Private MD: ED Physician Eric Lopez HPI: 02/12 01:55 This 79 yrs old Female presents to ER via EMS with complaints of Altered Mental Status, cp afib with rvr. 01:55 The patient presents with confusion. Onset: The symptoms/episode began/occurred at an cp unknown time. Possible causes: sepsis, the patient has had a history of a fever, reportedly as high as 100.9 degrees Fahrenheit, the patient lives in a detention. Associated signs and symptoms: Pertinent positives: shortness of breath. Patient's baseline: Neuro: alert and fully oriented, Ambulation: unable to walk, uses wheelchair, Speech: normal. 01:55 Current symptoms: In the emergency department the patient's symptoms are unchanged from cp the initial presentation, despite EMS interventions. 01:55 EMS reports patient had 2 episodes of vomiting prior to arrival. cp Historical: - Allergies: 01:50 Ativan; combative reaction; al5 01:50 tramadol; al5 01:50 gabapentin; al5 - PMHx: 01:50 acute respiratory failure; Anxiety; Schizophrenia; CHF; COPD; Dementia; Depression; al5 heart blockage; High Cholesterol; Hypertension; - PSHx: 01:50 None; al5 - Immunization history:: Adult Immunizations unknown. - Infectious Disease History:: Denies. - Social history:: Smoking status: unknown. ROS: 02:00 Constitutional: Positive for fever, cp 02:00 Respiratory: Positive for shortness of breath, at rest. cp 02:00 Abdomen/GI: Positive for vomiting, 02:00 Neuro: Positive for altered mental status, 02:00 All other systems are negative, Exam: 01:53 ECG was reviewed by the Attending Physician. cp 02:05 Constitutional: The patient appears alert, awake, non-diaphoretic, well developed, thin cp 02:05 Head/Face: Normocephalic, atraumatic. cp 02:05 Eyes: Periorbital structures: appear normal, Conjunctiva: normal, no exudate, no injection, Sclera: no appreciated abnormality, Lids and lashes: appear normal, bilaterally, 02:05 ENT: External ear(s): are unremarkable, Nose: is normal, Mouth: Lips: dry, Oral mucosa: dry, Posterior pharynx: Airway: no evidence of obstruction, patent, 02:05 Chest/axilla: Inspection: normal, Palpation: crepitus, is not appreciated, tenderness, is not appreciated, 02:05 Cardiovascular: Rate: tachycardic, Rhythm: regular, Edema: is not appreciated, JVD: is not appreciated, 02:05 Respiratory: moderate respiratory distress is noted, Respirations: labored breathing, that is moderate, shallow respirations, that is moderate, Breath sounds: decreased breath sounds, that are moderate, stridor, is not appreciated, 02:05 Abdomen/GI: Inspection: abdomen appears normal, Bowel sounds: active, all quadrants, Palpation: abdomen is soft and non-tender, in all quadrants, 02:05 Back: vertebral tenderness, is not appreciated, 02:05 Skin: cellulitis, is not appreciated, no rash present. 02:05 Neuro: Orientation: Not oriented to person, place, situation, Mentation: confused, Motor: moves all fours, Vital Signs: 01:48 BP 154 / 119; Pulse 133; Temp 100.9(A); Height 5 ft. 4 in. ; al5 02:02 BP 194 / 166; Pulse 117; Resp 30; Pulse Ox 99% on 40 lpm high flow nasal cannula; al5 02:30 BP 165 / 154; Pulse 112; Resp 16; Pulse Ox 99% 40 lpm ; al5 03:30 BP 123 / 76; Pulse 138; Resp 18; Pulse Ox 99% 40 lpm ; al5 04:00 BP 142 / 94; Pulse 72; Resp 16; Pulse Ox 100% 40 lpm ; al5 04:21 Weight 68.04 kg; Height 5 ft. 4 in. ; al5 04:30 BP 160 / 112; Pulse 61; Resp 14; Pulse Ox 100% 40 lpm ; al5 05:00 BP 70 / 42; Pulse 87; Resp 15; Pulse Ox 100% 40 lpm ; al5 05:30 BP 110 / 97; Pulse 95; Resp 15; Temp 99.5(A); Pulse Ox 100% 40 lpm ; al5 06:00 BP 151 / 122; Pulse 117; Resp 17; Pulse Ox 100% 40 lpm ; al5 06:30 BP 130 / 91; Pulse 83; Resp 19; Pulse Ox 100% 40 lpm ; al5 07:15 BP 102 / 37; Pulse 83; Resp 21 S; Pulse Ox 100% ; kc6 07:26 BP 67 / 54; Pulse 81; Resp 19 S; Pulse Ox 100% ; kc6 07:30 BP 88 / 58; Pulse 76; Resp 21 S; Pulse Ox 100% ; kc6 07:33 BP 81 / 56; Pulse 78; Resp 24 S; Pulse Ox 100% ; kc6 07:45 BP 86 / 66; Pulse 77; Resp 20 S; Pulse Ox 100% ; kc6 08:08 BP 79 / 55; Pulse 76; Resp 23 S; Pulse Ox 100% ; kc6 04:21 Body Mass Index 25.75 (68.04 kg, 162.56 cm) al5 Procedures: 05:30 Central Line: the site was prepped with Betadine, in sterile fashion, a triple lumen cp catheter was inserted, in the right femoral vein, in 1 attempts. placement was verified, by blood return, the site was dressed with using sterile technique, the patient tolerated the procedure, well. MDM: 01:47 Medical Screening Exam initiated cp 04:45 Post IV fluid administration reassessment for Sepsis: Client prescribed 30 mL/kg IVF. Sepsis focused reassessment complete. Heart: Regular rate/rhythm noted. Lungs: Diminished air movement noted. Current vital signs reviewed: Yes. Neuro: Neurological examination did not improve from previous exam. 06:05 Data reviewed: vital signs, nurses notes, lab test result(s), EKG, radiologic studies, cp plain films, I have discussed the patient's presentation/case with the attending Emergency Department Physician; and as a result, I will admit patient. 06:05 Management of patient was discussed with the following: Hospitalist: Luis Miguel SABILLON will cp admit to hospitalist service after discussion. I considered the following discharge prescriptions or medication management in the emergency department Medications were administered in the Emergency Department. See MAR. Independent interpretation of the following test(s) in the Emergency Department EKG: See my EKG interpretation above X-Ray: My interpretation is chest xray shows concern for early consolidation. Care significantly affected by the following chronic conditions: Hypertension, Chronic Obstructive Pulmonary Disease. Response to treatment: the patient's symptoms have mildly improved after treatment. 04/16 01:51 Order name: Blood Culture Adult (2) cp 02/12 01:51 Order name: CBC with Diff; Complete Time: 05:29 02/12 05:45 Interpretation: Normal except: WBC 14.60; RDW 18.3; MPV 13.4; NARCISO% 88.5; LYM% 7.7; NEUT cp A 13.0. 02/12 01:51 Order name: CMP; Complete Time: 04:14 02/12 04:15 Interpretation: Normal except: NA 149; CL 115; GLUC 158; BUN 63; CRE 3.06; GFR 15; AST cp 46; ALB 2.0; GLOB 5.2; A/G 0.4. 02/12 01:51 Order name: Lactate w/ 2H reflex if indic.; Complete Time: 05:09 02/12 05:46 Interpretation: Abnormal: LAC 6.7. 02/12 01:51 Order name: Protime (+inr); Complete Time: 04:01 02/12 04:01 Interpretation: Abnormal. 02/12 01:51 Order name: Ptt, Activated; Complete Time: 04:01 02/12 04:03 Interpretation: Reviewed. 02/12 01:51 Order name: Urinalysis w/ reflexes; Complete Time: 05:29 02/12 05:46 Interpretation: Normal except: [facility] Extremely Turbid; UPROT TRACE; UESTR 25; UWBC cp 20-50; CAOX Cx Many; HYAL >20. 02/12 01:51 Order name: Troponin High Sensitivity; Complete Time: 04:14 02/12 02:04 Order name: ABG 02/12 02:06 Order name: COVID-19 Ag + Flu A+B Ag; Complete Time: 05:29 02/12 02:06 Order name: BNP; Complete Time: 04:14 02/12 04:16 Interpretation: Abnormal: NT PRO-BNP 5230. 02/12 04:12 Order name: Manual Differential; Complete Time: 05:29 EDMS 02/12 05:46 Interpretation: Normal except: SEGS 38; BANDS [F] 54; LYM 7; META 1. 02/12 04:30 Order name: Ghost Lactate-NO COLLECT Timer; Complete Time: 02:28 EDMS 02/12 04:30 Order name: Urine Culture EDMS 02/12 07:19 Order name: Lactate Sepsis 2 HR Follow-up; Complete Time: 02:28 EDMS 02/12 08:17 Order name: Basic Metabolic Panel; Complete Time: 02:28 EDMS 02/12 08:17 Order name: Lactate w/ 2H reflex if indic.; Complete Time: 02:28 EDMS 02/12 08:44 Order name: Basic Metabolic Panel EDMS 02/12 08:44 Order name: Basic Metabolic Panel EDMS 02/12 08:44 Order name: Basic Metabolic Panel EDMS 02/12 08:44 Order name: Basic Metabolic Panel EDMS 02/12 08:44 Order name: Basic Metabolic Panel EDMS 02/12 08:44 Order name: Basic Metabolic Panel EDMS 02/12 08:44 Order name: CBC with Automated Diff EDMS 02/12 08:44 Order name: CBC with Automated Diff EDMS 02/12 08:44 Order name: CBC with Automated Diff EDMS 02/12 08:44 Order name: CBC with Automated Diff EDMS 02/12 08:44 Order name: CBC with Automated Diff EDMS 02/12 08:44 Order name: CBC with Automated Diff EDMS 02/12 13:11 Order name: Ghost Lactate-NO COLLECT Timer; Complete Time: 02:28 EDMS 02/12 01:51 Order name: Chest Single View XRAY; Complete Time: 05:58 cp 02/12 04:19 Order name: CT Head Brain wo Cont; Complete Time: 02:28 cp 02/12 04:19 Order name: CT Chest Abdomen Pelvis W/O Contrast; Complete Time: 02:28 cp 02/12 08:44 Order name: Renal Ultrasound-Complete; Complete Time: 02:28 EDMS 02/12 01:51 Order name: EKG; Complete Time: 01:52 cp 02/12 01:51 Order name: Cardiac monitoring; Complete Time: 03:10 cp 02/12 01:51 Order name: EKG - Nurse/Tech; Complete Time: 03:27 cp 02/12 01:51 Order name: IV Saline Lock - Large Bore; Complete Time: 04:02 cp 02/12 01:51 Order name: Labs collected and sent; Complete Time: 03:09 cp 02/12 01:51 Order name: O2 Per Protocol; Complete Time: 03:09 cp 02/12 01:51 Order name: O2 Sat Monitoring; Complete Time: 03:09 cp 02/12 01:51 Order name: Vital Signs; Complete Time: 04:02 cp 02/12 01:51 Order name: Pino; Complete Time: 03:10 cp EC:53 Rate is 125 beats/min. Rhythm is regular. OR interval is normal. QRS interval is cp normal. QT interval is normal. Interpreted by me. Reviewed by me. Administered Medications: 04:20 Discontinued: ns 0.9% 500 ml 500 ml IV at 1 bolus once; to be given as a bolus over 30 cp minutes 03:55 Drug: Famotidine IVP 20 mg IVP once; dilute with 10 mL 0.9% NaCl; give over 2 minutes vc1 {Note: L ankle.} Route: IVP; Site: Other; 07:20 Follow up: Response: No adverse reaction al5 03:55 Drug: NS 0.9% IV 500 ml 500 ml IV at 1 bolus once; to be given as a bolus over 30 vc1 minutes {Note: L ankle.} Volume: 500 ml; Route: IV; Rate: 1 bolus; Site: Other; 07:20 Follow up: Response: No adverse reaction; IV Status: Completed infusion; IV Intake: al5 500ml 03:55 Drug: Acetaminophen OR Suppository 650 mg OR once Route: OR; vc1 07:20 Follow up: Response: No adverse reaction; Temperature is decreased al5 03:55 Drug: Piperacillin-Tazobactam IVPB 3.375 grams IVPB once over 60 mins; (mix in NS 100 vc1 mL) {Note: L ankle.} Route: IVPB; Infused Over: 60 mins; Site: Other; 07:19 Follow up: IV Status: Completed infusion; IV Intake: 100ml al5 03:56 Drug: Ondansetron IVP 4 mg IVP once; over 2 minutes {Note: L ankle.} Route: IVP; Site: 1 Other; 07:20 Follow up: Response: No adverse reaction al5 04:02 Drug: Metoprolol IVP 5 mg IVP once; Hold for SBP <100 or HR <60. {Note: L ankle.} al5 Route: IVP; Site: Other; 07:19 Follow up: Response: No adverse reaction; Blood pressure is lowered al5 04:38 Drug: fentaNYL (PF) IVP 25 mcg IVP once {Note: L ankle.} Route: IVP; Site: Other; al5 07:18 Follow up: Response: No adverse reaction; Pain is decreased al5 05:15 Drug: NS 0.9% IV (30 ml/kg) 30 ml/kg IV at bolus once; Sepsis Protocol; to be given as al5 a bolus over 90 minutes Route: IV; Rate: bolus; Site: right femoral; 07:19 Follow up: Response: No adverse reaction; IV Status: Completed infusion; IV Intake: al5 1500ml 07:18 Drug: Albumin IVPB 25 grams 100 ml IVPB once; (Note: Albumin 25% concentration) Volume: al5 100 ml; Route: IVPB; Site: right femoral; 07:18 Follow up: Response: No adverse reaction; IV Status: Completed infusion; IV Intake: al5 100ml 08:21 Drug: NS 0.9% IV 1000 ml IV at 1 bolus Per protocol; to be given as a bolus over 60 kc6 minutes Route: IV; Rate: 1 bolus; Site: right femoral; Disposition: 02/13 02:25 Critical Care:. cp 02:27 Chart complete. cp Disposition Summary: 02/12/25 06:11 Hospitalization Ordered Notes: Hospitalization Status: Inpatient Admission cp Provider: Hossein Miles cp Condition: Fair cp Problem: new cp Symptoms: have improved cp Bed/Room Type: Standard cp Location: Intensive Care Unit(02/12/25 12:29) Room Assignment: 2-(02/12/25 12:29) Diagnosis - Severe sepsis with septic shock cp - Pneumonia, unspecified organism cp - UTI/ Urinary tract infection, site not specified cp - Altered mental status, unspecified cp Forms: - Medication Reconciliation Form cp - SBAR form cp - Leadership Thank You Letter cp Critical care time excluding procedures: 02:25 Critical care time: Bedside Care: 12 minutes, Consultation: 30 minutes. Total time: 42 cp minutes Addendum: 02/15/2025 08:50 Co-signature as Attending Physician, Eric Lopez MD I agree with the assessment and c morrow plan of care. Signatures: Dispatcher [employer] EDEric Hunter MD MD cha Blanchard, Shelby RN RN Eric Levin PA PA cp Calcote, Vanessa RN RN vc1 Natalya Paulino RN RN kc6 Vianca Mendoza RN RN al5 Corrections: (The following items were deleted from the chart) 02/12 03:27 01:51 Accucheck ordered. cp al5 06:11 Telemetry/MedSurg (Inpatient) cp vc1 : 06:11 cp vc1 09:25 [facility] ER HOLD vc1 ss 09: ERHOLD- vc1 ss
--- NOTE | 2025-02-12 06:12 | ER ---
Nurse's Notes [facility] Name: Dina Oviedo Age: 79 yrs Sex: Female : 1945 Arrival Date: 02/12/2025 Time: 01:34 Bed 3 Private MD: Diagnosis: Severe sepsis with septic shock;Pneumonia, unspecified organism;UTI/ Urinary tract infection, site not specified;Altered mental status, unspecified Presentation: 02/12 01:48 Chief complaint: EMS states: from [facility] for altered mental status, vomiting, and al5 chest pain. Coronavirus screen: At this time, the client does not indicate any symptoms associated with coronavirus-19. Ebola Screen: No symptoms or risks identified at this time. Initial Sepsis Screen: Does the patient meet any 2 criteria? Altered Mental Status. HR > 90 bpm. Yes Does the patient have a suspected source of infection? No. Patient's initial sepsis screen is negative. Risk Assessment: Do you want to hurt yourself or someone else? Unable to obtain. Onset of symptoms was February 12, 2025. 01:48 Method Of Arrival: EMS: [facility] al5 01:48 Acuity: SCOTTIE 2 al5 Triage Assessment: 01:52 General: Appears distressed, ill, slender, Behavior is calm, quiet. Pain: Unable to use al5 pain scale. Patient is disoriented. EENT: No signs and/or symptoms were reported regarding the EENT system. Neuro: Level of Consciousness is confused, Oriented to none. Cardiovascular: Capillary refill is sluggish. Respiratory: Airway is patent Respiratory effort is even, labored, shallow, Respiratory pattern is regular. GI: Abdomen is flat, non-distended. : No signs and/or symptoms were reported regarding the genitourinary system. Derm: Skin is fragile, is thin, Skin is mottled, pale. Musculoskeletal: No signs and/or symptoms reported regarding the musculoskeletal system. Historical: - Allergies: 01:50 Ativan; combative reaction; al5 01:50 tramadol; al5 01:50 gabapentin; al5 - PMHx: 01:50 acute respiratory failure; Anxiety; Schizophrenia; CHF; COPD; Dementia; Depression; al5 heart blockage; High Cholesterol; Hypertension; - PSHx: 01:50 None; al5 - Immunization history:: Adult Immunizations unknown. - Infectious Disease History:: Denies. - Social history:: Smoking status: unknown. Screenin:55 [facility] ED Fall Risk Assessment (Adult) History of falling in the last 3 months, al5 including since admission No falls in past 3 months (0 pts) Confusion or Disorientation Yes (5 pts) Intoxicated or Sedated No (0 pts) Impaired Gait Yes (1 pt) Mobility Assist Device Used Yes (1 pt) Altered Elimination Yes (1 pt) Score/Fall Risk Level 3 or more points = High Risk Maintained a safe environment, Hourly rounding (assess needs \T\ fall precautionary measures) done. Abuse screen: Denies threats or abuse. Denies injuries from another. Nutritional screening: No deficits noted. Tuberculosis screening: No symptoms or risk factors identified. Assessment: 01:54 Reassessment: see triage assessment. al5 03:40 Reassessment: Patient appears in no apparent distress at this time. No changes from al5 previously documented assessment. Patient and/or family updated on plan of care and expected duration. Pain level reassessed. 04:53 Reassessment: Patient appears in no apparent distress at this time. No changes from al5 previously documented assessment. Patient and/or family updated on plan of care and expected duration. Pain level reassessed. 06:50 Reassessment: Patient appears in no apparent distress at this time. No changes from al5 previously documented assessment. Patient and/or family updated on plan of care and expected duration. Pain level reassessed. 07:22 General: Appears in no apparent distress. uncomfortable, unkempt, Behavior is agitated, kc6 restless. Pain: Unable to use pain scale. Patient is disoriented. Neuro: Level of Consciousness is awake, alert, confused, Oriented to person. Cardiovascular: Capillary refill is > 3 seconds Rhythm is regular. Respiratory: Reports shortness of breath at rest on exertion cough that is productive, Airway is patent Trachea midline Respiratory effort is even, unlabored, Respiratory pattern is regular, symmetrical, Breath sounds with crackles bilaterally. GI: No signs and/or symptoms were reported involving the gastrointestinal system. Last BM was February 12, 2025. at 07:23. : No signs and/or symptoms were reported regarding the genitourinary system. Pino in place to gravity drainage clamped Urine is clear. EENT: No signs and/or symptoms were reported regarding the EENT system. Derm: No signs and/or symptoms reported regarding the dermatologic system. Skin is fragile, is thin, with poor turgor Skin is dry, Skin is pale, Skin temperature is cool. Musculoskeletal: No signs and/or symptoms reported regarding the musculoskeletal system. Circulation, motion, and sensation intact. Range of motion: intact in all extremities. 08:06 Reassessment: Patient appears in no apparent distress at this time. No changes from kc6 previously documented assessment. Patient and/or family updated on plan of care and expected duration. Pain level reassessed. Vital Signs: 01:48 BP 154 / 119; Pulse 133; Temp 100.9(A); Height 5 ft. 4 in. ; al5 02:02 BP 194 / 166; Pulse 117; Resp 30; Pulse Ox 99% on 40 lpm high flow nasal cannula; al5 02:30 BP 165 / 154; Pulse 112; Resp 16; Pulse Ox 99% 40 lpm ; al5 03:30 BP 123 / 76; Pulse 138; Resp 18; Pulse Ox 99% 40 lpm ; al5 04:00 BP 142 / 94; Pulse 72; Resp 16; Pulse Ox 100% 40 lpm ; al5 04:21 Weight 68.04 kg; Height 5 ft. 4 in. ; al5 04:30 BP 160 / 112; Pulse 61; Resp 14; Pulse Ox 100% 40 lpm ; al5 05:00 BP 70 / 42; Pulse 87; Resp 15; Pulse Ox 100% 40 lpm ; al5 05:30 BP 110 / 97; Pulse 95; Resp 15; Temp 99.5(A); Pulse Ox 100% 40 lpm ; al5 06:00 BP 151 / 122; Pulse 117; Resp 17; Pulse Ox 100% 40 lpm ; al5 06:30 BP 130 / 91; Pulse 83; Resp 19; Pulse Ox 100% 40 lpm ; al5 07:15 BP 102 / 37; Pulse 83; Resp 21 S; Pulse Ox 100% ; kc6 07:26 BP 67 / 54; Pulse 81; Resp 19 S; Pulse Ox 100% ; kc6 07:30 BP 88 / 58; Pulse 76; Resp 21 S; Pulse Ox 100% ; kc6 07:33 BP 81 / 56; Pulse 78; Resp 24 S; Pulse Ox 100% ; kc6 07:45 BP 86 / 66; Pulse 77; Resp 20 S; Pulse Ox 100% ; kc6 08:08 BP 79 / 55; Pulse 76; Resp 23 S; Pulse Ox 100% ; kc6 04:21 Body Mass Index 25.75 (68.04 kg, 162.56 cm) al5 ED Course: 01:46 Patient arrived in ED. gm2 01:47 Eric Levin PA is PHCP. cp 01:47 Eric Lopez MD is Attending Physician. cp 01:50 Triage completed. al5 01:54 Arm band placed on right wrist. Patient placed in the treatment room, in view of staff al5 members, on oxygen, on ripening room attendant, on pulse oximetry. 01:54 No provider procedures requiring assistance completed. al5 01:54 Maintain EMS IV. Dressing intact. Good blood return noted. Site clean \T\ dry. Gauge \T\ al 5 site: 20G LAC. Flushed with 10 mL NS. 01:59 Patient has correct armband on for positive identification. Bed in low position. Call al5 light in reach. Side rails up X2. 02:00 Chest Single View XRAY In Process Unspecified. EDMS 03:26 Vianca Mendoza, ROMAN is Primary Nurse. al5 06:10 Hossein Miles MD is Hospitalizing Provider. cp 06:21 CT Head Brain wo Cont In Process Unspecified. EDMS 06:21 CT Chest Abdomen Pelvis W/O Contrast In Process Unspecified. EDMS 07:00 Report received from Vianca Schafer RN. kc6 07:00 lawn maintenance worker on. Pulse ox on. NIBP on. Door closed. Noise minimized. Lights dimmed. kc6 Warm blanket given. Pillow given. Verbal reassurance given. Head of bed elevated. Cleaned of incontinence. Linen changed. 07:00 One-on-one care X 30 minutes. kc6 08:46 Patient admitted, IV remains in place. kc6 Administered Medications: 04:20 Discontinued: ns 0.9% 500 ml 500 ml IV at 1 bolus once; to be given as a bolus over 30 cp minutes 03:55 Drug: Famotidine IVP 20 mg IVP once; dilute with 10 mL 0.9% NaCl; give over 2 minutes vc1 {Note: L ankle.} Route: IVP; Site: Other; 07:20 Follow up: Response: No adverse reaction al5 03:55 Drug: NS 0.9% IV 500 ml 500 ml IV at 1 bolus once; to be given as a bolus over 30 vc1 minutes {Note: L ankle.} Volume: 500 ml; Route: IV; Rate: 1 bolus; Site: Other; 07:20 Follow up: Response: No adverse reaction; IV Status: Completed infusion; IV Intake: al5 500ml 03:55 Drug: Acetaminophen VT Suppository 650 mg VT once Route: VT; vc1 07:20 Follow up: Response: No adverse reaction; Temperature is decreased al5 03:55 Drug: Piperacillin-Tazobactam IVPB 3.375 grams IVPB once over 60 mins; (mix in NS 100 vc1 mL) {Note: L ankle.} Route: IVPB; Infused Over: 60 mins; Site: Other; 07:19 Follow up: IV Status: Completed infusion; IV Intake: 100ml al5 03:56 Drug: Ondansetron IVP 4 mg IVP once; over 2 minutes {Note: L ankle.} Route: IVP; Site: [facility] Other; 07:20 Follow up: Response: No adverse reaction al5 04:02 Drug: Metoprolol IVP 5 mg IVP once; Hold for SBP <100 or HR <60. {Note: L ankle.} al5 Route: IVP; Site: Other; 07:19 Follow up: Response: No adverse reaction; Blood pressure is lowered al5 04:38 Drug: fentaNYL (PF) IVP 25 mcg IVP once {Note: L ankle.} Route: IVP; Site: Other; al5 07:18 Follow up: Response: No adverse reaction; Pain is decreased al5 05:15 Drug: NS 0.9% IV (30 ml/kg) 30 ml/kg IV at bolus once; Sepsis Protocol; to be given as al5 a bolus over 90 minutes Route: IV; Rate: bolus; Site: right femoral; 07:19 Follow up: Response: No adverse reaction; IV Status: Completed infusion; IV Intake: al5 1500ml 07:18 Drug: Albumin IVPB 25 grams 100 ml IVPB once; (Note: Albumin 25% concentration) Volume: al5 100 ml; Route: IVPB; Site: right femoral; 07:18 Follow up: Response: No adverse reaction; IV Status: Completed infusion; IV Intake: al5 100ml 08:21 Drug: NS 0.9% IV 1000 ml IV at 1 bolus Per protocol; to be given as a bolus over 60 kc6 minutes Route: IV; Rate: 1 bolus; Site: right femoral; Medication: 01:54 VIS not applicable for this client. al5 Intake: 07:18 IV: 100ml; Total: 100ml. al5 07:19 IV: 1500ml; Total: 1600ml. al5 07:19 IV: 100ml; Total: 1700ml. al5 07:20 IV: 500ml; Total: 2200ml. al5 Outcome: 06:11 Decision to Hospitalize by Provider. cp 08:45 Admitted to ER Hold. [facility] for further documentation. kc6 08:45 critical 08:45 Instructed on the need for admit, 14:00 Patient left the ED. kc6 Signatures: Dispatcher [employer] EDMS Eric Levin PA PA cp Calcote, Vanessa, RN RN vc1 Natalya Paulino RN RN kc6 Rhona Franz 2 Vianca Mendoza RN RN al5 Corrections: (The following items were deleted from the chart) 05:50 05:30 BP 110 / 97; Pulse 95bpm; Resp 15bpm; Pulse Ox 100% 40 lpm; al5 al5 08:08 07:45 BP 79 / 55; Pulse 76bpm; Resp 23bpm; Spontaneous; Pulse Ox 100%; kc6 kc6
--- NOTE | 2025-02-12 06:43 | RAD REPORT ---
EXAMINATION: CT HEAD WITHOUT IV CONTRAST CLINICAL INDICATION: Female, 79 years old. MENTAL STATUS CHANGE TECHNIQUE: Axial CT images from the skull base to the vertex without intravenous contrast. Coronal an d sagittal reformatted images were created from the data set. One or more of the following dose reduction techniques were used: Automated exposure control, adjustment of the mA and/or kV according to patient size, and/or iterative reconstruction. Unless otherwise specified, incidental findings do not require dedicated imaging follow-up. [id number]. COMPARISON: No prior exam. FINDINGS: INTRACRANIAL: No acute intracranial hemorrhage. No hydrocephalus. No mass effect or midline shift. Mo derate chronic small vessel ischemic changes. Area of hypoattenuation at the left sapp radiata likely asymmetric chronic small vessel ischemic changes and remote lacunar infarct. Cerebral atrophy. VASCULATURE: No visualized abnormalities in the arteries or dural venous sinuses. SCALP/SKULL: No significant soft tissue or osseous abnormalities. SINUSES: The visualized paranasal sinuses are predominantly clear. No mastoid effusion. IMPRESSION: No acute intracranial abnormality. Chronic small vessel ischemic changes. Electronically signed by: Jack Lawson MD 02/12/2025 06:40 AM CDT Due to temporary technical issues with the PACS/[employer] reporting system, reports are being faizan d by the in-house radiologist without review as a courtesy to ensure prompt reporting the interpreting radiologist is fully responsible for the content of the report. Transcribed Date/Time: 02/12/2025 6:43 AM
--- NOTE | 2025-02-12 06:49 | RAD REPORT ---
EXAM: CT CHEST ABDOMEN PELVIS WITHOUT IV CONTRAST CLINICAL INDICATION: Female, 79 years old sepsis TECHNIQUE: CT chest, abdomen and pelvis was performed, without IV contrast, as per department protoco l. Axial, sagittal and coronal reconstructions were obtained. One or more of the following dose reduction techniques were used: Automated exposure control, adjustment of the mA and/or kV according to the patient size, and/or iterative reconstruction. Unless otherwise specified, incidental findings do not require dedicated imaging follow-up. [id number]. COMPARISON: 09/05/2020 FINDINGS: The lack of intravenous contrast limits the sensitivity of this exam for evaluation of solid visceral organs, vascular structures, and retroperitoneum. CHEST: LOWER NECK/CHEST WALL: No suspicious thyroid nodules or lymphadenopathy. MEDIASTINUM AND LYMPH NODES: Mediastinal and hilar lymphadenopathy which is likely reactive. Mild d istal esophageal thickening. THORACIC AORTA: No thoracic aortic aneurysm. Atherosclerotic changes are present. PULMONARY ARTERIES: Caliber is within normal limits. No contrast administered to evaluate for pulmona ry emboli. HEART: Mild cardiomegaly. Severe coronary artery calcifications. No significant pericardial effusion. Aortic valve and mitral annular calcifications. LUNGS AND AIRWAYS: Nodular consolidative airspace disease present in the right lower lobe. Emphysema. PLEURA: No pleural effusion. ABDOMEN: UPPER GI: No significant focal abnormality. LIVER: No significant focal abnormality. GALLBLADDER/BILE DUCTS: Cholelithiasis without CT evidence of acute cholecystitis. Gallbladder is dis tended. PANCREAS: Atrophy, but otherwise unremarkable. SPLEEN: Unremarkable. ADRENALS: Adrenal thickening without discrete mass. KIDNEYS AND URETERS: No hydronephrosis. Low density and/or too small to characterize renal lesions wh ich are statistically benign. No renal calculi identified. No ureteral calculi. ABDOMINAL AORTA AND OTHER VESSELS: Moderate atherosclerotic changes without aortic aneurysm. PERITONEUM: No abnormal free fluid. No free air. LYMPH NODES: No pathologic lymphadenopathy. ABDOMINAL WALL: Unremarkable SMALL BOWEL/COLON: Small bowel has normal course and caliber. No colonic wall thickening or pericolon ic inflammatory changes. Moderate diverticulosis without diverticulitis. Mild formed stool burden. URINARY BLADDER: Decompressed around Pino catheter. REPRODUCTIVE ORGANS: Uterus surgically absent. No adnexal abnormality. COMBINED: MUSCULOSKELETAL: Remote appearing compression fracture at T7. No acute fracture identified. ADDITIONAL FINDINGS: None. IMPRESSION: Nodular and consolidative airspace disease in the right lower lobe concerning for either pneumonia or pneumonitis possibly secondary to aspiration. Cholelithiasis with distended gallbladder but no pericholecystic inflammatory changes. Suspicion for acute cholecystitis is low but recommend clinical correlation. Electronically signed by: Jack Lawson MD 02/12/2025 06:46 AM CDT RP Due to temporary technical issues with the PACS/[employer] reporting system, reports are being faizan d by the in-house radiologist without review as a courtesy to ensure prompt reporting the interpreting radiologist is fully responsible for the content of the report. Transcribed Date/Time: 02/12/2025 6:49 AM
[2025-02-12] MEDS ORDERED: ONDANSETRON 4 MG/2 ML VIAL IV PRN (08:39)
--- NOTE | 2025-02-12 08:43 | P.HP ---
Patient History Date of Service: 02/12/25 Reason for admission: Sepsis History of Present Illness: 79-year-old shelter resident presented with altered mental status and sepsis, she is saying "no" for every question, confused, no reliable history. Most of the history that I got from reviewing electronic medical record. She denies any pain, fever, shortness of breath or nausea. Review of systems: All other 10 point review of systems are negative other than as mentioned above. Allergies and medications: Reviewed, as per [facility] EMR. Past medical history: Atrial fibrillation, CHF, COPD, dementia, anxiety and depression, schizophrenia, hypertension Past surgical history: Not able to obtain Social history: Not able to obtain Family history: Not able to obtain Physical examination: Vital signs: Reviewed, as per EMR. General appearance: Alert and comfortable but confused HEENT: oral mucosa moist. 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: Moves all 4 extremities, no obvious focal deficits, follows some commands, says she is in the hospital Musculoskeletal: No obvious joint swelling or tenderness Allergies lorazepam [From Ativan] Allergy (Mild, Verified 05/25/17 12:17) Hives/Rash gabapentin Allergy (Verified 02/12/25 08:55) Hives/Rash tramadol Allergy (Verified 02/12/25 14:23) Unknown Home Medications: cloNIDine HCL [Catapres*] 2 tab PO BID 01/19/17 Ipratropium/Albuterol Sulfate [Iprat-Albut 0.5-3(2.5) mg/3 ml] 3 ml IH Q4HP PRN 05/25/17 Pantoprazole [Protonix Tab*] 40 mg PO DAILY 05/25/17 Arformoterol Tartrate [Brovana] 15 mcg NEB BIDRESP #60 vial.neb 05/27/17 traMADol HCL [Ultram*] 50 mg PO Q6H PRN #50 tab 09/19/17 Amlodipine [Norvasc*] 10 mg PO DAILY #30 tab 10/03/17 Sotalol HCl [Betapace*] 80 mg PO BID #60 tab 10/03/17 Clopidogrel Bisulfate [Plavix] 75 mg PO DAILY 10/15/17 Azithromycin Tab [Zithromax*] 250 mg PO DAILY@1100 #30 tab 12/19/17 Ethambutol HCl [Myambutol] 1,200 mg PO DAILY 30 Days tablet 10/17/17 rifAMPin [Rifadin*] 300 mg PO BID #60 cap 10/17/17 cloNIDine HCL [Catapres*] 0.2 mg PO BID tab 10/24/17 - Past Medical/Surgical History Diabetic: No -: COPD -: PNA -: HTN -: CHF -: PUD -: CHF -: Hysterectomy -: Lumpectomy to Lt Breast -: Appendectomy -: Tonsillectomy - Family History Father -: Heart disease Mother -: Heart disease - Social History Alcohol use: No CD- Drugs: Yes Caffeine use: Yes Physical Examination - Studies Laboratory Data (last 24 hrs) 02/12/25 02/12/25 02/12/25 03:07 03:07 03:07 WBC 14.60 H Hgb 14.3 Hct 44.2 Plt Count 194 PT 29.7 H INR 2.73 APTT 34.0 Sodium 149 H Potassium 3.8 BUN 63 H Creatinine 3.06 H Glucose 158 H Total Bilirubin 0.8 AST 46 H ALT 42 Alkaline Phosphatase 114 Microbiology Data (last 24 hrs): 02/12/25 03:07 Blood - Blood Anaerobic Blood Culture - Final Assessment and Plan - Plan Assessment and plan: 1. Acute encephalopathy: secondary to underlying sepsis from pneumonia and UTI, CT head negative, monitor closely. 2. UTI: Follow-up on cultures, started on broad-spectrum antibiotics. 3. Sepsis secondary to pneumonia with acute hypoxic respiratory failure: Started on broad-spectrum antibiotics, pulmonary and infectious disease was consulted due to history of AGATHA infection, admitted to ICU, she was given fluid bolus, blood pressure is still low, pressors and steroids as per critical care team. 4. Hypernatremia: She was given fluids, sodium is still high, will repeat sodium and started D5 fluids if the sodium is still high. 5. Acute kidney injury: Renal ultrasound negative except renal cyst, nephrology consult requested 6. Lactic acidosis: Secondary to sepsis, monitor closely with hydration, lactate is improving. 7. Mediastinal and hilar adenopathy: Probably secondary to pneumonia, need to follow-up with PCP 8. Esophageal thickening on CT scan: Start PPI, follow-up with PCP and GI as an outpatient 9. Cholelithiasis on CT scan: LFTs normal, this is an incidental finding, follow-up with PCP 10. History of atrial fibrillation,: Continue amiodarone, INR is high, she is probably on some blood thinning medications, her med list needs to be verified, no blood thinning medications on the current med list. 11. History of CHF: Continue home medications, check echocardiogram 12. COPD: Continue nebs 13. Dementia, anxiety and depression, schizophrenia: Continue home medications 14. History of hypertension but she is hypotensive now. 15 Bilateral renal cysts with one of the cyst has complicating features on ultrasound: Follow-up with PCP DVT prophylaxis: INR is high, hold blood thinners for now CODE STATUS: Full code as per shelter records Advanced directives: Will try to get records from shelter, no family at bedside. I did discuss the above plan with nursing staff, and critical care physician. Admit to ICU, total time spent today greater than 60 minutes of critical care time - Advance Directives Does patient have a Living Will: No Does patient have a Durable POA for Healthcare: No
[2025-02-12] MEDS: VANCOMYCIN 1 GM in NA CHLORIDE 0.9% 250 ML IVPB SCH (09:00)
[2025-02-12] MEDS: HEPARIN 5000 UNIT/ML 1 ML VIAL SQ SCH (09:00)
[2025-02-12] MEDS: PANTOPRAZOLE 40 MG INJ IVP SCH (09:00)
[2025-02-12] MEDS: CEFEPIME 1 GM in NA CHLORIDE 0.9% 100 ML IV SCH (09:00)
[2025-02-12] MEDS ORDERED: VANCOMYCIN 1 GM/VIAL ONE (09:19)
[2025-02-12] MEDS ORDERED: PANTOPRAZOLE 40 MG INJ ONE (09:20)
[2025-02-12] MEDS ORDERED: CEFEPIME 1 GM/VIAL ONE (09:20)
[2025-02-12] MEDS ORDERED: HEPARIN 5000 UNIT/ML 1 ML VIAL ONE (09:20)
[2025-02-12] MEDS ORDERED: NA CHLORIDE 0.9% 250 ML ONE ×2 (09:20→10:43)
[2025-02-12] MEDS: VANCOMYCIN 500 MG in NA CHLORIDE 0.9% 100 ML IVPB ONE (10:15)
--- NOTE | 2025-02-12 10:20 | RAD REPORT ---
EXAMINATION: US RETROPERITONEUM CLINICAL INDICATION: MIKE TECHNIQUE: Real-time ultrasonography of the abdomen was performed. COMPARISON: No prior exam. FINDINGS: RIGHT KIDNEY: Right renal length measurement: 9.5 cm. Normal in echogenicity and size. No calculus, s olid mass or hydronephrosis. LEFT KIDNEY: Left renal length measurement: 8.8 cm. Normal in echogenicity and size. No calculus, lissa id mass or hydronephrosis. Bilateral cortical fluid containing cysts, largest on the right measuring 2.3 cm. A 1 cm mid to lower pole left renal cyst may have some layering debris. URINARY BLADDER: Normal. ADDITIONAL FINDINGS: Incidentally noted shadowing gallstones. IMPRESSION: No acute abnormalities. Bilateral renal cortical cysts, with mildly complex features of the left sided 1 cm cyst. Incidentally noted shadowing gallstones.
[2025-02-12] MEDS: HYDROCORTISONE SUC 100 MG INJ IV ONE (10:33)
[2025-02-12] MEDS: AMIODARONE HCL 150 MG in D5W 100 ML IV STA (10:34)
[2025-02-12] MEDS ORDERED: VANCOMYCIN 500 MG/VIAL ONE (10:42)
[2025-02-12] MEDS ORDERED: HYDROCORTISONE SUC 100 MG INJ ONE (10:42)
[2025-02-12] MEDS ORDERED: NOREPINEPHRINE BITARTRATE/D5W 4 MG/250 ML BAG IV ONE ×2 (10:43→13:35)
[2025-02-12] MEDS: SODIUM CHLORIDE 0.9% 10ML INJ IV PRN (10:57)
[2025-02-12] MEDS: NOREPINEPHRINE 4 MG in D5W 250 ML IV SCH (10:58)
[2025-02-12] MEDS: THIAMINE 200 MG/2 ML INJ IVP SCH (12:13)
[2025-02-12] MEDS: AMIODARONE HCL 900 MG in Dextrose 5%-Water 482 ML IV SCH (12:16)
--- NOTE | 2025-02-12 12:16 | P.CNS ---
Date of Consult: 02/12/25 Reason for Consult: Shock Chief Complaint: Altered mental status History of Present Illness: Patient is 79 years of age with a history of COPD multiple other medical problems admitted with hypotension atrial fibrillation and right lower lobe pneumonia currently patient is in A-fib unresponsive on Levophed and has had some fluid boluses Allergies lorazepam [From Ativan] Allergy (Mild, Verified 05/25/17 12:17) Hives/Rash gabapentin Allergy (Verified 02/12/25 08:55) Hives/Rash tramadol Allergy (Unverified 03/09/18 10:25) Unknown Home Medications: cloNIDine HCL [Catapres*] 2 tab PO BID 01/19/17 Ipratropium/Albuterol Sulfate [Iprat-Albut 0.5-3(2.5) mg/3 ml] 3 ml IH Q4HP PRN 05/25/17 Pantoprazole [Protonix Tab*] 40 mg PO DAILY 05/25/17 Arformoterol Tartrate [Brovana] 15 mcg NEB BIDRESP #60 vial.neb 05/27/17 traMADol HCL [Ultram*] 50 mg PO Q6H PRN #50 tab 09/19/17 Amlodipine [Norvasc*] 10 mg PO DAILY #30 tab 10/03/17 Sotalol HCl [Betapace*] 80 mg PO BID #60 tab 10/03/17 Clopidogrel Bisulfate [Plavix] 75 mg PO DAILY 10/15/17 Azithromycin Tab [Zithromax*] 250 mg PO DAILY@1100 #30 tab 10/17/17 Ethambutol HCl [Myambutol] 1,200 mg PO DAILY 30 Days tablet 10/17/17 rifAMPin [Rifadin*] 300 mg PO BID #60 cap 10/17/17 cloNIDine HCL [Catapres*] 0.2 mg PO BID tab 10/24/17 - Past Medical/Surgical History Diabetic: No -: COPD -: PNA -: HTN -: CHF -: PUD -: CHF -: Hysterectomy -: Lumpectomy to Lt Breast -: Appendectomy -: Tonsillectomy - Family History Father Medical History: Heart disease Mother Medical History: Heart disease - Social History Smoking Status: Former smoker Alcohol use: No CD- Drugs: Yes Caffeine use: Yes Place of Residence: Care Home Review of Systems is unable to be obtained Physical Examination Temp Pulse Resp BP Pulse Ox 97 H 18 80/52 L 96 02/12/25 11:59 02/12/25 11:59 02/12/25 11:59 02/12/25 11:59 General: Unresponsive Respiratory: Clear to auscultation bilaterally, Normal air movement Cardiovascular: No edema, Regular rate/rhythm, Normal S1 S2 Gastrointestinal: Normal bowel sounds, Soft and benign, Non-distended Laboratory Data (last 24 hrs) 02/12/25 02/12/25 02/12/25 03:07 03:07 03:07 WBC 14.60 H Hgb 14.3 Hct 44.2 Plt Count 194 PT 29.7 H INR 2.73 APTT 34.0 Sodium 149 H Potassium 3.8 BUN 63 H Creatinine 3.06 H Glucose 158 H Total Bilirubin 0.8 AST 46 H ALT 42 Alkaline Phosphatase 114 - Problems (1) Septic shock Current Visit: Yes Status: Acute Plan: Patient is 79 years of age admitted with altered mental status shock presumed septic continue with fluid boluses 1 dose of hydrocortisone Levophed broad- spectrum antibiotics patient is hyponatremic abnormal renal function patient's white count is elevated CT scan of the chest and abdomen shows right lower lobe infiltrate blood cultures urine cultures are all pending agree with cefepime vancomycin continue with hydrocortisone patient is in A-fib started on amiodarone patient's PT/INR is already elevated
[2025-02-12] MEDS ORDERED: THIAMINE 200 MG/2 ML INJ ONE (12:27)
[2025-02-12] MEDS ORDERED: ALBUTEROL 2.5 MG/3 ML NEB SOL ONE (13:42)
[2025-02-12] MEDS: ALBUTEROL 2.5 MG/3 ML NEB SOL NEB SCH (14:31)
[2025-02-12 16:08] LABS: Anion Gap 11.2 mEq/L (5.0-15.0); Potassium 3.2 mEq/L (3.5-5.1)
[2025-02-12] MEDS: NOREPINEPHRINE BITARTRATE/D5W 4 MG/250 ML BAG IV SCH (16:14)
--- NOTE | 2025-02-12 17:02 | CON ---
History Of Present Illness: This is an 79-year-old female, I was consulted for evaluation of pneumon ia and management of antibiotic. The patient was brought in from senior living with altered mental st atus and chest x-ray showed patient has right lower lobe pneumonia. Most of the history was obtained through medical record and the staff as patient does not have any family. Unable to communicate wit h the patient. She is on high-flow oxygen and currently getting IV antibiotic including cefepime and vancomycin. She is also on Levophed. As per staff, the patient's blood pressure is also running on the low side. Past Medical History: Includes atrial fibrillation, congestive heart failure, COPD, dementia, anxiet y, depression, schizophrenia, hypertension. Past Surgical History: Unable to obtain. Social History: skilled nursing resident. Nonsmoker. Nondrinker. Family History: Noncontributory. Medications: Vancomycin, cefepime. See MARs for other medications. Allergies: INCLUDE LORAZEPAM, GABAPENTIN, TRAMADOL. Review of Systems: Unable to obtain. Physical Examination: General: This is an 79-year-old female, lying in ER bed, room #3, on high-flow oxygen. Vital Signs: Temperature T-max of 100.9 with current temperature of 99.5, pulse is 76, blood pressur e 81/56. HEENT: Unremarkable. Neck: Supple. Lungs: Basal crackles, right more than left. Heart: S1, S2. Regular. Abdomen: Soft, nontender. Bowel sounds present. Extremities: No edema. Muscle wasting noted. Laboratory Data: Shows WBC 14.6, hemoglobin 14.3, platelets 194. Chemistry shows BUN of 63, creatin ine of 3.09. Urinalysis shows wbc 20 to 50. Micro data: Blood cultures done on 02/12 pending. A c hest x-ray done earlier shows right lower lobe infiltrate. Assessment And Plan: This is an 79-year-old female, senior living resident, coming in with right lowe r lobe pneumonia and respiratory distress with leukocytosis and hypotension, currently on a Levophed drip and high-flow oxygen. I agree with vancomycin and cefepime. If not improved, can be switched t o meropenem. Leukocytosis. Chronic obstructive pulmonary disease. Prognosis guarded. Continue current treatment. We will follow the patient as needed. Thank you, Dr. Perera, for consult. NF/MODL Voice ID: [id number] Report ID: [id number]
[2025-02-12] MEDS: D5 0.45 NS 1,000 ML IV ONE (17:34)
[2025-02-12] MEDS: D5 0.45 NS 1,000 ML IV SCH (17:41)
--- NOTE | 2025-02-12 20:02 | CON ---
Date of Consultation: 02/12/2025 Reason For Consultation: Elevated BUN and creatinine, fluid management, hypernatremia. History Of Present Illness: All the information has been obtained from the record as the patient has altered mental status. This is an unfortunate 79-year-old female with significant past medical hist ory of congestive heart failure, AFib, dementia, COPD, depression, schizophrenia. Patient is a [facility] resident. The patient was brought from the skilled nursing because of altered mental status, fo und to have sepsis with the septic shock. Found to have elevation in BUN, creatinine, and hypernatre adriana. For that reason, we have been consulted. Reviewing the record for the patient, the patient not on any diuretic, not on any MAGEN inhibitor. Patient upon arrival to the hospital, no exposure to any contrast. The patient had low blood pressure down to the 80. Patient was started on Levophed, star kalpana on fluid resuscitation. Upon arrival to the hospital, creatinine was 3.06. Reviewing the record for the patient back in 2019, creatinine 1 with normal GFR. Past Medical History: Include: 1. Hypertension. 2. Hyperlipidemia. 3. COPD. 4. AFib. 5. Congestive heart failure. 6. Depression. 7. Schizophrenia. Past Surgical History: None obtainable. Social History: Lives in skilled nursing. The rest none obtainable. Family History: None obtainable. Review of Systems: None obtainable. Physical Examination: General: When I saw the patient, patient on nasal cannula, altered mental status. Vital Signs: Blood pressure of 94/56, pulse of 102, afebrile. Chest: Clear to auscultation. Heart: S1, S2. Tachycardic. Abdomen: Soft, nontender. Extremities: No edema. Neuro: The patient altered mental status, open eyes spontaneously. Moved 4 extremities without any focality. Laboratory Data: Back in August 2020, creatinine 1, GFR of 54. Upon arrival to the hospital, crea tinine 3.06, sodium 149, GFR of 15. Today, lab data, sodium 149, potassium 3.2, bicarb 20, BUN 63, c reatinine 3.09, GFR of 15, calcium 7.1. WBC 14.6, hemoglobin 14.3. Urinalysis positive for infectio n with wbc of 50. Chest x-ray: No cardiomegaly, no congestion. ABG: PH 7.43, CO2 32, O2 75, base excess -2.4, saturation of 95. Current Medications: The patient on, include: 1. Cefepime. 2. Vancomycin. 3. Amiodarone. 4. Levophed. 5. Zofran. 6. Hydrocortisone. Assessment And Plan: 1. Acute kidney injury secondary to prerenal, dehydration, supported with severe alkalosis. a. I am going to go ahead and continue fluid resuscitation. We will go ahead and give the patien t another liter of D5 half bolus, then we will maintain the patient on 50 of D5 per hour. Patient co ntinued to have total of 200 D5 per hour through the Levophed and amiodarone. b. We will send for the workup and we will monitor the patient. 2. Hypertension, currently blood pressure on the lower side. The patient in shock. We will hold all blood pressure medications, especially diuretic and MAGEN inhibitor or ARB. 3. Hypernatremia, mostly secondary to depletional, poor intake. Total water deficit is 2.1 with inse nsible loss of 750 and urine output of 100, total of around 900 total water loss. The patient will b e bolused with 1 L of D5 half. Then, we will maintain the patient on D5 50 on top of the 150, and we will monitor the patient. We will send for the workup. 4. Contraction alkalosis with metabolic acidosis secondary to lactic acidosis. The contraction alkal osis secondary to poor intake. The patient received 4 L of fluid resuscitation. We will add another liter and we will follow up with the patient. 5. Septic shock, urosepsis/hypovolemic shock, complicated with acute kidney injury secondary to prere nal and toxic ATN, oliguric. We will continue fluid resuscitation. We will follow up with the patie nt. 6. Acidosis, as above. 7. Hypokalemia, given the degree of kidney function, I am going to be reluctant on any supplement for the time being. 8. Urosepsis, as above. Continue current antibiotic dose appropriate. Thank you, Dr. Perera, for allowing us to participate in the care of your patient. Time spent examining the patient [id number], reviewing data, lab and radiology, placing order, disc ussing the case with the assembler [employer], discussing the case with the nursing staff in ICU and the hospi talist more than 75 minutes. CULLEN Voice ID: [id number] Report ID: [id number]
[2025-02-12] MEDS: NOREPINEPHRINE 16 MG in D5W 250 ML IV SCH (20:17)
[2025-02-12] MEDS: HYDROCORTISONE SUC 100 MG INJ IV SCH (20:19)
[2025-02-12] MEDS: WATER FOR INJ,STERILE 10 ML IV SCH (20:19)
[2025-02-12] MEDS: Mupirocin NASAL 2 APPL/1 GM TUBE NAS SCH (20:21)
[2025-02-12] MEDS: HALOPERIDOL LACT 5 MG/ML INJ IV PRN (22:29)
[2025-02-13 05:39] LABS: Absolute Lymphocytes (CBC) 0.8 K/uL (0.7-4.9); Absolute Monocytes 0.7 K/uL (0.1-1.3); Absolute Neutrophil 21.1 K/uL (1.8-8.0); Basophils % 0.1 % (0-1.3); Eosinophils % 0.1 % (0-4.4); Hematocrit 31.6 % (36.0-45.0); Hemoglobin 10.6 g/dL (12.0-15.0); Lymphocytes % 3.7 % (15.3-44.8); MCH 30.5 pg (27.0-35.0); MCHC 33.5 g/dL (32.0-36.0); MCV 90.9 fL (80-100); MPV 11.9 fL (7.6-11.3); Monocytes % 3.3 % (3.3-12.3); Neutrophils % 92.8 % (41.7-73.7); Nucleated Red Blood Cells % 0.1 % (0-0); Platelets 119 thou/uL (152-406); RBC Red Blood Cell Count 3.48 M/uL (3.86-4.86); Red Cell Distribution Width 18.3 % (12.1-15.2)
[2025-02-13 06:10] LABS: Albumin 1.9 g/dL (3.4-5.0); Anion Gap 12.2 mEq/L (5.0-15.0); Magnesium 1.6 mg/dL (1.6-2.4); Phosphorus 2.7 mg/dL (2.5-4.9); Potassium 3.2 mEq/L (3.5-5.1); Thyroid Stimulating Hormone 1.75 uIU/mL (0.358-3.740)
[2025-02-13] MEDS: KCL 20 MEQ/100 mL IVPB 100 ML IV SCH (07:49)
[2025-02-13] MEDS: MAGNESIUM SULFATE 1 gm IVPB 1 GM/100 ML BAG IV ONE (07:49)
[2025-02-13 08:27] LABS: PT Prothrombin Time 30.3 SECONDS (10-13.0); Protime INR 2.79
[2025-02-13] MEDS: AMIODARONE HCL 900 MG in Dextrose 5%-Water 482 ML IV SCH (08:48)
[2025-02-13] MEDS: NA CHLORIDE 0.9% 1,000 ML IV SCH (08:49)
[2025-02-13] MEDS ORDERED: AMIODARONE HCL 900 MG in Dextrose 5%-Water 482 ML IV SCH (11:00)
--- NOTE | 2025-02-13 11:56 | P.PN ---
Subjective Date of Service: 02/13/25 Chief Complaint: Sepsis Subjective: No chest pain. c/o some shortness of breath. No nausea or vomiting. No abdominal pain. Looks comfortable in the bed. Still somewhat confused, history may not be reliable. Objective: General appearance: Alert and comfortable CVS: Normal S1 and S2 Lungs: Clear to auscultation bilaterally Abdomen: Soft, bowel sounds present, no tenderness Extremities: No lower extremity edema Physical Examination - Vital Signs Temperature: 98.0 F Blood Pressure: 160/57 Pulse: 79 Respirations: 20 Pulse Ox (%): 100 - Studies Microbiology Data (last 24 hrs): 02/12/25 03:07 Blood - Blood Anaerobic Blood Culture - Final Assessment And Plan - Plan Assessment and plan: 1. Acute encephalopathy: secondary to underlying sepsis from pneumonia and UTI, CT head negative, monitor closely. 2. UTI: Follow-up on cultures-neg so far, started on broad-spectrum antibiotics. 3. Sepsis secondary to pneumonia with acute hypoxic respiratory failure: Started on broad-spectrum antibiotics, pulmonary and infectious disease was consulted due to history of AGATHA infection, admitted to ICU, she was given fluid bolus, on pressors and steroids as per critical care team. -wean pressors as able 3a. GPC bacteremia: Final identification pending, repeat blood cultures ordered this morning, follow-up on culture results and echo. 4. Hypernatremia: She was given fluids, sodium is better, management per n ephrology 5. Acute kidney injury: Renal ultrasound negative except renal cyst, nephrology consult requested, appreciate recommendations 6. Lactic acidosis: Secondary to sepsis, monitor closely with hydration, lactate is improving. 7. Mediastinal and hilar adenopathy: Probably secondary to pneumonia, need to follow-up with PCP 8. Esophageal thickening on CT scan: Start PPI, follow-up with PCP and GI as an outpatient 9. Cholelithiasis on CT scan: LFTs normal, this is an incidental finding, follow-up with PCP 10. History of atrial fibrillation,: Continue amiodarone, INR is high, she is probably on some blood thinning medications, her med list needs to be verified, no blood thinning medications on the current med list. 11. History of CHF: Continue home medications, f/u echocardiogram 12. COPD: Continue nebs 13. Dementia, anxiety and depression, schizophrenia: Continue home medications 14. History of hypertension but she is on pressors now. 15 Bilateral renal cysts with one of the cyst has complicating features on ultrasound: Follow-up with PCP 16. Hypokalemia: Replace and monitor. 17. Mild anemia and thrombocytopenia: Probably secondary to acute illness and hemodilution, monitor counts closely. DVT prophylaxis: INR is high, hold blood thinners for now CODE STATUS: [facility] Advanced directives: no family at bedside to discuss. I did discuss the above plan with nursing staff, total time spent today greater than 40 minutes of critical care time 79-year-old patient admitted with sepsis secondary to pneumonia and UTI, requiring pressors, on broad-spectrum antibiotics, she has GPC bacteremia now, acute renal failure as well, nephrology, ID and critical care is following, patient is critically ill.
--- NOTE | 2025-02-13 12:04 | P.PN ---
Subjective Date of Service: 02/13/25 Chief Complaint: Septic shock Subjective: Improving (Patient is improving more alert responsive still is hypotensive chest congestion) Review of Systems General: Weakness Respiratory: Cough, Shortness of Breath Physical Examination - Vital Signs Temperature: 98.0 F Blood Pressure: 160/57 Pulse: 79 Respirations: 20 Pulse Ox (%): 100 - Physical Exam General: Alert, Oriented x3 Respiratory: Diminished, Expiratory wheezes Cardiovascular: No edema, Regular rate/rhythm, Normal S1 S2 - Studies Microbiology Data (last 24 hrs): 02/12/25 03:07 Blood - Blood Anaerobic Blood Culture - Final Assessment And Plan - Current Problems (Diagnosis) (1) Septic shock Current Visit: Yes Status: Acute Plan: Patient is 79 years of age admitted with septic shock presumed right-sided pneumonia cultures are still pending will continues to remain hypotensive try some more fluid boluses nephrology consult white count is elevated I suspect is from the steroids no evidence of urinary tract infection continue with supportive therapy for now blood pressure is elevated flutter valve
[2025-02-13] MEDS: D5 0.45 NS 1,000 ML IV SCH (12:45)
[2025-02-13] MEDS: HEPARIN/D5W 25,000 UNIT/500 ML BAG IV SCH (12:45)
--- NOTE | 2025-02-13 12:58 | PN ---
Date of Progress Note: 02/13/2025 Subjective: The patient was admitted with acute kidney injury, sepsis. The patient had shock with atrial fibrillation. The patient was recently hydrated with fluid yesterday. The patient was found more awake today. Had good urine output. Physical Examination: Vital Signs: Blood pressure 160/57, pulse of 79, afebrile. Chest: Clear to auscultation. Heart: S1, S2. Tachy, regular. Abdomen: Soft, nontender. Extremities: No edema. Neuro: The patient open eyes spontaneously. No focality. Still confused. Laboratory Data: WBC 22.7, hemoglobin 10.6. Sodium 145, potassium 3.2, bicarb 20, BUN 58, creatinine 3, trending down, uric acid of 10, calcium 7.1, phosphorus 2.7, magnesium 1.6. TSH 1.7. PTH is still pending. Current Medications: The patient is on include cefepime, vancomycin, Levophed, amiodarone, heparin, IV fluid of normal saline. Assessment And Plan: 1. Acute kidney injury secondary to cardiorenal, poor perfusion, ATN, prerenal, look nonoliguric. No hyperkalemia. No acidosis. I do not see the need to initiate any renal replacement therapy for the time being. I am going to continue fluid resuscitation. We will change IV fluid to D5 half and the presence of hypernatremia and we will follow up. Keep holding any blood pressure medication, especially diuresis, MAGEN inhibitor, or ARB. 2. Hyponatremia, depletional. We will change IV fluid as above. 3. Hypokalemia, hypomagnesemia. We will supplement. 4. Atrial fibrillation, as by Cardiology. Continue amiodarone. 5. Lactic acidosis secondary to poor perfusion and sepsis, recovered. 6. Contraction alkalosis with metabolic acidosis. Continue fluid resuscitation. 7. Septic shock, urosepsis. Continue current antibiotic. We will follow up with primary. Time spent examining the patient [id number] reviewing that the lab and the radiology placing order discussing the case with the patient discussing the case with the steam shovel operating engineer including hospitalist and nursing staff more than 55 minutes CULLEN Voice ID: [id number] Report ID: [id number] [facility]ITALArmando
[2025-02-13] MEDS: POTASSIUM CL 40 MEQ in NA CHLORIDE 0.9% 500 ML IV SCH (13:13)
[2025-02-13 15:27] LABS: Anion Gap 9.8 mEq/L (5.0-15.0); Magnesium 1.9 mg/dL (1.6-2.4); Phosphorus 2.9 mg/dL (2.5-4.9); Potassium 3.8 mEq/L (3.5-5.1)
--- NOTE | 2025-02-13 22:38 | PN ---
Subjective: Patient is lying in bed. No new acute event. More awake and alert and able to communic ate well. Objective: Vital Signs: Temperature 97.6, pulse 98, respiration 20, blood pressure 149/85. Lungs: Basal crackles, right more than left. Heart: S1, S2. Regular. Abdomen: Soft, nontender. Bowel sounds present. Extremities: Trace edema. Laboratory Data: Shows WBC 73647, hemoglobin 10.6, platelets are 119. BUN of 56, creatinine of 2.7. Micro Data: Cultures done on 02/12 shows no growth in 24 hours, the patient is currently being treat ed with cefepime and vancomycin. Assessment And Plan: 1. [facility] resident with right lower lobe pneumonia, leukocytosis, and hypotension, improving, c urrently on vancomycin and cefepime. Consider switching to meropenem. 2. Leukocytosis. 3. Renal insufficiency. 4. Chronic obstructive pulmonary disease. 5. Thrombocytopenia. 6. Pyuria, possible urinary tract infection. We will follow the patient closely. If not improved le ukocytosis, we will switch it to meropenem. NF/MODL Voice ID: [id number] Report ID: [id number]
--- NOTE | 2025-02-13 22:53 | CON ---
Date of Consultation: 02/13/2025 Reason For Consultation: Atrial fibrillation with rapid ventricular response. History Of Present Illness: An 79-year-old long term resident who presented with altered mental s tatus and sepsis. Apparently while in ICU, she is not responding very well, still she is not, could not get any information from her, but apparently she went into atrial fibrillation with RVR. She was started on IV amiodarone drip and she is rate controlled now, but she cannot take any medications by mouth. Past Medical History: Atrial fibrillation, CHF, COPD, dementia, schizophrenia, hypertension. Medications: Refer to reconciliation sheet for detailed list. Allergies: LORAZEPAM, GABAPENTIN, TRAMADOL. Family History: Unable to obtain. Patient is not answering or responding. Social History: There is no known history of smoking. She does not smoke or drink or use any drugs. Family History: Unknown. The patient is unable to provide any history. Review of Systems: All systems were reviewed and they were negative except as mentioned in the HPI. Physical Examination: Vital Signs: Reviewed. Head and Neck: Pupils are equal, reactive to light. Intact eye movements. No cervical lymphadenopa thy. Neck: Supple. Thyroid is not enlarged. Lungs: Rhonchi bilaterally. No accessory muscle use or muscle retraction. Heart: Irregularly irregular. No extra sounds. Abdomen: Soft, nontender. Bowel sounds positive. No organomegaly. No masses or hernia. No rigidi ty or rebound Extremities: No clubbing or cyanosis. Intact pulses. Skin: No rashes. Neurologic: She is lethargic, unable to perform a full exam due to mental status. Lymph Nodes: No cervical or axillary lymphadenopathy. Investigations: Sodium 142, BUN 56, creatinine 2.75, potassium is 3.8. Troponin is negative. Assessment/recommendation: 1. Atrial fibrillation with rapid ventricular response. Agree with amiodarone drip. If she is able to take medicines by mouth once the load is completed, switch her to oral 200 mg twice a day. She is not a candidate for anticoagulation on the long-term; however, she is currently on heparin drip. On ce she awake, her will be evaluated and then she can be put on oral amiodarone. If she is not able to tolerate oral medications, then keep amiodarone at 0.5 mg/minute for rate con trol and check liver function tests daily while on IV amiodarone. 2. Sepsis, on wide-spectrum antibiotics. Vital signs now are stable. 3. Acute on chronic kidney failure due to sepsis and it is improving. SR/MODL Voice ID: [id number] Report ID: [id number]
[2025-02-14 05:27] LABS: Absolute Lymphocytes (CBC) 0.9 K/uL (0.7-4.9); Absolute Monocytes 0.5 K/uL (0.1-1.3); Absolute Neutrophil 13.7 K/uL (1.8-8.0); Basophils % 0.1 % (0-1.3); Hematocrit 26.9 % (36.0-45.0); Lymphocytes % 5.7 % (15.3-44.8); MCH 30.2 pg (27.0-35.0); MCHC 33.4 g/dL (32.0-36.0); MCV 90.6 fL (80-100); Monocytes % 3.2 % (3.3-12.3); Platelets 84 thou/uL (152-406); RBC Red Blood Cell Count 2.97 M/uL (3.86-4.86); Red Cell Distribution Width 18.3 % (12.1-15.2)
[2025-02-14 06:01] LABS: Albumin 1.5 g/dL (3.4-5.0); Albumin/Globulin Ratio 0.4 (1.1-1.8); Anion Gap 10.6 mEq/L (5.0-15.0); Bilirubin Direct 0.2 mg/dL (0-0.2); Bilirubin Indirect, Calculated 0.3 mg/dL (0.2-0.8); Bilirubin Total 0.5 mg/dL (0.2-1.0); Globulin 3.4 g/dL (2.3-3.5); Magnesium 1.7 mg/dL (1.6-2.4); Phosphorus 2.4 mg/dL (2.5-4.9); Potassium 3.6 mEq/L (3.5-5.1); Protein, Total 4.9 g/dL (6.4-8.2)
[2025-02-14 06:06] LABS: Rheumatoid Factor POS (NEG); Rheumatoid Factor Titer 1:16
[2025-02-14] MEDS: VANCOMYCIN 1.25 GM in NA CHLORIDE 0.9% 250 ML IVPB SCH (06:11)
--- NOTE | 2025-02-14 07:03 | ECHO ---
HEIGHT: 5 ft 4 in WEIGHT: 140 lb 0 oz DATE OF STUDY: 02/13/[address]: Bret Sorto MD 2-DIMENSIONAL: YES M.MODE: YES DOPPLER: YES COLOR FLOW: YES TDS: PORTABLE: YES DEFINITY: BUBBLE STUDY: DIAGNOSIS: SHOCK, ATRIAL FIBRILLATION CARDIAC HISTORY: CATHERIZATION: NO SURGERY: NO PROSTHETIC VALVE: NO PACEMAKER: NO MEASUREMENTS (cm) DIASTOLIC (NORMALS) SYSTOLIC (NORMALS) IVSd 1.0 (0.6-1.2) LA Diam 3.4 (1.9-4.0) LVEF 50-55% LVIDd 4.7 (3.5-5.7) LVIDs 3.5 (2.0-3.5) %FS 26% LVPWd 1.2 (0.6-1.2) Ao Diam 2.5 (2.0-3.7) 2 DIMENSIONAL ASSESSMENT: RIGHT ATRIUM: NORMAL LEFT ATRIUM: ENLARGED RIGHT VENTRICLE: NORMAL LEFT VENTRICLE: NORMAL TRICUSPID VALVE: MILD TRICUSPID REGURGITATION MITRAL VALVE: MILD MITRAL REGURGITATION PULMONIC VALVE: NOT SEEN AORTIC VALVE: MILD AORTIC INSUFFICIENCY PERICARDIAL EFFUSION: NONE AORTIC ROOT: NORMAL LEFT VENTRICULAR WALL MOTION: NORMAL DOPPLER/COLOR FLOW: SEE BELOW COMMENTS: 1. NORMAL LEFT VENTRICULAR EJECTION FRACTION 50-55% 2. LEFT ATRIAL ENLARGEMENT 3. MILD MITRAL REGURGITATION, AORTIC INSUFFICIENCY, TRICUSPID REGURGITATION TECHNOLOGIST: GROVER FISCHER/ JOSE HOYT [facility]
--- NOTE | 2025-02-14 10:58 | P.PN ---
Subjective Date of Service: 02/14/25 Chief Complaint: Septic shock Subjective: Improving (Patient is improving still requiring low-dose of Levophed alert oriented x 1 denies any complaints) Review of Systems General: Weakness Respiratory: Shortness of Breath Physical Examination - Vital Signs Temperature: 97.2 F Blood Pressure: 98/40 Pulse: 63 Respirations: 19 Pulse Ox (%): 100 - Physical Exam General: Alert, Oriented x1 Respiratory: Expiratory wheezes, Rhonchi/gurgles Cardiovascular: No edema, Regular rate/rhythm, Normal S1 S2 Assessment And Plan - Current Problems (Diagnosis) (1) Septic shock Current Visit: Yes Status: Acute Plan: Patient is still in shock requiring vasopressors which is gradually been weaned off renal function is improving echocardiogram shows normal renal function patient has now converted to sinus rhythm continue with amiodarone seen by cardiology I have added ipratropium DC hydrocortisone DC IV thiamine stable to be transferred to the floor patient has severe COPD renal function is improving
--- NOTE | 2025-02-14 11:13 | P.PN ---
Nephrology note (S) Pt known to me from clinic consultation last year and then seeing during prolonged stay at [facility] where she had similar issues including COPD exacerbation, PNA, MIKE on CKD, hypernatremia and other. Assuming care from Dr. Dennis today for Nephrology care. Pt seen in the ICU, no resp distress, remains on Amio gtt, Levophed, SBP > 110 when BP cuff adjusted, MAP < 60 in the setting of widened pulse pressure. (O) Vitals reviewed in the EMR NAD, non tachypnec, not on O2 when seen, b/l air entry, reduced at bases, no loud wheezing, non tachy, irregular, soft, ND, NT, goldsmith present. Muscle mass loss, no sig LE edema, shins non tender. Awake, responds briefly, moves UE spont, no resting tremors or myoclonus noted Labs and Imaging data reviewed in the EMR A/P) 1. Stage II MIKE recurrent on underlying CKD Stage IIIb with MIKE in the setting of vol depletion/dehydration, hypotension, infection, renal plasma flow effects of hypoxia/other. 2. Fortunately, Cr level is downward trending with IVF hydration, pt non oliguric 3. Hypernatremia POA resolved, rate of correction acceptable, switch from hypotonic 1/2NS IVF to physiologically balanced, mildly hypotonic LR IVF as pt remains on pressor support 4. Hypotension in the setting of vol depletion, presumed sepsis with PNA, unspecified organism, afib, other. Wean pressor as tolerated, widened pulse pressure noted, use SBP rather than MAP to titrate. Anx for PNA per primary team, dose meds for reduced CrCl 5. Abnormal findings in urine, pyuria, hyaline casts, Ca oxalate crystals without stones, hydro or obstructive uropathy noted on imaging. Cont IVF hydration, f/u cultures Yamil Huggins MD, WILFREDO
[2025-02-14] MEDS: Ringers Lactate 1,000 ML IV SCH (11:36)
[2025-02-14] MEDS: BUDESONIDE 0.5 MG/2 ML NEB NEB SCH ×2 (12:06→20:27)
[2025-02-14] MEDS: IPRATROPIUM BROM 0.5MG/2.5ML NEB SCH (12:07)
--- NOTE | 2025-02-14 14:47 | P.PN ---
Subjective Date of Service: 02/14/25 Chief Complaint: Septic shock Patient is awake and interactive, however she seems to be exhibiting some paranoia. She is still requiring low-dose Levophed drip. No recorded fever over the past 48 hours. Physical Examination - Vital Signs Temperature: 98.5 F Blood Pressure: 109/57 Pulse: 67 Respirations: 17 Pulse Ox (%): 99 Assessment And Plan - Plan Physical examination General: Alert and oriented x3, NAD, HEENT: Conjunctiva not pale, anicteric sclera Neck: Supple, no elevated JVD Heart: Heart sounds 1 and 2 normal, regular rhythm, normal rate, no pedal edema Lungs: Clear to auscultation bilaterally, adequate breath sounds bilaterally, no rhonchi or crackles. Abdomen: Soft, nondistended, nontender, normal bowel sounds. Extremities: No tenderness, no deformity Skin: Normal skin turgor, no rash, no nodules or ulcers. Neuro: No focal motor deficit. Normal speech. Psychiatry: Normal mood, no agitation. Diagnosis Acute encephalopathy Acute cystitis without hematuria Septic shock Gram-positive cocci bacteremia Hypernatremia Acute kidney injury Lactic acidosis Cholelithiasis Chronic atrial fibrillation Plan: Acute metabolic encephalopathy Acute cystitis without hematuria Pneumonia Sepsis/septic shock Gram-positive cocci bacteremia Blood culture: 1 blood culture bottle growing gram-positive cocci Urine culture shows no growth. Repeat blood cultures pending. Continue IV cefepime and vancomycin. Follow cultures. Acute kidney injury Patient was recent creatinine baseline is unknown. Serum creatinine is trending down, renal function is improving. Continue IV hydration Monitor renal function Nephrology Dr. Gonsalez consulted to assist with management. A-fib with RVR Chronic diastolic heart failure Cardiology Dr. Austin input appreciated. Patient was paced on amiodarone drip. May transition to oral amiodarone Cautious IV fluid. On Heparin drip Asymptomatic cholelithiasis Outpatient follow-up History of anxiety and depression Schizophrenia Dementia Continue home medications. Bilateral renal cyst Outpatient surveillance and follow-up recommended. COPD Emphysema Stable without acute exacerbation. DVT prophylaxis: Patient is on heparin drip Advanced directive: Full code.
[2025-02-14] MEDS: ACETAMINOPHEN 325 MG TABLET PO PRN (15:40)
--- NOTE | 2025-02-14 17:26 | P.PN ---
Date of Service: 02/14/25 Subjective: Patient is lying in bed. No new acute event. More awake and alert and able to communicate well. Objective: Temp Pulse Resp BP Pulse Ox 97.7 F 70 18 153/84 H 18 L 02/14/25 16:00 02/14/25 17:00 02/14/25 17:00 02/14/25 17:00 02/14/25 17:00 neuro: aox3 Lungs: CTA Heart: S1, S2. Regular. Abdomen: Soft, nontender. Bowel sounds present. Extremities: Trace edema. Skin: sacrum DTI Laboratory Data: WBC 15, hemoglobin 9, platelets are 84. BUN 48, creatinine of 2.75 urine culture 02/12/25 no growth blood culture 02/12/25 shows no growth in 24 hours 02/13/25 no growth in 24 hours Assessment And Plan: 1. care home resident with right lower lobe pneumonia, leukocytosis, and hypotension, improving, currently on vancomycin and cefepime. Consider switching to meropenem. 2. Leukocytosis (improving) 3. Renal insufficiency. 4. Chronic obstructive pulmonary disease. 5. Thrombocytopenia. 6. sacrum DTI wound care. recommend zinc oxide with every brief change and prn case round and in agreement with Dr milligan
[2025-02-14] MEDS: APIXABAN 2.5 MG TABLET PO SCH (20:25)
[2025-02-14] MEDS: JUVEN PACKET PO SCH (20:26)
[2025-02-14] MEDS: ENSURE ENLIVE 237 ML CAN PO SCH (20:26)
[2025-02-14] MEDS: SENOSIDES 8.6 MG TAB PO SCH (20:27)
[2025-02-15 05:28] LABS: Absolute Lymphocytes (CBC) 0.7 K/uL (0.7-4.9); Absolute Monocytes 0.8 K/uL (0.1-1.3); Absolute Neutrophil 12.1 K/uL (1.8-8.0); Basophils % 0.3 % (0-1.3); Eosinophils % 0.3 % (0-4.4); Hematocrit 27.1 % (36.0-45.0); Hemoglobin 9.2 g/dL (12.0-15.0); Lymphocytes % 4.8 % (15.3-44.8); MCH 30.3 pg (27.0-35.0); MCHC 33.9 g/dL (32.0-36.0); MCV 89.4 fL (80-100); MPV 12.8 fL (7.6-11.3); Monocytes % 5.7 % (3.3-12.3); Neutrophils % 88.9 % (41.7-73.7); Nucleated Red Blood Cells % 0.1 % (0-0); Platelets 65 thou/uL (152-406); RBC Red Blood Cell Count 3.03 M/uL (3.86-4.86); Red Cell Distribution Width 18.3 % (12.1-15.2)
[2025-02-15 05:47] LABS: Albumin 1.6 g/dL (3.4-5.0); Albumin/Globulin Ratio 0.5 (1.1-1.8); Anion Gap 10.6 mEq/L (5.0-15.0); Bilirubin Direct 0.3 mg/dL (0-0.2); Bilirubin Indirect, Calculated 0.3 mg/dL (0.2-0.8); Bilirubin Total 0.6 mg/dL (0.2-1.0); Globulin 3.4 g/dL (2.3-3.5); Magnesium 1.7 mg/dL (1.6-2.4); Phosphorus 3.1 mg/dL (2.5-4.9); Potassium 3.6 mEq/L (3.5-5.1)
[2025-02-15 07:23] LABS: Blood Morphology Comment NOT SEEN (NOT SEEN); Platelet Estimate DECR; White Blood Cell Scan OK (OK)
[2025-02-15] MEDS ORDERED: PANTOPRAZOLE 40MG TABLET PO SCH (07:30)
[2025-02-15] MEDS: Pantoprazole (granules) 40 MG/BLIST PACKET PO SCH (07:30)
[2025-02-15] MEDS: CALCIUM CARB 500MG/VIT D 200 IU TAB PO SCH (08:02)
[2025-02-15] MEDS: ZINC OXIDE 20% OINTMENT 60gm TOP PRN (08:10)
[2025-02-15] MEDS ORDERED: [UNRECOGNIZED DRUG - OTHER] PO SCH (09:00)
[2025-02-15] MEDS ORDERED: HOME MED 1 EA UNK (Omeprazole [Omeprazole] 20 MG Capsule.Dr) PO SCH (09:00)
[2025-02-15] MEDS ORDERED: VITAMIN D3 PO SCH (09:00)
[2025-02-15] MEDS ORDERED: CALCIUM CARBONATE PO SCH (09:00)
--- NOTE | 2025-02-15 10:51 | RAD REPORT ---
EXAM: Chest Single View HISTORY: 79 years Female tachypnea/wheezing COMPARISON: 02/12/2025 FINDINGS: LUNGS/PLEURA: Worsening aeration of the lungs bilaterally but particularly at the right lung base. Po ssible new small bilateral pleural effusions. CARDIAC/MEDIASTINUM: Increased cardiomegaly. UPPER ABDOMEN: No significant abnormality. BONES: No acute abnormality. LINES/TUBES/OTHER: N/A IMPRESSION: Suspect new small bilateral pleural effusions which may be due to new developing pulmonary edema. Pne umonia versus pneumonitis at the right lung base suspected.
[2025-02-15] MEDS: FUROSEMIDE 40 MG/4 ML VIAL IV ONE ×2 (11:45→16:11)
[2025-02-15] MEDS: KCL 20 MEQ/100 mL IVPB 20 MEQ/100 ML BAG IV SCH (12:59)
[2025-02-15] MEDS: MAGNESIUM SULFATE 1 gm IVPB 1 GM/100 ML BAG IV ONE (12:59)
--- NOTE | 2025-02-15 14:18 | P.PN ---
Subjective Date of Service: 02/15/25 Chief Complaint: Septic shock Patient is awake and interactive. She denies any complaint however I noted she is short of breath with speaking. She is on low-dose Levophed drip. No recorded fever over the past few days. Physical Examination - Vital Signs Temperature: 97.4 F Blood Pressure: 117/62 Pulse: 88 Respirations: 22 Pulse Ox (%): 97 Assessment And Plan - Plan Physical examination General: Alert and oriented x3, NAD, Neck: Supple, no elevated JVD Heart: Heart sounds 1 and 2 normal, regular rhythm, normal rate, no pedal edema Lungs: Mild bibasilar crackles, adequate breath sounds bilaterally, no rhonchi. Abdomen: Soft, nondistended, nontender, normal bowel sounds. Extremities: No tenderness, no deformity Skin: Normal skin turgor, no rash, no nodules or ulcers. Neuro: No focal motor deficit. Normal speech. Psychiatry: Normal mood, no agitation. Diagnosis Acute encephalopathy Acute cystitis without hematuria Septic shock Gram-positive cocci bacteremia Hypernatremia Acute kidney injury Lactic acidosis Cholelithiasis Chronic atrial fibrillation Plan: Acute metabolic encephalopathy Acute cystitis without hematuria Pneumonia Sepsis/septic shock Gram-positive cocci bacteremia Blood culture: 1 blood culture bottle growing gram-positive cocci Urine culture shows no growth. Repeat blood cultures pending. Continue IV cefepime and vancomycin. Follow cultures. Acute kidney injury Patient was recent creatinine baseline is unknown. Serum creatinine is trending down, renal function is improving. Continue IV hydration Monitor renal function Nephrology Dr. Gonsalez consulted to assist with management. A-fib with RVR Chronic diastolic heart failure Cardiology Dr. Austin input appreciated. Patient was paced on amiodarone drip. May transition to oral amiodarone Cautious IV fluid. On Heparin drip Asymptomatic cholelithiasis Outpatient follow-up History of anxiety and depression Schizophrenia Dementia Continue home medications. Bilateral renal cyst Outpatient surveillance and follow-up recommended. COPD Emphysema Stable without acute exacerbation. 02/15 Chest x-ray demonstrate mild bilateral pleural effusion. Patient remained on Levophed Will give a dose of IV Lasix 1 blood culture bottle grew gram-positive cocci in clusters. This is likely a skin contaminant Repeat blood culture yielded no growth. Urine culture shows no growth Continue IV cefepime and vancomycin Serum creatinine continues to improve Monitor renal function closely with diuresis Nephrology is following. Patient is on amiodarone drip for A-fib Heparin drip transition to oral Eliquis. Cardiology to follow. DVT prophylaxis: Eliquis. Advanced directive: Full code.
[2025-02-15] MEDS ORDERED: ENOXAPARIN 40 MG/0.4 ML SQ SCH (17:00)
[2025-02-15] MEDS: AMIODARONE HCL 200 MG TAB PO SCH (20:32)
[2025-02-15] MEDS: SODIUM BICARB 325 MG TAB PO SCH (20:32)
--- NOTE | 2025-02-15 23:14 | PN ---
Date of Progress Note: 02/15/2025 Subjective: The patient was seen and examined at bedside. She is doing okay. Denies any complaints at this time. This morning, she was noted to have wheezing and shortness of breath. Chest x-ray wa s done, which is showing pulmonary edema. She still has IV fluids running at LR 60 cc an hour. Smal l bilateral pleural effusions were also noted on the chest x-ray. Physical Examination: Vital Signs: At this time are showing temperature of 97.4, pulse rate of 89, respiratory rate of 24, blood pressure 115/59, O2 sats 97%. General: She appears in [id number] respiratory distress. HEENT: She has atraumatic head. Lungs: Auscultation of the lungs reveal bibasilar crackles. Abdomen: Soft and nontender. Extremities: Showed no evidence of edema. Laboratory Data: Showing creatinine improving to 2.1, BUN of 45, and bicarb of 18. CBC showing stab le hemoglobin, hematocrit, and platelet count of 65. Current Medications: Include amiodarone drip, Eliquis 2.5 mg b.i.d., cefepime 1 g every 12 hours, La six 1 time dose was given, magnesium, vancomycin every 48 hours. Her blood cultures are so far negat phuong. Impression: 1. Acute on chronic renal insufficiency secondary to acute tubular necrosis. Currently with overall improved and stable renal function. The patient does have chronic baseline chronic kidney disease. 2. Acute cystitis. The patient is currently on cefepime 1 g every 12 hours and she has dropping plat elet count. At this time, I would like to cut down on the cefepime to once a day to avoid further wo rsening of the thrombocytopenia and if blood cultures remain negative, then possibly antibiotics coul d be tailored down. 3. Hypotension. Remains on low-dose pressors, which is being weaned off. 4. Atrial fibrillation with rapid ventricular response and chronic diastolic heart failure, being man aged by Cardiology. Currently remains on amiodarone drip. 5. Asymptomatic cholelithiasis. 6. Metabolic acidosis secondary to chronic renal insufficiency. She can be started on sodium bicarbo jennie supplementation orally and monitor closely. Overall, patient is clinically stable. However, sh e is going into volume overload. IV fluids are being discontinued at this time. Consider switching cefepime to a different antibiotic in the light of worsening platelet count. I will start Lasix 40 m g once a day, 1 dose has been given this morning. I will repeat another dose later and monitor renal function closely. VV/MODL Voice ID: [id number] Report ID: [id number]
[2025-02-16] MEDS: ALBUTEROL 2.5 MG/3 ML NEB SOL ONE ×2 (01:00→21:38)
[2025-02-16] MEDS: IPRATROPIUM BROM 0.5MG/2.5ML ONE ×2 (01:01→21:38)
[2025-02-16 05:57] LABS: Absolute Lymphocytes (CBC) 0.9 K/uL (0.7-4.9); Absolute Monocytes 1.1 K/uL (0.1-1.3); Basophils % 0.1 % (0-1.3); Eosinophils % 0.3 % (0-4.4); Hematocrit 27.6 % (36.0-45.0); Hemoglobin 9.3 g/dL (12.0-15.0); Lymphocytes % 7.8 % (15.3-44.8); MCH 29.8 pg (27.0-35.0); MCHC 33.7 g/dL (32.0-36.0); MCV 88.4 fL (80-100); MPV 11.6 fL (7.6-11.3); Monocytes % 9.1 % (3.3-12.3); Neutrophils % 82.7 % (41.7-73.7); Nucleated Red Blood Cells % 0.1 % (0-0); Platelets 72 thou/uL (152-406); RBC Red Blood Cell Count 3.12 M/uL (3.86-4.86); Red Cell Distribution Width 18.2 % (12.1-15.2)
[2025-02-16 06:16] LABS: Albumin 1.6 g/dL (3.4-5.0); Albumin/Globulin Ratio 0.5 (1.1-1.8); Anion Gap 9.5 mEq/L (5.0-15.0); Bilirubin Direct 0.3 mg/dL (0-0.2); Bilirubin Indirect, Calculated 0.5 mg/dL (0.2-0.8); Bilirubin Total 0.8 mg/dL (0.2-1.0); Globulin 3.5 g/dL (2.3-3.5); Phosphorus 3.1 mg/dL (2.5-4.9); Potassium 3.5 mEq/L (3.5-5.1); Protein, Total 5.1 g/dL (6.4-8.2)
[2025-02-16] MEDS: KCL 20 MEQ/100 mL IVPB 20 MEQ/100 ML BAG IV ONE (08:06)
--- NOTE | 2025-02-16 11:31 | P.PN ---
Subjective Date of Service: 02/16/25 Chief Complaint: Septic shock Patient is awake and interactive. She appears to be short of breath. She is still on low-dose Levophed drip. Nursing staff reports poor oral intake. No recorded fever. Physical Examination - Vital Signs Temperature: 97.8 F Blood Pressure: 137/57 Pulse: 86 Respirations: 22 Pulse Ox (%): 99 Assessment And Plan - Plan Physical examination General: Alert and oriented x3, NAD, Neck: Supple, no elevated JVD Heart: Heart sounds 1 and 2 normal, regular rhythm, normal rate, no pedal edema Lungs: Mild bibasilar crackles, adequate breath sounds bilaterally, no rhonchi. Abdomen: Soft, nondistended, nontender, normal bowel sounds. Extremities: No tenderness, no deformity Skin: Normal skin turgor, no rash, no nodules or ulcers. Neuro: No focal motor deficit. Normal speech. Psychiatry: Normal mood, no agitation. Diagnosis Acute encephalopathy Acute cystitis without hematuria Septic shock Gram-positive cocci bacteremia Hypernatremia Acute kidney injury Lactic acidosis Cholelithiasis Chronic atrial fibrillation Plan: Acute metabolic encephalopathy Acute cystitis without hematuria Pneumonia Sepsis/septic shock Gram-positive cocci bacteremia Blood culture: 1 blood culture bottle growing gram-positive cocci Urine culture shows no growth. Repeat blood cultures pending. Continue IV cefepime and vancomycin. Follow cultures. Acute kidney injury Patient was recent creatinine baseline is unknown. Serum creatinine is trending down, renal function is improving. Continue IV hydration Monitor renal function Nephrology Dr. Gonsalez consulted to assist with management. A-fib with RVR Chronic diastolic heart failure Cardiology Dr. Austin input appreciated. Patient was paced on amiodarone drip. May transition to oral amiodarone Cautious IV fluid. On Heparin drip Asymptomatic cholelithiasis Outpatient follow-up History of anxiety and depression Schizophrenia Dementia Continue home medications. Bilateral renal cyst Outpatient surveillance and follow-up recommended. COPD Emphysema Stable without acute exacerbation. 02/15 Chest x-ray demonstrate mild bilateral pleural effusion. Patient remained on Levophed Will give a dose of IV Lasix 1 blood culture bottle grew gram-positive cocci in clusters. This is likely a skin contaminant Repeat blood culture yielded no growth. Urine culture shows no growth Continue IV cefepime and vancomycin Serum creatinine continues to improve Monitor renal function closely with diuresis Nephrology is following. Patient is on amiodarone drip for A-fib Heparin drip transition to oral Eliquis. Cardiology to follow. 02/16 Acute on chronic diastolic heart failure: Continue IV Lasix, monitor renal function closely. Echocardiogram shows normal EF Sepsis/septic shock: Blood pressure improved however patient still requiring low-dose Levophed. 1 blood culture bottle grew gram-positive cocci in clusters. This is likely a skin contaminant. Repeat blood culture showed no growth. Continue antibiotics. A-fib with RVR: Rate controlled on oral amiodarone. Continue Eliquis. Optimize electrolytes. Cardiology to follow. Acute on chronic kidney disease stage III: Renal function has been improving slowly. Nephrology is following. Cholelithiasis: Asymptomatic. Outpatient follow-up recommended. History of anxiety/depression/schizophrenia: Continue home medications. Acute metabolic encephalopathy: Mental status significantly improved. DVT prophylaxis: Eliquis. Advanced directive: Full code.
[2025-02-16] MEDS: PANTOPRAZOLE 40 MG INJ IV SCH (16:21)
[2025-02-17] MEDS: METOPROLOL TARTRATE 5 MG/5 ML INJ IV STA (00:25)
[2025-02-17] MEDS: ALBUTEROL 2.5 MG/3 ML NEB SOL ONE (01:01)
[2025-02-17] MEDS: IPRATROPIUM BROM 0.5MG/2.5ML ONE (01:02)
[2025-02-17 05:59] LABS: Absolute Lymphocytes (CBC) 0.8 K/uL (0.7-4.9); Absolute Monocytes 0.7 K/uL (0.1-1.3); Absolute Neutrophil 6.6 K/uL (1.8-8.0); Basophils % 0.2 % (0-1.3); Eosinophils % 0.5 % (0-4.4); Hematocrit 26.8 % (36.0-45.0); Hemoglobin 9.2 g/dL (12.0-15.0); Lymphocytes % 10.1 % (15.3-44.8); MCH 30.2 pg (27.0-35.0); MCHC 34.1 g/dL (32.0-36.0); MCV 88.5 fL (80-100); MPV 11.4 fL (7.6-11.3); Monocytes % 9.1 % (3.3-12.3); Neutrophils % 80.1 % (41.7-73.7); Nucleated Red Blood Cells % 0.1 % (0-0); Platelets 63 thou/uL (152-406); RBC Red Blood Cell Count 3.03 M/uL (3.86-4.86); Red Cell Distribution Width 18.2 % (12.1-15.2)
[2025-02-17 06:23] LABS: Albumin 1.5 g/dL (3.4-5.0); Albumin/Globulin Ratio 0.4 (1.1-1.8); Anion Gap 8.3 mEq/L (5.0-15.0); Bilirubin Direct 0.4 mg/dL (0-0.2); Bilirubin Indirect, Calculated 0.5 mg/dL (0.2-0.8); Bilirubin Total 0.9 mg/dL (0.2-1.0); Globulin 3.5 g/dL (2.3-3.5); Magnesium 2.1 mg/dL (1.6-2.4); Phosphorus 3.2 mg/dL (2.5-4.9); Potassium 3.3 mEq/L (3.5-5.1)
[2025-02-17] MEDS: VANCOMYCIN 1.25 GM in NA CHLORIDE 0.9% 250 ML IVPB SCH (06:42)
[2025-02-17] MEDS: POTASSIUM 25 MEQ EFFERV TAB PO ONE (06:53)
--- NOTE | 2025-02-17 09:52 | P.PN ---
Subjective Date of Service: 02/17/25 Chief Complaint: Septic shock Subjective: No new changes Review of Systems 10-point ROS is otherwise unremarkable Physical Examination - Vital Signs Temperature: 97.8 F Blood Pressure: 166/92 Pulse: 95 Respirations: 20 Pulse Ox (%): 97 - Physical Exam General: Alert, In no apparent distress, Demented HEENT: Atraumatic, PERRLA, EOMI Neck: Supple, JVD not distended Respiratory: Clear to auscultation bilaterally, Normal air movement Cardiovascular: Regular rate/rhythm, Normal S1 S2 Gastrointestinal: Normal bowel sounds, No tenderness Musculoskeletal: No tenderness Integumentary: No rashes Neurological: Normal speech, Normal tone, Normal affect Lymphatics: No axilla or inguinal lymphadenopathy - Studies Microbiology Data (last 24 hrs): 02/12/25 03:07 Blood - Blood Aerobic Blood Culture - Final No growth in 5 days. 02/12/25 03:07 Blood - Blood Anaerobic Blood Culture - Final Medications List Reviewed: Yes Assessment And Plan - Current Problems (Diagnosis) (1) Atrial fibrillation Onset Date: 09/29/17 Current Visit: No Status: Acute Plan: Patient tele shows she is in sinus rhythm continue Amiodarone 200 mg po BID Add Lopressor 25 mg po BID Continue Eliquis 5 mg po BID continue to monitor on tele. echo shows LA enlargement with normal EF. Qualifiers: Atrial fibrillation type: chronic
[2025-02-17 11:53] LABS: Complement C3 42 mg/dL (83-193)
[2025-02-17] MEDS: METOPROLOL TAR 25 MG TAB PO SCH (15:35)
--- NOTE | 2025-02-17 16:30 | P.PN ---
Subjective Date of Service: 02/17/25 Chief Complaint: Septic shock Patient appeared confused today. Blood pressure has been stable off the Levophed. She has poor oral intake No recorded fever. Physical Examination - Vital Signs Temperature: 97.7 F Blood Pressure: 152/67 Pulse: 89 Respirations: 24 Pulse Ox (%): 92 - Studies Microbiology Data (last 24 hrs): 02/12/25 03:07 Blood - Blood Aerobic Blood Culture - Final No growth in 5 days. 02/12/25 03:07 Blood - Blood Anaerobic Blood Culture - Final Medications List Reviewed: Yes Assessment And Plan - Plan Physical examination General: Alert and oriented x 2, NAD, Neck: Supple, no elevated JVD Heart: Heart sounds 1 and 2 normal, regular rhythm, normal rate, no pedal edema Lungs: Mild bibasilar crackles, adequate breath sounds bilaterally, no rhonchi. Abdomen: Soft, nondistended, nontender, normal bowel sounds. Extremities: No tenderness, no deformity Skin: Normal skin turgor, no rash, no nodules or ulcers. Neuro: No focal motor deficit. Normal speech. Psychiatry: Normal mood, no agitation. Diagnosis Acute encephalopathy Acute cystitis without hematuria Septic shock Gram-positive cocci bacteremia Hypernatremia Acute kidney injury Lactic acidosis Cholelithiasis Chronic atrial fibrillation Plan: Acute metabolic encephalopathy Acute cystitis without hematuria Pneumonia Sepsis/septic shock Gram-positive cocci bacteremia Blood culture: 1 blood culture bottle grew Staph aureus. Repeat blood culture showed no growth Urine culture showed no growth. Continue IV vancomycin. IV cefepime replaced with Rocephin due to thrombocytopenia. Infectious disease consult. D5 half-normal saline given poor oral intake. Acute kidney injury Hypernatremia Metabolic acidosis Patient recent creatinine baseline is unknown. Serum creatinine continue to trend down. Nephrology is following. Patient started on oral sodium bicarb replacement for metabolic acidosis. Sodium level trended up, likely related to dehydration from poor oral intake. Start D5 half NS Monitor renal function. Patient is on pured diet. Speech therapy input appreciated A-fib with RVR Chronic diastolic heart failure Cardiology is following Patient was paced on amiodarone drip, transitioned to amiodarone drip Cautious IV fluid. On Eliquis. Patient's blood pressure significantly improved. Cardiology Dr. Park added metoprolol. Monitor BP Continue telemetry. Asymptomatic cholelithiasis Outpatient follow-up History of anxiety and depression Schizophrenia Dementia Continue home medications. Bilateral renal cyst Outpatient follow-up recommended. COPD Emphysema Stable without acute exacerbation. Supplemental oxygen as needed. DVT prophylaxis: Eliquis. Advanced directive: Full code.
--- NOTE | 2025-02-17 19:53 | P.PN ---
Date of Service: 02/17/25 Vital Signs Temp Pulse Resp BP Pulse Ox 97.7 F 89 24 H 152/67 H 92 02/17/25 16:42 02/17/25 16:42 02/17/25 16:42 02/17/25 16:42 02/17/25 16:42 Medications Acetaminophen (Acetaminophen 325 Mg Tablet) 650 mg PO Q6H PRN PRN Reason: Pain scale 2-4 (Mild) Last Admin: 02/16/25 23:23 Dose: 650 mg Albuterol Sulfate (Albuterol 2.5 Mg/3 Ml Neb Ximena) 2.5 mg NEB [id number] ON LICENSE OF [facility] Last Admin: 02/17/25 19:18 Dose: 2.5 mg Amiodarone HCl (Amiodarone Hcl 200 Mg Tab) 200 mg PO BID ON LICENSE OF [facility] Last Admin: 02/17/25 09:30 Dose: 200 mg Apixaban (Apixaban 2.5 Mg Tablet) 2.5 mg PO BID ON LICENSE OF [facility] Last Admin: 02/17/25 09:31 Dose: 2.5 mg Budesonide (Budesonide 0.5 Mg/2 Ml Neb) 0.5 mg NEB BIDRESP ON LICENSE OF [facility] Last Admin: 02/16/25 19:00 Dose: 0.5 mg Calcium Carbonate (Calcium Carb 500mg/Vit D 200 Iu Tab) 1 tab PO DAILY ON LICENSE OF [facility] Last Admin: 02/17/25 09:34 Dose: 1 tab Haloperidol Lactate (Haloperidol Lact 5 Mg/Ml Inj) 5 mg IV 1X PRN PRN Reason: ANXIETY Last Admin: 02/17/25 01:38 Dose: 5 mg Vancomycin HCl 1.25 gm/ Sodium (Chloride) 250 mls @ 166.667 mls/hr IVPB Q72H ON LICENSE OF [facility] Last Admin: 02/17/25 06:42 Dose: 250 mls Ceftriaxone Sodium 1,000 mg/ (Sodium Chloride) 50 mls @ 100 mls/hr IVPB DAILY ON LICENSE OF [facility]; Protocol Ipratropium [place] (Ipratropium Brom 0.5mg/2.5ml) 0.5 mg NEB [id number] ON LICENSE OF [facility] Last Admin: 02/17/25 19:18 Dose: 0.5 mg L-Arginine/L-Glutamine/HMB (Kb Packet) 1 pkt PO BID ON LICENSE OF [facility] Last Admin: 02/17/25 09:00 Dose: 1 pkt Metoprolol Tartrate (Metoprolol Tar 25 Mg Tab) 25 mg PO BID 6AM 6PM ON LICENSE OF [facility] Last Admin: 02/17/25 15:38 Dose: Not Given Nutritional Formula (Ensure Enlive 237 Ml Can) 237 ml PO BID ON LICENSE OF [facility] Last Admin: 02/17/25 09:31 Dose: 237 ml Ondansetron HCl (Ondansetron 4 Mg/2 Ml Vial) 4 mg IV Q6HP PRN PRN Reason: NAUSEA / VOMITING Pantoprazole Sodium (Pantoprazole 40 Mg Inj) 40 mg IV DAILY ON LICENSE OF [facility] Last Admin: 02/17/25 09:35 Dose: 40 mg Senna (Senosides 8.6 Mg Tab) 8.6 mg PO BID ON LICENSE OF [facility] Last Admin: 02/17/25 09:39 Dose: 8.6 mg Sodium Bicarbonate (Sodium Bicarb 325 Mg Tab) 650 mg PO BID ON LICENSE OF [facility] Last Admin: 02/17/25 09:40 Dose: 650 mg Sodium Chloride (Sodium Chloride 0.9% 10ml Inj) 10 ml IV UD PRN PRN Reason: Diluant Last Admin: 02/12/25 10:57 Dose: 10 ml Sterile Water (Water For Inj,Sterile 10 Ml) 2 ml IV Q12HR ON LICENSE OF [facility] Last Admin: 02/17/25 09:00 Dose: Not Given Zinc Oxide (Zinc Oxide 20% Ointment 60gm) 1 appl TOP BID PRN PRN Reason: brief changes, Stop: 02/21/25 16:27 Last Admin: 02/16/25 08:06 Dose: 1 appl Microbiology Results 02/12/25 03:07 Blood - Blood Aerobic Blood Culture - Final No growth in 5 days. 02/12/25 03:07 Blood - Blood Anaerobic Blood Culture - Final 02/12/25 03:52 Clean Catch Urine [place] Count - Preliminary No growth. 02/12/25 03:52 Clean Catch Urine - Preliminary No growth. Assessment/ Plan: Nephrology No dyspnea No chest pain No acute events overnight Limited IH/ ROS due to AMS Vitals, medications, blood work and imaging reviewed in the chart NAD. MMM. NCAT. Normal Respiratory Effort. S1S2. ND Abd. No C/C/E. No rash. AAO. Normal speech. Stage II MIKE in the setting of hypovolemia CKD IIIb -No NSAIDs Hypernatremia -Start D5W Hypokalemia -Replete potassium as ordered HTN with CKD AFib -Continue Metoprolol Septic Shock MSSA Bacteremia -Continue Abx Hypoalbuminemia -IV Albumin prn Anemia in chronic illness Thrombocytopenia -Monitor CBC Acute Encephalopathy -Continue supportive care Case reviewed with Dr. Carbajal
[2025-02-17] MEDS: D5W 1,000 ML IV SCH (21:46)
--- NOTE | 2025-02-17 21:51 | P.PN ---
Date of Service: 02/17/25 Subjective: Patient is lying in bed. No new acute event.Pt appears confused today. Not responding as well as before well. Objective: Temp Pulse Resp BP Pulse Ox 97.7 F 89 24 H 152/67 H 92 02/17/25 16:42 02/17/25 16:42 02/17/25 16:42 02/17/25 16:42 02/17/25 16:42 neuro: confused Lungs: mild bibasilar crackles Heart: S1, S2. Regular. Abdomen: Soft, nontender. Bowel sounds present. Extremities: Trace edema. Skin: sacrum DTI Laboratory Data: WBC 8, hemoglobin 9.2, platelets are 63. BUN 44, creatinine 1. 87 urine culture 02/12/25 no growth blood culture 02/12/25 shows staph aureus 02/13/25 no growth in 24 hours preliminary Assessment And Plan: 1. care home resident with right lower lobe pneumonia, leukocytosis, and hypotension, improving, currently on vancomycin and rocephin. cefepime dc due to thrombocytopenia monitor wbc and fever trend 1st blood cultiure grew Staph aureus 2nd blood culture no growth 2. Leukocytosis (improving) 3. Renal insufficiency. 4. Chronic obstructive pulmonary disease. 5. Thrombocytopenia. 6. sacrum DTI wound care. recommend zinc oxide with every brief change and prn case round and in agreement with Dr milligan
[2025-02-18 05:20] LABS: Absolute Eosinophils 0.1 K/uL (0-0.5); Absolute Lymphocytes (CBC) 1.6 K/uL (0.7-4.9); Absolute Monocytes 1.1 K/uL (0.1-1.3); Absolute Neutrophil 7.1 K/uL (1.8-8.0); Basophils % 0.4 % (0-1.3); Eosinophils % 1.2 % (0-4.4); Hematocrit 27.8 % (36.0-45.0); Hemoglobin 9.4 g/dL (12.0-15.0); Lymphocytes % 15.8 % (15.3-44.8); MCH 30.3 pg (27.0-35.0); MCHC 33.8 g/dL (32.0-36.0); MCV 89.6 fL (80-100); MPV 11.6 fL (7.6-11.3); Monocytes % 10.6 % (3.3-12.3); Nucleated Red Blood Cells % 0.1 % (0-0); Platelets 80 thou/uL (152-406); RBC Red Blood Cell Count 3.11 M/uL (3.86-4.86); Red Cell Distribution Width 18.5 % (12.1-15.2)
[2025-02-18 05:44] LABS: Arterial Blood Carboxyhemoglob 1.6 % (0-1.5); Blood Gas Oxyhemoglobin 91.5 % (94-97); Blood Gas THB 9.3 g/dl (12-18); Blood O2 Saturation 93.7 % (92-98.5)
[2025-02-18 05:53] LABS: Anion Gap 8.7 mEq/L (5.0-15.0); Potassium 3.7 mEq/L (3.5-5.1)
--- NOTE | 2025-02-18 06:24 | RAD REPORT ---
CLINICAL HISTORY: Dyspnea, AMS. COMPARISON: XR Chest 02/12/2025. TECHNIQUE: XR CHEST 1 VIEW 02/18/2025 4:53 AM CDT FINDINGS: The heart is enlarged. There are diffuse interstitial opacities throughout both lungs with bibasilar increased prominence. There are bilateral pleural effusions. There is no pneumothorax. There are no acute osseous findings. IMPRESSION: Pleural effusions with diffuse interstitial changes. This could be secondary to pulmonary edema versu s atypical pneumonia. Electronically signed by: Tate Cruz MD 02/18/2025 06:09 AM CDT RP Due to temporary technical issues with the PACS/EZ4U reporting system, reports are being faizan d by the in-house radiologist without review as a courtesy to ensure prompt reporting the interpreting radiologist is fully responsible for the content of the report. Transcribed Date/Time: 02/18/2025 6:24 AM
[2025-02-18] MEDS: CEFTRIAXONE 1,000 MG in NA CHLORIDE 0.9% 50 ML IVPB SCH (09:00)
--- NOTE | 2025-02-18 09:56 | P.PN ---
Date of Service: 02/18/25 Subjective: AO to self, opens eyes, nods head, confused rapid response prior to shift change - reportedly took off O2 and was hypoxemic Physical Exam: GEN: Alert, orientedx1, NAD CV: Regular rate and rhythm, no edema Pulm: Nonlabored respirations on 3L NC, Mild bibasilar crackles ABD: soft, nontender, nondistended Neuro: confused, spontaneously moves extremities Problem List: Acute metabolic encephalopathy Pneumonia Staph Aureus Bacteremia Sepsis/septic shock secondary to the above Acute hypoxic respiratory failure Chronic diastolic CHF COPD, chronic MIKE Hypernatremia Metabolic acidosis Chronic A-fib with RVR Anxiety/Depression/Schizophrenia Dementia Acute metabolic encephalopathy Pneumonia Staph Aureus Bacteremia Sepsis/septic shock secondary to the above on admission, presents with altered mentation, confusion. CT chest/abd noted nodular and consolidative airspace disease in the right lower lobe concerning for either pneumonia or pneumonitis possibly secondary to aspiration CXR (02/15): new small bilateral pleural effusions. +Pneumonia vs pneumonitis at the right lung base Blood cx (02/12): 11/02+ Staph Aureus Repeat blood cx (02/13) No growth. Urine culture (02/12): no growth Continue IV vanc (02/12-) and rocephin (02/17-) IV cefepime switched to Rocephin (02/17) due to thrombocytopenia. ID consulted Acute hypoxic respiratory failure Chronic diastolic CHF COPD, chronic rapid response called overnight ~4:30 am. Patient found with oxygen off satting in the 70s. oxygen improved a few minutes after being placed back on oxygen. repeat CXR (02/18): bilateral pleural effusions with diffuse interstitial changes. pulm is following continue budesonide, duonebs check ABG MIKE Hypernatremia Metabolic acidosis unknown baseline Continue to monitor renal function Nephrology is following. s/p sodium bicarb for metabolic acidosis (02/15-02/17) Creatinine improving daily continue IVF A-fib with RVR Chronic diastolic CHF Cardiology is following Patient was paced on amiodarone drip, transitioned to oral amio (02/15) Cardiology is following; added oral metoprolol 25 mg BID Monitor BP. Continue telemetry. Continue home eliquis Anxiety/Depression/Schizophrenia Dementia Continue home medications. VTE: home eliquis Code: Full Dispo: SNF pending improvement Time Spent Managing Pts Care (In Minutes): 55
--- NOTE | 2025-02-18 12:17 | P.PN ---
Subjective Date of Service: 02/18/25 Chief Complaint: Septic shock Subjective: No new changes, No C/O voiced, Tolerating diet, Ambulating, Improving Review of Systems 10-point ROS is otherwise unremarkable Physical Examination - Vital Signs Temperature: 98.1 F Blood Pressure: 163/74 Pulse: 76 Respirations: 18 Pulse Ox (%): 94 - Physical Exam General: Alert, In no apparent distress HEENT: Atraumatic, PERRLA, EOMI Neck: Supple, JVD not distended Respiratory: Clear to auscultation bilaterally, Normal air movement Cardiovascular: Regular rate/rhythm, Normal S1 S2 Gastrointestinal: Normal bowel sounds, No tenderness Musculoskeletal: No tenderness Integumentary: No rashes Neurological: Normal speech, Normal tone, Normal affect Lymphatics: No axilla or inguinal lymphadenopathy - Studies Medications List Reviewed: Yes Assessment And Plan - Current Problems (Diagnosis) (1) Atrial fibrillation Onset Date: 09/29/17 Current Visit: No Status: Acute Plan: Patient tele shows she is in sinus rhythm continue Amiodarone 200 mg po BID continue Lopressor 25 mg po BID Continue Eliquis 5 mg po BID continue to monitor on tele. echo shows LA enlargement with normal EF. Qualifiers: Atrial fibrillation type: chronic
[2025-02-18 13:36] LABS: C-ANCA Anti-Proteinase 3 <1.0 AI (<1.0); P-ANCA Anti-Myeloperoxidase Ab <1.0 AI (<1.0)
--- NOTE | 2025-02-18 19:49 | P.PN ---
Date of Service: 02/18/25 Vital Signs Temp Pulse Resp BP Pulse Ox 98 F 76 14 132/49 L 95 02/18/25 16:00 02/18/25 16:00 02/18/25 16:00 02/18/25 16:00 02/18/25 16:00 Medications Acetaminophen (Acetaminophen 325 Mg Tablet) 650 mg PO Q6H PRN PRN Reason: Pain scale 2-4 (Mild) Last Admin: 02/18/25 17:25 Dose: 650 mg Albuterol Sulfate (Albuterol 2.5 Mg/3 Ml Neb Ximena) 2.5 mg NEB [id number] [facility] Last Admin: 02/18/25 13:21 Dose: 2.5 mg Amiodarone HCl (Amiodarone Hcl 200 Mg Tab) 200 mg PO BID [facility] Last Admin: 02/17/25 09:30 Dose: 200 mg Apixaban (Apixaban 2.5 Mg Tablet) 2.5 mg PO BID [facility] Last Admin: 02/17/25 09:31 Dose: 2.5 mg Budesonide (Budesonide 0.5 Mg/2 Ml Neb) 0.5 mg NEB BIDRESP [facility] Last Admin: 02/18/25 07:00 Dose: Not Given Calcium Carbonate (Calcium Carb 500mg/Vit D 200 Iu Tab) 1 tab PO DAILY [facility] Last Admin: 02/18/25 09:31 Dose: 1 tab Haloperidol Lactate (Haloperidol Lact 5 Mg/Ml Inj) 5 mg IV 1X PRN PRN Reason: ANXIETY Last Admin: 02/17/25 01:38 Dose: 5 mg Vancomycin HCl 1.25 gm/ Sodium (Chloride) 250 mls @ 166.667 mls/hr IVPB Q72H [facility] Last Admin: 02/17/25 06:42 Dose: 250 mls Ceftriaxone Sodium 1,000 mg/ (Sodium Chloride) 50 mls @ 100 mls/hr IVPB DAILY [facility]; Protocol Last Admin: 02/18/25 09:31 Dose: 50 mls Dextrose/Water (Dextrose In Water (1-Liter)) 1,000 mls @ 100 mls/hr IV .Q10H [facility] Last Admin: 02/18/25 16:30 Dose: 1,000 mls Ipratropium [place] (Ipratropium Brom 0.5mg/2.5ml) 0.5 mg NEB [id number] [facility] Last Admin: 02/18/25 13:21 Dose: 0.5 mg L-Arginine/L-Glutamine/HMB (Kb Packet) 1 pkt PO BID [facility] Last Admin: 02/18/25 09:00 Dose: 1 pkt Metoprolol Tartrate (Metoprolol Tar 25 Mg Tab) 25 mg PO BID 6AM 6PM [facility] Last Admin: 02/18/25 17:25 Dose: 25 mg Nutritional Formula (Ensure Enlive 237 Ml Can) 237 ml PO BID [facility] Last Admin: 02/18/25 09:00 Dose: 237 ml Ondansetron HCl (Ondansetron 4 Mg/2 Ml Vial) 4 mg IV Q6HP PRN PRN Reason: NAUSEA / VOMITING Pantoprazole Sodium (Pantoprazole 40 Mg Inj) 40 mg IV DAILY [facility] Last Admin: 02/18/25 09:32 Dose: 40 mg Senna (Senosides 8.6 Mg Tab) 8.6 mg PO BID [facility] Last Admin: 02/18/25 09:32 Dose: 8.6 mg Sodium Chloride (Sodium Chloride 0.9% 10ml Inj) 10 ml IV UD PRN PRN Reason: Diluant Last Admin: 02/12/25 10:57 Dose: 10 ml Sterile Water (Water For Inj,Sterile 10 Ml) 2 ml IV Q12HR [facility] Last Admin: 02/18/25 09:00 Dose: Not Given Zinc Oxide (Zinc Oxide 20% Ointment 60gm) 1 appl TOP BID PRN PRN Reason: brief changes, Stop: 02/21/25 16:27 Last Admin: 02/16/25 08:06 Dose: 1 appl Microbiology Results 02/12/25 03:07 Blood - Blood Aerobic Blood Culture - Final No growth in 5 days. 02/12/25 03:07 Blood - Blood Anaerobic Blood Culture - Final 02/12/25 03:52 Clean Catch Urine [place] Count - Preliminary No growth. 02/12/25 03:52 Clean Catch Urine - Preliminary No growth. Assessment/ Plan: Nephrology No dyspnea No chest pain Rapid response overnight due to hypoxia Limited IH/ ROS due to AMS Vitals, medications, blood work and imaging reviewed in the chart NAD. MMM. NCAT. Normal Respiratory Effort. S1S2. ND Abd. No C/C/E. No rash. Awake. Minimal speech. Stage II MIKE in the setting of hypovolemia CKD IIIb -No NSAIDs Hypernatremia -Continue D5W Hypokalemia -Replete potassium prn HTN with CKD AFib -Continue Metoprolol -Cardiology following Septic Shock MSSA Bacteremia -Continue Abx Hypoalbuminemia -IV Albumin prn Anemia in chronic illness Thrombocytopenia -Monitor CBC Acute Encephalopathy -Continue supportive care
--- NOTE | 2025-02-18 22:38 | PN ---
Subjective: The patient is lying in bed. No new acute event. Chart reviewed. Objective: Vital Signs: Reviewed. Lungs: Basal crackles. Heart: S1, S2. Regular. Abdomen: Soft, nontender. Bowel sounds present. Extremities: Trace edema. Laboratory Data: WBC 9.9, hemoglobin 9.4, platelets are 80. BUN 52, creatinine 1.7. Albumin level is 1.5. Blood culture is growing MSSA. Assessment And Plan: 1. Methicillin-susceptible Staphylococcus aureus bacteremia. 2. Leukocytosis, improved. 3. Anemia of chronic disease. 4. Thrombocytosis. 5. Renal insufficiency. 6. [id number] protein-calorie malnourishment. Continue IV antibiotic for couple of weeks. Monitor signs of infection with WBC and fever trends. NF/MODL Voice ID: [id number] Report ID: [id number]
[2025-02-19 06:09] LABS: Hematocrit 24.7 % (36.0-45.0); Hemoglobin 8.3 g/dL (12.0-15.0); MCH 30.1 pg (27.0-35.0); MCHC 33.7 g/dL (32.0-36.0); MCV 89.3 fL (80-100); MPV 11.5 fL (7.6-11.3); Platelets 75 thou/uL (152-406); RBC Red Blood Cell Count 2.76 M/uL (3.86-4.86); Red Cell Distribution Width 18.4 % (12.1-15.2)
[2025-02-19 06:36] LABS: Albumin 1.4 g/dL (3.4-5.0); Anion Gap 7.1 mEq/L (5.0-15.0); Phosphorus 2.5 mg/dL (2.5-4.9); Potassium 3.1 mEq/L (3.5-5.1)
[2025-02-19] MEDS: KCL 20 MEQ/100 mL IVPB 20 MEQ/100 ML BAG IV SCH (09:43)
--- NOTE | 2025-02-19 12:28 | P.PN ---
Date of Service: 02/19/25 Subjective: no acute events overnigt awake, answers questions, confused on O2, some dyspnea Physical Exam: GEN: Alert, orientedx1, NAD CV: Regular rate and rhythm, no edema Pulm: Mildly labored respirations on 3L NC, Mild bibasilar crackles ABD: soft, nontender, nondistended Neuro: confused, spontaneously moves extremities Problem List: Acute metabolic encephalopathy Pneumonia Staph Aureus Bacteremia Sepsis/septic shock secondary to the above Acute hypoxic respiratory failure Chronic diastolic CHF COPD, chronic MIKE Hypernatremia Metabolic acidosis Chronic A-fib with RVR Anxiety/Depression/Schizophrenia Dementia Acute metabolic encephalopathy Pneumonia Staph Aureus Bacteremia Sepsis/septic shock secondary to the above on admission, presents with altered mentation, confusion. CT chest/abd noted nodular and consolidative airspace disease in the right lower lobe concerning for either pneumonia or pneumonitis possibly secondary to aspiration CXR (02/15): new small bilateral pleural effusions. +Pneumonia vs pneumonitis at the right lung base Blood cx (02/12): 11/02+ Staph Aureus Repeat blood cx (02/13) No growth. Urine culture (02/12): no growth Continue IV vanc (02/12-) and rocephin (02/17-) IV cefepime switched to Rocephin (02/17) due to thrombocytopenia. ID consulted Acute hypoxic respiratory failure Chronic diastolic CHF COPD, chronic rapid response called overnight ~4:30 am. Patient found with oxygen off satting in the 70s. oxygen improved a few minutes after being placed back on oxygen. repeat CXR (02/18): bilateral pleural effusions with diffuse interstitial changes. pulm is following continue budesonide, duonebs Repeat CXR tomorrow Tomorrow for some pleural effusions this patient continues on IV fluids for her hyponatremia MIKE Hypernatremia Metabolic acidosis unknown baseline Continue to monitor renal function Nephrology is following. s/p sodium bicarb for metabolic acidosis (02/15-02/17) Creatinine improving daily continue IVF A-fib with RVR Chronic diastolic CHF Cardiology is following Patient was paced on amiodarone drip, transitioned to oral amio (02/15) Cardiology is following; added oral metoprolol 25 mg BID Monitor BP. Continue telemetry. Continue home eliquis Anxiety/Depression/Schizophrenia Dementia Continue home medications. VTE: home eliquis Code: Full Dispo: SNF pending improvement Time Spent Managing Pts Care (In Minutes): 55
--- NOTE | 2025-02-19 12:45 | EKG ---
Test Date: 2025-02-16 Test Time: 22:45:25 [employer] Machine Operator: RITESH MEASUREMENT RESULTS: Intervals: Rate: 120 TN: QRSD: 84 QT: 280 QTc: 395 [place]: P: TN: QRS: 71 T: -58 INTERPRETIVE STATEMENTS: Atrial fibrillation with rapid ventricular response Septal infarct, age undetermined Abnormal ECG Compared to ECG 02/12/2025 01:45:21 Myocardial infarct finding now present Sinus tachycardia no longer present Atrial premature complex(es) no longer present ST (T wave) deviation no longer present Possible ischemia no longer present Electronically Signed On 02-19-25 12:40:15 CDT by Gregory Park
--- NOTE | 2025-02-19 13:08 | EKG ---
Test Date: 2025-02-12 Test Time: 01:45:21 Plastics Nurse: LIZZ MEASUREMENT RESULTS: Intervals: Rate: 125 CA: 130 QRSD: 78 QT: 338 QTc: 487 [place]: P: 57 CA: 130 QRS: 75 T: 167 INTERPRETIVE STATEMENTS: Sinus tachycardia with premature supraventricular complexes ST & T wave abnormality, consider inferior ischemia Abnormal ECG Compared to ECG 09/05/2020 11:17:03 Atrial premature complex(es) now present ST (T wave) deviation now present Possible ischemia now present Sinus rhythm no longer present Sinus arrhythmia no longer present Electronically Signed On 02-19-25 12:47:53 CDT by Gregory Park
--- NOTE | 2025-02-19 14:41 | RAD REPORT ---
Modified barium swallow exam with speech pathology service HISTORY: trouble swallowing Fluoroscopy Time: 2:43 IMPRESSION: Please see the speech pathology service report for details. Barium contrast of multiple consistencies was provided the patient orally by the speech pathology dep artment. Fluoroscopic observation was performed during swallowing. The radiologist was not present for the examination. Provided images demonstrate no evidence for patience subglottic tracheal aspiration .
--- NOTE | 2025-02-19 20:49 | P.PN ---
Date of Service: 02/19/25 Vital Signs Temp Pulse Resp BP Pulse Ox 97.9 F 67 18 122/60 97 02/19/25 16:00 02/19/25 16:00 02/19/25 16:00 02/19/25 16:00 02/19/25 16:00 Medications Acetaminophen (Acetaminophen 325 Mg Tablet) 650 mg PO Q6H PRN PRN Reason: Pain scale 2-4 (Mild) Last Admin: 02/18/25 17:25 Dose: 650 mg Albuterol Sulfate (Albuterol 2.5 Mg/3 Ml Neb Ximena) 2.5 mg NEB [id number] [facility] Last Admin: 02/19/25 13:25 Dose: 2.5 mg Amiodarone HCl (Amiodarone Hcl 200 Mg Tab) 200 mg PO BID [facility] Last Admin: 02/17/25 09:30 Dose: 200 mg Apixaban (Apixaban 2.5 Mg Tablet) 2.5 mg PO BID [facility] Last Admin: 02/17/25 09:31 Dose: 2.5 mg Budesonide (Budesonide 0.5 Mg/2 Ml Neb) 0.5 mg NEB BIDRESP [facility] Last Admin: 02/19/25 07:00 Dose: Not Given Calcium Carbonate (Calcium Carb 500mg/Vit D 200 Iu Tab) 1 tab PO DAILY [facility] Last Admin: 02/19/25 09:43 Dose: 1 tab Vancomycin HCl 1.25 gm/ Sodium (Chloride) 250 mls @ 166.667 mls/hr IVPB Q72H [facility] Last Admin: 02/17/25 06:42 Dose: 250 mls Ceftriaxone Sodium 1,000 mg/ (Sodium Chloride) 50 mls @ 100 mls/hr IVPB DAILY [facility]; Protocol Last Admin: 02/19/25 09:44 Dose: 50 mls Dextrose/Water (Dextrose In Water (1-Liter)) 1,000 mls @ 100 mls/hr IV .Q10H [facility] Last Admin: 02/19/25 17:45 Dose: 1,000 mls Ipratropium [place] (Ipratropium Brom 0.5mg/2.5ml) 0.5 mg NEB [id number] [facility] Last Admin: 02/19/25 13:25 Dose: 0.5 mg L-Arginine/L-Glutamine/HMB (Kb Packet) 1 pkt PO BID [facility] Last Admin: 02/19/25 09:00 Dose: 1 pkt Metoprolol Tartrate (Metoprolol Tar 25 Mg Tab) 25 mg PO BID 6AM 6PM [facility] Last Admin: 02/19/25 17:05 Dose: Not Given Nutritional Formula (Ensure Enlive 237 Ml Can) 237 ml PO BID [facility] Last Admin: 02/19/25 09:00 Dose: 237 ml Ondansetron HCl (Ondansetron 4 Mg/2 Ml Vial) 4 mg IV Q6HP PRN PRN Reason: NAUSEA / VOMITING Pantoprazole Sodium (Pantoprazole 40 Mg Inj) 40 mg IV DAILY [facility] Last Admin: 02/19/25 09:43 Dose: 40 mg Senna (Senosides 8.6 Mg Tab) 8.6 mg PO BID [facility] Last Admin: 02/19/25 09:43 Dose: 8.6 mg Sodium Chloride (Sodium Chloride 0.9% 10ml Inj) 10 ml IV UD PRN PRN Reason: Diluant Last Admin: 02/12/25 10:57 Dose: 10 ml Sterile Water (Water For Inj,Sterile 10 Ml) 2 ml IV Q12HR [facility] Last Admin: 02/19/25 09:00 Dose: Not Given Zinc Oxide (Zinc Oxide 20% Ointment 60gm) 1 appl TOP BID PRN PRN Reason: brief changes, Stop: 02/21/25 16:27 Last Admin: 02/16/25 08:06 Dose: 1 appl Microbiology Results 02/12/25 03:52 Clean Catch Urine [place] Count - Final No growth. 02/12/25 03:52 Clean Catch Urine - Final No growth. 02/12/25 03:07 Blood - Blood Aerobic Blood Culture - Final No growth in 5 days. 02/12/25 03:07 Blood - Blood Anaerobic Blood Culture - Final Assessment/ Plan: Nephrology No dyspnea No chest pain Limited IH/ ROS due to AMS Vitals, medications, blood work and imaging reviewed in the chart NAD. MMM. NCAT. Normal Respiratory Effort. S1S2. ND Abd. No C/C/E. No rash. Awake. Normal speech. Stage II MIKE in the setting of hypovolemia CKD IIIb -No NSAIDs Hypernatremia -Continue D5W Hypokalemia -Replete potassium as ordered HTN with CKD AFib -Continue Metoprolol -Cardiology following Septic Shock MSSA Bacteremia -Continue Abx Hypoalbuminemia -IV Albumin prn Anemia in chronic illness Thrombocytopenia -Monitor CBC Acute Encephalopathy -Continue supportive care Hospitalist note reviewed
--- NOTE | 2025-02-19 22:43 | PN ---
Subjective: Going for barium swallow. No other acute event as per staff. Objective: Vital Signs: Temperature 97, pulse 67, respirations 18, blood pressure 122/60. Lungs: Basal crackles. Heart: S1, S2. Regular. Abdomen: Soft, nontender. Bowel sounds present. Extremities: Trace edema. Laboratory Data: Shows WBC 6.7, hemoglobin 8.3, platelets 75. BUN of 54, creatinine 1.5. She is currently on Rocephin and vancomycin. Blood culture from 02/12 had MSSA. Assessment And Plan: 1. Methicillin-susceptible Staphylococcus aureus bacteremia. 2. Anemia of chronic disease. 3. Thrombocytopenia. 4. Leukocytosis, improved. 5. Moderate protein-calorie malnourishment. Continue supportive care. Continue antibiotic for a total of 2 weeks. We will follow the patient as needed. NF/MODL Voice ID: [id number] Report ID: [id number]
[2025-02-20 06:16] LABS: Absolute Eosinophils 0.1 K/uL (0-0.5); Absolute Lymphocytes (CBC) 1.2 K/uL (0.7-4.9); Absolute Monocytes 0.6 K/uL (0.1-1.3); Absolute Neutrophil 5.1 K/uL (1.8-8.0); Basophils % 0.3 % (0-1.3); Eosinophils % 1.8 % (0-4.4); Hematocrit 23.9 % (36.0-45.0); Hemoglobin 8.1 g/dL (12.0-15.0); Lymphocytes % 16.8 % (15.3-44.8); MCH 30.1 pg (27.0-35.0); MCHC 33.7 g/dL (32.0-36.0); MCV 89.3 fL (80-100); MPV 11.4 fL (7.6-11.3); Monocytes % 8.1 % (3.3-12.3); Nucleated Red Blood Cells % 0.1 % (0-0); Platelets 81 thou/uL (152-406); RBC Red Blood Cell Count 2.68 M/uL (3.86-4.86); Red Cell Distribution Width 18.6 % (12.1-15.2)
[2025-02-20 06:31] LABS: Albumin 1.5 g/dL (3.4-5.0); Albumin/Globulin Ratio 0.4 (1.1-1.8); Anion Gap 8.6 mEq/L (5.0-15.0); Bilirubin Total 0.6 mg/dL (0.2-1.0); Globulin 3.5 g/dL (2.3-3.5); Magnesium 1.8 mg/dL (1.6-2.4); Phosphorus 2.1 mg/dL (2.5-4.9); Potassium 3.6 mEq/L (3.5-5.1)
--- NOTE | 2025-02-20 07:52 | RAD REPORT ---
Procedure: Chest Single View HISTORY: Cough COMPARISON: February 18, 2025 FINDINGS: No significant change in the diffuse bilateral pulmonary opacities. There may be small bilateral pleural effusions. The heart is normal size. IMPRESSION: No significant change in diffuse bilateral pulmonary opacities which may represent pulmonary edema or pneumonia
[2025-02-20] MEDS: KCL 20 MEQ/100 mL IVPB 20 MEQ/100 ML BAG IV SCH (08:45)
--- NOTE | 2025-02-20 10:15 | P.PN ---
Date of Service: 02/20/25 Vital Signs Temp Pulse Resp BP Pulse Ox 98.2 F 69 17 147/69 H 98 02/20/25 04:00 02/20/25 04:00 02/20/25 04:00 02/20/25 04:00 02/20/25 04:00 Medications Acetaminophen (Acetaminophen 325 Mg Tablet) 650 mg PO Q6H PRN PRN Reason: Pain scale 2-4 (Mild) Last Admin: 02/18/25 17:25 Dose: 650 mg Albuterol Sulfate (Albuterol 2.5 Mg/3 Ml Neb Ximena) 2.5 mg NEB [id number] [facility] Last Admin: 02/20/25 07:51 Dose: 2.5 mg Amiodarone HCl (Amiodarone Hcl 200 Mg Tab) 200 mg PO BID [facility] Last Admin: 02/17/25 09:30 Dose: 200 mg Apixaban (Apixaban 2.5 Mg Tablet) 2.5 mg PO BID [facility] Last Admin: 02/17/25 09:31 Dose: 2.5 mg Budesonide (Budesonide 0.5 Mg/2 Ml Neb) 0.5 mg NEB BIDRESP [facility] Last Admin: 02/19/25 19:00 Dose: Not Given Calcium Carbonate (Calcium Carb 500mg/Vit D 200 Iu Tab) 1 tab PO DAILY [facility] Last Admin: 02/20/25 08:17 Dose: Not Given Vancomycin HCl 1.25 gm/ Sodium (Chloride) 250 mls @ 166.667 mls/hr IVPB Q72H [facility] Last Admin: 02/20/25 07:59 Dose: 250 mls Ceftriaxone Sodium 1,000 mg/ (Sodium Chloride) 50 mls @ 100 mls/hr IVPB DAILY [facility]; Protocol Last Admin: 02/20/25 09:40 Dose: 50 mls Dextrose/Water (Dextrose In Water (1-Liter)) 1,000 mls @ 100 mls/hr IV .Q10H [facility] Last Admin: 02/20/25 08:30 Dose: Not Given Potassium Chloride (Kcl 20 Meq/100 Ml Ivpb (Premix)) 20 meq in 100 mls @ 50 mls/hr IV 1X [facility]; Protocol Stop: 02/20/25 10:59 Last Admin: 02/20/25 08:45 Dose: 100 mls Ipratropium [place] (Ipratropium Brom 0.5mg/2.5ml) 0.5 mg NEB [id number] [facility] Last Admin: 02/20/25 07:50 Dose: 0.5 mg L-Arginine/L-Glutamine/HMB (Kb Packet) 1 pkt PO BID [facility] Last Admin: 02/20/25 08:17 Dose: Not Given Metoprolol Tartrate (Metoprolol Tar 25 Mg Tab) 25 mg PO BID 6AM 6PM [facility] Last Admin: 02/20/25 06:01 Dose: 25 mg Nutritional Formula (Ensure Enlive 237 Ml Can) 237 ml PO BID [facility] Last Admin: 02/20/25 08:17 Dose: Not Given Ondansetron HCl (Ondansetron 4 Mg/2 Ml Vial) 4 mg IV Q6HP PRN PRN Reason: NAUSEA / VOMITING Pantoprazole Sodium (Pantoprazole 40 Mg Inj) 40 mg IV DAILY [facility] Last Admin: 02/20/25 08:45 Dose: 40 mg Senna (Senosides 8.6 Mg Tab) 8.6 mg PO BID [facility] Last Admin: 02/20/25 08:17 Dose: Not Given Sodium Chloride (Sodium Chloride 0.9% 10ml Inj) 10 ml IV UD PRN PRN Reason: Diluant Last Admin: 02/12/25 10:57 Dose: 10 ml Sterile Water (Water For Inj,Sterile 10 Ml) 2 ml IV Q12HR [facility] Last Admin: 02/20/25 08:17 Dose: Not Given Zinc Oxide (Zinc Oxide 20% Ointment 60gm) 1 appl TOP BID PRN PRN Reason: brief changes, Stop: 02/21/25 16:27 Last Admin: 02/16/25 08:06 Dose: 1 appl Microbiology Results 02/12/25 03:52 Clean Catch Urine [place] Count - Final No growth. 02/12/25 03:52 Clean Catch Urine - Final No growth. 02/12/25 03:07 Blood - Blood Aerobic Blood Culture - Final No growth in 5 days. 02/12/25 03:07 Blood - Blood Anaerobic Blood Culture - Final Assessment/ Plan: Nephrology No dyspnea No chest pain Limited IH/ ROS due to AMS Vitals, medications, blood work and imaging reviewed in the chart NAD. MMM. NCAT. Normal Respiratory Effort. S1S2. ND Abd. No C/C/E. No rash. Awake. Normal speech. Stage II MIKE in the setting of hypovolemia CKD IIIb -No NSAIDs -Continue IVF Hypernatremia -Continue D5W Hypokalemia -Replete potassium prn HTN with CKD AFib -Continue Metoprolol -Cardiology following Septic Shock MSSA Bacteremia -Continue Abx Hypoalbuminemia -IV Albumin prn -Continue Ensure Anemia in chronic illness Thrombocytopenia -Monitor CBC Acute Encephalopathy -Continue supportive care Hospitalist note reviewed
--- NOTE | 2025-02-20 12:44 | P.PN ---
Date of Service: 02/20/25 Subjective: no acute events overnigt remains confused oxygen requirements improving, down to 2L NC Physical Exam: GEN: Alert, orientedx1, NAD CV: Regular rate and rhythm, no edema Pulm: Mildly labored respirations on 2L NC, Mild bibasilar crackles ABD: soft, nontender, nondistended Neuro: confused, spontaneously moves extremities Problem List: Acute metabolic encephalopathy Pneumonia Staph Aureus Bacteremia Sepsis/septic shock secondary to the above Acute hypoxic respiratory failure Chronic diastolic CHF COPD, chronic MIKE Hypernatremia Metabolic acidosis Chronic A-fib with RVR Anxiety/Depression/Schizophrenia Dementia Acute metabolic encephalopathy Pneumonia Staph Aureus Bacteremia Sepsis/septic shock secondary to the above on admission, presents with altered mentation, confusion. CT chest/abd noted nodular and consolidative airspace disease in the right lower lobe concerning for either pneumonia or pneumonitis possibly secondary to aspiration CXR (02/15): new small bilateral pleural effusions. +Pneumonia vs pneumonitis at the right lung base Blood cx (02/12): 11/02+ Staph Aureus Repeat blood cx (02/13) No growth. Urine culture (02/12): no growth Continue IV vanc (02/12-) and rocephin (02/17-) IV cefepime switched to Rocephin (02/17) due to thrombocytopenia. ID consulted - recommending patient complete 2 weeks of antibiotics Acute hypoxic respiratory failure Chronic diastolic CHF COPD, chronic rapid response called overnight ~4:30 am. Patient found with oxygen off satting in the 70s. oxygen improved a few minutes after being placed back on oxygen. repeat CXR (02/18): bilateral pleural effusions with diffuse interstitial changes. pulm is following continue budesonide, duonebs Repeat CXR 02/20 with no significant change. oxygen requirements improving MIKE Hypernatremia Metabolic acidosis unknown baseline Continue to monitor renal function Nephrology is following. s/p sodium bicarb for metabolic acidosis (02/15-02/17) Creatinine improving daily continue IVF A-fib with RVR Chronic diastolic CHF Cardiology is following Patient was paced on amiodarone drip, transitioned to oral amio (02/15) Cardiology is following; added oral metoprolol 25 mg BID Monitor BP. Continue telemetry. Continue home eliquis Anxiety/Depression/Schizophrenia Dementia Continue home medications. VTE: home eliquis Code: Full Dispo: SNF pending improvement Time Spent Managing Pts Care (In Minutes): 55
[2025-02-20 14:06] LABS: Anti-Nuclear Antibody Screen Positive (Negative)
[2025-02-20 14:36] LABS: Anti-Nuclear Antibody Pattern REPORT; Anti-Nuclear Antibody Titer 1:40 (Negative)
[2025-02-20] MEDS: BUDESONIDE 0.5 MG/2 ML NEB NEB SCH (19:50)
[2025-02-20 20:34] LABS: Anti-Double Strand DNA Antibod <1 IU/mL (<=4); SS-A/Ro Antibody <1.0; SS-B/La Antibody <1.0
--- NOTE | 2025-02-21 00:30 | PN ---
Subjective: The patient is lying in bed. Denies any headache, nausea, vomiting, chest pain, abdomin al pain, constipation, or diarrhea. Objective: Vital Signs: Temperature 97, pulse 71, respirations 18, blood pressure 135/63. Lungs: Basal crackles. Heart: S1, S2. Regular. Abdomen: Soft, nontender. Bowel sounds present. Extremities: Trace edema. Laboratory Data: Shows WBC 6.9, hemoglobin 8.1, platelets 81. BUN of 40, creatinine 1.4. Chest x-r ay done today shows no significant changes in diffuse bilateral pulmonary opacities. The patient is currently on Rocephin and vancomycin with vancomycin trough of 18. Blood culture from 02/12 shows MS HENAO. Assessment And Plan: 1. Bacteremia secondary to methicillin-susceptible Staphylococcus aureus. 2. Bilateral pneumonitis. 3. Sepsis with altered mental status. 4. Chronic obstructive pulmonary disease. 5. Congestive heart failure. 6. Renal insufficiency. 7. Anemia of chronic disease. 8. Leukocytosis, improved. 9. Thrombocytopenia. 10. Continue to monitor signs of infection with WBC and fever trends. NF/MODL Voice ID: [id number] Report ID: [id number]
[2025-02-21 04:46] LABS: Absolute Eosinophils 0.1 K/uL (0-0.5); Absolute Lymphocytes (CBC) 1.2 K/uL (0.7-4.9); Absolute Monocytes 0.6 K/uL (0.1-1.3); Absolute Neutrophil 7.4 K/uL (1.8-8.0); Basophils % 0.3 % (0-1.3); Eosinophils % 1.5 % (0-4.4); Hematocrit 24.6 % (36.0-45.0); Hemoglobin 8.4 g/dL (12.0-15.0); Lymphocytes % 12.9 % (15.3-44.8); MCH 30.5 pg (27.0-35.0); MCHC 34.1 g/dL (32.0-36.0); MCV 89.7 fL (80-100); MPV 11.5 fL (7.6-11.3); Monocytes % 6.7 % (3.3-12.3); Neutrophils % 78.6 % (41.7-73.7); Nucleated Red Blood Cells % 0.1 % (0-0); Platelets 93 thou/uL (152-406); RBC Red Blood Cell Count 2.75 M/uL (3.86-4.86)
[2025-02-21 04:56] LABS: Albumin 1.5 g/dL (3.4-5.0); Albumin/Globulin Ratio 0.4 (1.1-1.8); Anion Gap 8.9 mEq/L (5.0-15.0); Bilirubin Total 0.6 mg/dL (0.2-1.0); Globulin 3.7 g/dL (2.3-3.5); Magnesium 1.6 mg/dL (1.6-2.4); Potassium 3.9 mEq/L (3.5-5.1); Protein, Total 5.2 g/dL (6.4-8.2)
[2025-02-21] MEDS: MAGNESIUM SULFATE 1 gm IVPB 1 GM/100 ML BAG IV ONE (09:05)
[2025-02-21] MEDS: D5W 1,000 ML IV SCH (11:17)
--- NOTE | 2025-02-21 12:09 | P.PN ---
Nephrology note (S) Pt seen one week since last appears physically more frail, gaunt, not eating, on D5W IVF for hypernatremia earlier in the week, lethargic, awakens briefly, tremulous. Case discussed with Dr. Hearn. (O) Vitals reviewed in the EMR NAD, non tachypnec, dry oral mucosa, not on O2 when seen, b/l air entry, reduced at bases, no loud wheezing, non tachy, irregular, soft, ND, NT, goldsmith present. Muscle mass loss, no sig LE edema, shins non tender. Lethargic, awakens briefly, moves UE spont, tremulous Labs and Imaging data reviewed in the EMR A/P) 1. Stage II MIKE recurrent POA on underlying CKD Stage IIIb with MIKE in the setting of vol depletion/dehydration, hypotension, infection, renal plasma flow effects of hypoxia/other, now largely resolved 3. Hypernatremia recurrent, in the setting of impaired oral intake and aspiration concerns also present. Cont D5W, lower rate. Severe protein malnutrition, abnormality of albumin, discussed with IM team, who will review parenteral nutrition and goals of care with MPOA 4. Hypotension in the setting of vol depletion, presumed sepsis with PNA, unspecified organism, afib, other last week, since resolved. Trend BP closely 5. Abnormal findings in urine, pyuria, hyaline casts, Ca oxalate crystals without stones, hydro or obstructive uropathy noted on imaging. UCx neg, trend UOP 6. Chronic hypoxic resp failure 2nd to largely severe COPD, recurrent PNA, radiographic abnormalities persist -management per IM/pulm Yamil Huggins MD, [id number]
--- NOTE | 2025-02-21 12:41 | P.PN ---
Date of Service: 02/21/25 Subjective: no events overnight desats to mid 80s on room air minimal appetite weak, tired remains npo Physical Exam: GEN: Alert, orientedx1, NAD CV: Regular rate and rhythm, no edema Pulm: Mildly labored respirations on 2L NC, Mild bibasilar crackles ABD: soft, nontender, nondistended Neuro: confused, spontaneously moves extremities Problem List: Acute metabolic encephalopathy Pneumonia Staph Aureus Bacteremia Sepsis/septic shock secondary to the above Acute hypoxic respiratory failure Chronic diastolic CHF COPD, chronic MIKE Hypernatremia Metabolic acidosis Chronic A-fib with RVR Anxiety/Depression/Schizophrenia Dementia Acute metabolic encephalopathy Pneumonia Staph Aureus Bacteremia Sepsis/septic shock secondary to the above on admission, presents with altered mentation, confusion. CT chest/abd noted nodular and consolidative airspace disease in the right lower lobe concerning for either pneumonia or pneumonitis possibly secondary to aspiration CXR (02/15): new small bilateral pleural effusions. +Pneumonia vs pneumonitis at the right lung base Blood cx (02/12): 11/02+ Staph Aureus Repeat blood cx (02/13) No growth. Urine culture (02/12): no growth Continue IV vanc (02/12-) and rocephin (02/17-) IV cefepime switched to Rocephin (02/17) due to thrombocytopenia. ID consulted - recommending patient complete 2 weeks of antibiotics Acute hypoxic respiratory failure Chronic diastolic CHF COPD, chronic rapid response called overnight ~4:30 am. Patient found with oxygen off satting in the 70s. oxygen improved a few minutes after being placed back on oxygen. repeat CXR (02/18): bilateral pleural effusions with diffuse interstitial changes. pulm is following continue budesonide, duonebs Repeat CXR 02/20 with no significant change. oxygen requirements improving MIKE Hypernatremia Metabolic acidosis unknown baseline Continue to monitor renal function Nephrology is following. s/p sodium bicarb for metabolic acidosis (02/15-02/17) Creatinine improving daily continue IVF A-fib with RVR Chronic diastolic CHF Cardiology is following Patient was paced on amiodarone drip, transitioned to oral amio (02/15) Cardiology is following; added oral metoprolol 25 mg BID Monitor BP. Continue telemetry. Continue home eliquis Anxiety/Depression/Schizophrenia Dementia Continue home medications. VTE: home eliquis Code: Full Dispo: SNF pending improvement will reach out to MPOA to review goals of care / how patient has been doing Time Spent Managing Pts Care (In Minutes): 55
--- NOTE | 2025-02-21 23:46 | P.PN ---
Date of Service: 02/21/25 Subjective: Patient is lying in bed. No new acute event.Pt appears confused today and fatigue Objective: Temp Pulse Resp BP Pulse Ox 97.7 F 89 24 H 152/67 H 92 02/17/25 16:42 02/17/25 16:42 02/17/25 16:42 02/17/25 16:42 02/17/25 16:42 neuro: confused and tired appearance Lungs: mild bibasilar crackles Heart: S1, S2. Regular. Abdomen: Soft, nontender. Bowel sounds present. Extremities: Trace edema. Skin: sacrum DTI Laboratory Data: WBC 9.5, hemoglobin 8.4, platelets are 93. BUN 35, creatinine 1.42 urine culture 02/12/25 no growth blood culture 02/12/25 shows staph aureus 02/13/25 no growth in 24 hours preliminary Assessment 1. Bacteremia secondary to methicillin-susceptible Staphylococcus aureus. 2. Bilateral pneumonitis. 3. Sepsis with altered mental status. 4. Chronic obstructive pulmonary disease. 5. Congestive heart failure. 6. Renal insufficiency. 7. Anemia of chronic disease. 8. Leukocytosis, improved. 9. Thrombocytopenia. 10. sacrum DTI Planning continue vancomycin and rocephin. cefepime dc due to thrombocytopenia monitor wbc and fever trend continue wound care support. recommend zinc oxide with every brief change and prn case round and in agreement with Dr milligan
[2025-02-22] MEDS: THIAMINE 200 MG/2 ML INJ IVP SCH (09:00)
--- NOTE | 2025-02-22 11:37 | P.PN ---
Subjective Date of Service: 02/22/25 Chief Complaint: Altered mental status Patient is improving alert disoriented n.p.o. denies any complaints Review of Systems General: Weakness Respiratory: Shortness of Breath Physical Examination - Vital Signs Temperature: 98.1 F Blood Pressure: 129/70 Pulse: 67 Respirations: 16 Pulse Ox (%): 98 - Physical Exam General: Alert, Oriented x1 Respiratory: Clear to auscultation bilaterally Cardiovascular: No edema, Regular rate/rhythm, Normal S1 S2 - Studies Medications List Reviewed: Yes Assessment And Plan - Current Problems (Diagnosis) (1) Altered mental status Current Visit: Yes Status: Acute Plan: Patient is 79 years of age admitted with possible infection before all her cultures are negative the staph is most likely a contaminant DC all antibiotics no evidence of current sepsis right now she is currently altered n.p.o. failed swallowing test consider nutrition with either Dobbhoff or TPN for now labs reviewed hemodynamically stable add thiamine evaluation for group home p lacement or SNF add scheduled long-acting bronchodilator Brovana albuterol as needed physical therapy Qualifiers: Altered mental status type: unspecified Qualified Code(s): R41.82 - Altered mental status, unspecified
--- NOTE | 2025-02-22 12:26 | P.PN ---
Date of Service: 02/22/25 Subjective: no acute events overnight remains NPO more awake/alert, weak vitals stable. on 2L NC Physical Exam: GEN: Alert, orientedx1, NAD CV: Regular rate and rhythm, no edema Pulm: Mildly labored respirations on 2L NC, Mild bibasilar crackles ABD: soft, nontender, nondistended Neuro: confused, spontaneously moves extremities, generalized weakness Problem List: Acute metabolic encephalopathy Pneumonia Staph Aureus Bacteremia Sepsis/septic shock secondary to the above Acute hypoxic respiratory failure Chronic diastolic CHF COPD, chronic MIKE Hypernatremia Metabolic acidosis Chronic A-fib with RVR Anxiety/Depression/Schizophrenia Dementia Acute metabolic encephalopathy Pneumonia Staph Aureus Bacteremia Sepsis/septic shock secondary to the above on admission, presents with altered mentation, confusion. CT chest/abd noted nodular and consolidative airspace disease in the right lower lobe concerning for either pneumonia or pneumonitis possibly secondary to aspiration CXR (02/15): new small bilateral pleural effusions. +Pneumonia vs pneumonitis at the right lung base Blood cx (02/12): 11/02+ Staph Aureus Repeat blood cx (02/13) No growth. Urine culture (02/12): no growth IV cefepime switched to Rocephin (02/17) due to thrombocytopenia. ID consulted - recommending patient complete 2 weeks of antibiotics 02/22 - NPO for several days per speech recommendations d/t high risk of aspiration. start TPN, will reach out to family to update them on patient condition and discuss goals of care / dobhoff, etc antibiotics dc'd by pulm. Patient completed ~10 days of IV antibiotics PT consult Acute hypoxic respiratory failure Chronic diastolic CHF COPD, chronic rapid response called overnight ~4:30 am. Patient found with oxygen off satting in the 70s. oxygen improved a few minutes after being placed back on oxygen. repeat CXR (02/18): bilateral pleural effusions with diffuse interstitial changes. pulm is following continue budesonide, duonebs Repeat CXR 02/20 with no significant change. 02/22 - nebs switched to PRN per pulm Brovana added per pulm MIKE Hypernatremia Metabolic acidosis unknown baseline Continue to monitor renal function Nephrology is following. s/p sodium bicarb for metabolic acidosis (02/15-02/17) Creatinine improving daily continue IVF 02/22 - start TPN A-fib with RVR Chronic diastolic CHF Cardiology is following Patient was paced on amiodarone drip, transitioned to oral amio (02/15) Cardiology is following; added oral metoprolol 25 mg BID Monitor BP. Continue telemetry. 02/22 - has been off eliquis since 02/17 oral metoprolol on hold, amio on hold; resume once able swallow pills remains in sinus Anxiety/Depression/Schizophrenia Dementia Continue home medications once able for oral intake VTE: home eliquis is on hold d/t NPO Code: Full Dispo: SNF pending improvement spoke to GREG Cardoso - will come this afternoon to speak with patient / encourage Time Spent Managing Pts Care (In Minutes): 55
[2025-02-22 13:03] LABS: Absolute Eosinophils 0.1 K/uL (0-0.5); Absolute Lymphocytes (CBC) 1.2 K/uL (0.7-4.9); Absolute Monocytes 0.8 K/uL (0.1-1.3); Absolute Neutrophil 8.1 K/uL (1.8-8.0); Basophils % 0.2 % (0-1.3); Eosinophils % 1.3 % (0-4.4); Hematocrit 24.8 % (36.0-45.0); Hemoglobin 8.6 g/dL (12.0-15.0); Lymphocytes % 11.5 % (15.3-44.8); MCH 31.1 pg (27.0-35.0); MCHC 34.8 g/dL (32.0-36.0); MCV 89.5 fL (80-100); MPV 10.7 fL (7.6-11.3); Monocytes % 7.6 % (3.3-12.3); Neutrophils % 79.4 % (41.7-73.7); Platelets 85 thou/uL (152-406); RBC Red Blood Cell Count 2.77 M/uL (3.86-4.86); Red Cell Distribution Width 18.3 % (12.1-15.2)
[2025-02-22 13:23] LABS: Albumin 1.4 g/dL (3.4-5.0); Albumin/Globulin Ratio 0.4 (1.1-1.8); Anion Gap 9.8 mEq/L (5.0-15.0); Bilirubin Total 0.5 mg/dL (0.2-1.0); Globulin 3.8 g/dL (2.3-3.5); Potassium 3.8 mEq/L (3.5-5.1); Protein, Total 5.2 g/dL (6.4-8.2)
[2025-02-22 15:07] LABS: Blood Morphology Comment NOT SEEN (NOT SEEN); Platelet Estimate ADEQ; White Blood Cell Scan OK (OK)
[2025-02-22] MEDS: AA 5%/D20W/ELECTROLYTES-TPN 2,000 ML, Lipids 20% 250 ML with MULTIVITAMINS INJ 10 ML IV ONE (16:01)
--- NOTE | 2025-02-22 18:39 | P.PN ---
Date of Service: 02/22/25 Vital Signs Temp Pulse Resp BP Pulse Ox 97.6 F 77 18 155/63 H 92 02/22/25 16:00 02/22/25 16:00 02/22/25 16:00 02/22/25 16:00 02/22/25 16:00 Medications Acetaminophen (Acetaminophen 325 Mg Tablet) 650 mg PO Q6H PRN PRN Reason: Pain scale 2-4 (Mild) Last Admin: 02/18/25 17:25 Dose: 650 mg Albuterol Sulfate (Albuterol 2.5 Mg/3 Ml Neb Ximena) 2.5 mg NEB [id number] PRN PRN Reason: SHORTNESS OF BREATH Amiodarone HCl (Amiodarone Hcl 200 Mg Tab) 200 mg PO BID [facility] Last Admin: 02/17/25 09:30 Dose: 200 mg Apixaban (Apixaban 2.5 Mg Tablet) 2.5 mg PO BID [facility] Last Admin: 02/17/25 09:31 Dose: 2.5 mg Arformoterol Tartrate (Arformoterol Tartrate 15 Mcg/2 Ml Vial.Neb) 15 mcg NEB BIDRESP LANCE Budesonide (Budesonide 0.5 Mg/2 Ml Neb) 0.5 mg NEB BIDRESP [facility] Last Admin: 02/22/25 08:11 Dose: 0.5 mg Calcium Carbonate (Calcium Carb 500mg/Vit D 200 Iu Tab) 1 tab PO DAILY [facility] Last Admin: 02/22/25 09:00 Dose: Not Given Dextrose/Water (Dextrose In Water (1-Liter)) 1,000 mls @ 50 mls/hr IV .Q20H [facility] Last Admin: 02/22/25 07:17 Dose: Not Given Multivitamins 10 ml/ Amino Acids/Electrolytes/ Fat Emulsion Intravenous 2,260 mls @ 70 mls/hr IV M,W,F [facility] Multivitamins 10 ml/ Amino Acids/Electrolytes/ Fat Emulsion Intravenous 2,260 mls @ 70 mls/hr IV 1X ONE Stop: 02/24/25 01:17 Last Admin: 02/22/25 16:01 Dose: 2,260 mls Amino Acids/Electrolytes (Clinimix E 5%-20% Solution) 2,000 mls @ 70 mls/hr IV SuTuThSa@1700 [facility] L-Arginine/L-Glutamine/HMB (Kb Packet) 1 pkt PO BID [facility] Last Admin: 02/22/25 09:00 Dose: Not Given Metoprolol Tartrate (Metoprolol Tar 25 Mg Tab) 25 mg PO BID 6AM 6PM [facility] Last Admin: 02/22/25 16:33 Dose: Not Given Nutritional Formula (Ensure Enlive 237 Ml Can) 237 ml PO BID [facility] Last Admin: 02/22/25 09:00 Dose: Not Given Ondansetron HCl (Ondansetron 4 Mg/2 Ml Vial) 4 mg IV Q6HP PRN PRN Reason: NAUSEA / VOMITING Senna (Senosides 8.6 Mg Tab) 8.6 mg PO BID [facility] Last Admin: 02/22/25 09:00 Dose: Not Given Sodium Chloride (Sodium Chloride 0.9% 10ml Inj) 10 ml IV UD PRN PRN Reason: Diluant Last Admin: 02/12/25 10:57 Dose: 10 ml Sterile Water (Water For Inj,Sterile 10 Ml) 2 ml IV Q12HR [facility] Last Admin: 02/22/25 09:00 Dose: Not Given Thiamine HCl (Thiamine 200 Mg/2 Ml Inj) 100 mg IVP DAILY [facility] Last Admin: 02/22/25 09:00 Dose: Not Given Microbiology Results 02/12/25 03:52 Clean Catch Urine [place] Count - Final No growth. 02/12/25 03:52 Clean Catch Urine - Final No growth. 02/12/25 03:07 Blood - Blood Aerobic Blood Culture - Final No growth in 5 days. 02/12/25 03:07 Blood - Blood Anaerobic Blood Culture - Final Assessment/ Plan: Nephrology No dyspnea No chest pain Limited IH/ ROS due to AMS Vitals, medications, blood work and imaging reviewed in the chart NAD. MMM. NCAT. Normal Respiratory Effort. S1S2. ND Abd. No C/C/E. No rash. Awake. Normal speech. Stage II MIKE in the setting of hypovolemia CKD IIIb -No NSAIDs -Continue IVF Hypernatremia -Continue D5W Hypokalemia -Replete potassium prn HTN with CKD AFib -Continue Metoprolol -Cardiology following Septic Shock MSSA Bacteremia -Continue Abx Hypoalbuminemia -IV Albumin prn -Continue Ensure Anemia in chronic illness Thrombocytopenia -Monitor CBC Acute Encephalopathy -Continue supportive care Hospitalist note reviewed
[2025-02-23 05:27] LABS: Albumin 1.5 g/dL (3.4-5.0); Albumin/Globulin Ratio 0.4 (1.1-1.8); Anion Gap 9.8 mEq/L (5.0-15.0); Bilirubin Total 0.5 mg/dL (0.2-1.0); Phosphorus 3.7 mg/dL (2.5-4.9); Potassium 3.8 mEq/L (3.5-5.1); Protein, Total 5.5 g/dL (6.4-8.2)
[2025-02-23] MEDS: ARFORMOTEROL TARTRATE 15 MCG/2 ML VIAL.NEB NEB SCH (07:51)
--- NOTE | 2025-02-23 08:34 | P.PN ---
Date of Service: 02/23/25 Subjective: Mentation improving. 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 Physical Exam: GEN: Alert and interactive, orientedx1, NAD CV: Regular rate and rhythm, no edema Pulm: non-labored respirations on 2L NC, Mild bibasilar crackles ABD: soft, nontender, nondistended Neuro: confused, moving all extremities, generalized weakness Problem List: Acute metabolic encephalopathy Pneumonia Staph Aureus Bacteremia Sepsis/septic shock secondary to the above Acute hypoxic respiratory failure Chronic diastolic CHF COPD, chronic MIKE Hypernatremia Metabolic acidosis Chronic A-fib with RVR Anxiety/Depression/Schizophrenia Dementia Acute metabolic encephalopathy Pneumonia Staph Aureus Bacteremia Sepsis/septic shock secondary to the above on admission, presents with altered mentation, confusion. CT chest/abd noted nodular and consolidative airspace disease in the right lower lobe concerning for either pneumonia or pneumonitis possibly secondary to aspiration CXR (02/15): new small bilateral pleural effusions. +Pneumonia vs pneumonitis at the right lung base Blood cx (02/12): 11/02+ Staph Aureus Repeat blood cx (02/13) No growth. Urine culture (02/12): no growth IV cefepime switched to Rocephin (02/17) due to thrombocytopenia. ID consulted - recommending patient complete 2 weeks of antibiotics 02/22 - NPO for several days per speech recommendations d/t high risk of aspiration. start TPN spoke to GREG Cardoso; confirmed change in code status to DNR. Continue current treatment plan. Antibiotics dc'd by pulm. Patient completed ~10 days of IV antibiotics PT consult 02/23 - Mentation improving. She remains somewhat confused with some intermittent agitation, but significantly more awake and interactive Labs stable/improving. Strength and energy returning. Speech to re-eval tomorrow given improvement Continue TPN Acute hypoxic respiratory failure Chronic diastolic CHF COPD, chronic rapid response called overnight ~4:30 am. Patient found with oxygen off satting in the 70s. oxygen improved a few minutes after being placed back on oxygen. repeat CXR (02/18): bilateral pleural effusions with diffuse interstitial fanny nges. pulm is following continue budesonide, duonebs Repeat CXR 02/20 with no significant change. 02/22 - nebs switched to PRN per pulm Brovana added per pulm 02/23 - wean oxygen as tolerated stable MIKE Hypernatremia Metabolic acidosis unknown baseline Continue to monitor renal function Nephrology is following. s/p sodium bicarb for metabolic acidosis (02/15-02/17) 02/22 - start TPN 02/23 - Creatinine improving A-fib with RVR Chronic diastolic CHF Cardiology is following Patient was paced on amiodarone drip, transitioned to oral amio (02/15) Cardiology is following; added oral metoprolol 25 mg BID Monitor BP. Continue telemetry. 02/22 - has been off eliquis since 02/17 oral metoprolol on hold, amio on hold; resume once able swallow pills remains in sinus Anxiety/Depression/Schizophrenia Dementia Continue home medications once able for oral intake VTE: home eliquis is on hold d/t NPO Code: Confirmed DNR 02/22 Dispo: SNF pending improvement spoke to GREG Cardoso on 02/22; confirmed code status switched to DNR Time Spent Managing Pts Care (In Minutes): 55
[2025-02-23 09:13] LABS: Cyclic Citrullinated Peptide <16 Units (<20)
[2025-02-23] MEDS: KCL 20 MEQ/100 mL IVPB 20 MEQ/100 ML BAG IV SCH ×2 (09:41→09:49)
[2025-02-23] MEDS: AA 5%/D20W/ELECTROLYTES-TPN 2,000 ML IV SCH (17:52)
[2025-02-24 05:14] LABS: Absolute Eosinophils 0.1 K/uL (0-0.5); Absolute Lymphocytes (CBC) 1.1 K/uL (0.7-4.9); Absolute Monocytes 0.6 K/uL (0.1-1.3); Absolute Neutrophil 6.7 K/uL (1.8-8.0); Basophils % 0.3 % (0-1.3); Eosinophils % 1.4 % (0-4.4); Hematocrit 22.4 % (36.0-45.0); Hemoglobin 7.6 g/dL (12.0-15.0); Lymphocytes % 12.4 % (15.3-44.8); MCH 30.4 pg (27.0-35.0); MCHC 33.8 g/dL (32.0-36.0); MCV 89.9 fL (80-100); MPV 11.1 fL (7.6-11.3); Monocytes % 7.3 % (3.3-12.3); Neutrophils % 78.6 % (41.7-73.7); Platelets 104 thou/uL (152-406); RBC Red Blood Cell Count 2.49 M/uL (3.86-4.86); Red Cell Distribution Width 18.4 % (12.1-15.2)
[2025-02-24 05:31] LABS: Albumin 1.4 g/dL (3.4-5.0); Albumin/Globulin Ratio 0.4 (1.1-1.8); Anion Gap 8.3 mEq/L (5.0-15.0); Bilirubin Total 0.4 mg/dL (0.2-1.0); Globulin 3.7 g/dL (2.3-3.5); Magnesium 2.1 mg/dL (1.6-2.4); Potassium 4.3 mEq/L (3.5-5.1); Protein, Total 5.1 g/dL (6.4-8.2)
--- NOTE | 2025-02-24 10:09 | P.PN ---
Date of Service: 02/24/25 Subjective: breathing appears more labored associated with increased respirations, audible breathing sounds. had goldsmith replaced this morning due to leakage doesn't feel better afebrile Physical Exam: GEN: Alert and interactive, orientedx1, NAD CV: Regular rate and rhythm, no edema Pulm: non-labored respirations on 2L NC, Mild bibasilar crackles ABD: soft, nontender, nondistended Neuro: confused, moving all extremities, generalized weakness goldsmith replaced 02/24 Problem List: Acute metabolic encephalopathy Pneumonia Staph Aureus Bacteremia Sepsis/septic shock secondary to the above Acute hypoxic respiratory failure Chronic diastolic CHF COPD, chronic MIKE Hypernatremia Metabolic acidosis Chronic A-fib with RVR Anxiety/Depression/Schizophrenia Dementia Acute metabolic encephalopathy Pneumonia Staph Aureus Bacteremia Sepsis/septic shock secondary to the above on admission, presents with altered mentation, confusion. CT chest/abd noted nodular and consolidative airspace disease in the right lower lobe concerning for either pneumonia or pneumonitis possibly secondary to aspiration CXR (02/15): new small bilateral pleural effusions. +Pneumonia vs pneumonitis at the right lung base Blood cx (02/12): 11/02+ Staph Aureus Repeat blood cx (02/13) No growth. Urine culture (02/12): no growth IV cefepime switched to Rocephin (02/17) due to thrombocytopenia. ID consulted - recommending patient complete 2 weeks of antibiotics 02/22 - NPO for several days per speech recommendations d/t high risk of aspiration. start TPN spoke to GREG Cardoso; confirmed change in code status to DNR. Continue current treatment plan. Antibiotics dc'd by pulm. Patient completed ~10 days of IV antibiotics PT consult 02/23 - Mentation improving. She remains somewhat confused with some intermittent agitation, but significantly more awake and interactive Labs stable/improving. Strength and energy returning. Speech to re-eval tomorrow given improvement Continue TPN 02/24 - afebrile, no leukocytosis. Off abx for > 24 hours. Daily labs. Monitor Hgb. ID recommends restarting rocephin speech eval pt with moderate wheeze on exam, continue nebs Acute hypoxic respiratory failure Chronic diastolic CHF COPD, chronic rapid response called overnight ~4:30 am. Patient found with oxygen off satting in the 70s. oxygen improved a few minutes after being placed back on oxygen. repeat CXR (02/18): bilateral pleural effusions with diffuse interstitial changes. pulm is following continue budesonide, duonebs Repeat CXR 02/20 with no significant change. 02/22 - nebs switched to PRN per pulm Brovana added per pulm 02/23 - wean oxygen as tolerated stable 02/24 - Breathing appears more labored today. increased to 3L overnight MIKE Hypernatremia Metabolic acidosis unknown baseline Continue to monitor renal function Nephrology is following. s/p sodium bicarb for metabolic acidosis (02/15-02/17) 02/22 - start TPN 02/24 - creatinine improving daily. A-fib with RVR Chronic diastolic CHF Cardiology is following Patient was paced on amiodarone drip, transitioned to oral amio (02/15) Cardiology is following; added oral metoprolol 25 mg BID Monitor BP. Continue telemetry. 02/22 - has been off eliquis since 02/17 oral metoprolol on hold, amio on hold; resume once able swallow pills remains in sinus Anxiety/Depression/Schizophrenia Dementia Continue home medications once able for oral intake VTE: home eliquis is on hold d/t NPO Code: Confirmed DNR 02/22 Dispo: SNF pending improvement spoke to GREG Cardoso on 02/22; confirmed code status switched to DNR to see how she does with speech today/tomorrow, if can eat vs need to discuss peg, or possibly hospice Time Spent Managing Pts Care (In Minutes): 55
--- NOTE | 2025-02-24 17:34 | P.PN ---
Date of Service: 02/24/25 Subjective: Patient is lying in bed. No new acute event.Pt appears fatigue and SOB Objective: Temp Pulse Resp BP Pulse Ox 97.4 F 73 22 H 136/64 93 02/24/25 16:00 02/24/25 16:00 02/24/25 16:00 02/24/25 16:00 02/24/25 16:00 neuro: AOx1-2 Lungs: mild bibasilar crackles, on 3 L NC, tachypnea Heart: S1, S2. Regular. Abdomen: Soft, nontender. Bowel sounds present. Extremities: Trace edema. Skin: sacrum DTI Laboratory Data: WBC 8.5, hemoglobin 7.6, platelets are 104. BUN 35, creatinine 1.16 urine culture 02/12/25 no growth blood culture 02/12/25 shows staph aureus 02/13/25 no growth in 24 hours preliminary Assessment 1. Bacteremia secondary to methicillin-susceptible Staphylococcus aureus. 2. Bilateral pneumonitis. 3. Sepsis with altered mental status. 4. Chronic obstructive pulmonary disease. 5. Congestive heart failure. 6. Renal insufficiency. 7. Anemia of chronic disease. 8. Leukocytosis, improved. 9. Thrombocytopenia. Planning Spoke to Dr Hearn and recommend continuing rocephin for a total of two weeks due to mental status and pt does still look sepsis. cefepime dc due to thrombocytopenia monitor wbc and fever trend case round and in agreement with Dr milligan
[2025-02-24] MEDS: CEFTRIAXONE 1,000 MG in NA CHLORIDE 0.9% 50 ML IVPB SCH (18:00)
[2025-02-24] MEDS: AA 5%/D20W/ELECTROLYTES-TPN 2,000 ML, Lipids 20% 250 ML with MULTIVITAMINS INJ 10 ML IV SCH (18:05)
[2025-02-24] MEDS: ALBUTEROL 2.5 MG/3 ML NEB SOL NEB PRN (19:40)
[2025-02-24 20:09] LABS: Complement C3 46 mg/dL (83-193)
[2025-02-24] MEDS: ALBUMIN HUMAN 25% 100 ML IV ONE ×2 (20:51→21:00)
[2025-02-24] MEDS: FUROSEMIDE 20 MG/ 2ML VIAL IV ONE (21:00)
[2025-02-24 21:28] LABS: Absolute Basophils 0.1 K/uL (0-0.5); Absolute Eosinophils 0.1 K/uL (0-0.5); Absolute Lymphocytes (CBC) 1.3 K/uL (0.7-4.9); Absolute Monocytes 0.7 K/uL (0.1-1.3); Absolute Neutrophil 7.4 K/uL (1.8-8.0); Basophils % 0.7 % (0-1.3); Eosinophils % 1.3 % (0-4.4); Hematocrit 22.6 % (36.0-45.0); Hemoglobin 7.5 g/dL (12.0-15.0); Lymphocytes % 13.1 % (15.3-44.8); MCH 30.3 pg (27.0-35.0); MCHC 33.4 g/dL (32.0-36.0); MCV 90.7 fL (80-100); MPV 12.2 fL (7.6-11.3); Monocytes % 7.7 % (3.3-12.3); Neutrophils % 77.2 % (41.7-73.7); Nucleated Red Blood Cells % 0.1 % (0-0); Platelets 100 thou/uL (152-406); RBC Red Blood Cell Count 2.49 M/uL (3.86-4.86); Red Cell Distribution Width 19.2 % (12.1-15.2)
[2025-02-24 21:46] LABS: Anion Gap 11.2 mEq/L (5.0-15.0); Potassium 4.2 mEq/L (3.5-5.1); Troponin High Sensitivity 17.6 pg/mL (<58.9)
--- NOTE | 2025-02-24 22:13 | P.PN ---
Date of Service: 02/24/25 Vital Signs Temp Pulse Resp BP Pulse Ox 97.4 F 77 22 H 123/58 L 93 02/24/25 16:00 02/24/25 21:00 02/24/25 16:00 02/24/25 21:00 02/24/25 16:00 Medications Acetaminophen (Acetaminophen 325 Mg Tablet) 650 mg PO Q6H PRN PRN Reason: Pain scale 2-4 (Mild) Last Admin: 02/18/25 17:25 Dose: 650 mg Albuterol Sulfate (Albuterol 2.5 Mg/3 Ml Neb Ximena) 2.5 mg NEB [id number] PRN PRN Reason: SHORTNESS OF BREATH Last Admin: 02/24/25 19:40 Dose: 2.5 mg Amiodarone HCl (Amiodarone Hcl 200 Mg Tab) 200 mg PO BID [facility] Last Admin: 02/17/25 09:30 Dose: 200 mg Apixaban (Apixaban 2.5 Mg Tablet) 2.5 mg PO BID [facility] Last Admin: 02/17/25 09:31 Dose: 2.5 mg Arformoterol Tartrate (Arformoterol Tartrate 15 Mcg/2 Ml Vial.Neb) 15 mcg NEB BIDRESP [facility] Last Admin: 02/24/25 19:40 Dose: 15 mcg Budesonide (Budesonide 0.5 Mg/2 Ml Neb) 0.5 mg NEB BIDRESP [facility] Last Admin: 02/24/25 19:40 Dose: 0.5 mg Calcium Carbonate (Calcium Carb 500mg/Vit D 200 Iu Tab) 1 tab PO DAILY [facility] Last Admin: 02/24/25 09:00 Dose: Not Given Dextrose/Water (Dextrose In Water (1-Liter)) 1,000 mls @ 50 mls/hr IV .Q20H [facility] Last Admin: 02/23/25 21:19 Dose: 1,000 mls Multivitamins 10 ml/ Amino Acids/Electrolytes/ Fat Emulsion Intravenous 2,260 mls @ 70 mls/hr IV M,W,F [facility] Last Admin: 02/24/25 18:05 Dose: 2,260 mls Amino Acids/Electrolytes (Clinimix E 5%-20% Solution) 2,000 mls @ 70 mls/hr IV SuTuThSa@1700 [facility] Last Admin: 02/23/25 17:52 Dose: 2,000 mls Ceftriaxone Sodium 1,000 mg/ (Sodium Chloride) 50 mls @ 100 mls/hr IVPB DAILY [facility]; Protocol L-Arginine/L-Glutamine/HMB (Kb Packet) 1 pkt PO BID [facility] Last Admin: 02/24/25 21:00 Dose: Not Given Metoprolol Tartrate (Metoprolol Tar 25 Mg Tab) 25 mg PO BID 6AM 6PM [facility] Last Admin: 02/24/25 18:00 Dose: Not Given Nutritional Formula (Ensure Enlive 237 Ml Can) 237 ml PO BID [facility] Last Admin: 02/24/25 21:00 Dose: Not Given Ondansetron HCl (Ondansetron 4 Mg/2 Ml Vial) 4 mg IV Q6HP PRN PRN Reason: NAUSEA / VOMITING Senna (Senosides 8.6 Mg Tab) 8.6 mg PO BID [facility] Last Admin: 02/24/25 21:00 Dose: Not Given Sodium Chloride (Sodium Chloride 0.9% 10ml Inj) 10 ml IV UD PRN PRN Reason: Diluant Last Admin: 02/12/25 10:57 Dose: 10 ml Sterile Water (Water For Inj,Sterile 10 Ml) 2 ml IV Q12HR [facility] Last Admin: 02/24/25 21:00 Dose: Not Given Thiamine HCl (Thiamine 200 Mg/2 Ml Inj) 100 mg IVP DAILY [facility] Last Admin: 02/24/25 10:16 Dose: 100 mg Microbiology Results 02/12/25 03:52 Clean Catch Urine [place] Count - Final No growth. 02/12/25 03:52 Clean Catch Urine - Final No growth. 02/12/25 03:07 Blood - Blood Aerobic Blood Culture - Final No growth in 5 days. 02/12/25 03:07 Blood - Blood Anaerobic Blood Culture - Final Assessment/ Plan: Nephrology No dyspnea No chest pain Limited IH/ ROS due to AMS Vitals, medications, blood work and imaging reviewed in the chart NAD. MMM. NCAT. Normal Respiratory Effort. S1S2. ND Abd. No C/C/E. No rash. Awake. Normal speech. Stage II MIKE in the setting of hypovolemia CKD IIIb -No NSAIDs -Continue IVF Hypernatremia -Continue D5W Hypokalemia -Replete potassium prn HTN with CKD AFib -Continue Metoprolol -Cardiology following Septic Shock MSSA Bacteremia -Continue Abx Hypoalbuminemia Severe Protein Malnutrition -IV Albumin prn -Continue TPN Anemia in chronic illness Thrombocytopenia -Monitor CBC Acute Encephalopathy -Continue supportive care Hospitalist note reviewed
--- NOTE | 2025-02-24 22:17 | RAD REPORT ---
EXAMINATION: ONE VIEW CHEST XR CLINICAL INDICATION: Female, 79 years old.,sob TECHNIQUE: Frontal chest projection is submitted. Examination is limited by patient positioning and t echnique. COMPARISON: 02/20/2025 FINDINGS: Stable interstitial coarsening with background hyperlucency and hyperinflation suggesting COPD. Parti al improvement of mild central interstitial prominence. No pneumothorax or sizable effusion. The heart is normal in size. Mediastinal contours are unremarkable. IMPRESSION: Partial improvement of mild central interstitial prominence, could reflect improving central congesti on. Otherwise stable findings, could relate to COPD exacerbation.
[2025-02-24 23:22] LABS: Blood O2 Saturation 61.3 % (92-98.5)
[2025-02-24 23:23] LABS: Arterial Blood Carboxyhemoglob 1.1 % (0-1.5); Blood Gas Oxyhemoglobin 59.7 % (94-97); Blood Gas THB 7.3 g/dl (12-18)
[2025-02-25 05:10] LABS: Absolute Eosinophils 0.1 K/uL (0-0.5); Absolute Lymphocytes (CBC) 0.9 K/uL (0.7-4.9); Absolute Monocytes 0.6 K/uL (0.1-1.3); Absolute Neutrophil 5.8 K/uL (1.8-8.0); Basophils % 0.4 % (0-1.3); Eosinophils % 1.7 % (0-4.4); Hematocrit 19.7 % (36.0-45.0); Hemoglobin 6.6 g/dL (12.0-15.0); Lymphocytes % 12.2 % (15.3-44.8); MCH 30.2 pg (27.0-35.0); MCHC 33.3 g/dL (32.0-36.0); MCV 90.8 fL (80-100); MPV 11.1 fL (7.6-11.3); Monocytes % 7.6 % (3.3-12.3); Neutrophils % 78.1 % (41.7-73.7); Platelets 79 thou/uL (152-406); RBC Red Blood Cell Count 2.17 M/uL (3.86-4.86); Red Cell Distribution Width 18.1 % (12.1-15.2)
[2025-02-25 05:34] LABS: Albumin 1.7 g/dL (3.4-5.0); Anion Gap 9.9 mEq/L (5.0-15.0); Magnesium 2.1 mg/dL (1.6-2.4); Phosphorus 4.1 mg/dL (2.5-4.9); Potassium 3.9 mEq/L (3.5-5.1)
--- NOTE | 2025-02-25 06:51 | P.PN ---
Date of Service: 02/25/25 Charted and reviewed. Patient was short of breath. Patient was given Lasix along with neb treatments and IV Solu-Medrol.. Patient's ABGs obtained. Patient with hypoxemia along with a metabolic acidosis with respiratory compensation. Echocardiogram did not show any significant abnormality. Repeat chest x-ray does show some mild improvement of the infiltrates. Patient also with mild anemia. This morning labs were rechecked and hemoglobin dropped even more and will transfuse 1 unit of packed red blood cells and order a PPI. Troponin was negative but D-dimer is elevated. Patient may need CT PE protocol if clinical symptoms are worsening but she is on Eliquis which should be very protective from pulmonary embolism. If patient is not improving with the above treatment then we will go ahead and recommend CT PE protocol. Patient is a DNAR and will continue monitoring patient and hopefully with above treatment patient will start feeling better. If patient is feeling better then we will proceed with CT PE protocol and may need to more aggressively anticoagulate patient. Cardiac status appears to be stable. Troponin and BNP pending.
--- NOTE | 2025-02-25 07:28 | RAD REPORT ---
Procedure: Chest Single View HISTORY: Shortness of breath COMPARISON: February 24, 2025 FINDINGS: No significant change in moderate bilateral pulmonary opacities There may be small bilateral pleural effusions. The heart is borderline enlarged. IMPRESSION: No significant change in the diffuse bilateral pulmonary opacities which may represent pneumonia or p ulmonary edema
[2025-02-25] MEDS: KCL 20 MEQ/100 mL IVPB 20 MEQ/100 ML BAG IV SCH (09:00)
[2025-02-25] MEDS: NA CHLORIDE 0.9% 250 ML ONE (10:54)
--- NOTE | 2025-02-25 11:45 | EKG ---
Test Date: 2025-02-24 Test Time: 19:59:22 Cloth Seconds Sorter: FS MEASUREMENT RESULTS: Intervals: Rate: 75 NM: QRSD: 72 QT: 428 QTc: 477 [place]: P: NM: QRS: 65 T: 77 INTERPRETIVE STATEMENTS: Accelerated Junctional rhythm Low voltage QRS Nonspecific T wave abnormality Prolonged QT Abnormal ECG Compared to ECG 02/16/2025 22:45:25 Accelerated junctional rhythm now present Low QRS voltage now present T-wave abnormality now present Prolonged QT interval now present Atrial fibrillation no longer present Myocardial infarct finding no longer present Electronically Signed On 02-25-25 11:45:16 CDT by Gregory Park
--- NOTE | 2025-02-25 16:47 | RAD REPORT ---
EXAMINATION: Abdomen Single View VIEWS: One view CLINICAL INDICATION: Female, 79 years old. confirm dobhoff placement COMPARISON: No prior exam. IMPRESSION: Weighted feeding tube tip at the proximal stomach. Assuming gastric position is desired, recommend ad vancing by 7 cm. Small bilateral effusions with coarsened pulmonary interstitium. The findings regarding the feeding tube were communicated to Dr. Carbajal on 02/25/2025 4:44 PM.
--- NOTE | 2025-02-25 18:22 | P.PN ---
Subjective Date of Service: 02/25/25 Chief Complaint: Altered mental status Patient appeared confused today. Blood pressure has been stable off the Levophed. She has poor oral intake No recorded fever. Physical Examination - Vital Signs Temperature: 97.6 F Blood Pressure: 128/60 Pulse: 71 Respirations: 26 Pulse Ox (%): 92 - Studies Medications List Reviewed: Yes Assessment And Plan - Plan Physical examination General: Alert and oriented x 1, NAD, Neck: Supple, no elevated JVD Heart: Heart sounds 1 and 2 normal, regular rhythm, normal rate, no pedal edema Lungs: Mild bibasilar crackles, adequate breath sounds bilaterally, no rhonchi. Mouth breathing. Abdomen: Soft, nondistended, nontender, normal bowel sounds. Extremities: No tenderness, no deformity Skin: Normal skin turgor, no rash, no nodules or ulcers. Neuro: No focal motor deficit. Responds verbally but will drift back to sleep. Psychiatry: Normal mood, no agitation. Diagnosis Acute encephalopathy Acute cystitis without hematuria Septic shock Gram-positive cocci bacteremia Hypernatremia Acute kidney injury Lactic acidosis Cholelithiasis Chronic atrial fibrillation Plan: Acute metabolic encephalopathy Acute cystitis without hematuria Pneumonia Sepsis/septic shock Gram-positive cocci bacteremia Blood culture: 1 blood culture bottle grew Staph aureus. Repeat blood culture showed no growth Urine culture showed no growth. Patient has been on IV vancomycin. IV cefepime replaced with Rocephin due to thrombocytopenia. Infectious disease consulted Status post D5 half-normal saline due to poor oral intake. 02/25 Infectious disease input appreciated. Patient slated for 2 weeks of IV antibiotics. Patient has been n.p.o. for several days TPN started on 02/22. Patient easily awakes to verbal but keeps her eyes closed and mouth open. Dobhoff for NG tube feeding and medications ordered today. Patient completed 10 days of antibiotics. Infectious disease Dr. Jarvis recommended restarting Rocephin for another 2 weeks. Acute hypoxic respiratory failure Chronic diastolic CHF COPD, chronic Emphysema rapid response called overnight ~4:30 am. Patient found with oxygen off satting in the 70s. oxygen improved a few minutes after being placed back on oxygen. repeat CXR (02/18): bilateral pleural effusions with diffuse interstitial changes. Pulmonary Dr. Sorto is following continue budesonide, duonebs Supplemental oxygen as needed. Continue bronchodilators. Brovana added per pulm Acute kidney injury Hypernatremia Metabolic acidosis Patient recent creatinine baseline is unknown. Nephrology is following. Status post oral sodium bicarb replacement for metabolic acidosis. Metabolic acidosis resolved. Status post D5 half NS. MIKE significantly improved, hypernatremia resolved. Patient started on TPN. Monitor renal function. A-fib with RVR Chronic diastolic heart failure Cardiology is following Patient was paced on amiodarone drip, transitioned to amiodarone drip Cautious IV fluid. On Eliquis. Patient's blood pressure significantly improved. Cardiology Dr. Park added metoprolol. Patient is currently not tolerating p.o. so oral amiodarone, metoprolol and Eliquis have been on hold. Dobhoff to be inserted today to resume oral medications including Eliquis Monitor BP Asymptomatic cholelithiasis Outpatient follow-up History of anxiety and depression Schizophrenia Dementia Continue home medications via Dobbhoff. Bilateral renal cyst Outpatient follow-up recommended. DVT prophylaxis: Resume Eliquis once Dobbhoff is okay to use Advanced directive: DNR.
--- NOTE | 2025-02-25 19:59 | RAD REPORT ---
EXAMINATION: Abdomen Single View VIEWS: One view CLINICAL INDICATION: Female, 79 years old. re check ngt dobbhoff placement COMPARISON: Same-day IMPRESSION: Weighted feeding tube has been advanced into the distal stomach and is in satisfactory position.
--- NOTE | 2025-02-25 21:14 | P.PN ---
Date of Service: 02/25/25 Vital Signs Temp Pulse Resp BP Pulse Ox 98.8 F 72 16 114/54 L 100 02/25/25 20:00 02/25/25 20:00 02/25/25 20:00 02/25/25 20:00 02/25/25 20:00 Medications Acetaminophen (Acetaminophen 325 Mg Tablet) 650 mg PO Q6H PRN PRN Reason: Pain scale 2-4 (Mild) Last Admin: 02/18/25 17:25 Dose: 650 mg Albuterol Sulfate (Albuterol 2.5 Mg/3 Ml Neb Ximena) 2.5 mg NEB [id number] PRN PRN Reason: SHORTNESS OF BREATH Last Admin: 02/24/25 19:40 Dose: 2.5 mg Amiodarone HCl (Amiodarone Hcl 200 Mg Tab) 200 mg PO BID [facility] Last Admin: 02/17/25 09:30 Dose: 200 mg Apixaban (Apixaban 2.5 Mg Tablet) 2.5 mg PO BID [facility] Last Admin: 02/17/25 09:31 Dose: 2.5 mg Arformoterol Tartrate (Arformoterol Tartrate 15 Mcg/2 Ml Vial.Neb) 15 mcg NEB BIDRESP [facility] Last Admin: 02/25/25 07:38 Dose: 15 mcg Budesonide (Budesonide 0.5 Mg/2 Ml Neb) 0.5 mg NEB BIDRESP [facility] Last Admin: 02/25/25 07:38 Dose: 0.5 mg Calcium Carbonate (Calcium Carb 500mg/Vit D 200 Iu Tab) 1 tab PO DAILY [facility] Last Admin: 02/25/25 09:00 Dose: Not Given Dextrose/Water (Dextrose In Water (1-Liter)) 1,000 mls @ 50 mls/hr IV .Q20H [facility] Last Admin: 02/25/25 15:56 Dose: 1,000 mls Multivitamins 10 ml/ Amino Acids/Electrolytes/ Fat Emulsion Intravenous 2,260 mls @ 70 mls/hr IV M,W,F [facility] Last Admin: 02/24/25 18:05 Dose: 2,260 mls Amino Acids/Electrolytes (Clinimix E 5%-20% Solution) 2,000 mls @ 70 mls/hr IV SuTuThSa@1700 [facility] Last Admin: 02/25/25 19:43 Dose: 2,000 mls Ceftriaxone Sodium 1,000 mg/ (Sodium Chloride) 50 mls @ 100 mls/hr IVPB DAILY [facility]; Protocol Last Admin: 02/25/25 08:59 Dose: 50 mls L-Arginine/L-Glutamine/HMB (Kb Packet) 1 pkt PO BID [facility] Last Admin: 02/25/25 09:00 Dose: Not Given Metoprolol Tartrate (Metoprolol Tar 25 Mg Tab) 25 mg PO BID 6AM 6PM [facility] Last Admin: 02/25/25 18:00 Dose: Not Given Nutritional Formula (Ensure Enlive 237 Ml Can) 237 ml PO BID [facility] Last Admin: 02/25/25 09:00 Dose: Not Given Ondansetron HCl (Ondansetron 4 Mg/2 Ml Vial) 4 mg IV Q6HP PRN PRN Reason: NAUSEA / VOMITING Senna (Senosides 8.6 Mg Tab) 8.6 mg PO BID [facility] Last Admin: 02/25/25 09:00 Dose: Not Given Sodium Chloride (Sodium Chloride 0.9% 10ml Inj) 10 ml IV UD PRN PRN Reason: Diluant Last Admin: 02/12/25 10:57 Dose: 10 ml Sterile Water (Water For Inj,Sterile 10 Ml) 2 ml IV Q12HR [facility] Last Admin: 02/24/25 21:00 Dose: Not Given Thiamine HCl (Thiamine 200 Mg/2 Ml Inj) 100 mg IVP DAILY [facility] Last Admin: 02/25/25 09:00 Dose: 100 mg Microbiology Results 02/12/25 03:52 Clean Catch Urine [place] Count - Final No growth. 02/12/25 03:52 Clean Catch Urine - Final No growth. 02/12/25 03:07 Blood - Blood Aerobic Blood Culture - Final No growth in 5 days. 02/12/25 03:07 Blood - Blood Anaerobic Blood Culture - Final Assessment/ Plan: Nephrology No dyspnea No chest pain Limited IH/ ROS due to AMS Vitals, medications, blood work and imaging reviewed in the chart NAD. MMM. NCAT. Normal Respiratory Effort. S1S2. ND Abd. No C/C/E. No rash. Awake. Normal speech. Stage II MIKE in the setting of hypovolemia CKD IIIb -No NSAIDs -Continue IVF Hypernatremia -Continue D5W Hypokalemia -Replete potassium prn HTN with CKD AFib -Continue Metoprolol -Cardiology following Septic Shock MSSA Bacteremia -Continue Abx Hypoalbuminemia Severe Protein Malnutrition -IV Albumin prn -Continue TPN Hypocomlementemia Anemia in chronic illness Thrombocytopenia -Monitor CBC Acute Encephalopathy -Continue supportive care Hospitalist note reviewed
--- NOTE | 2025-02-25 22:03 | PN ---
Subjective: The patient is lying in bed. No new acute event. Chart reviewed. Objective: Vital Signs: Reviewed. Temperature 97, pulse 71, respirations 20, blood pressure 128/60 . Lungs: Basal crackles. Heart: S1, S2. Regular. Abdomen: Soft, nontender. Bowel sounds present. Extremities: Trace edema. Laboratory Data: WBC 7.4, hemoglobin 6.6. The patient is being transfused today. Platelets are 79. Chemistry shows BUN of 34, creatinine 1.1. Albumin level 1.7. Blood culture from 02/12 shows Stap h aureus. The patient is currently on TPN and Rocephin. Assessment And Plan: 1. Staphylococcus aureus bacteremia, currently on Rocephin, to complete 2 weeks of antibiotic. 2. Severe protein-calorie malnourishment. 3. Pyuria. 4. Bilateral pneumonitis. 5. Chronic obstructive pulmonary disease. 6. Congestive heart failure. 7. Thrombocytopenia. Continue supportive care. We will follow the patient as needed. NF/MODL Voice ID: [id number] Report ID: [id number]
[2025-02-26 05:27] LABS: Absolute Eosinophils 0.2 K/uL (0-0.5); Absolute Lymphocytes (CBC) 0.9 K/uL (0.7-4.9); Absolute Monocytes 0.7 K/uL (0.1-1.3); Absolute Neutrophil 5.2 K/uL (1.8-8.0); Basophils % 0.4 % (0-1.3); Eosinophils % 2.4 % (0-4.4); Hematocrit 23.4 % (36.0-45.0); Hemoglobin 8.1 g/dL (12.0-15.0); Lymphocytes % 13.1 % (15.3-44.8); MCH 31.1 pg (27.0-35.0); MCHC 34.7 g/dL (32.0-36.0); MCV 89.8 fL (80-100); MPV 11.8 fL (7.6-11.3); Monocytes % 9.5 % (3.3-12.3); Neutrophils % 74.6 % (41.7-73.7); Platelets 88 thou/uL (152-406); Red Cell Distribution Width 17.4 % (12.1-15.2)
[2025-02-26 05:44] VITALS: BMI 24.2
[2025-02-26 06:00] LABS: Anion Gap 9.1 mEq/L (5.0-15.0); Potassium 4.1 mEq/L (3.5-5.1)
--- NOTE | 2025-02-26 14:44 | RAD REPORT ---
EXAMINATION: Abdomen Single View VIEWS: One view CLINICAL INDICATION: Female, 79 years old. dobhoff placement COMPARISON: Yesterday IMPRESSION: Weighted feeding tube tip in the distal stomach. Right femoral approach vascular line. The bowel gas pattern is nonobstructive. Left pleural effusion.
--- NOTE | 2025-02-26 15:06 | P.PN ---
Date of Service: 02/26/25 Subjective: Patient is lying in bed. No new acute event. Pt appears more alert and responsive today but still fatigue Objective: Temp Pulse Resp BP Pulse Ox 98.1 F 70 18 132/63 96 02/26/25 12:00 02/26/25 12:00 02/26/25 12:00 02/26/25 12:00 02/26/25 12:00 neuro: AOx 1-2 Lungs: mild bibasilar crackles Heart: S1, S2. Regular. Abdomen: Soft, nontender. Bowel sounds present. Extremities: Trace edema. Skin: sacrum DTI Laboratory Data: WBC 7, hemoglobin 8.1, platelets are 88. BUN 29, creatinine 1.04 urine culture 02/12/25 no growth blood culture 02/12/25 shows staph aureus 02/13/25 no growth in 5 days Assessment 1. Staphylococcus aureus Bacteremia 2. Bilateral pneumonitis. 3. Pyuria 4. Chronic obstructive pulmonary disease. 5. Congestive heart failure. 6. Anemia of chronic disease. 7. Thrombocytopenia. 8. Severe protein-calories malnourishment Planning continue rocephin for a total of two weeks cefepime dc due to thrombocytopenia monitor wbc and fever trend case round and in agreement with Dr milligan
--- NOTE | 2025-02-26 18:17 | P.PN ---
Subjective Date of Service: 02/26/25 Chief Complaint: Altered mental status Patient is more awake today and interactive. She has poor oral intake No recorded fever. No reported agitation. No issues overnight. Physical Examination - Vital Signs Temperature: 98.0 F Blood Pressure: 188/77 Pulse: 75 Respirations: 18 Pulse Ox (%): 96 - Studies Medications List Reviewed: Yes Assessment And Plan - Plan Physical examination General: Alert and oriented x 1, NAD, Neck: Supple, no elevated JVD Heart: Heart sounds 1 and 2 normal, regular rhythm, normal rate, no pedal edema Lungs: Mild bibasilar crackles, adequate breath sounds bilaterally, no rhonchi. Abdomen: Soft, nondistended, nontender, normal bowel sounds. Extremities: No tenderness, no deformity Skin: Normal skin turgor, no rash, no nodules or ulcers. Neuro: No focal motor deficit. Responds verbally. Psychiatry: No agitation. Diagnosis Acute encephalopathy Acute cystitis without hematuria Septic shock Gram-positive cocci bacteremia Hypernatremia Acute kidney injury Lactic acidosis Cholelithiasis Chronic atrial fibrillation Plan: Acute metabolic encephalopathy Acute cystitis without hematuria Pneumonia Sepsis/septic shock Gram-positive cocci bacteremia Blood culture: 1 blood culture bottle grew Staph aureus. Repeat blood culture showed no growth Urine culture showed no growth. Patient has been on IV vancomycin. IV cefepime replaced with Rocephin due to thrombocytopenia. Infectious disease consulted Status post D5 half-normal saline due to poor oral intake. 02/25 Infectious disease input appreciated. Patient slated for 2 weeks of IV antibiotics. Patient has been n.p.o. for several days TPN started on 02/22. Patient easily awakes to verbal but keeps her eyes closed and mouth open. Dobhoff for NG tube feeding and medications ordered today. Patient completed 10 days of antibiotics. Infectious disease Dr. Jarvis recommended restarting Rocephin for another 2 weeks. 02/26 Patient has been on TPN. Remove right femoral central venous catheter Insert midline. Patient failed swallow reevaluation. According to speech therapy, she becomes hypoxic with just a swallowing effort. Patient was complaining that she feels like choking so a swallow test was aborted. Start NG tube feeding and taper off TPN. Start oral medication administration via NG tube. Patient slated for 2 more weeks of IV Rocephin per infectious disease recommendation. Acute hypoxic respiratory failure Chronic diastolic CHF COPD, chronic Emphysema rapid response called overnight ~4:30 am. Patient found with oxygen off satting in the 70s. oxygen improved a few minutes after being placed back on oxygen. repeat CXR (02/18): bilateral pleural effusions with diffuse interstitial changes. Pulmonary Dr. Sorto is following continue budesonide, duonebs Supplemental oxygen as needed. Continue bronchodilators. Brovana added per pulm 02/26 Speech therapy noted patient becomes hypoxic with chest the effort of swallowing. Repeat chest x-ray (02/25) shows persistent bilateral infiltrates. Patient has underlying severe emphysema. Continue antibiotic Continue budesonide, Brovana Titrate oxygen. High risk of volume overload. Start NG tube feeding and taper off TPN IV Lasix as needed. Acute kidney injury Hypernatremia Metabolic acidosis Patient recent creatinine baseline is unknown. Nephrology is following. Status post oral sodium bicarb replacement for metabolic acidosis. Metabolic acidosis resolved. Status post D5 half NS. MIKE significantly improved, hypernatremia resolved. Patient started on TPN. Monitor renal function. 02/26 MIKE significantly improved. Nephrology is following. NG tube feeding. Continue to monitor renal function A-fib with RVR Chronic diastolic heart failure Cardiology is following Patient was paced on amiodarone drip, transitioned to amiodarone drip Cautious IV fluid. On Eliquis. Patient's blood pressure significantly improved. Cardiology Dr. Park added metoprolol. Patient is currently not tolerating p.o. so oral amiodarone, metoprolol and Eliquis have been on hold. Dobhoff to be inserted today to resume oral medications including Eliquis Monitor BP. 02/26 Give oral medications via NG tube. Asymptomatic cholelithiasis Outpatient follow-up History of anxiety and depression Schizophrenia Dementia Continue home medications via Dobbhoff. Bilateral renal cyst Outpatient follow-up recommended. DVT prophylaxis:Eliquis. Advanced directive: DNR.
--- NOTE | 2025-02-26 21:01 | P.PN ---
Date of Service: 02/26/25 Vital Signs Temp Pulse Resp BP Pulse Ox 98.0 F 75 18 188/77 H 96 02/26/25 18:22 02/26/25 18:22 02/26/25 18:22 02/26/25 18:22 02/26/25 18:22 Medications Acetaminophen (Acetaminophen 325 Mg Tablet) 650 mg PO Q6H PRN PRN Reason: Pain scale 2-4 (Mild) Last Admin: 02/18/25 17:25 Dose: 650 mg Albuterol Sulfate (Albuterol 2.5 Mg/3 Ml Neb Ximena) 2.5 mg NEB [id number] PRN PRN Reason: SHORTNESS OF BREATH Last Admin: 02/25/25 20:00 Dose: 2.5 mg Amiodarone HCl (Amiodarone Hcl 200 Mg Tab) 200 mg PO BID [facility] Last Admin: 02/17/25 09:30 Dose: 200 mg Apixaban (Apixaban 2.5 Mg Tablet) 2.5 mg PO BID [facility] Last Admin: 02/17/25 09:31 Dose: 2.5 mg Arformoterol Tartrate (Arformoterol Tartrate 15 Mcg/2 Ml Vial.Neb) 15 mcg NEB BIDRESP [facility] Last Admin: 02/26/25 08:19 Dose: 15 mcg Budesonide (Budesonide 0.5 Mg/2 Ml Neb) 0.5 mg NEB BIDRESP [facility] Last Admin: 02/26/25 08:14 Dose: 0.5 mg Calcium Carbonate (Calcium Carb 500mg/Vit D 200 Iu Tab) 1 tab PO DAILY [facility] Last Admin: 02/26/25 10:00 Dose: 1 tab Dextrose/Water (Dextrose In Water (1-Liter)) 1,000 mls @ 50 mls/hr IV .Q20H [facility] Last Admin: 02/25/25 15:56 Dose: 1,000 mls Multivitamins 10 ml/ Amino Acids/Electrolytes/ Fat Emulsion Intravenous 2,260 mls @ 70 mls/hr IV M,W,F [facility] Last Admin: 02/26/25 18:30 Dose: 2,260 mls Ceftriaxone Sodium 1,000 mg/ (Sodium Chloride) 50 mls @ 100 mls/hr IVPB DAILY [facility]; Protocol Last Admin: 02/26/25 10:00 Dose: 50 mls Amino Acids/Electrolytes (Clinimix E 5%-20% Solution) 2,000 mls @ 35 mls/hr IV SuTuThSa@1700 [facility] L-Arginine/L-Glutamine/HMB (Kb Packet) 1 pkt PO BID [facility] Last Admin: 02/26/25 09:00 Dose: 1 pkt Metoprolol Tartrate (Metoprolol Tar 25 Mg Tab) 25 mg PO BID 6AM 6PM [facility] Last Admin: 02/26/25 18:00 Dose: Not Given Nutritional Formula (Ensure Enlive 237 Ml Can) 237 ml PO BID [facility] Last Admin: 02/26/25 09:00 Dose: Not Given Ondansetron HCl (Ondansetron 4 Mg/2 Ml Vial) 4 mg IV Q6HP PRN PRN Reason: NAUSEA / VOMITING Senna (Senosides 8.6 Mg Tab) 8.6 mg PO BID [facility] Last Admin: 02/26/25 11:09 Dose: 8.6 mg Sodium Chloride (Sodium Chloride 0.9% 10ml Inj) 10 ml IV UD PRN PRN Reason: Diluant Last Admin: 02/12/25 10:57 Dose: 10 ml Sterile Water (Water For Inj,Sterile 10 Ml) 2 ml IV Q12HR [facility] Last Admin: 02/26/25 09:00 Dose: Not Given Thiamine HCl (Thiamine 200 Mg/2 Ml Inj) 100 mg IVP DAILY [facility] Last Admin: 02/26/25 11:08 Dose: 100 mg Microbiology Results 02/12/25 03:52 Clean Catch Urine [place] Count - Final No growth. 02/12/25 03:52 Clean Catch Urine - Final No growth. 02/12/25 03:07 Blood - Blood Aerobic Blood Culture - Final No growth in 5 days. 02/12/25 03:07 Blood - Blood Anaerobic Blood Culture - Final Assessment/ Plan: Nephrology No dyspnea No chest pain Limited IH/ ROS due to AMS Vitals, medications, blood work and imaging reviewed in the chart NAD. MMM. NCAT. Normal Respiratory Effort. S1S2. ND Abd. No C/C/E. No rash. Awake. Normal speech. Stage II MIKE in the setting of hypovolemia CKD IIIb -No NSAIDs -Continue IVF Hypernatremia -Continue D5W Hypokalemia -Replete potassium prn HTN with CKD AFib -Continue Metoprolol -Cardiology following Septic Shock MSSA Bacteremia -Continue Abx Hypoalbuminemia Severe Protein Malnutrition -IV Albumin prn -Continue TPN Anemia in chronic illness Thrombocytopenia -Monitor CBC Acute Encephalopathy -Continue supportive care Hospitalist note reviewed
[2025-02-27 06:06] LABS: Absolute Eosinophils 0.1 K/uL (0-0.5); Absolute Lymphocytes (CBC) 0.9 K/uL (0.7-4.9); Absolute Monocytes 0.7 K/uL (0.1-1.3); Absolute Neutrophil 4.7 K/uL (1.8-8.0); Basophils % 0.7 % (0-1.3); Eosinophils % 2.2 % (0-4.4); Hematocrit 25.1 % (36.0-45.0); Hemoglobin 8.4 g/dL (12.0-15.0); Lymphocytes % 14.3 % (15.3-44.8); MCH 30.3 pg (27.0-35.0); MCHC 33.6 g/dL (32.0-36.0); MCV 90.3 fL (80-100); MPV 11.2 fL (7.6-11.3); Monocytes % 10.2 % (3.3-12.3); Neutrophils % 72.6 % (41.7-73.7); Platelets 95 thou/uL (152-406); RBC Red Blood Cell Count 2.78 M/uL (3.86-4.86); Red Cell Distribution Width 17.7 % (12.1-15.2)
[2025-02-27 06:21] LABS: Anion Gap 8.3 mEq/L (5.0-15.0); Potassium 4.3 mEq/L (3.5-5.1)
[2025-02-27] MEDS ORDERED: JEVITY 1.2 CAL LIQUID 1,000 ML BOT RTH SCH (09:00)
--- NOTE | 2025-02-27 14:37 | P.PN ---
Subjective Date of Service: 02/27/25 Chief Complaint: Altered mental status Patient is more awake and interactive but confused. Dobbhoff is in place. Patient failed swallow evaluation yesterday. No recorded fever. No reported agitation. Physical Examination - Vital Signs Temperature: 98.2 F Blood Pressure: 156/69 Pulse: 70 Respirations: 16 Pulse Ox (%): 96 - Studies Medications List Reviewed: Yes Assessment And Plan - Plan Physical examination General: Alert and oriented x 1, NAD, Neck: Supple, no elevated JVD Heart: Heart sounds 1 and 2 normal, regular rhythm, normal rate, no pedal edema Lungs: Mild bibasilar crackles, adequate breath sounds bilaterally, no rhonchi. Abdomen: Soft, nondistended, nontender, normal bowel sounds. Extremities: No tenderness, no deformity Skin: Normal skin turgor, no rash, no nodules or ulcers. Neuro: No focal motor deficit. Responds verbally. Psychiatry: No agitation. Diagnosis Acute encephalopathy Acute cystitis without hematuria Septic shock Gram-positive cocci bacteremia Hypernatremia Acute kidney injury Lactic acidosis Cholelithiasis Chronic atrial fibrillation Bilateral renal cyst Plan: Acute metabolic encephalopathy Acute cystitis without hematuria Pneumonia Sepsis/septic shock Gram-positive cocci bacteremia Blood culture: 1 blood culture bottle grew Staph aureus. Repeat blood culture showed no growth Urine culture showed no growth. Patient has been on IV vancomycin. IV cefepime replaced with Rocephin due to thrombocytopenia. Infectious disease consulted Status post D5 half-normal saline due to poor oral intake. 02/25 Infectious disease input appreciated. Patient slated for 2 weeks of IV antibiotics. Patient has been n.p.o. for several days TPN started on 02/22. Patient easily awakes to verbal but keeps her eyes closed and mouth open. Dobhoff for NG tube feeding and medications ordered today. Patient completed 10 days of antibiotics. Infectious disease Dr. Jarvis recommended restarting Rocephin for another 2 weeks. 02/26 Patient has been on TPN. Remove right femoral central venous catheter Insert midline. Patient failed swallow reevaluation. According to speech therapy, she becomes hypoxic with just a swallowing effort. Patient was complaining that she feels like choking so a swallow test was aborted. Start NG tube feeding and taper off TPN. Start oral medication administration via NG tube. Patient slated for 2 more weeks of IV Rocephin per infectious disease recommendation. 02/27 Mental status is somewhat improved. Patient remain on IV Rocephin Patient failed swallow evaluation. NG tube feeding started Weaning off TPN. Patient receiving IV Rocephin. Acute hypoxic respiratory failure Chronic diastolic CHF COPD, chronic Emphysema rapid response called overnight ~4:30 am. Patient found with oxygen off satting in the 70s. oxygen improved a few minutes after being placed back on oxygen. repeat CXR (02/18): bilateral pleural effusions with diffuse interstitial changes. Pulmonary Dr. Sorto is following continue budesonide, duonebs Supplemental oxygen as needed. Continue bronchodilators. Brovana added per pulm 02/26 Speech therapy noted patient becomes hypoxic with chest the effort of swallowing. Repeat chest x-ray (02/25) shows persistent bilateral infiltrates. Patient has underlying severe emphysema. Continue antibiotic Continue budesonide, Brovana Titrate oxygen. High risk of volume overload. Start NG tube feeding and taper off TPN IV Lasix as needed. 02/27 Patient has been tolerating 2 to 3 L oxygen by nasal cannula. Continue current bronchodilators. IV Lasix as needed. Acute kidney injury Hypernatremia Metabolic acidosis Patient recent creatinine baseline is unknown. Nephrology is following. Status post oral sodium bicarb replacement for metabolic acidosis. Metabolic acidosis resolved. Status post D5 half NS. MIKE significantly improved, hypernatremia resolved. Patient started on TPN. Monitor renal function. 02/26 MIKE significantly improved. Nephrology is following. NG tube feeding. Continue to monitor renal function 02/27 MIKE resolved. Weaning off TPN as we continue tube feeding. A-fib with RVR Chronic diastolic heart failure Cardiology is following Patient was paced on amiodarone drip, transitioned to amiodarone drip Cautious IV fluid. On Eliquis. Patient's blood pressure significantly improved. Cardiology Dr. Park added metoprolol. Patient is currently not tolerating p.o. so oral amiodarone, metoprolol and Eliquis have been on hold. Dobhoff to be inserted today to resume oral medications including Eliquis Monitor BP. 02/26 Give oral medications via NG tube. 02/27 Heart rate is controlled. Continue amiodarone, metoprolol and Eliquis via NG tube. Asymptomatic cholelithiasis History of anxiety and depression Schizophrenia Dementia Home medications via Dobbhoff. Goals of care I spoke to patient's MPOA Ms. Sutherland regarding overall goals of care and the need for PEG tube. Overall patient has only had marginal response to treatment after 2 weeks of hospital stay. Ms. Sutherland declined PEG tube stating that decision is in line with patient wishes and opted for hospice. Social service consulted for hospice evaluation and disposition. DVT prophylaxis:Eliquis. Advanced directive: DNR.
[2025-02-27] MEDS: AA 5%/D20W/ELECTROLYTES-TPN 2,000 ML IV SCH (17:08)
--- NOTE | 2025-02-27 21:08 | P.PN ---
Date of Service: 02/27/25 Vital Signs Temp Pulse Resp BP Pulse Ox 98.6 F 61 18 137/61 98 02/27/25 16:00 02/27/25 16:00 02/27/25 16:00 02/27/25 16:00 02/27/25 16:00 Medications Acetaminophen (Acetaminophen 325 Mg Tablet) 650 mg PO Q6H PRN PRN Reason: Pain scale 2-4 (Mild) Last Admin: 02/18/25 17:25 Dose: 650 mg Albuterol Sulfate (Albuterol 2.5 Mg/3 Ml Neb Ximena) 2.5 mg NEB [id number] PRN PRN Reason: SHORTNESS OF BREATH Last Admin: 02/25/25 20:00 Dose: 2.5 mg Amiodarone HCl (Amiodarone Hcl 200 Mg Tab) 200 mg PO BID [facility] Last Admin: 02/17/25 09:30 Dose: 200 mg Apixaban (Apixaban 2.5 Mg Tablet) 2.5 mg PO BID [facility] Last Admin: 02/17/25 09:31 Dose: 2.5 mg Arformoterol Tartrate (Arformoterol Tartrate 15 Mcg/2 Ml Vial.Neb) 15 mcg NEB BIDRESP [facility] Last Admin: 02/27/25 08:21 Dose: 15 mcg Budesonide (Budesonide 0.5 Mg/2 Ml Neb) 0.5 mg NEB BIDRESP [facility] Last Admin: 02/27/25 08:21 Dose: 0.5 mg Calcium Carbonate (Calcium Carb 500mg/Vit D 200 Iu Tab) 1 tab PO DAILY [facility] Last Admin: 02/27/25 10:14 Dose: 1 tab Multivitamins 10 ml/ Amino Acids/Electrolytes/ Fat Emulsion Intravenous 2,260 mls @ 70 mls/hr IV M,W,F [facility] Last Admin: 02/26/25 18:30 Dose: 2,260 mls Ceftriaxone Sodium 1,000 mg/ (Sodium Chloride) 50 mls @ 100 mls/hr IVPB DAILY [facility]; Protocol Last Admin: 02/27/25 10:13 Dose: 50 mls Amino Acids/Electrolytes (Clinimix E 5%-20% Solution) 2,000 mls @ 35 mls/hr IV SuTuThSa@1700 [facility] Last Admin: 02/27/25 17:08 Dose: 2,000 mls Metoprolol Tartrate (Metoprolol Tar 25 Mg Tab) 25 mg PO BID 6AM 6PM [facility] Last Admin: 02/27/25 17:08 Dose: 25 mg Ondansetron HCl (Ondansetron 4 Mg/2 Ml Vial) 4 mg IV Q6HP PRN PRN Reason: NAUSEA / VOMITING Senna (Senosides 8.6 Mg Tab) 8.6 mg PO BID [facility] Last Admin: 02/27/25 10:14 Dose: 8.6 mg Sodium Chloride (Sodium Chloride 0.9% 10ml Inj) 10 ml IV UD PRN PRN Reason: Diluant Last Admin: 02/12/25 10:57 Dose: 10 ml Thiamine HCl (Thiamine 200 Mg/2 Ml Inj) 100 mg IVP DAILY [facility] Last Admin: 02/27/25 10:13 Dose: 100 mg Microbiology Results 02/12/25 03:52 Clean Catch Urine [place] Count - Final No growth. 02/12/25 03:52 Clean Catch Urine - Final No growth. 02/12/25 03:07 Blood - Blood Aerobic Blood Culture - Final No growth in 5 days. 02/12/25 03:07 Blood - Blood Anaerobic Blood Culture - Final Assessment/ Plan: Nephrology No dyspnea No chest pain Limited IH/ ROS due to AMS Vitals, medications, blood work and imaging reviewed in the chart NAD. MMM. NCAT. Normal Respiratory Effort. S1S2. ND Abd. No C/C/E. No rash. Awake. Normal speech. [place] med Stage II MIKE in the setting of hypovolemia CKD IIIb -No NSAIDs Hypernatremia -Discontinue D5W Hypokalemia -Replete potassium prn HTN with CKD AFib -Continue Metoprolol -Cardiology following Septic Shock MSSA Bacteremia -Continue Abx Hypoalbuminemia Severe Protein Malnutrition -IV Albumin prn -Continue TPN Anemia in chronic illness Thrombocytopenia -Monitor CBC Acute Encephalopathy -Continue supportive care Hospitalist note reviewed Case reviewed with Dr. Carbajal
--- NOTE | 2025-02-27 23:00 | PN ---
Subjective: The patient is lying in bed. No new acute event. Chart reviewed. Dobbhoff tube is in place. [place] catheter is in place. Currently on Rocephin. Objective: Vital Signs: Temperature 98, pulse 61, respirations 18, blood pressure 137/69. Lungs: Basal crackles. Heart: S1, S2. Regular. Abdomen: Soft, nontender. Bowel sounds present. Extremities: No edema. Laboratory Data: WBC 6.4, hemoglobin 8.4, platelets 95. BUN of 27, creatinine 0.9. Assessment And Plan: 1. Bacteremia secondary to methicillin-susceptible Staphylococcus aureus pneumonitis. 2. History of chronic obstructive pulmonary disease and emphysema. 3. Anemia of chronic disease. 4. Thrombocytopenia. 5. Bacteriuria and urinary tract infection. 6. Total course of antibiotic 2 weeks. We will follow the patient as needed. TIFFANY/MODL Voice ID: [id number] Report ID: [id number]
[2025-02-28 10:32] VITALS: O2SAT 99
[2025-02-28 13:13] VITALS: BP 153/67; TEMP 98
--- NOTE | 2025-02-28 16:01 | P.PN ---
Subjective Date of Service: 02/28/25 Chief Complaint: Altered mental status Patient is more awake and interactive but remain confused. Patient removed the Dobbhoff. No reported agitation. Physical Examination - Vital Signs Temperature: 98 F Blood Pressure: 153/67 Pulse: 66 Respirations: 17 Pulse Ox (%): 99 - Studies Medications List Reviewed: Yes Assessment And Plan - Plan Physical examination General: Alert and oriented x 1, NAD, Heart: Heart sounds 1 and 2 normal, regular rhythm, normal rate, no pedal edema Lungs: Adequate breath sounds bilaterally, no rhonchi. Abdomen: Soft, nondistended, nontender, normal bowel sounds. Extremities: No tenderness, no deformity Skin: Normal skin turgor, no rash, no nodules or ulcers. Neuro: No focal motor deficit. Responds verbally. Psychiatry: No agitation. Diagnosis Acute encephalopathy Acute cystitis without hematuria Septic shock Staff aureus bacteremia Hypernatremia Acute kidney injury Lactic acidosis Cholelithiasis Chronic atrial fibrillation Bilateral renal cyst Oropharyngeal dysphagia Plan: Acute metabolic encephalopathy Acute cystitis without hematuria Pneumonia Sepsis/septic shock Staff aureus bacteremia Blood culture: 1 blood culture bottle grew Staph aureus. Repeat blood culture showed no growth Urine culture showed no growth. Patient has been on IV vancomycin. IV cefepime replaced with Rocephin due to thrombocytopenia. Infectious disease consulted Status post D5 half-normal saline due to poor oral intake. 02/25 Infectious disease input appreciated. Patient slated for 2 weeks of IV antibio tics. Patient has been n.p.o. for several days TPN started on 02/22. Patient easily awakes to verbal but keeps her eyes closed and mouth open. Dobhoff for NG tube feeding and medications ordered today. Patient completed 10 days of antibiotics. Infectious disease Dr. Jarvis recommended restarting Rocephin for another 2 weeks. 02/26 Patient has been on TPN. Remove right femoral central venous catheter Insert midline. Patient failed swallow reevaluation. According to speech therapy, she becomes hypoxic with just a swallowing effort. Patient was complaining that she feels like choking so a swallow test was aborted. Start NG tube feeding and taper off TPN. Start oral medication administration via NG tube. Patient slated for 2 more weeks of IV Rocephin per infectious disease recommendation. 02/27 Mental status is somewhat improved. Patient remain on IV Rocephin Patient failed swallow evaluation. NG tube feeding started Weaning off TPN. Patient receiving IV Rocephin. 02/28 Mental status unchanged from yesterday. Patient removed the dobhoff. Nursing order placed to remove central line. Patient's MPOA opted for hospice Social service consulted for hospice arrangements. Patient to be evaluated for general inpatient hospice. Discontinue TPN No escalation of care. Acute hypoxic respiratory failure Chronic diastolic CHF COPD, chronic Emphysema rapid response called overnight ~4:30 am. Patient found with oxygen off satting in the 70s. oxygen improved a few minutes after being placed back on oxygen. repeat CXR (02/18): bilateral pleural effusions with diffuse interstitial changes. Pulmonary Dr. Sorto is following continue budesonide, duonebs Supplemental oxygen as needed. Continue bronchodilators. Brovana added per pulm 02/26 Speech therapy noted patient becomes hypoxic with chest the effort of swallowing. Repeat chest x-ray (02/25) shows persistent bilateral infiltrates. Patient has underlying severe emphysema. Continue antibiotic Continue budesonide, Brovana Titrate oxygen. High risk of volume overload. Start NG tube feeding and taper off TPN IV Lasix as needed. 02/27 Patient has been tolerating 2 to 3 L oxygen by nasal cannula. Continue current bronchodilators. 02/28 Patient desaturates with the slightest exertion, even swallowing according to speech therapy report. MPOA has opted for hospice. Maintain patient on 2 to 3 L of oxygen by nasal cannula. Acute kidney injury Hypernatremia Metabolic acidosis Patient recent creatinine baseline is unknown. Nephrology is following. Status post oral sodium bicarb replacement for metabolic acidosis. Metabolic acidosis resolved. Status post D5 half NS. MIKE significantly improved, hypernatremia resolved. Patient started on TPN. Monitor renal function. 02/26 MIKE significantly improved. Nephrology is following. NG tube feeding. Continue to monitor renal function 02/27 MIKE resolved. Weaning off TPN as we continue tube feeding. 02/28 MIKE resolved. Renal function is stable A-fib with RVR Chronic diastolic heart failure Cardiology is following Patient was paced on amiodarone drip, transitioned to amiodarone drip Cautious IV fluid. On Eliquis. Patient's blood pressure significantly improved. Cardiology Dr. Park added metoprolol. Patient is currently not tolerating p.o. so oral amiodarone, metoprolol and Eliquis have been on hold. Dobhoff to be inserted today to resume oral medications including Eliquis Monitor BP. 02/26 Give oral medications via NG tube. 02/27 Heart rate is controlled. Continue amiodarone, metoprolol and Eliquis via NG tube. 02/28 Heart rate is controlled. Patient pulled out her Dobbhoff so we cannot give any oral medication given dysphagia. Patient is being evaluated for hospice. Asymptomatic cholelithiasis History of anxiety and depression Schizophrenia Dementia Patient is being evaluated for hospice. DVT prophylaxis:Eliquis. Advanced directive: DNR.
--- NOTE | 2025-02-28 18:53 | P.DS ---
Admission Date: 02/12/25 Discharge Date: 02/28/25 Disposition: HOSPICE-MEDICAL FACILITY Reason for Admission: Altered mental status Brief History of Present Illness: 79-year-old shelter resident presented with altered mental status and sepsis. She was saying "no" to every question, confused, no reliable history. History obtained from the medical records. Evaluation in the ED showed hypernatremia, UA consistent with UTI, patient met criteria for sepsis. Patient had low blood pressure and was diagnosed with septic shock. She was admitted to the ICU for further management. Hospital Course: Diagnosis Acute encephalopathy Acute cystitis without hematuria Septic shock Staff aureus bacteremia Hypernatremia Acute kidney injury Lactic acidosis Cholelithiasis Chronic atrial fibrillation Bilateral renal cyst Oropharyngeal dysphagia Patient admitted and the following medical problems addressed Plan: Acute metabolic encephalopathy Acute cystitis without hematuria Pneumonia Sepsis/septic shock Staff aureus bacteremia Blood culture: 1 blood culture bottle grew Staph aureus. Repeat blood culture showed no growth Urine culture showed no growth. Patient was treated with IV vancomycin and cefepime. IV cefepime later changed to IV Rocephin Infectious disease evaluated patient and assisted with management. Patient was on antibiotic for several days. Patient overall did not respond to aggressive antibiotic therapy. She remains lethargic, noted to have dysphagia and could not eat for several days. She was treated with TPN however patient developed pulmonary edema and pleural effusion. Of note patient also has severe pulmonary emphysema and has been oxygen dependent throughout her hospital stay. Patient developed hypoxia even with attempt at swallowing Goals of care discussed with MPOA and discussed PEG tube for feeding. MPOA stated patient does not want artificial feeding according to patient expressed wishes and opted for hospice. Hospice consulted and patient accepted to inpatient hospice. Vital Signs/Physical Exam: Temp Pulse Resp BP Pulse Ox 98 F 66 17 153/67 H 99 02/28/25 16:12 02/28/25 16:12 02/28/25 16:12 02/28/25 16:12 02/28/25 16:12 Laboratory Data at Discharge: WBC 6.40 thou/uL (4.3-10.9) 02/27/25 05:55 Hgb 8.4 g/dL (12.0-15.0) L 02/27/25 05:55 Hct 25.1 % (36.0-45.0) L 02/27/25 05:55 Plt Count 95 thou/uL (152-406) L 02/27/25 05:55 PT 30.3 SECONDS (10-13.0) H 02/13/25 08:09 INR 2.79 02/13/25 08:09 APTT Cancelled 02/14/25 19:00 Sodium 135 mEq/L (136-145) L 02/27/25 05:55 Potassium 4.3 mEq/L (3.5-5.1) 02/27/25 05:55 BUN 27 mg/dL (7-18) H 02/27/25 05:55 Creatinine 0.95 mg/dL (0.55-1.02) 02/27/25 05:55 Glucose 127 mg/dL (74-106) H 02/27/25 05:55 Uric Acid 10.0 mg/dL (2.6-6.0) H 02/13/25 05:21 Phosphorus 4.1 mg/dL (2.5-4.9) 02/25/25 04:53 Magnesium 2.1 mg/dL (1.6-2.4) 02/25/25 04:53 Total Bilirubin 0.4 mg/dL (0.2-1.0) 02/24/25 04:50 AST 20 U/L (15-37) 02/24/25 04:50 ALT 24 U/L (13-56) 02/24/25 04:50 Alkaline Phosphatase 92 U/L (45-117) 02/24/25 04:50 Home Medications: Budesonide [Pulmicort*] 2 puff IH BID 02/14/25 Followup: Christine Jones MD [Primary Care Provider] - Time spent managing pt's care (in minutes): 40
--- NOTE | 2025-02-28 21:33 | P.PN ---
Date of Service: 02/28/25 Subjective: Patient is lying in bed. Eyes closed. No new acute event. Pt appears fatigue Objective: Temp Pulse Resp BP Pulse Ox 98 F 66 17 153/67 H 99 02/28/25 16:12 02/28/25 16:12 02/28/25 16:12 02/28/25 16:12 02/28/25 16:12 neuro: AOx 1-2. not a reliable historian Lungs: mild bibasilar crackles Heart: S1, S2. Regular. Abdomen: Soft, nontender. Bowel sounds present. Extremities: Trace edema Psychiatry: No agitation. Laboratory Data: WBC 6.4, hemoglobin 8.4, platelets are 95. BUN 27, creatinine 0 .95 urine culture 02/12/25 no growth blood culture 02/12/25 shows staph aureus 02/13/25 no growth in 5 days Assessment 1. Staphylococcus aureus Bacteremia 2. Bilateral pneumonitis. 3. Pyuria 4. Chronic obstructive pulmonary disease. 5. Congestive heart failure. 6. Anemia of chronic disease. 7. Thrombocytopenia. 8. Severe protein-calories malnourishment Planning continue rocephin for a total of two weeks . tentative stop date march 10 cefepime dc due to thrombocytopenia monitor wbc and fever trend case round and in agreement with Dr milligan
== END 2025-02-28 20:08 | disposition hospice, inpatient (51) | DRG 871 ==
LOC: ER 01:34 → ERHOLD 08:39 → 3RD-ICU 12:50 → 2ND 02-16 18:53
PROVIDERS: ADMIT Nurse Practitioner; ATTEND Internal Medicine
PROC: 5A0945A Assistance with Respiratory Ventilation, 24-96 Consecutive Hours, High Flow/Velocity Cannula (ICD-10-PCS; 2025-02-12)
PROC: 3E033XZ Introduction of Vasopressor into Peripheral Vein, Percutaneous Approach (ICD-10-PCS; principal; 2025-02-14)
PROC: 3E0336Z Introduction of Nutritional Substance into Peripheral Vein, Percutaneous Approach (ICD-10-PCS; 2025-02-22)
PROC: 4A033R1 Measurement of Arterial Saturation, Peripheral, Percutaneous Approach (ICD-10-PCS; 2025-02-24)
PROC: 0T9B70Z Drainage of Bladder with Drainage Device, Via Natural or Artificial Opening (ICD-10-PCS; 2025-02-24)
PROC: 0DH67UZ Insertion of Feeding Device into Stomach, Via Natural or Artificial Opening (ICD-10-PCS; 2025-02-25)
PROC: 30233N1 Transfusion of Nonautologous Red Blood Cells into Peripheral Vein, Percutaneous Approach (ICD-10-PCS; 2025-02-25)
DX: A41.01 Sepsis due to Methicillin susceptible Staphylococcus aureus (principal); E43 Unspecified severe protein-calorie malnutrition; G93.41 Metabolic encephalopathy; J18.9 Pneumonia, unspecified organism; R65.21 Severe sepsis with septic shock; J96.01 Acute respiratory failure with hypoxia; R57.1 Hypovolemic shock; N17.0 Acute kidney failure with tubular necrosis; I50.33 Acute on chronic diastolic (congestive) heart failure; J44.0 Chronic obstructive pulmonary disease with (acute) lower respiratory infection; E87.0 Hyperosmolality and hypernatremia; N17.9 Acute kidney failure, unspecified; E87.20 Acidosis, unspecified; F03.94 Unspecified dementia, unspecified severity, with anxiety; F03.93 Unspecified dementia, unspecified severity, with mood disturbance; E87.1 Hypo-osmolality and hyponatremia; E87.3 Alkalosis; N30.00 Acute cystitis without hematuria; I48.20 Chronic atrial fibrillation, unspecified; I13.0 Hypertensive heart and chronic kidney disease with heart failure and stage 1 through stage 4 chronic kidney disease, or unspecified chronic kidney disease; N18.32 Chronic kidney disease, stage 3b; D63.1 Anemia in chronic kidney disease; E86.0 Dehydration; E87.6 Hypokalemia; N28.1 Cyst of kidney, acquired; F20.9 Schizophrenia, unspecified; D69.6 Thrombocytopenia, unspecified; J43.9 Emphysema, unspecified; E78.00 Pure hypercholesterolemia, unspecified; E88.09 Other disorders of plasma-protein metabolism, not elsewhere classified; K80.20 Calculus of gallbladder without cholecystitis without obstruction; L89.156 Pressure-induced deep tissue damage of sacral region; R59.9 Enlarged lymph nodes, unspecified; R13.12 Dysphagia, oropharyngeal phase; Z66 Do not resuscitate; Z88.8 Allergy status to other drugs, medicaments and biological substances; Z79.02 Long term (current) use of antithrombotics/antiplatelets; Z79.899 Other long term (current) drug therapy; Z90.710 Acquired absence of both cervix and uterus; Z87.891 Personal history of nicotine dependence; Z68.24 Body mass index [BMI] 24.0-24.9, adult; Z11.52 Encounter for screening for COVID-19
CPT/HCPCS: 36415; 36430; 36556; 36600; 70450; 71045; 71250; 74018; 74176; 74230; 76770; 80048; 80053; 80069; 80076; 80202; 81001; 82550; 82805; 82947; 83520; 83605; 83735; 83880; 83970; 84100; 84443; 84484; 84550; 85025; 85027; 85379; 85610; 85730; 86015; 86021; 86038; 86160; 86200; 86225; 86235; 86430; 86850; 86900; 86901; 86920; 87040; 87077; 87086; 87088; 87186; 87205; 87428; 92526; 92610; 92611; 93005; 93306; 94660; 94668; 94760; 97110; 97161; 97530; 99285; J0282; J0692; J0696; J1630; J1644; J1720; J1938; J2405; J2470; J2543; J3010; J3370; J3411; J3475; J3480; J7030; J7040; J7050; J7060; J7120; J7605; J7613; J7626; J7644; J7799; P9016; P9047

== ENCOUNTER 2025-02-28 19:20 | Inpatient (IN) | payer OTHER ==
--- OUTSIDE RECORDS SUMMARY | 2025-02-28 22:56 | XMS REPORT | Continuity of Care Document ---
Author Name Unknown Address [address] [facility] [address] [place] [address] [facility] [place] Address [address] [facility] [place] [address] Care Team Providers Care Craniologist Name Role Phone Pcp, Patient Does Not Have A Primary Care Physic pal BRADEN_F Attending Clinician Unavailable [id number] Attending Clinician Unavailable 39, HOLTER Attending Clinician Unavailable KAYLEY MEDINA Attending Clinician Fernando albrecht Doctor Unassigned, [place] Attending Clinician U KHOI Bryson Attending Clinician Unavailable Yamil OWENS, Cami Arias Attending Clinician Unavail able BRYAN BACH Attending Clinician Unavailable Paul Salas DO Attending Clinician [phone] Eddie Johnston MD Attending Clinician [phone] Bryan Bach MD Attending Clinician [phone] Bryan Velez MD Attending Clinician [phone] Liudmila Mercer CRNA Attending Clinician [phone] Artis Nunez MD Attending Clinician [phone] BECCA BACA Attending Clinician Nery Colbert RN Attending Clinician Unavailab EDDIE Aguirre Attending Clinician Unavailable Shavon Giraldo MD Attending Clinician [phone] BRADEN_F Admitting Clinician Unavailable EDDIE JOHNSTON Admitting Clinician Unavailable Eddie Johnston MD Admitting Clinician [phone] SHAVON GIRALDO Admitting Clinician Unavailable Payers Payer Name Policy Type Policy Number Effective Date Expirati on Date Source MEDIC[place]: DEVAUGHN [employer] [id number] 2009 00:00:00 BERENICE LINN HMO 7 [id number] 2022 00:00:00 Problems Condition Name Condition Details Condition Category Status Onset Date Resolution Date Last Treatment Date Treating Clinician Comments Source Gastroesop hageal reflux disease Gastroesop hageal Reflux Disease Problem Active 04-13 00:00: 00 [facility] Muscle weakness Muscle Weakness Problem Active 04-13 00:00: 00 [facility] Abnormal gait Abnormal Gait Problem Active 04-13 00:00: 00 [facility] Dysphagia Dysphagia Problem Active 04-13 00:00: 00 [facility] Palliative care Palliative Care Problem Active 04-13 00:00: 00 [facility] Moderate cognitive impairment Moderate Cognitive Impairment Problem Active 04-13 00:00: 00 [facility] Depressive disorder Depressive Disorder Problem Active 04-13 00:00: 00 [facility] Atrial fibrillati on Atrial Fibrillati on Problem Active 04-13 00:00: 00 [facility] Pneumonia Pneumonia Problem Active 04-13 00:00: 00 [facility] Chronic obstructiv e lung disease Chronic Obstructiv e Lung Disease Problem Active 04-13 00:00: 00 [facility] COPD exacerbati on COPD exacerbati on Disease Active 03 00:00: 00 [facility] GIB (gastroint estinal bleeding) GIB (gastroint estinal bleeding) Disease Active 05-06 00:00: 00 [facility] Allergies, Adverse Reactions, Alerts Allergy Name Allergy Type Status Severity Reaction(s) Onset Date Inactive Date Treating Clinician Comments Source NO KNOWN ALLERGIE S Drug Class Active [facility] Social History Social Habit Start Date Stop Date Quantity Comments Source History SDOH Alcohol Std Drinks [facility] History SDOH Alcohol Binge [facility] History SDOH Social Connections Get Together [facility] History SDOH Social Connections Congregation [facility] History SDOH Social Connections Membership [facility] History SDOH Social Connections Meetings [facility] History of tobacco use Cigarette Smoker [facility] History SDOH Alcohol Frequency 2023-02-09 00:00:00 2023-02-09 00:00:00 1 [facility] History SDOH Social Connections Phone 2023-02-09 00:00:00 2023-02-09 00:00:00 5 [facility] History SDOH Social Connections Living 2023-02-09 00:00:00 2023-02-09 00:00:00 98 [facility] History SDOH Physical Activity DPW 2023-02-09 00:00:00 2023-02-09 00:00:00 0 [facility] History SDOH Physical Activity MPS 2023-02-09 00:00:00 2023-02-09 00:00:00 0 [facility] History SDOH Financial 2023-02-09 00:00:00 2023-02-09 00:00:00 5 [facility] History SDOH Food Worry 2023-02-09 00:00:00 2023-02-09 00:00:00 1 [facility] History SDOH Food Scarcity 2023-02-09 00:00:00 2023-02-09 00:00:00 1 [facility] History SDOH Transport Med 2023-02-09 00:00:00 2023-02-09 00:00:00 2 [facility] History SDOH Transport Non-Med 2023-02-09 00:00:00 2023-02-09 00:00:00 2 [facility] History SDOH Housing Unable to Pay 2023-02-09 00:00:00 2023-02-09 00:00:00 2 [facility] History SDOH Housing Places Lived 2023-02-09 00:00:00 2023-02-09 00:00:00 1 [facility] History SDOH Housing Homeless Last Year 2023-02-09 00:00:00 2023-02-09 00:00:00 2 [facility] Alcohol intake 2023-02-03 00:00:00 2023-02-03 00:00:00 Current drinker of alcohol (finding) [facility] Cigarettes smoked current (pack per day) - Reported 2014-05-06 00:00:00 2014-05-06 00:00:00 [facility] Cigarette pack-years 2014-05-06 00:00:00 2014-05-06 00:00:00 [facility] Sex Assigned At 1945 00:00:00 1945 00:00:00 [facility] Smoking Status Start Date Stop Date Source Former Smoker [facility] Smokes tobacco daily 2014-05-06 00:00:00 [facility] Medications Ordered Medication Name Filled Medication Name Start Date Stop Date Current Medication? Ordering Clinician Indication Dosage Frequency Signature (SIG) Comments Components Source aspirin 81 mg chewable tablet 02-17 17:25: 02 Yes [id number] 81mg Take 81 mg by mouth daily. [facility] aspirin chewable tablet 81 mg 02-17 14:00: 00 Yes 81mg 81 mg, Oral, DAILY, First dose on Mon02/17/23 at 0900, Until Discontinu ed, Routine [facility] pantoprazol e (PROTONIX) 40 mg EC tablet 02-17 11:33: 02-17 00:00 :00 No 40mg Take 1 tablet by mouth in the morning. [facility] clopidogrel (PLAVIX) 75 mg tablet 02-17 11:33: 02-17 00:00 :00 No 75mg Take 75 mg by mouth daily. [facility] pravastatin 40 mg tablet 02-17 11:33: 02-17 00:00 :00 No 40mg Take 1 tablet by mouth at bedtime. [facility] sotaloL 80 mg tablet 02-17 11:33: 02-17 00:00 :00 No 80mg Take 1 tablet by mouth every 12 (twelve) hours. [facility] losartan 100 mg tablet 02-17 11:33: 02-17 00:00 :00 No 100mg Take 1 tablet by mouth in the morning. [facility] furosemide (LASIX) 20 mg tablet 02-17 11:33: 02-17 00:00 :00 No 20mg Take 1 tablet by mouth in the morning. [facility] amLODIPine 5 mg tablet 02-17 11:33: 02-17 00:00 :00 No 5mg Take 1 tablet by mouth in the morning. [facility] theophyllin e (GRISELDA-24) 400 mg 24 hr capsule 02-17 11:33: 02-17 00:00 :00 No 400mg Take 1 capsule by mouth in the morning. [facility] apixaban (ELIQUIS) tablet 5 mg 02-17 01:00: 00 Yes 5mg 5 mg, Oral, BID, First dose on Priti 02/16/23 at 1999, Until Discontinu ed, Routine
Indicatio ns: Non-Valvul ar Atrial Fibrillati on [facility] benzonatate 100 mg capsule 02-17 00:00: 00 Yes [id number] 100mg Take 1 capsule by mouth every 8 (eight) hours as needed for Cough. [facility] tiotropium- olodateroL 2.5-2.5 mcg/actuati on Mist 02-17 00:00: 00 Yes [id number] 1{puff} Inhale 1 Puff in the morning. [facility] apixaban 5 mg tablet 02-17 00:00: 00 Yes 5mg Take 1 tablet by mouth in the morning and 1 tablet in the evening. Indication s: atrial fibrillati on [facility] doxycycline hyclate 100 mg capsule 02-17 00:00: 00 Yes 100mg Take 1 capsule by mouth every 12 (twelve) hours. [facility] mirtazapine 15 mg tablet 02-17 00:00: 00 Yes [id number] 30mg Take 2 tablets by mouth at bedtime. [facility] pantoprazol e (PROTONIX) 40 mg EC tablet 02-17 00:00: 00 Yes 40mg Take 1 tablet by mouth in the morning. [facility] doxycycline hyclate (Vibramycin ) capsule 100 mg 02-16 23:00: 00 02-26 22:59 :00 No 100mg 100 mg, Oral, Q12HA2, 20 doses, First dose on Mon02/16/23 at 1800, Last dose on Mon02/26/23 at 0600, YE
Re ason for Anti-Infec tive: Empiric Non-Surgic al Prophylaxi s
Durat ion of therapy: 5 days [facility] sennosides (SENOKOT) tablet 8.6 mg 02-15 14:00: 00 Yes 8.6mg 8.6 mg, Oral, DAILY, First dose on Mon02/15/23 at 0900, Until Discontinu ed, Routine [facility] polyethylen e glycol 3350 powder 17 g 02-15 14:00: 00 Yes 17g 17 g, Oral, DAILY, First dose on Mon02/15/23 at 0900, Until Discontinu ed, Routine [facility] pantoprazol e (PROTONIX) EC tablet 40 mg 02-15 01:00: 00 Yes 40mg 40 mg, Oral, BID, First dose (after last modificati on) on Mon02/14/23 at 2000, Until Discontinu ed, Routine [facility] iron sucrose (VENOFER) 500 mg in NaCl 0.9% (NS) 250 mL infusion 02-14 23:15: 00 02-15 07:23 :00 No 500mg 500 mg, IV Infusion, ONCE, Administer over 3.5 Hours, On Mon02/14/23 at 1815, For 1 dose [facility] ceFEPIme (MAXIPIME) 2,000 mg in NaCl 0.9% [...] Blood
D uration of therapy: 5 days [facility] NaCl 0.9% (NS) bolus infusion 500 mL 02-13 23:00: 00 02-14 12:00 :00 No 500mL at 999 mL/hr, 500 mL, IV Piggyback, ONCE, 1 dose, On Mon02/13/23 at 1800, STAT [facility] ceFEPIme (MAXIPIME) 2,000 mg in NaCl 0.9% (NS) 100 mL MINI-BAG 02-13 12:30: 00 02-13 13:56 :00 No 2000mg 2,000 mg, IV Piggyback, ONCE, 1 dose, On Mon02/13/23 at 0730, Administer over 30 Minutes, 100 mL
Reas on for Anti-Infec tive: Empiric Therapy for Suspected Infection< br>Empiric Therapy Site: Blood
D uration of therapy: 5 days [facility] vancomycin (VANCOCIN) 1,000 mg in NaCl 0.9% [...] Blood
D uration of therapy: 5 days [facility] acetaminoph en (TYLENOL) tablet 650 mg 02-13 05:03: 26 Yes 650mg 650 mg, Oral, Q6HPRN, Starting on Mon02/13/23 at 0003, Until Discontinu ed, Routine, Temp > 38 C [facility] NaCl 0.9% (NS) IV infusion 1,000 mL 02-12 17:30: 00 02-13 03:29 :00 No 1000mL at 125 mL/hr, IV Infusion, CONTINUOUS , Starting on Mon02/12/23 at 1230, Until Mon02/12/23 at 2229, Routine [facility] NaCl 0.9% (NS) bolus infusion 500 mL 02-12 16:30: 00 02-12 16:00 :00 No 500mL at 999 mL/hr, 500 mL, IV Piggyback, ONCE, 1 dose, On Mon02/12/23 at 1130, STAT [facility] NaCl 0.9% (NS) bolus infusion 500 mL 02-12 15:00: 00 02-12 15:00 :00 No 500mL at 999 mL/hr, 500 mL, IV Piggyback, ONCE, 1 dose, On Mon02/12/23 at 1000, STAT [facility] KCL (KLOR-CON M20) tablet 40 mEq 02-11 12:15: 00 02-11 14:05 :00 No 40meq 40 mEq, Oral, ONCE, 1 dose, On 02/11/23 at 0715, Routine [facility] digoxin (LANOXIN) tablet 125 mcg 02-10 14:00: 00 02-10 14:23 :47 No 125ug 125 mcg, Oral, DAILY, First dose on Mon02/10/23 at 0900, Until Discontinu ed, Routine [facility] metoprolol succinate XL (TOPROL XL) tablet 25 mg 02-10 01:00: 00 02-12 13:18 :50 No 25mg 25 mg, Oral, BID, First dose (after last modificati on) on Priti 02/09/23 at 2000, Until Discontinu ed, Routine [facility] digoxin (LANOXIN) injection 250 mcg 02-09 17:00: 00 02-09 17:58 :00 No 250ug 250 mcg, Intravenou s, ONCE, 1 dose, On Priti 02/09/23 at 1200, Routine [facility] NaCl 0.9% (NS) bolus infusion 500 mL 02-09 16:00: 00 02-09 21:07 :00 No 500mL at 999 mL/hr, 500 mL, IV Piggyback, ONCE, 1 dose, On Priti 02/09/23 at 1100, STAT [facility] adenosine (ADENOCARD) injection 12 mg 02-09 16:00: 00 02-09 15:15 :00 No 12mg 12 mg, IV Push, ONCE, 1 dose, On Priti 02/09/23 at 1100, Routine [facility] amiodarone 150 mg/100 mL (NEXTERONE) RTU infusion 150 mg 02-09 15:30: 00 02-09 15:30 :00 No 150mg 150 mg, IV Piggyback, ONCE, 1 dose, On Priti 02/09/23 at 1030, Administer over 10 Minutes, 100 mL [facility] adenosine (ADENOCARD) injection 6 mg 02-09 14:34: 00 02-09 15:00 :00 No 6mg 6 mg, IV Push, ONCE, 1 dose, On Priti 02/09/23 at 0945, Routine [facility] digoxin (LANOXIN) injection 250 mcg 02-09 11:45: 00 02-09 11:06 :00 No 250ug 250 mcg, Intravenou s, ONCE, 1 dose, On Priti 02/09/23 at 0645, Routine [facility] digoxin (LANOXIN) injection 500 mcg 02-09 08:15: 00 02-09 07:38 :00 No 500ug 500 mcg, Intravenou s, ONCE, 1 dose, On Priti 02/09/23 at 0315, Routine [facility] diltiazem (CARDIZEM IV) injection 10 mg 02-09 03:45: 00 02-09 03:28 :00 No 10mg 10 mg, Slow IV Push, ONCE, 1 dose, On Mon02/08/23 at 2245, Routine
[employer] team member approving Restricted medication : BHARAT SPIVEY [facility] diltiazem (CARDIZEM IV) injection 10 mg 02-09 03:16: 09 02-09 07:20 :54 No 10mg 10 mg, IV Push, Q2HPRN, Starting on Mon02/08/23 at 2216, Until Mon02/09/23 at 0220, Routine, Administer if HR > 130, do not administer if Systolic BP is lower than 100
Fac ulty member approving Restricted medication : BHARAT SPIVEY [facility] metoprolol succinate XL (TOPROL XL) tablet 25 mg 02-09 01:00: 00 02-09 16:48 :39 No 25mg 25 mg, Oral, BID, First dose (after last modificati on) on Mon02/08/23 at 2000, Until Discontinu ed, Routine [facility] metoprolol (LOPRESSOR) injection 5 mg 02-08 23:30: 00 02-08 23:36 :00 No 5mg 5 mg, Intravenou s, ONCE, 1 dose, On Mon02/08/23 at 1830, Routine [facility] diltiazem (CARDIZEM IV) injection 20 mg 02-08 23:28: 00 02-08 23:37 :00 No 20mg 20 mg, Slow IV Push, ONCE, 1 dose, On Mon02/08/23 at 1830, STAT
Fa culty member approving Restricted medication : BHARAT SPIVEY [facility] metoprolol (LOPRESSOR) injection 2.5 mg 02-08 22:39: 00 2023- 04-12 22:40 :00 No 2.5mg 2.5 mg, Intravenou s, ONCE, 1 dose, On Mon02/08/23 at 1745, STAT [facility] furosemide (LASIX) injection 40 mg 02-08 13:00: 00 02-09 12:12 :10 No 40mg 40 mg, Slow IV Push, Q12H, First dose on Mon02/08/23 at 0800, Until Discontinu ed, Routine [facility] metoprolol succinate XL (TOPROL XL) tablet 50 mg 02-08 01:00: 00 02-08 20:21 :01 No 50mg 50 mg, Oral, BID, First dose on Mon02/07/23 at 1999, Until Discontinu ed, Routine [facility] furosemide (LASIX) injection 40 mg 02-07 20:00: 00 02-07 23:04 :00 No 40mg 40 mg, Slow IV Push, ONCE, 1 dose, On Mon02/07/23 at 1500, Routine [facility] apixaban (ELIQUIS) tablet 5 mg 02-07 14:30: 00 02-14 14:46 :56 No 5mg 5 mg, Oral, BID, First dose on Mon02/07/23 at 0930, Until Discontinu ed, Routine
Indicatio ns: Non-Valvul ar Atrial Fibrillati on [facility] benzonatate (TESSALON PERLES) capsule 200 mg 02-07 04:49: 42 Yes 200mg 200 mg, Oral, Q8HPRN, Starting on Mon02/06/23 at 2349, Until Discontinu ed, Routine, Cough [facility] cefTRIAXone (ROCEPHIN) 1,000 mg in NaCl 0.9% [...] y
Durat ion of therapy: 72 hours [facility] metoprolol tartrate (LOPRESSOR) tablet 25 mg 02-06 19:00: 00 02-07 19:47 :02 No 25mg 25 mg, Oral, TID, First dose (after last modificati on) on Mon02/06/23 at 1400, Until Discontinu ed, Routine [facility] perflutren protein-A microsphr (OPTISON) injection 3 mL 02-06 17:00: 00 02-06 17:00 :00 No [id number] 3mL 3 mL, IV Push, ONCE, 1 dose, On Mon02/06/23 at 1200, Routine [facility] metoprolol tartrate (LOPRESSOR) tablet 12.5 mg 02-06 15:00: 00 02-06 16:36 :00 No 12.5mg 12.5 mg, Oral, ONCE NOW, 1 dose, On Mon02/06/23 at 1000, YE [facility] enoxaparin (LOVENOX) injection 70 mg 02-06 14:15: 00 02-07 14:23 :22 No 1mg/kg 70 mg (rounded from 66.2 mg = 1 mg/kg ?66.2 kg), Subcutaneo us, Q12H, First dose on Mon02/06/23 at 0915, Until Discontinu ed, Routine [facility] predniSONE (DELTASONE) tablet 40 mg 02-06 14:00: 00 02-07 14:45 :00 No 40mg 40 mg, Oral, DAILY, 2 doses, First dose (after last modificati on) on Mon02/06/23 at 0900, Last dose on Mon02/07/23 at 0900, Routine [facility] HEPARIN SODIUM (PORCINE) 1,000 UNIT/ML BOLUS ACS ORDER SET 02-06 12:30: 00 02-06 13:18 :00 No 60U/kg 3,972 Units (60 Units/kg ?66.2 kg), IV Push, ONCE, 1 dose, On Mon02/06/23 at 0730, YE [facility] 25,000 Units/250 mL (Premixed Bag) in [...] ADJUST INITIAL BOLUS OR INITIAL INFUSION RATE.
[facility] metoprolol (LOPRESSOR) injection 5 mg 02-05 21:15: 00 02-05 20:27 :00 No 5mg 5 mg, Intravenou s, ONCE, 1 dose, On 02/05/23 at 1615, STAT [facility] metoprolol tartrate (LOPRESSOR) tablet 12.5 mg 02-05 20:30: 00 02-06 14:08 :22 No 12.5mg 12.5 mg, Oral, BID, First dose (after last modificati on) on 02/05/23 at 1530, Until Discontinu ed, Routine [facility] metoprolol (LOPRESSOR) injection 5 mg 02-05 20:00: 00 02-05 19:58 :00 No 5mg 5 mg, Intravenou s, ONCE, 1 dose, On 02/05/23 at 1500, STAT [facility] NaCl 0.9% (NS) bolus infusion 500 mL 02-05 20:00: 00 02-05 20:06 :45 No 500mL at 100 mL/hr, 500 mL, IV Piggyback, ONCE, 1 dose, On 02/05/23 at 1500, STAT [facility] clopidogreL (PLAVIX) 75 mg tablet 75 mg 02-04 14:00: 00 02-16 16:57 :46 No 75mg 75 mg, Oral, DAILY, First dose on 02/04/23 at 0900, Until Discontinu ed, Routine [facility] pantoprazol e (PROTONIX) EC tablet 40 mg 02-04 14:00: 00 02-14 22:22 :02 No 40mg 40 mg, Oral, DAILY, First dose on Mon02/04/23 at 0900, Until Discontinu ed, Routine [facility] aspirin chewable tablet 81 mg 02-04 14:00: 00 02-06 12:21 :23 No 81mg 81 mg, Oral, DAILY, First dose on Mon02/04/23 at 0900, Until Discontinu ed, Routine [facility] pravastatin (PRAVACHOL) tablet 40 mg 02-04 02:00: 00 Yes 40mg 40 mg, Oral, QHS, First dose on Mon02/03/23 at 2100, Until Discontinu ed, Routine [facility] mirtazapine (REMERON) tablet 15 mg 02-04 02:00: 00 Yes 15mg 15 mg, Oral, QHS, First dose on Mon02/03/23 at 2100, Until Discontinu ed, Routine [facility] azithromyci n (ZITHROMAX) 500 mg [...] y
Durat ion of therapy: 72 hours [facility] cefTRIAXone (ROCEPHIN) 1,000 mg in NaCl 0.9% [...] y
Durat ion of therapy: 72 hours [facility] enoxaparin (LOVENOX) injection 40 mg 02-03 22:00: 00 02-06 12:21 :17 No 40mg 40 mg, Subcutaneo us, DAILY, First dose on Mon02/03/23 at 1700, Until Discontinu ed, [facility] leval[facility] (XOPENEX) nebulizer solution 0.31 mg 02-03 19:00: 00 Yes .31mg 0.31 mg, Inhalation , TID, First dose on Mon02/03/23 at 1400, Until Discontinu ed, Routine [facility] predniSONE (DELTASONE) tablet 40 mg 02-03 17:00: 00 02-06 12:17 :28 No 40mg 40 mg, Oral, DAILY, First dose (after last modificati on) on Mon02/03/23 at 1200, Until Discontinu ed, Routine [facility] clopidogrel (PLAVIX) 75 mg tablet 02-03 11:47: 41 Yes 75mg Take 75 mg by mouth daily. [facility] aspirin 81 mg chewable tablet 02-03 11:47: 41 Yes 81mg Take 81 mg by mouth daily. [facility] pravastatin 40 mg tablet 02-03 11:47: 41 Yes 40mg Take 1 tablet by mouth at bedtime. [facility] sotaloL 80 mg tablet 02-03 11:47: 41 Yes 80mg Take 1 tablet by mouth every 12 (twelve) hours. [facility] losartan 100 mg tablet 02-03 11:47: 41 Yes 100mg Take 1 tablet by mouth in the morning. [facility] furosemide (LASIX) 20 mg tablet 02-03 11:47: 41 Yes 20mg Take 1 tablet by mouth in the morning. [facility] amLODIPine 5 mg tablet 02-03 11:47: 41 Yes 5mg Take 1 tablet by mouth in the morning. [facility] pantoprazol e (PROTONIX) 40 mg EC tablet 02-03 11:47: 41 Yes 40mg Take 1 tablet by mouth in the morning. [facility] theophyllin e (GRISELDA-24) 400 mg 24 hr capsule 02-03 11:47: 41 Yes 400mg Take 1 capsule by mouth in the morning. [facility] predniSONE 20 mg tablet 02-01 00:00: 00 02-07 04:59 :00 No [id number] 40mg Take 2 tablets by mouth in the morning for 5 days. [facility] BUDESONIDE/ FORMOTEROL FUMARATE (BUDESONIDE -FORMOTEROL INHALE) 01-31 15:46: 26 01-31 00:00 :00 No Inhale. [facility] mirtazapine 15 mg tablet 01-31 00:00: 00 03-03 04:59 :00 No [id number] 15mg Take 1 tablet by mouth at bedtime for 30 days. [facility] benzonatate 100 mg capsule 01-31 00:00: 00 02-08 04:59 :00 No [id number] 100mg Take 1 capsule by mouth every 8 (eight) hours as needed for Cough for up to 7 days. [facility] guaiFENesin 400 mg tablet 01-31 00:00: 00 02-08 04:59 :00 No [id number] 400mg Take 1 tablet by mouth every 4 (four) hours for 7 days. [facility] amiodarone 200 mg tablet Take 1 tablet twice a day by oral route. amiodarone 200 mg tablet Take 1 tablet twice a day by oral route. No 1 BID amiodarone 200 mg tablet Take 1 tablet twice a day by oral route. [facility] aspirin 81 mg chewable tablet Chew 1 tablet every day by oral route. aspirin 81 mg chewable tablet Chew 1 tablet every day by oral route. No 1 Q1D aspirin 81 mg chewable tablet Chew 1 tablet every day by oral route. [facility] benzonatate 100 mg capsule Take 1 capsule 3 times a day by oral route. benzonatate 100 mg capsule Take 1 capsule 3 times a day by oral route. No 1capsul e(s) TID benzonatat e 100 mg capsule Take 1 capsule 3 times a day by oral route. [facility] Eliquis 5 mg tablet Take 1 tablet BID PO Eliquis 5 mg tablet Take 1 tablet BID PO No Eliquis 5 mg tablet Take 1 tablet BID PO [facility] melatonin 3 mg tablet Take 1 tablet every day by oral route at bedtime. melatonin 3 mg tablet Take 1 tablet every day by oral route at bedtime. No 1 Q1D melatonin 3 mg tablet Take 1 tablet every day by oral route at bedtime. [facility] mirtazapine 30 mg tablet Take 1 tablet every day by oral route. mirtazapine 30 mg tablet Take 1 tablet every day by oral route. No 1 Q1D mirtazapin e 30 mg tablet Take 1 tablet every day by oral route. [facility] omeprazole 20 mg capsule,del ayed release Take 1 capsule every day by oral route. omeprazole 20 mg capsule,del ayed release Take 1 capsule every day by oral route. No 1capsul e(s) Q1D omeprazole 20 mg capsule,de layed release Take 1 capsule every day by oral route. [facility] Stiolto Respimat 2.5 mcg-2.5 mcg/actuati on solution for inhalation Inhale 1 puff every day by inhalation route. Stiolto Respimat 2.5 mcg-2.5 mcg/actuati on solution for inhalation Inhale 1 puff every day by inhalation route. No 1puff(s ) Q1D Stiolto Respimat 2.5 mcg-2.5 mcg/actuat ion solution for inhalation Inhale 1 puff every day by inhalation route. [facility] amiodarone 200 mg tablet TAKE 1 TABLET BY MOUTH ONCE DAILY amiodarone 200 mg tablet TAKE 1 TABLET BY MOUTH ONCE DAILY No amiodarone 200 mg tablet TAKE 1 TABLET BY MOUTH ONCE DAILY [facility] aspirin 81 mg chewable tablet Chew 1 tablet every day by oral route. aspirin 81 mg chewable tablet Chew 1 tablet every day by oral route. No 1 Q1D aspirin 81 mg chewable tablet Chew 1 tablet every day by oral route. [facility] benzonatate 100 mg capsule Take 1 capsule 3 times a day by oral route. benzonatate 100 mg capsule Take 1 capsule 3 times a day by oral route. No 1capsul e(s) TID benzonatat e 100 mg capsule Take 1 capsule 3 times a day by oral route. [facility] Eliquis 5 mg tablet TAKE 1 TABLET BY MOUTH TWICE DAILY FOR 30 DAYS Eliquis 5 mg tablet TAKE 1 TABLET BY MOUTH TWICE DAILY FOR 30 DAYS No Eliquis 5 mg tablet TAKE 1 TABLET BY MOUTH TWICE DAILY FOR 30 DAYS [facility] melatonin 3 mg tablet Take 1 tablet every day by oral route at bedtime. melatonin 3 mg tablet Take 1 tablet every day by oral route at bedtime. No 1 Q1D melatonin 3 mg tablet Take 1 tablet every day by oral route at bedtime. [facility] mirtazapine 30 mg tablet Take 1 tablet every day by oral route. mirtazapine 30 mg tablet Take 1 tablet every day by oral route. No 1 Q1D mirtazapin e 30 mg tablet Take 1 tablet every day by oral route. [facility] nitrofurant oin macrocrysta l 100 mg capsule Take 1 capsule every 6 hours by oral route for 5 days. nitrofurant oin macrocrysta l 100 mg capsule Take 1 capsule every 6 hours by oral route for 5 days. No 1capsul e(s) Q6H nitrofuran toin macrocryst al 100 mg capsule Take 1 capsule every 6 hours by oral route for 5 days. [facility] omeprazole 20 mg capsule,del ayed release Take 1 capsule every day by oral route. omeprazole 20 mg capsule,del ayed release Take 1 capsule every day by oral route. No 1capsul e(s) Q1D omeprazole 20 mg capsule,de layed release Take 1 capsule every day by oral route. [facility] Stiolto Respimat 2.5 mcg-2.5 mcg/actuati on solution for inhalation Inhale 1 puff every day by inhalation route. Stiolto Respimat 2.5 mcg-2.5 mcg/actuati on solution for inhalation Inhale 1 puff every day by inhalation route. No 1puff(s ) Q1D Stiolto Respimat 2.5 mcg-2.5 mcg/actuat ion solution for inhalation Inhale 1 puff every day by inhalation route. [facility] Vital Signs Vital Name Observation Time Observation Value Comments S ource BP Diastolic 2023-05-25 00:00:00 84 mm[Hg] [facility] Height 2023-05-25 00:00:00 66 [in_i] [facility] BMI (Body Mass Index) 2023-05-25 00:00:00 22 kg/m2 [facility] BP Systolic 2023-05-25 00:00:00 140 mm[Hg] [facility] Body Weight 2023-05-25 00:00:00 2176 [oz_av] [facility] BP Diastolic 2023-04-13 00:00:00 72 mm[Hg] [facility] Height 2023-04-13 00:00:00 66 [in_i] [facility] BMI (Body Mass Index) 2023-04-13 00:00:00 21.5 kg/m2 [facility] BP Systolic 2023-04-13 00:00:00 116 mm[Hg] [facility] Body Weight 2023-04-13 00:00:00 2128 [oz_av] [facility] Heart rate 2023-02-17 18:26:00 66 /min [facility] Respiratory rate 2023-02-17 18:26:00 18 /min [facility] Systolic blood pressure 2023-02-17 17:30:00 134 mm[Hg] [facility] Diastolic blood pressure 2023-02-17 17:30:00 44 mm[Hg] [facility] Oxygen saturation in Arterial blood by Pulse oximetry 2023-02-17 17:30:00 98 /min [facility] Body temperature 2023-02-17 17:02:00 36.28 Natalie [facility] Body weight 2023-02-04 19:00:00 66.2 kg [facility] BMI 2023-02-04 19:00:00 23.56 kg/m2 [facility] Body height 2023-02-03 22:52:00 167.6 cm [facility] Systolic blood pressure 2023-02-10 16:35:00 159 mm[Hg] [facility] Diastolic blood pressure 2023-02-10 16:35:00 69 mm[Hg] [facility] Heart rate 2023-02-10 16:35:00 86 /min [facility] Body temperature 2023-02-10 16:35:00 36.22 Natalie [facility] Respiratory rate 2023-02-10 16:35:00 17 /min [facility] Oxygen saturation in Arterial blood by Pulse oximetry 2023-02-10 16:35:00 94 /min [facility] Systolic blood pressure 2023-02-08 16:22:00 139 mm[Hg] [facility] Diastolic blood pressure 2023-02-08 16:22:00 64 mm[Hg] [facility] Heart rate 2023-02-08 16:22:00 66 /min [facility] Body temperature 2023-02-08 16:22:00 37.28 Natalie [facility] Respiratory rate 2023-02-08 16:22:00 18 /min [facility] Oxygen saturation in Arterial blood by Pulse oximetry 2023-02-08 16:22:00 91 /min [facility] Body weight 2023-02-04 19:00:00 66.2 kg [facility] BMI 2023-02-04 19:00:00 23.56 kg/m2 [facility] Body height 2023-02-03 22:52:00 167.6 cm [facility] Procedures Procedure Date / Time Performed Performing Clinician Source EXTERNAL PROVIDER RECORDS 2023-02-27 05:01:00 Do ctor Unassigned, [place] [facility] COVID-19 (ID NOW RAPID TESTING) 2023-02-17 15:11:00 Aniket [facility] BASIC METABOLIC PANEL (NA, K, CL, CO2, GLUCOSE, BUN, CREATININE, CA) 2023-02-17 10:42:00 Aniket [facility] CBC WITHOUT DIFF 2023-02-17 10:42:00 Aniket [facility] BASIC METABOLIC PANEL (NA, K, CL, CO2, GLUCOSE, BUN, CREATININE, CA) 2023-02-16 11:04:00 Aniket [facility] CBC WITHOUT DIFF 2023-02-16 11:04:00 Aniket [facility] PROTHROMBIN TIME / INR 2023-02-16 11:04:00 Aniket [facility] LEGIONELLA AND STREPTOCOCCUS PNEUMONIAE URINARY ANTIGENS 2023-02-15 16:48:00 Sumaya Elizabeth [facility] BASIC METABOLIC PANEL (NA, K, CL, CO2, GLUCOSE, BUN, CREATININE, CA) 2023-02-15 10:46:00 Aniket [facility] CBC WITHOUT DIFF 2023-02-15 10:46:00 Aniket [facility] PROCALCITONIN 2023-02-15 10:46:00 Darya Elizabeth [facility] CBC WITHOUT DIFF 2023-02-14 15:09:00 Aniket [facility] PROTHROMBIN TIME / INR 2023-02-14 15:09:00 Aniket [facility] HEPATIC FUNCTION PANEL (06107) (ALB,T.PRO,BILI T,BU/BC,ALT,AST,ALK PHOS) 2023-02-14 07:33:00 Sophia Washburn [facility] BASIC METABOLIC PANEL (NA, K, CL, CO2, GLUCOSE, BUN, CREATININE, CA) 2023-02-14 07:33:00 Aniket [facility] CBC WITHOUT DIFF 2023-02-14 07:33:00 Aniket [facility] PROTHROMBIN TIME / INR 2023-02-14 07:33:00 Cher Washburn [facility] URINALYSIS 2023-02-13 22:10:00 Sophia Washburn [facility] URINE CULTURE 2023-02-13 22:10:00 Sophia Washburn [facility] DIFF CONSULT BY PATHOLOGIST 2023-02-13 21:15:00 Riki Marcial [facility] CBC WITH DIFF 2023-02-13 21:15:00 Riki Marcial [facility] RETICULOCYTES AUTOMATED 2023-02-13 21:15:00 Pat Marcial [facility] DIFF CONSULT INTERPRETATION 2023-02-13 21:15:00 Riki Marcial [facility] LACTATE DEHYDROGENASE 2023-02-13 21:14:00 Aniket Lyn [facility] FERRITIN SERUM 2023-02-13 21:14:00 Aniket Lyn [facility] VITAMIN B12, LEVEL 2023-02-13 21:14:00 Riki Marcial [facility] FOLATE 2023-02-13 21:14:00 Aniket Lyn [facility] HAPTOGLOBIN, SERUM 2023-02-13 21:14:00 Riki Marcial [facility] HEPATIC FUNCTION PANEL ([id number]) (ALB,T.PRO,BILI T,BU/BC,ALT,AST,ALK PHOS) 2023-02-13 21:14:00 Riki Marcial [facility] IRON PANEL 2023-02-13 21:14:00 Riki Marcial [facility] PROTHROMBIN TIME / INR 2023-02-13 21:14:00 Sylvain Marcial [facility] ACTIVATED PARTIAL THRMPLAS GORGE 2023-02-13 21:14:00 Aniket Lyn [facility] HB DIRECT ANTIGLOBULIN (POLY SPEC 2023-02-13 21:14:00 Riki Marcial [facility] CBC WITHOUT DIFF 2023-02-13 18:53:00 Aniket [facility] CBC WITHOUT DIFF 2023-02-13 11:23:00 Aniket [facility] MAGNESIUM 2023-02-13 09:09:00 Wu [facility] BASIC METABOLIC PANEL (NA, K, CL, CO2, GLUCOSE, BUN, CREATININE, CA) 2023-02-13 09:09:00 Wu [facility] CBC WITH DIFF 2023-02-13 09:09:00 Wu [facility] XR CHEST 1 VW 2023-02-12 18:21:00 Wu [facility] AC PANEL 20 + LACTIC ACID 2023-02-12 16:02:00 Monik Washburn [facility] BLOOD CULTURE SCREEN 2023-02-12 15:59:00 [facility] POCT GLUCOSE (AUTOMATED) 2023-02-12 15:54:00 Eddie Johnston [facility] BASIC METABOLIC PANEL (NA, K, CL, CO2, GLUCOSE, BUN, CREATININE, CA) 2023-02-12 09:47:00 Aniket [facility] CBC WITHOUT DIFF 2023-02-12 09:47:00 Aniket [facility] OSMOLALITY URINE 2023-02-11 19:47:00 Aniket [facility] CREATININE, URINE RANDOM 2023-02-11 19:47:00 Aniket [facility] UREA NITROGEN, URINE RANDOM 2023-02-11 19:47:00 Aniket [facility] SODIUM, URINE RANDOM 2023-02-11 19:47:00 Aniket [facility] BASIC METABOLIC PANEL (NA, K, CL, CO2, GLUCOSE, BUN, CREATININE, CA) 2023-02-11 09:56:00 Aniket [facility] CBC WITHOUT DIFF 2023-02-11 09:56:00 Aniket [facility] XR CHEST 1 VW 2023-02-10 15:46:00 Aniket Lyn [facility] CBC WITHOUT DIFF 2023-02-10 10:49:00 Aniket [facility] BASIC METABOLIC PANEL (NA, K, CL, CO2, GLUCOSE, BUN, CREATININE, CA) 2023-02-10 10:49:00 Aniket [facility] MAGNESIUM 2023-02-10 10:49:00 Aniket [facility] MAGNESIUM 2023-02-10 10:49:00 Aniket [facility] BASIC METABOLIC PANEL (NA, K, CL, CO2, GLUCOSE, BUN, CREATININE, CA) 2023-02-10 10:49:00 Aniket [facility] CBC WITHOUT DIFF 2023-02-10 10:49:00 Aniket [facility] HB ECG ROUTINE & RHYTHM STRIP 2023-02-09 15:46:41 Aniket [facility] HB ECG ROUTINE & RHYTHM STRIP 2023-02-09 13:15:51 Wu [facility] CBC WITHOUT DIFF 2023-02-09 10:45:00 Aniket [facility] BASIC METABOLIC PANEL (NA, K, CL, CO2, GLUCOSE, BUN, CREATININE, CA) 2023-02-09 10:45:00 Aniket [facility] BASIC METABOLIC PANEL (NA, K, CL, CO2, GLUCOSE, BUN, CREATININE, CA) 2023-02-09 10:45:00 Aniket [facility] CBC WITHOUT DIFF 2023-02-09 10:45:00 Aniket [facility] HB ECG ROUTINE & RHYTHM STRIP 2023-02-09 02:43:31 Hu Juliano [facility] HB ECG ROUTINE & RHYTHM STRIP 2023-02-08 23:21:27 Juliano Lui Juan [facility] EKG-12 LEAD 2023-02-08 22:33:02 Eddie Johnston [facility] EKG-12 LEAD 2023-02-07 13:53:10 Candy Gonzalez [facility] EKG-12 LEAD 2023-02-07 12:38:34 Candy Gonzalez [facility] CBC WITH DIFF 2023-02-07 11:30:00 Wu [facility] BASIC METABOLIC PANEL (NA, K, CL, CO2, GLUCOSE, BUN, CREATININE, CA) 2023-02-07 11:30:00 Wu [facility] MAGNESIUM 2023-02-07 11:30:00 Wu [facility] MAGNESIUM 2023-02-07 11:30:00 Wu [facility] BASIC METABOLIC PANEL (NA, K, CL, CO2, GLUCOSE, BUN, CREATININE, CA) 2023-02-07 11:30:00 Wu [facility] CBC WITH DIFF 2023-02-07 11:30:00 Wu [facility] ACTIVATED PARTIAL THRMPLAS GORGE 2023-02-07 11:29:00 Wu [facility] ACTIVATED PARTIAL THRMPLAS GORGE 2023-02-07 [facility]:29[facility]-06 22:38:00 Wu [facility] ACTIVATED PARTIAL THRMPLAS GORGE 2023-02-06 22:38:00 Washburn, [facility] PROTHROMBIN TIME / INR 2023-02-06 22:38:00 Wu [facility] ACTIVATED PARTIAL THRMPLAS GORGE 2023-02-06 [facility]:38[facility]TTE[facility] COMPLETE W/ CONTRAST 2023-02-06 16:46:13 [facility] TRANSTHORACIC ECHO (TTE) COMPLETE W/ CONTRAST 2023-02-06 16:46:13 Terell [facility] HB ECG ROUTINE & RHYTHM STRIP 2023-02-06 14:31:12 Wu [facility] HB ECG ROUTINE & RHYTHM STRIP 2023-02-06 14:31:12 Wu [facility] CBC WITHOUT DIFF 2023-02-06 10:05:00 Riki Marcial [facility] BASIC METABOLIC PANEL (NA, K, CL, CO2, GLUCOSE, BUN, CREATININE, CA) 2023-02-06 10:05:00 Aniket [facility] BASIC METABOLIC PANEL (NA, K, CL, CO2, GLUCOSE, BUN, CREATININE, CA) 2023-02-06 10:05:00 Aniket [facility] CBC WITHOUT DIFF 2023-02-06 10:05:00 Aniket [facility] EKG-12 LEAD 2023-02-05 18:47:11 Eddie Johnston [facility] EKG-12 LEAD 2023-02-05 18:47:11 Eddie Johnston [facility] CBC WITHOUT DIFF 2023-02-05 10:01:00 Aniket [facility] BASIC METABOLIC PANEL (NA, K, CL, CO2, GLUCOSE, BUN, CREATININE, CA) 2023-02-05 10:01:00 Aniket [facility] BASIC METABOLIC PANEL (NA, K, CL, CO2, GLUCOSE, BUN, CREATININE, CA) 2023-02-05 10:01:00 Aniket [facility] CBC WITHOUT DIFF 2023-02-05 10:01:00 Aniket [facility] CBC WITH DIFF 2023-02-04 10:20:00 Wu [facility] BASIC METABOLIC PANEL (NA, K, CL, CO2, GLUCOSE, BUN, CREATININE, CA) 2023-02-04 10:20:00 Wu [facility] MAGNESIUM 2023-02-04 10:20:00 Wu [facility] MAGNESIUM 2023-02-04 10:20:00 Washburn [facility] BASIC METABOLIC PANEL (NA, K, CL, CO2, GLUCOSE, BUN, CREATININE, CA) 2023-02-04 10:20:00 Wu [facility] CBC WITH DIFF 2023-02-04 10:20:00 Wu [facility] XR CHEST 1 VW 2023-02-03 18:37:00 [facility]ST 1 VW 2023-02-03 18:37:00 Terell [facility] HEPATIC FUNCTION PANEL ([id number]) (ALB,T.PRO,BILI T,BU/BC,ALT,AST,ALK PHOS) 2023-02-03 16:55:00 [facility] BASIC METABOLIC PANEL (NA, K, CL, CO2, GLUCOSE, BUN, CREATININE, CA) 2023-02-03 16:55:00 [facility] CBC WITH DIFF 2023-02-03 16:55:00 [facility] PROTHROMBIN TIME / INR 2023-02-03 16:55:00 SaliSindy [facility] N-TERMINAL PRO-BNP 2023-02-03 16:55:00 [facility] MRSA / MSSA SCREEN BY PCR, NARES 2023-02-03 16:55:00 [facility], [facility] MRSA / MSSA SCREEN BY PCR, [facility] 2023-02-03 16:55:00 [facility] CBC WITH DIFF 2023-02-03 16:55:00 [facility] BASIC METABOLIC PANEL (NA, K, CL, CO2, GLUCOSE, BUN, CREATININE, CA) 2023-02-03 16:55:00 [facility] HEPATIC FUNCTION PANEL ([id number]) (ALB,T.PRO,BILI T,BU/BC,ALT,AST,ALK PHOS) 2023-02-03 16:55:00 [facility] PROTHROMBIN TIME / INR 2023-02-03 16:55:00 [facility] N-TERMINAL PRO-BNP 2023-02-03 16:55:00 [facility] SPUTUM CULTURE 2023-01-31 21:19:00 Alexander Lui [facility] PROCALCITONIN 2023-01-31 18:13:00 René Steele [facility] CBC WITH DIFF 2023-01-31 06:43:00 Alexander Lui [facility] BASIC METABOLIC PANEL (NA, K, CL, CO2, GLUCOSE, BUN, CREATININE, CA) 2023-01-31 06:43:00 Juliano Lui [facility] N-TERMINAL PRO-BNP 2023-01-31 06:43:00 Juliano Lui [facility] MAGNESIUM 2023-01-31 06:43:00 Alexander Lui [facility] PNEUMOCOCCAL ANTIGEN 2023-01-31 05:52:00 Juliano Cisse [facility] GALV ONLY - INFLUENZA A B RSV PCR 2023-01-31 05:52:00 Juliano Lui [facility] XR CHEST 1 VW 2023-01-31 04:12:00 Alexander Lui [facility] HOSPITAL ADMISSION 2023-01-30 05:01:00 Doctor Un assigned, [place] [facility] Surgical Procedure on Eye Proper Using Laser [facility] Appendectomy [facility] Total Hysterectomy [facility] Plan of Care Planned Activity Planned Date Details Comments Source Diagnostic Test Pending 2023-05-25 00:00:00 urinalysis, dipstick [code = urinalysis, dipstick] [facility] Diagnostic Test Pending 2023-05-25 00:00:00 urinalysis, reflex culture [code = urinalysis, reflex culture] [facility] Future Scheduled Test Improved h earing in left ear, reduced urinary symtpoms. [code = Improved hearing in left ear, reduced urinary symtpoms.] [facility] Instructions [facility] Encounters Start Date/Time End Date/Time Encounter Type Admission Type Attending Clinicians Care Facility Care Department Encounter ID Source 2023-08-31 00:00:00 2023-08-31 00:00:00 Outpatient BRADEN_F [facility] [id number] [facility] 2023-07-01 00:00:00 2023-07-01 00:00:00 Outpatient BRADEN_F [facility] [id number] 2023-06-08 00:00:00 2023-06-08 00:00:00 Outpatient BRADEN[facility]F [id number] 2023-05-25 00:00:00 2023-05-25 00:00:00 Outpatient BRADEN[facility]F [facility] 2023-05-25 00:00:00 2023-05-25 00:00:00 MAXIMO Campos-C: [address], [place] [address] , Ph. [phone] [facility], [place]. [place] [id number] [facility] 2023-04-13 00:00:00 2023-04-13 00:00:00 Outpatient BRADEN_F [id number] 2023-04-13 00:00:00 2023-04-13 00:00:00 Colin Mc, DO: [address] [place] [address] , Ph. [phone] [facility] [address] [place] [id number] [facility] 2023-04-06 00:00:00 2023-04-06 00:00:00 Outpatient BRADEN_F [id number] 2023-03-28 09:30:00 2023-03-28 09:30:00 Outpatient LAB39 ROSITA SIMMONS [id number] Rosita Santiago 2023-03-28 08:50:00 2023-03-28 08:50:00 Outpatient WILIAN Guerra [id number] Rosita Santiago 2023-03-28 08:30:00 2023-03-28 08:30:00 Outpatient KAYLEY MEDINA [id number] [facility] 2023-02-27 00:00:00 2023-02-27 00:00:00 Orders Only Doctor Unassigned, [place] [facility] [id number] [facility] 2023-02-20 00:00:00 2023-02-20 00:00:00 Outpatient KHOI GIORDANO [id number] Rosita Santiago 2023-02-20 00:00:00 2023-02-20 00:00:00 Transition of Care Yamil Camidarya [facility] 1.2.840.114 [id number] [id number] [id number] [facility] 2023-02-03 11:00:00 2023-02-17 17:24:00 Inpatient U BRYAN BACH [facility] [id number] [facility] 2023-02-03 11:00:00 2023-02-17 17:24:00 Hospital Encounter Paul Salas, [facility] 1.2.840.114 [id number] 4.2.7.2.686 [id number] [facility] 2023-02-09 10:37:00 2023-02-09 10:58:00 Anesthesia Event Bryan Velez Lesley C 1.2.840.1 [id number] [id number] [facility] 2023-02-07 10:44:44 2023-02-07 10:44:44 Anesthesia Event Artis Nunez 1.2.840.1 [id number] [id number] [facility] 2023-02-01 00:00:00 2023-02-01 00:00:00 Outpatient BECCA BACA ROSITA ROSITA [id number] Rosita Santiago 2023-02-01 00:00:00 2023-02-01 00:00:00 Transition of Care Nery Monge 1.2.840.1 [id number] [id number] [facility] 2023-01-30 22:18:00 2023-01-31 18:23:00 Inpatient U EDDIE JOHNSTON [facility] [id number] [facility] 2023-01-30 22:18:00 2023-01-31 18:23:00 Hospital Encounter Kyle, EddieRigo Eganza 1.2.840.1 [id number] [id number] [facility] Results Test Description Test Time Test Comments Results Result Co mments Source [facility] WITHOUT [id number] 11:32:07* Test Item Value Reference Range Interpretation [...] result as normal/abnormal. MPV (test code = 95796-0) 13.6 fL 9.5-12.9 H RDW-CV (test code = 788-0) 15.9 % 12.0-15.5 H RDW-SD (test code = 98360-6) 54.3 fL 39.0-49.9 H NRBC x10^3 (test code = 8368080813) See_Comment [[facility]] The system which generated this result transmitted reference range: 10*3/?L. The reference range was not used to interpret this result as normal/abnormal. NRBC/100 WBC (test code = 6675023896) 0.0 See_Comment [Automated [employer]] The system which generated this result transmitted reference range: 0.0 - 10.0 /100 WBCs. The reference range was not used to interpret this result as normal/abnormal. IPF % (test code = 7254792004) 13.5 % 1.3-7.7 H Platelet count measured by fluorescence method. Lab Interpretation (test code = 09650-8) Abnormal [facility] METABOLIC PANEL (NA, K, CL, CO2, GLUCOSE, BUN, CREATININE, CA)2023-02-16 12:03:36* Test Item Value Reference Range Interpretation Comme nts NA (test code = 5886008846) 146 mmol/L 135-145 H K (test code = 4865565828) 3.5 mmol/L 3.5-5.0 CL (test code = 4568837225) 116 mmol/L 98-108 H CO2 TOTAL (test code = 4147567425) 23 mmol/L 23-31 AGAP (test code = 4755335958) 7 2-16 BUN (test code = 5458795832) 12 mg/dL 7-23 GLUCOSE (test code = 8820646468) 113 mg/dL 70-110 H CREATININE (test code = 3253528165) 1.19 mg/dL 0.50-1.04 H CALCIUM (test code = 1785795705) 8.0 mg/dL 8.6-10.6 L eGFR (test code = 1434439710) 43.9 mL/min/1.73m2 JOANIE (test code = JOANIE) [...] imaging tests). Lab Interpretation (test code = 96253-3) Abnormal [facility] WITHOUT [id number] 11:58:32* Test Item Value Reference Range Interpretation Comme nts WBC (test code = 6690-2) 7.14 See_Comment [Automated [facility]] The system which generated this result transmitted [...] result as normal/abnormal. MPV (test code = 75648-8) 13.4 fL 9.5-12.9 H RDW-CV (test code = 788-0) 16.0 % 12.0-15.5 H RDW-SD (test code = 65511-6) 53.3 fL 39.0-49.9 H NRBC x10^3 (test code = 6098844817) See_Comment [[facility]] The system which generated this result transmitted reference range: 10*3/?L. The reference range was not used to interpret this result as normal/abnormal. NRBC/100 WBC (test code = 8717472468) 0.0 See_Comment [[facility]] The system which generated this result transmitted reference range: 0.0 - 10.0 /100 WBCs. The reference range was not used to interpret this result as normal/abnormal. IPF % (test code = 3021735494) 15.5 % 1.3-7.7 H Platelet count measured by fluorescence method. Lab Interpretation (test code = 00203-2) [facility]normal [facility] / [id number] 11:22:49* Test Item Value Reference Range Interpretation Comme nts PROTIME PATIENT (test code = 5964-2) 20.6 See_Comment H [[facility]ated [facility]] The system which generated this result transmitted reference range: 10.1 - 12.6 Seconds. The reference range was not used to interpret this result as normal/abnormal. INR (test code = 6301-6) 1.8 Normal INR <1.1; Warfarin Therapeutic range 2.0 to 3.0 or 2.5 to 3.5, depending upon the indications. Lab Interpretation (test code = 18400-9) Abnormal [facility] 16:57:05* Test Item Value Reference Range Interpretation Comme nts Procalcitonin (test code = 4636908201) 0.06 ng/mL <=0.07 JOANIE (test code = [...] lung abscess/empyema. For further information please refer to:[email or web address] Lab Interpretation (test code = 87411-9) [facility] (NA, K, CL, CO2, GLUCOSE, BUN, CREATININE, CA)2023-02-15 12:06:57* Test Item Value Reference Range Interpretation Comme nts NA (test code = 7464085267) 146 mmol/L 135-145 H K (test code = 4605884131) 3.6 mmol/L 3.5-5.0 Slight hemolysis CL (test code = 3255307940) 117 mmol/L 98-108 H CO2 TOTAL (test code = 6974894585) 24 mmol/L 23-31 AGAP (test code = 1812881639) 5 2-16 BUN (test code = 9485261478) 14 mg/dL 7-23 Slight hemolysis GLUCOSE (test code = 4861813559) 108 mg/dL 70-110 CREATININE (test code = 9780671313) 1.07 mg/dL 0.50-1.04 H CALCIUM (test code = 1355196587) 7.5 mg/dL 8.6-10.6 L eGFR (test code = 3096046149) 49.6 mL/min/1.73m2 JOANIE (test code = OJANIE) Association of Glomerular Filtration Rate (GFR) and [...] imaging tests). Lab Interpretation (test code = 65867-9) Abnormal [facility] WITHOUT [id number] 11:06:36* Test Item Value Reference Range Interpretation Comme nts WBC (test code = 6690-2) 7.26 See_Comment [[facility]] The system which generated this result transmitted [...] result as normal/abnormal. MPV (test code = 27114-8) 13.6 fL 9.5-12.9 H RDW-CV (test code = 788-0) 15.6 % 12.0-15.5 H RDW-SD (test code = 83848-5) 50.9 fL 39.0-49.9 H NRBC x10^3 (test code = 0364775640) See_Comment [Automated messa ge] The system which generated this result transmitted reference range: 10*3/?L. The reference range was not used to interpret this result as normal/abnormal. NRBC/100 WBC (test code = 1410987020) 0.0 See_Comment [facility] The system which generated this result transmitted reference range: 0.0 - 10.0 /100 WBCs. The reference range was not used to interpret this result as normal/abnormal. IPF % (test code = 7581917439) 12.6 % 1.3-7.7 H Platelet count measured by fluorescence method. Lab Interpretation (test code = 62471-9) [facility] [id number] 21:45:23 WHITE BLOOD CELLS: MILD ABSOLUTE LYMPHOCYTOPENIA. RED BLOOD CELLS: NORMOCYTIC NORMOCHROMIC ANEMIA. PLATELETS: MILD THROMBOCYTOPENIA.FEW PLATELET AGGREGATES/CLUMPS SEEN, THE REPORTED PLATELET COUNT MAY BE LOWER THAN THE ACTUAL PLATELET COUNT.[facility] HospitalHAPTOGLOBIN, [id number] 15:32:31* Test Item Value Reference Range Interpretation Comme nts HAPTOGLOB (test code = 2629676249) 328 mg/dL 16-200 H Lab Interpretation (test cod e = 61011-1) [facility]normal [facility] HospitalFOLATE2023-04-17 23:44:26* Test Item Value Reference Range Interpretation Comme nts FOLATE SER (test code = 9138394167) 3.0-20.0 H Lab Interpretation (test cod e = 86979-4) [facility]normal [facility] HospitalVITAMIN B12, [id number] 23:42:14* Test Item Value Reference Range Interpretation Comme nts VIT B12 (test code = 3766891515) 433 pg/mL 240-930 JOANIE (test code = JOANIE) Biotin has been reported to cause a positive bias, interpret results relative to patient's use of biotin. Lab Interpretation (test code = 04415-7) Normal [facility] HospitalFERRITIN [id number] 23:10:49* Test Item Value Reference Range Interpretation Comme nts FERRITIN (test code = 5504850756) 933.0 ng/mL 11.0-264.0 H JOANIE (test code = JOANIE) Biotin has been reported to cause a negative bias, interpret results relative to patient's use of biotin. Lab Interpretation (test code = 46802-3) Abnormal [facility] HospitalIRON [id number] 22:34:01* Test Item Value Reference Range Interpretation Comme nts IRON (test code = 4659696519) 21 ug/dL 50-160 L TIBC (test code = 3038606278) 193 ug/dL 250-410 L % FE SAT (test code = 7477330219) 11 % 20-50 L Lab Interpretation (test cod e = 75994-3) [facility]normal [facility] HospitalHEPAT[facility] FUNCTION PANEL (02607) (ALB,T.PRO,BILI T,BU/BC,ALT,AST,ALK PHOS)2023-02-13 22:24:43* Test Item Value Reference Range Interpretation Comme nts TOTAL BILI (test code = 8006575398) 0.7 mg/dL 0.1-1.1 BILI UNCON (test code = 4016637299) 0.2 mg/dL 0.1-1.1 BILI CONJ (test code = 6053456954) 0.0 mg/dL 0.0-0.3 T PROTEIN (test code = 6367356217) 5.5 g/dL 6.3-8.2 L ALBUMIN (test code = 2516832887) 2.7 g/dL 3.5-5.0 L ALK PHOS (test code = 5105512760) 40 U/L 34-122 Slight hemolysis ALTv (test code = 1742-6) 16 U/L 5-35 AST(SGOT) (test code = 5489611791) 33 U/L 13-40 Slight hemolysis Lab Interpretation (test code = 83251-6) [facility]normal [facility] HospitalLACTATE [id number] 21:35:10* Test Item Value Reference Range Interpretation Comme nts LDH (test code = 3726546627) 235 U/L 120-246 Slight hemolysis Lab Interpretation (test cod e = 03748-1) Normal [facility] HospitalProthrombin Time / [id number] 21:34:49* Test Item Value Reference Range Interpretation [...] the indications. Lab Interpretation (test code = 07563-6) [facility]normal [facility] HospitalaPTT2023-04-17 21:34:49* Test Item Value Reference Range Interpretation Comme nts APTT Patient (test code = 3173-2) 35 See_Comment [Automated messa ge] The system which generated this result transmitted reference range: 26 - 36 Seconds. The reference range was not used to interpret this result as normal/abnormal. Lab Interpretation (test code = 95180-8) Normal [facility] HospitalRETICULOCYTES [id number] 21:30:50* Test Item Value Reference Range Interpretation Comme [facility] RETIC Count Automated (test code = 9499941451) 1.60 % 0.51-1.90 RETIC Absolute Count (test code = 3676232827) 0.0462 See_Comment [[employer] message] The system which generated this result transmitted reference range: 0.0230 - 0.0950 10*6/?L. The reference range was not used to interpret this result as normal/abnormal. IRF % (test code = 4105403043) 10.90 % 2.10-12.60 RETIC-HE (test code = 8692063363) 26.2 pg 28.1-35.8 L Lab Interpretation (test code = 35928-1) Abnormal [facility] WITH [id number] 21:30:50* Test Item Value Reference Range Interpretation [...] 31.8 g/dL 31.6-35.1 RDW-SD (test code = 99098-4) 51.1 fL 39.0-49.9 H RDW-CV (test code = 788-0) 15.3 % 12.0-15.5 PLT (test code = 777-3) 132 See_Comment L [Automated messa ge] The system which generated this result transmitted reference range: 166 - 358 10*3/?L. The reference range was not used to interpret this result as normal/abnormal. MPV (test code = 92038-8) 13.4 fL 9.5-12.9 H IPF % (test code = 0755649116) 12.3 % 1.3-7.7 H Platelet count measured by fluorescence method. NRBC/100 WBC (test code = 8291694608) 0.0 See_Comment [Automated DG[facility] ssage] The system which generated this result transmitted reference range: 0.0 - 10.0 /100 WBCs. The reference range was not used to interpret this result as normal/abnormal. NRBC x10^3 (test code = 6369101857) See_Comment [Automated messa ge] The system which generated this result transmitted reference range: 10*3/?L. The reference range was not used to interpret this result as normal/abnormal. GRAN MAT (NEUT) % (test code = 770-8) 73.5 % IMM GRAN % (test code = 6744795513) 0.50 % LYMPH % (test code = 736-9) 15.1 % MONO % (test code = 5905-5) 8.0 % EOS % (test code = 713-8) 2.7 % BASO % (test code = 706-2) 0.2 % GRAN MAT x10^3(ANC) (test code = 9762975603) 5.94 10*3/uL 1.88-7.09 IMM GRAN x10^3 (test code = 6459302278) 0.04 10*3/uL 0.00-0.06 LYMPH x10^3 (test code = 731-0) 1.22 10*3/uL 1.32-3.29 L MONO x10^3 (test code = 742-7) 0.65 10*3/uL 0.33-0.92 EOS x10^3 (test code = 711-2) 0.22 10*3/uL 0.03-0.39 BASO x10^3 (test code = 704-7) 0.01-0.07 Lab Interpretation (test code = 39565-8) [facility]normal [facility] HospitalDAT [id number] 21:29:00* Test Item Value Reference Range Interpretation Comme nts NILAM POLY (test code = 1610) Negative [facility] HospitalCBC WITHOUT [id number] 19:04:37* Test Item Value Reference Range Interpretation [...] result as normal/abnormal. MPV (test code = 69329-1) 12.8 fL 9.5-12.9 RDW-CV (test code = 788-0) 15.5 % 12.0-15.5 RDW-SD (test code = 33996-2) 51.7 fL 39.0-49.9 H NRBC x10^3 (test code = 9409424822) See_Comment [Automated messa ge] The system which generated this result transmitted reference range: 10*3/?L. The reference range was not used to interpret this result as normal/abnormal. NRBC/100 WBC (test code = 2438490256) 0.0 See_Comment [Automated messa ge] The system which generated this result transmitted reference range: 0.0 - 10.0 /100 WBCs. The reference range was not used to interpret this result as normal/abnormal. IPF % (test code = 9455834856) Lab Interpretation (test code = 31431-5) Abnormal [facility] WITHOUT [id number] 11:44:08* Test Item Value Reference Range Interpretation [...] result as normal/abnormal. MPV (test code = 42535-2) 13.0 fL 9.5-12.9 H RDW-CV (test code = 788-0) 15.3 % 12.0-15.5 RDW-SD (test code = 45474-2) 50.3 fL 39.0-49.9 H NRBC x10^3 (test code = 6575996299) See_Comment [Automated messa ge] The system which generated this result transmitted reference range: 10*3/?L. The reference range was not used to interpret this result as normal/abnormal. NRBC/100 WBC (test code = 0746863886) 0.0 See_Comment [Automated messa ge] The system which generated this result transmitted reference range: 0.0 - 10.0 /100 WBCs. The reference range was not used to interpret this result as normal/abnormal. IPF % (test code = 1582316109) Lab Interpretation (test code = 84827-2) [facility] 09:44:37* Test Item Value Reference Range Interpretation Comme nts MAGNESIUM (test code = 2998793086) 2.2 mg/dL 1.7-2.4 Lab Interpretation (test cod e = 58923-1) Normal [facility] METABOLIC PANEL (NA, K, CL, CO2, GLUCOSE, BUN, CREATININE, CA)2023-02-13 09:44:37* Test Item Value Reference Range Interpretation Comme nts NA (test code = 2336395027) 142 mmol/L 135-145 K (test code = 8034374498) 3.7 mmol/L 3.5-5.0 CL (test code = 5775967567) 112 mmol/L 98-108 H CO2 TOTAL (test code = 3602773747) 25 mmol/L 23-31 AGAP (test code = 4398860094) 5 2-16 BUN (test code = 9289553655) 28 mg/dL 7-23 H GLUCOSE (test code = 6927637153) 96 mg/dL 70-110 CREATININE (test code = 9301247665) 1.20 mg/dL 0.50-1.04 H CALCIUM (test code = 4594145991) 7.3 mg/dL 8.6-10.6 L eGFR (test code = 8946601498) 43.4 mL/min/1.73m2 JOANIE (test code = JOANIE) [...] imaging tests). Lab Interpretation (test code = 15335-3) Abnormal [facility] WITH [id number] 09:18:37* Test Item Value Reference Range Interpretation Comme nts WBC (test code = 6690-2) 8.77 See_Comment [facility] The system which generated this result transmitted reference range: 4.30 - 11.10 10*3/?L. The reference range was not used to interpret this result as normal/abnormal. RBC (test code = 789-8) 2.81 See_Comment L [[facility]] The system which generated this result [...] 31.9 g/dL 31.6-35.1 RDW-SD (test code = 63601-9) 50.4 fL 39.0-49.9 H RDW-CV (test code = 788-0) 15.2 % 12.0-15.5 PLT (test code = 777-3) 126 See_Comment L [[facility]] The system which generated this result transmitted reference range: 166 - 358 10*3/?L. The reference range was not used to interpret this result as normal/abnormal. MPV (test code = 61142-2) 13.0 fL 9.5-12.9 H NRBC/100 WBC (test code = 3763850357) 0.0 See_Comment [Automated me ssage] The system which generated this result transmitted reference range: 0.0 - 10.0 /100 WBCs. The reference range was not used to interpret this result as normal/abnormal. NRBC x10^3 (test code = 1208131898) See_Comment [Automated messa ge] The system which generated this result transmitted reference range: 10*3/?L. The reference range was not used to interpret this result as normal/abnormal. GRAN MAT (NEUT) % (test code = 770-8) 72.0 % IMM GRAN % (test code = 9828351078) 0.20 % LYMPH % (test code = 736-9) 18.0 % MONO % (test code = 5905-5) 8.0 % EOS % (test code = 713-8) 1.6 % BASO % (test code = 706-2) 0.2 % GRAN MAT x10^3(ANC) (test code = 2961757922) 6.31 10*3/uL 1.88-7.09 IMM GRAN x10^3 (test code = 5022417774) 0.00-0.06 LYMPH x10^3 (test code = 731-0) 1.58 10*3/uL 1.32-3.29 MONO x10^3 (test code = 742-7) 0.70 10*3/uL 0.33-0.92 EOS x10^3 (test code = 711-2) 0.14 10*3/uL 0.03-0.39 BASO x10^3 (test code = 704-7) 0.01-0.07 Lab Interpretation (test code = 36548-6) [facility] + Lactic [id number] 16:06:21* Test Item Value Reference Range Interpretation Comme nts PH (test code = 2) 7.46 7.35-7.45 H PCO2 (test code = 7110427766) 39 See_Comment [Automated messa ge] The system which generated this result transmitted reference range: 35 - 45 mmHg. The reference range was not used to interpret this result as normal/abnormal. PO2 (test code = 3211538826) 77 See_Comment L [Automated messa ge] The system which generated this result transmitted reference range: 80 - 100 mmHg. The reference range was not used to interpret this result as normal/abnormal. HCO3 (test code = 6574875357) 27 See_Comment H [Automated messa [employer]] The system which generated this result transmitted reference range: 22 - 26 mEq/L. The reference range was not used to interpret this result as normal/abnormal. BE (test code = 0941587064) 3.0 See_Comment [Automated messa [employer]] The system which generated this result transmitted reference range: -3.0 - 3.0 mEq/L. The reference range was not used to interpret this result as normal/abnormal. THB (test code = 7248883940) 10.3 g/dL 12.0-16.0 L %O2HB (test code = 9438004402) 95.5 % 94.0-99.0 %COHB ART (test code = 0280806295) 0.5 % 0.0-1.5 %METHB ART (test code = 5720061360) 0.3 % 0.4-1.5 L VOL%O2 ART (test code = 1521199343) 13.9 % 15.0-23.0 L NA (test code = 6850689723) 140 mmol/L 135-145 K+ (test code = 6700275894) 4.0 mmol/L 3.5-5.0 AC CA IONZ (test code = 5473224798) 4.40 mg/dL 4.50-5.30 L GLUCOSE (test code = 8828973020) 91 mg/dL 70-110 LACTIC ACID (test code = 4478940004) 1.07 mmol/L 0.50-2.20 Lab Interpretation (test code = 38614-6) Abnormal [facility] GLUCOSE (AUTOMATED)2023-02-12 15:56:25* Test Item Value Reference Range Interpretation Comme nts POCT GLU (test code = 0180886186) 101 mg/dL 70-110 Notified Provide r Lab Interpretation (test code = 50292-5) Normal [facility] METABOLIC PANEL (NA, K, CL, CO2, GLUCOSE, BUN, CREATININE, CA)2023-02-09 11:57:12* Test Item Value Reference Range Interpretation Comme nts NA (test code = 4161107571) 140 mmol/L 135-145 K (test code = 9344180573) 3.6 mmol/L 3.5-5.0 CL (test code = 1554709636) 99 mmol/L 98-108 CO2 TOTAL (test code = 8009387373) 32 mmol/L 23-31 H AGAP (test code = 4349515961) 9 2-16 BUN (test code = 7286274221) 40 mg/dL 7-23 H GLUCOSE (test code = 6460353236) 110 mg/dL 70-110 CREATININE (test code = 6007323939) 1.35 mg/dL 0.50-1.04 H CALCIUM (test code = 3739510968) 8.4 mg/dL 8.6-10.6 L eGFR (test code = 8750177351) 37.9 mL/min/1.73m2 JOANIE (test code = JOANIE) [...] imaging tests). Lab Interpretation (test code = 54002-7) Abnormal [facility] WITHOUT [id number] 11:54:35* Test Item Value Reference Range Interpretation [...] result as normal/abnormal. MPV (test code = 28199-2) 12.5 fL 9.5-12.9 RDW-CV (test code = 788-0) 14.8 % 12.0-15.5 RDW-SD (test code = 45573-5) 47.8 fL 39.0-49.9 NRBC x10^3 (test code = 5056632458) See_Comment [Automated messa ge] The system which generated this result transmitted reference range: 10*3/?L. The reference range was not used to interpret this result as normal/abnormal. NRBC/100 WBC (test code = 4145374907) 0.0 See_Comment [Automated messa ge] The system which generated this result transmitted reference range: 0.0 - 10.0 /100 WBCs. The reference range was not used to interpret this result as normal/abnormal. IPF % (test code = 2509611109) Lab Interpretation (test code = 66859-3) [facility]normal [facility] ([facility]E)2023-02-06 20:52:53* Test Item Value Reference Range Interpretation Comme nts Height (test code = 0250200920) 66 in Weight (test code = 2325165408) 146 lbs Systolic BP (test code = 5342601318) 119 mmHg Diastolic BP (test code = 1326958174) 59 mmHg Heart Rate (test code = 5614220825) 120 bpm BSA (test code = 4982397352) 1.75 m2 LVOT diameter (test code = 5482478151) 1.85 cm LVOT area (test code = 7488304703) 2.70 cm2 LVIDD (test code = 0750776554) 3.90 cm Left Ventricular End Diastolic Volume by Teichholz Method (test code = 7064981) 65.7 mL IVS (test code = 5020494804) 1.00 cm Interventricular Septum Diastolic Thickness by 2D (test code = 6105171) 1.00 cm LVPWD (test code = 4022196905) 0.91 cm PW (test code = 4320075473) 0.91 cm 0.6-1.1 EF(Teich) (test code = 3191918184) 57.00 % LVIDS (test code = 7428926837) 2.70 cm Left Ventricular End Systolic Volume by Teichholz Method (test code = 5123803) 28.3 mL FS (test code = 8087458009) 29 % EF - 2D (test code = 32032431) 57.00 % Ao root diam (test code = 9394205867) 2.70 cm Aortic root (test code = 9491739394) 2.7 cm Ao root annulus (test code = 1738129779) 2.7 cm LA size (test code = 2860864088) 3.7 cm LVOT stroke volume (test code = 1663013461) 38.90 cm3 LVOT peak nitish (test code = 5307441535) 94.3 cm/s LVOT mn grad (test code = 8002385670) 1.8 mmHg AV LVOT peak gradient (test code = 6965295906) 3.6 mmHg LVOT peak VTI (test code = 8977710018) 14.4 cm LV V1 mean (test code = 1691468436) 63.10 cm/s Ao peak nitish (test code = 3714955959) 104.1 cm/s AV area peak nitish (test code = 6288594379) 2.4 cm2 Ao max PG (test code = 2920641095) 4.30 mm[Hg] AV peak gradient (test code = 2210817600) 4.3 mmHg Tapse (test code = 8839720851) 1.56 cm LAV(MOD-sp4) (test code = 8161558782) 65.20 mL LA Volume Index (BP) (test code = 4694490844) 39.2 mL/m2 LA volume (BP) (test code = 0961790377) 68.7 mL LAV(MOD-sp2) (test code = 7084555396) 66.00 mL IVC Diam Ins(MM) (test code = 7535752349) 1.80 cm IVC Diam Exp(MM) (test code = 1886278707) 2.48 cm TR Peak Nitish (test code = 2751110564) 265.4 cm/s Triscuspid Valve Regurgitation Peak Gradient (test code = 6427864770) 28.2 mmHg Radiology Study observation (narrative) (test code = 53920-6) JOANIE (test code = JOANIE) ?Left?Ventricle: Left [...] enhancing agent used. Patient exhibited atrial fibrillation. [facility] [id number] 03:36:22* Test Item Value Reference Range Interpretation Comme [facility] SPUTUM CULTURE (test code = 622-1) Specimen cellular elements do not represent lower respiratory tract. Specimen rejected for routine bacterial culture. Suggest reorder and recollection. Gram stain (test code = 664-3) Numerous Epithelial cells present [facility] [id number] 03:36:22* Test Item Value Reference Range Interpretation Comme [facility] SPUTUM CULTURE (test code = 622-1) Specimen cellular elements do not represent lower respiratory tract. Specimen rejected for routine bacterial culture. Suggest reorder and recollection. Gram stain (test code = 664-3) Numerous Epithelial cells present [facility]"
[2025-02-28] MEDS ORDERED: SCOPOLAMINE HYDROBROMIDE PATCH TD PRN (23:06)
[2025-02-28] MEDS ORDERED: ACETAMINOPHEN 650MG/RECT SUPP PR PRN (23:07)
[2025-02-28] MEDS ORDERED: BISACODYL 10 MG RECTAL SUPP PR PRN (23:09)
[2025-03-01] MEDS: MORPHINE 2 MG/ML SYR IV PRN (01:55)
[2025-03-01 03:19] VITALS: BMI 25.7
[2025-03-01] MEDS: HALOPERIDOL LACT 5 MG/ML INJ IV PRN (17:57)
[2025-03-05 11:26] VITALS: O2SAT 88
[2025-03-07 09:38] VITALS: BP 125/52; TEMP 97.4
== END 2025-03-07 18:43 | disposition home or self-care (01) | DRG 951 ==
LOC: 2ND 19:20
PROVIDERS: ADMIT Emergency Medicine; ATTEND Emergency Medicine
DX: Z51.5 Encounter for palliative care (principal)
CPT/HCPCS: 36569; 82947; J1630; J2270